=== PATIENT | female | born 1945 | race African-American/Black ===

== ENCOUNTER 2016-12-26 21:31 | Inpatient (IN) | payer OTHER ==
--- NOTE | 2016-12-26 21:53 | PDOC ---
History of Present Illness - General History Source: Patient, Family Exam Limitations: No Limitations - History of Present Illness Initial Comments: 12/26/16 22:00 The patient is a 71 year old female with a significant past medical history of hypertension, and diabetes, presenting to the Emergency Department with left sided facial droop. The patient was seen on arrival. The patient reports that she was speaking at a meeting when some of the guests noticed that her face and speech were not normal, and somewhat slurred. The patients family reports that the left sided facial droop started about one hour ago. The patients family denies loss of consciousness or change in mental status, though they admit that her speech is still somewhat irregular. The patient reports that she has not been feeling well for a few days and saw her PCP on Friday. The patient denies headache, or dizziness. Patient denies numbness or tingling. Patient denies nausea, vomiting, and diarrhea. Patient denies fever, cough, and chills. PCP: Dr. Golden <Patricia Britt - Last Filed: 12/26/16 22:00> <Veena Rondon - Last Filed: 12/26/16 22:51> <Sasha Olguin - Last Filed: 12/26/16 22:54> - General Chief Complaint: Blood Pressure Problem Stated Complaint: BLOOD PRESSURE PROBLEM Time Seen by Provider: 12/26/16 21:53 NIH Stroke Scale - Last Known Well Date/Time & Onset Date Last Known Well: 12/26/16 Time Last Known Well: 20:45 - Initial Evaluation Level of consciousness: Alert Ask patient the month and their age: Answers both correctly Ask patient to open & close eyes; make fist and let go: Obeys both correctly Best gaze (horizontal eye movement): Normal Visual field testing: No visual field loss Facial paresis (Show teeth/raise eyebrows/close eyes tight): Minor paralysis ( flattened nasolabial fold, asymmetry on smiling) Motor Function: Left Arm: Drift Motor Function: Right Arm: Normal (extends arm 90 (or 45) degrees for 10 seconds without drift Motor Function: Left Leg: Normal (extends leg 30 degrees for 5 seconds without drift) Motor Function: Right Leg: Normal (extends leg 30 degrees for 5 seconds without drift) Limb Ataxia: No ataxia Sensory(Use pinprick test arms,legs,trunk,face/side to side): Normal Best language (Describe picture, name items, read sentences): No Aphasia Dysarthria (read several words): Mild to moderate slurring of words Extinction and Inattention: No abnormality - Total Score NIH Stroke Scale Score: 3 <Sasha Olguin - Last Filed: 12/26/16 22:54> tPA Exclusion Checklist 0-3hr - Time Elapsed Date last known well: 12/26/16 Time last known well: 20:45 Elaspsed time: Day(s) and 2 Hour(s) and 9 Minutes - Relative Exclusion Criteria 0-3h Stroke severity too mild: Yes - Ineligibility reason(s) Reasons No tPA given: See reason(s) noted above <Sasha Olguin - Last Filed: 12/26/16 22:54> Past History <Patricia Britt - Last Filed: 12/26/16 22:00> <Veena Rondon - Last Filed: 12/26/16 22:51> - Past Medical History Cardiac Disorders: Yes Diabetes: Yes HTN: Yes Hypercholesterolemia: Yes - Psycho/Social/Smoking Cessation Hx Anxiety: No Suicidal Ideation: No Smoking Status: Yes Smoking History: Never smoked Years of Tobacco Use: 25 Have you smoked in the past 12 months: No Number of Cigarettes Smoked Daily: 0 Information on smoking cessation initiated: No Hx Alcohol Use: No Drug/Substance Use Hx: No Substance Use Type: None <Sasha Olguin - Last Filed: 12/26/16 22:54> - Past Medical History Allergies/Adverse Reactions: Allergies Allergy/AdvReac Type Severity Reaction Status Date / Time No Known Allergies Allergy Verified 12/26/16 21:50 Home Medications: Ambulatory Orders Amlodipine Besylate [Norvasc] 10 mg PO DAILY 04/12/12 Aspirin [ASA] 81 mg PO DAILY 04/12/12 Clonidine HCl 0.1 mg PO BID 04/12/12 Valsartan/Hydrochlorothiazide [Diovan Hct 80-12.5 mg Tablet] 1 combo PO DAILY Glimepiride [Amaryl] 2 mg PO DAILY 07/08/15 Review of Systems - Review of Systems Able to Perform ROS?: Yes Comments:: 12/26/16 22:00 GENERAL/CONSTITUTIONAL: + irregular speech. No fever or chills. HEAD, EYES, EARS, NOSE AND THROAT: + left sided facial droop. No change in vision. No ear GASTROINTESTINAL: No nausea, vomiting, diarrhea or constipation. GENITOURINARY: No dysuria, frequency, or change in urination.pain or discharge. No sore throat. CARDIOVASCULAR: No chest pain or shortness of breath. RESPIRATORY: No cough, wheezing, or hemoptysis. MUSCULOSKELETAL: No joint or muscle swelling or pain. No neck or back pain. SKIN: No rash NEUROLOGIC: No headache, vertigo, loss of consciousness, or change in sensation. ENDOCRINE: No increased thirst. No abnormal weight change. HEMATOLOGIC/LYMPHATIC: No anemia, easy bleeding, or history of blood clots. ALLERGIC/IMMUNOLOGIC: No hives or skin allergy. <Patricia Britt - Last Filed: 12/26/16 22:00> *Physical Exam - Vital Signs Last Vital Signs Temp Pulse Resp BP Pulse Ox 98.3 F 88 20 153/86 97 12/26/16 21:45 12/26/16 21:45 12/26/16 21:45 12/26/16 21:45 12/26/16 21:45 <Patricia Britt - Last Filed: 12/26/16 22:00> - Vital Signs Last Vital Signs Temp Pulse Resp BP Pulse Ox 98.3 F 88 20 153/86 97 12/26/16 21:45 12/26/16 21:45 12/26/16 21:45 12/26/16 21:45 12/26/16 21:45 <Veena Rondon - Last Filed: 12/26/16 22:51> - Vital Signs Last Vital Signs Temp Pulse Resp BP Pulse Ox 98.3 F 88 20 153/86 97 12/26/16 21:45 12/26/16 21:45 12/26/16 21:45 12/26/16 21:45 12/26/16 21:45 - Physical Exam Comments: GENERAL: Awake, alert, and fully oriented, in no acute distress HEAD: No signs of trauma. L sided facial droop to lower face. EYES: PERRLA, EOMI, sclera anicteric, conjunctiva clear ENT: Auricles normal inspection, hearing grossly normal, nares patent, oropharynx clear without exudates. Moist mucosa NECK: Normal ROM, supple, no lymphadenopathy, JVD, or masses LUNGS: Breath sounds equal, clear to auscultation bilaterally. No wheezes, and no crackles HEART: Regular rate and rhythm, normal S1 and S2, no murmurs, rubs or gallops ABDOMEN: Soft, nontender, normoactive bowel sounds. No guarding, no rebound. No masses EXTREMITIES: Normal range of motion, no edema. No clubbing or cyanosis. No cords, erythema, or tenderness NEUROLOGICAL: Normal gait. See NIHSS for details. SKIN: Warm, Dry, normal turgor, no rashes or lesions noted. <Sasha Olguin - Last Filed: 12/26/16 22:54> ED Treatment Course - LABORATORY CBC & Chemistry Diagram: 12/26/16 22:00 12/26/16 22:00 - ADDITIONAL ORDERS Additional order review: Laboratory Results 12/26/16 12/26/16 22:00 22:00 INR Cancelled Anti-A Titer Cancelled Blood Type Cancelled Antibody Screen Cancelled Spec Expiration Date Cancelled 12/26/16 22:00 RBC 4.57 MCV 90.4 MCHC 32.1 RDW 17.1 H MPV 8.8 Neutrophils % 66.2 Lymphocytes % 23.0 Monocytes % 8.3 Eosinophils % 1.7 Basophils % 0.8 D <Veena Rondon - Last Filed: 12/26/16 22:51> - LABORATORY CBC & Chemistry Diagram: 12/26/16 22:00 12/26/16 22:00 <Sasha Olguin - Last Filed: 12/26/16 22:54> Medical Decision Making - Medical Decision Making 12/26/16 22:[address] Roderick Chicas (via ) at 22:24 and patient's case was discussed. 12/26/16 22:[address] Jeremy Hadley who is covering for Dr. Ravi Valentine who is covering for Dr. Tony Golden (via answering service) at 22:47. Awaiting call back 12/26/16 22:51 Patient's case discussed with Dr. Hadley at 22:51 <Veena Rondon - Last Filed: 12/26/16 22:51> - Medical Decision Making 12/26/16 22:31 Case d/w Dr. Chicas, astronomy instructor for neuro. NIHSS is 3. Will not give tPA as stroke scale is mild, risk outweighs benefit. Recommended a full dose of aspirin. Discussed with patient and family at bedside. Patient already took 81mg this morning, I will give the remaining 243 mg in the ED. <Sasha Olguin - Last Filed: 12/26/16 22:54> *DC/Admit/Observation/Transfer - Attestations Scribe Attestion: 12/26/16 22:01 Documentation prepared by Patricia Britt, acting as senior medical director for Sasha Olguin MD. <Patricia Britt - Last Filed: 12/26/16 22:00> <Veena Rondon - Last Filed: 12/26/16 22:51> - Discharge Dispostion Admit: Yes <Sasha Olguin - Last Filed: 12/26/16 22:54> Diagnosis at time of Disposition: CVA (cerebral vascular accident) Qualifiers: CVA mechanism: unspecified Qualified Code(s): I63.9 - Cerebral infarction, unspecified - Discharge Dispostion Condition at time of disposition: Stable - Referrals Referrals: Tony Golden MD [Primary Care Provider] -
[2016-12-26] MEDS ORDERED: SODIUM CHLORIDE 1,000 ML IV SCH (22:00)
[2016-12-26 22:04] LABS: BASOPHIL 0.8 % (0-2.0); EOSINOPHIL 1.7 % (0-4.5); MCHC 32.1 g/dl (32.0-36.0); MEAN CELL VOLUME 90.4 fl (80-96); MEAN PLT VOLUME 8.8 fl (7.5-11.1); NEUTROPHILS 66.2 % (42.8-82.8); PLATELET COUNT 210 K/MM3 (134-434); RDW 17.1 % (11.6-15.6); WHITE BLOOD COUNT 9.3 K/mm3 (4.0-10.0)
[2016-12-26 22:27] LABS: ALBUMIN 3.5 g/dl (3.4-5.0); BILIRUBIN,TOTAL 0.5 mg/dL (0.2-1.0); CALCIUM 8.8 mg/dL (8.5-10.1); COCKROFT - GAULT 68.9945; CREATININE 1.3 mg/dL (0.55-1.02); TOT PROT 7.1 g/dl (6.4-8.2)
[2016-12-26 22:28] LABS: TROPONIN I 0.03 ng/ml (0.00-0.05)
[2016-12-26 22:43] LABS: INR 0.98 (0.82-1.09); PROTHROMBIN TIME (PATIENT) 10.8 SEC (9.98-11.88)
[2016-12-26 22:46] LABS: ACTIVATED PTT 22.6 SECONDS (26.9-34.4)
[2016-12-26] MEDS ORDERED: ASPIRIN 81 MG CHEWABLE TABLETS PO ONE (22:48)
[2016-12-26] MEDS ORDERED: ASPIRIN 81 MG CHEWABLE TABLETS ONE (23:16)
[2016-12-26] MEDS ORDERED: ACETAMINOPHEN 325 MG TABLET (FP) PO PRN (23:33)
[2016-12-27 04:07] LABS: URINE APPEARANCE CLEAR; URINE BILIRUBIN NEGATIVE (NEGATIVE); URINE BLOOD NEGATIVE (NEGATIVE); URINE COLOR STRAW; URINE GLUCOSE (UA) NEGATIVE (NEGATIVE); URINE KETONE NEGATIVE (NEGATIVE); URINE LEUK ESTERASE NEGATIVE (NEGATIVE); URINE NITRITE NEGATIVE (NEGATIVE); URINE PROTEIN NEGATIVE (NEGATIVE); URINE UROBILINOGEN NEGATIVE E.U./dl (0.2-1.0)
[2016-12-27 05:17] VITALS: BMI 41.5
[2016-12-27] MEDS: INSULIN SLIDING SCALE (NOVOLOG) 1 VIAL SQ SCH ×4 (06:21→21:12)
[2016-12-27 07:07] LABS: BASOPHIL 0.5 % (0-2.0); EOSINOPHIL 1.8 % (0-4.5); MCH 29.9 pg (25.7-33.7); MCHC 33.2 g/dl (32.0-36.0); MEAN CELL VOLUME 89.9 fl (80-96); MEAN PLT VOLUME 9.1 fl (7.5-11.1); NEUTROPHILS 67.5 % (42.8-82.8); PLATELET COUNT 190 K/MM3 (134-434); RDW 16.9 % (11.6-15.6); WHITE BLOOD COUNT 8.2 K/mm3 (4.0-10.0)
[2016-12-27 07:33] LABS: ALBUMIN 3.3 g/dl (3.4-5.0); CALCIUM 8.4 mg/dL (8.5-10.1); MAGNESIUM 2.4 mg/dL (1.8-2.4)
[2016-12-27 07:36] LABS: BILIRUBIN,TOTAL 0.6 mg/dL (0.2-1.0); COCKROFT - GAULT 86.513; CREATININE 1.1 mg/dL (0.55-1.02); TOT PROT 6.9 g/dl (6.4-8.2); TROPONIN I 0.03 ng/ml (0.00-0.05)
[2016-12-27] MEDS: GLIMEPIRIDE 2 MG TABLET (FP) PO SCH (08:51)
--- NOTE | 2016-12-27 09:17 | EKG ---
Test Reason : Blood Pressure : / mmHG Vent. Rate : 080 BPM Atrial Rate : 080 BPM P-R Int : 156 ms QRS Dur : 094 ms QT Int : 438 ms P-R-T Axes : 052 039 086 degrees QTc Int : 505 ms NORMAL SINUS RHYTHM PROLONGED QT ABNORMAL ECG WHEN COMPARED WITH ECG OF 12-APR-2012 15:39, NO SIGNIFICANT CHANGE WAS FOUND Confirmed by MIRTA MILLS MD ([id number]) on 12/27/2016 9:17:02 AM Referred By: Confirmed By:MIRTA MILLS MD
[2016-12-27] MEDS: METOPROLOL TARTRATE 25 MG TABLET (FP) PO SCH (11:22)
[2016-12-27] MEDS: HEPARIN NA (PORCINE) 5,000 UNITS/ML 1ML VIAL SQ SCH ×2 (11:22→21:15)
[2016-12-27] MEDS: CLOPIDOGREL BISULFATE 75 MG TABLET (FP) PO SCH (11:22)
[2016-12-27] MEDS: amLODIPine BESYLATE 10 MG TABLET (FP) PO SCH (11:22)
[2016-12-27] MEDS: cloNIDine HCL 0.1 MG TABLET PO SCH ×3 (11:22→21:48)
[2016-12-27] MEDS: ASPIRIN 81 MG CHEWABLE TABLETS PO SCH (11:22)
--- NOTE | 2016-12-27 11:30 | HP ---
Admitting History and Physical - Primary Care Physician PCP: Jeremy Hadley - Admission Chief Complaint: Slurred speech, facial droop History of Present Illness: The patient is a 71 year old female with PMH of htn, Hyperlipidemia? and diabetes, presented to the ER with left sided facial droop. The patient reports that she was speaking at a meeting when some of the guests noticed that her face and speech were not normal, and somewhat slurred. The patient denies any loss of consciousness or change in mental status, though they admit that her speech is still somewhat irregular. The patient reports that she had been feeling fatigued for past few days. She saw Dr. Golden her PCP on Friday for a regular visit. PCP: Dr. Golden History Source: Patient Limitations to Obtaining History: No Limitations - Past Medical History Cardiovascular: Yes: HTN ...: No Endocrine: Yes: Diabetes Mellitus - Past Surgical History Past Surgical History: Yes: Tubal Ligation - Smoking History Smoking history: Former smoker Have you smoked in the past 12 months: No Aproximately how many cigarettes per day: 6 If you are a former smoker, when did you quit?: 1967 - Alcohol/Substance Use Hx Alcohol Use: No - Social History Usual Living Arrangement: Yes: Alone ADL: Independent History of Recent Travel: No Home Medications - Allergies Allergies/Adverse Reactions: Allergies Allergy/AdvReac Type Severity Reaction Status Date / Time No Known Allergies Allergy Verified 12/26/16 21:50 - Home Medications Home Medications: Ambulatory Orders Amlodipine Besylate [Norvasc -] 10 mg PO DAILY 12/27/16 Aspirin [ASA -] 81 mg PO DAILY 12/27/16 Clonidine HCl 0.2 mg PO 12/27/16 Glimepiride [Amaryl] 4 mg PO 12/27/16 Simvastatin [Zocor] 10 mg PO HS 12/27/16 Valsartan [Diovan] 160 mg PO DAILY 12/27/16 Family Disease History - Family Disease History Family Disease History: Diabetes: Mother (HTN), Sister (2 sisters), Heart Disease: Grandparent (MGM-HTN), Mother, Brother (2 BROTHERS-HTN) Review of Systems - Review of Systems Constitutional: reports: No Symptoms, Malaise HENT: reports: No Symptoms Neck: reports: No Symptoms Cardiovascular: reports: Shortness of Breath Respiratory: reports: SOB on Exertion Gastrointestinal: reports: No Symptoms Genitourinary: reports: No Symptoms Breasts: reports: No Symptoms Reported Musculoskeletal: reports: No Symptoms Neurological: reports: No Symptoms Endocrine: reports: No Symptoms Hematology/Lymphatic: reports: No Symptoms Psychiatric: reports: No Symptoms Physical Examination Vital Signs: Vital Signs Temperature 98.1 F 12/27/16 06:00 Pulse Rate 81 12/27/16 06:00 Respiratory Rate 20 12/27/16 06:00 Blood Pressure 137/89 12/27/16 06:00 O2 Sat by Pulse Oximetry (%) 95 12/27/16 03:33 Constitutional: Yes: Well Nourished Cardiovascular: Yes: Regular Rate and Rhythm, Murmur (Grade I LSB), S1, S2 Respiratory: Yes: WNL, Regular Gastrointestinal: Yes: WNL, Normal Bowel Sounds Extremities: Yes: WNL Edema: No Peripheral Pulses WNL: No Peripheral Pulses: Left Doralis Pedis: 1+, Right Dorsalis Pedis: 1+ Integumentary: Yes: WNL Psychiatric: Yes: Alert, Oriented Labs: CBC, BMP 12/27/16 06:00 12/27/16 06:00 Imaging - Results Cat Scan: Report Reviewed MRI: Pending Problem List - Problems (1) CVA (cerebral vascular accident) Assessment/Plan: CT head negative, Neuro consult, ordered MRI Code(s): I63.9 - CEREBRAL INFARCTION, UNSPECIFIED Qualifiers: CVA mechanism: unspecified Qualified Code(s): I63.9 - Cerebral infarction, unspecified (2) Diabetes 1.5, managed as type 2 Assessment/Plan: At goal with HgA1C of 6.2% Code(s): E10.9 - TYPE 1 DIABETES MELLITUS WITHOUT COMPLICATIONS (3) HTN (hypertension) Assessment/Plan: Borderline Code(s): I10 - ESSENTIAL (PRIMARY) HYPERTENSION Assessment/Plan IV hydration Neuro Consult Cardiology consult Carotid U/S negative Echo pending MRI
--- NOTE | 2016-12-27 12:32 | CONSULT ---
Consult - text type - Consultation Consultation Note: Neurology History of Present Illness The patient is a 71 year old female with a significant past medical history of hypertension, and diabetes, presented to the Emergency Department with left sided facial droop. The patient was seen on arrival. The patient reports that she was speaking at a meeting when some of the guests noticed that her face and speech were not normal, and somewhat slurred. Her difficulties improved in the ER and NIHSS was 3 and therefore TPA not pursued. Patient to be admitted for CVA workup. She takes daily ASA 81 and was given 242 mg more. PCP started patient on plavix as well, will continue for now. Ordered MRI brain. Spoke to [employer] for PCP and discussed case. Past History Cardiac Disorders: Yes Diabetes: Yes HTN: Yes Hypercholesterolemia: Yes - Psycho/Social/Smoking Cessation Hx Anxiety: No Suicidal Ideation: No Smoking Status: Yes Smoking History: Never smoked Years of Tobacco Use: 25 Have you smoked in the past 12 months: No Number of Cigarettes Smoked Daily: 0 Information on smoking cessation initiated: No Hx Alcohol Use: No Drug/Substance Use Hx: No Substance Use Type: None - Past Medical History Allergies/Adverse Reactions: Allergies Allergy/AdvReac Type Severity Reaction Status Date / Time No Known Allergies Allergy Verified 12/26/16 21:50 Home Medications: Ambulatory Orders Amlodipine Besylate [Norvasc] 10 mg PO DAILY 04/12/12 Aspirin [ASA] 81 mg PO DAILY 04/12/12 Clonidine HCl 0.1 mg PO BID 04/12/12 Valsartan/Hydrochlorothiazide [Diovan Hct 80-12.5 mg Tablet] 1 combo PO DAILY Glimepiride [Amaryl] 2 mg PO DAILY 07/08/15 Review of Systems GENERAL/CONSTITUTIONAL: + irregular speech. No fever or chills. HEAD, EYES, EARS, NOSE AND THROAT: + left sided facial droop. No change in vision. No ear GASTROINTESTINAL: No nausea, vomiting, diarrhea or constipation. GENITOURINARY: No dysuria, frequency, or change in urination.pain or discharge. No sore throat. CARDIOVASCULAR: No chest pain or shortness of breath. RESPIRATORY: No cough, wheezing, or hemoptysis. MUSCULOSKELETAL: No joint or muscle swelling or pain. No neck or back pain. SKIN: No rash NEUROLOGIC: No headache, vertigo, loss of consciousness, or change in sensation. ENDOCRINE: No increased thirst. No abnormal weight change. HEMATOLOGIC/LYMPHATIC: No anemia, easy bleeding, or history of blood clots. ALLERGIC/IMMUNOLOGIC: No hives or skin allergy. *Physical Exam Last Vital Signs Temp Pulse Resp BP Pulse Ox 98.3 F 88 20 153/86 97 12/26/16 21:45 12/26/16 21:45 12/26/16 21:45 12/26/16 21:45 12/26/16 21:45 GENERAL: Awake, alert, and fully oriented, in no acute distress HEAD: No signs of trauma. L sided facial droop to lower face. EYES: PERRLA, EOMI, sclera anicteric, conjunctiva clear ENT: Auricles normal inspection, hearing grossly normal, nares patent, oropharynx clear without exudates. Moist mucosa NECK: Normal ROM, supple, no lymphadenopathy, JVD, or masses LUNGS: Breath sounds equal, clear to auscultation bilaterally. No wheezes, and no crackles HEART: Regular rate and rhythm, normal S1 and S2, no murmurs, rubs or gallops ABDOMEN: Soft, nontender, normoactive bowel sounds. No guarding, no rebound. No masses EXTREMITIES: Normal range of motion, no edema. No clubbing or cyanosis. No cords, erythema, or tenderness NEUROLOGICAL: Level of consciousness: Alert Ask patient the month and their age: Answers both correctly Ask patient to open & close eyes; make fist and let go: Obeys both correctly Best gaze (horizontal eye movement): Normal Visual field testing: No visual field loss Facial paresis (Show teeth/raise eyebrows/close eyes tight): Minor paralysis ( flattened nasolabial fold, asymmetry on smiling) Motor Function: Left Arm: Drift Motor Function: Right Arm: Normal (extends arm 90 (or 45) degrees for 10 seconds without drift Motor Function: Left Leg: Normal (extends leg 30 degrees for 5 seconds without drift) Motor Function: Right Leg: Normal (extends leg 30 degrees for 5 seconds without drift) Limb Ataxia: No ataxia Sensory(Use pinprick test arms,legs,trunk,face/side to side): Normal Best language (Describe picture, name items, read sentences): No Aphasia Dysarthria (read several words): Mild to moderate slurring of words Extinction and Inattention: No abnormality CBCD WBC 8.2 K/mm3 (4.0-10.0) 12/27/16 06:00 RBC 4.55 M/mm3 (3.60-5.2) 12/27/16 06:00 Hgb 13.6 GM/dL (10.7-15.3) 12/27/16 06:00 Hct 40.9 % (32.4-45.2) 12/27/16 06:00 MCV 89.9 fl (80-96) 12/27/16 06:00 MCHC 33.2 g/dl (32.0-36.0) 12/27/16 06:00 RDW 16.9 % (11.6-15.6) H 12/27/16 06:00 Plt Count 190 K/MM3 (134-434) 12/27/16 06:00 MPV 9.1 fl (7.5-11.1) 12/27/16 06:00 CMP Sodium 141 mmol/L (136-145) 12/27/16 06:00 Potassium 4.3 mmol/L (3.5-5.1) 12/27/16 06:00 Chloride 108 mmol/L (98-107) H 12/27/16 06:00 Carbon Dioxide 26 mmol/L (21-32) 12/27/16 06:00 Anion Gap 7 (8-16) L 12/27/16 06:00 BUN 21 mg/dL (7-18) H 12/27/16 06:00 Creatinine 1.1 mg/dL (0.55-1.02) H 12/27/16 06:00 Creat Clearance w eGFR 48.69 (>60) 12/27/16 06:00 Calcium 8.4 mg/dL (8.5-10.1) L 12/27/16 06:00 Total Bilirubin 0.6 mg/dL (0.2-1.0) 12/27/16 06:00 AST 36 U/L (15-37) 12/27/16 06:00 ALT 30 U/L (12-78) 12/27/16 06:00 Alkaline Phosphatase 62 U/L (45-117) 12/27/16 06:00 Total Protein 6.9 g/dl (6.4-8.2) 12/27/16 06:00 Albumin 3.3 g/dl (3.4-5.0) L 12/27/16 06:00 CT head: No acute changes Medical Decision Making 71 year old female with a significant past medical history of hypertension, and diabetes, presented to the Emergency Department with left sided facial droop. The patient was seen on arrival. The patient reports that she was speaking at a meeting when some of the guests noticed that her face and speech were not normal , and somewhat slurred. Her difficulties improved in the ER and NIHSS was 3 and therefore TPA not pursued. Patient to be admitted for CVA workup. She takes daily ASA 81 and was given 242 mg more. PCP started patient on plavix as well, will continue for now. Ordered MRI brain. Check CD, Echo Lipid profile, Statin PCP started plavix, if no CVA then would not continue but if CVA found on MRI then agree with adding second antiplatelet BP can remain increased up to 180/100 for now, ok for up 160/90 tomorrow and up to 140/90 thereafter Speech/swallow eval
--- NOTE | 2016-12-27 14:01 | CON.CARD ---
Consult Consult Specialty:: Cardiology Referred by:: Dr Hadley Reason for Consultation:: cva - History of Present Illness Chief Complaint: slurred speech, left facial droop History of Present Illness: 71F obesity, HTN, NIDDM, chol, admitted with new onset left facial droop and slurred speech. No other symptoms. Denies palpitations, chest pain, sob, orthopnea, pnd or edema. Baseline exercise tolerance is good. CT scan negative Carotid duplex negative Echo pending - History Source History Provided By: Patient, Medical Record Limitations to Obtaining History: No Limitations - Past Medical History Cardio/Vascular: Yes: HTN ...: No Endocrine: Yes: Diabetes Mellitus - Past Surgical History Past Surgical History: Yes: Tubal Ligation - Alcohol/Substance Use Hx Alcohol Use: No - Smoking History Smoking history: Former smoker Have you smoked in the past 12 months: No Aproximately how many cigarettes per day: 6 If you are a former smoker, when did you quit?: 1966 - Social History ADL: Independent History of Recent Travel: No Home Medications - Allergies Allergies/Adverse Reactions: Allergies Allergy/AdvReac Type Severity Reaction Status Date / Time No Known Allergies Allergy Verified 12/26/16 21:50 - Home Medications Home Medications: Ambulatory Orders Amlodipine Besylate [Norvasc -] 10 mg PO DAILY 12/27/16 Aspirin [ASA -] 81 mg PO DAILY 12/27/16 Clonidine HCl 0.2 mg PO DAILY 12/27/16 Glimepiride [Amaryl] 4 mg PO DAILY 12/27/16 Simvastatin [Zocor] 10 mg PO HS 12/27/16 Valsartan [Diovan] 160 mg PO DAILY 12/27/16 Family Disease History - Family Disease History Family Disease History: Diabetes: Mother (HTN), Sister (2 sisters), Heart Disease: Grandparent (MGM-HTN), Mother, Brother (2 BROTHERS-HTN) - Risk Factors Known Risk Factors: Yes: Diabetes Mellitus, Hypercholesterolemia, Hypertension Vital Signs: Vital Signs Temperature 98.2 F 12/27/16 13:55 Pulse Rate 76 12/27/16 13:55 Respiratory Rate 20 12/27/16 13:55 Blood Pressure 142/85 12/27/16 13:55 O2 Sat by Pulse Oximetry (%) 94 L 12/27/16 09:00 Constitutional: Yes: No Distress, Calm, Obese Eyes: Yes: WNL HENT: Yes: WNL, Atraumatic, Normocephalic Neck: Yes: Supple, Trachea Midline Respiratory: Yes: CTA Bilaterally Gastrointestinal: Yes: Normal Bowel Sounds, Soft, Abdomen, Obese Cardiovascular: Yes: Regular Rate and Rhythm JVD: No Carotid Bruit: No Heart Sounds: Yes: S1, S2 Extremities: Yes: WNL Edema: No Peripheral Pulses WNL: Yes - Other Data Labs, Other Data: CBC, BMP 12/27/16 06:00 12/27/16 06:00 INR, PTT INR 0.98 (0.82-1.09) 12/26/16 22:25 Troponin, BNP 12/27/16 06:00 Troponin I 0.03 B-Natriuretic Peptide 690.08 H Troponin, BNP 12/27/16 06:00 Troponin I 0.03 B-Natriuretic Peptide 690.08 H NSR LVH nssttw changes. Prolonged qt. no change. Echo: Pending Imaging - Results Chest X-ray: Report Reviewed Cat Scan: Report Reviewed (negative) EKG: Report Reviewed Other: Report Reviewed (duplex carotids negative) Problem List - Problems (1) CVA (cerebral vascular accident) Assessment/Plan: continue asa, plavix and statin. MRI is pending. Echo pending. would get holter monitor as well or outpatient event monitor for 30 days when dcd to rule out atrial fibrillation if MRI shows acute CVA. If no CVA can dc plavix. Continue dual antiplatelet therapy for now. Code(s): I63.9 - CEREBRAL INFARCTION, UNSPECIFIED Qualifiers: CVA mechanism: unspecified Qualified Code(s): I63.9 - Cerebral infarction, unspecified (2) HTN (hypertension) Assessment/Plan: continue current regimen for now. Code(s): I10 - ESSENTIAL (PRIMARY) HYPERTENSION
[2016-12-27] MEDS: ATORVASTATIN CA 40 MG TABLET (FP) PO SCH (21:15)
[2016-12-28] MEDS: INSULIN SLIDING SCALE (NOVOLOG) 1 VIAL SQ SCH ×4 (06:59→23:01)
[2016-12-28 07:16] LABS: BASOPHIL 0.4 % (0-2.0); EOSINOPHIL 1.9 % (0-4.5); MCH 29.6 pg (25.7-33.7); MEAN CELL VOLUME 89.7 fl (80-96); NEUTROPHILS 62.7 % (42.8-82.8); PLATELET COUNT 198 K/MM3 (134-434); RDW 16.6 % (11.6-15.6); WHITE BLOOD COUNT 7.6 K/mm3 (4.0-10.0)
[2016-12-28 07:42] LABS: ALBUMIN 3.4 g/dl (3.4-5.0); CALCIUM 8.6 mg/dL (8.5-10.1); COCKROFT - GAULT 95.1575
[2016-12-28 07:51] LABS: BILIRUBIN,TOTAL 0.7 mg/dL (0.2-1.0); THYROID STIMULATING HORMONE 2.59 uIU/ml (0.358-3.74); TOT PROT 7.2 g/dl (6.4-8.2); TROPONIN I 0.02 ng/ml (0.00-0.05)
--- NOTE | 2016-12-28 08:43 | PN ---
Progress Note, Physician History of Present Illness: FEELS BETTER FACIAL DROOP - Current Medication List Current Medications: Active Medications Acetaminophen (Tylenol -) 650 mg PO Q4H PRN PRN Reason: FEVER OR PAIN Amlodipine Besylate (Norvasc -) 10 mg PO DAILY [facility] Last Admin: 12/27/16 11:22 Dose: 10 mg Aspirin (Asa -) 81 mg PO DAILY [facility] Last Admin: 12/27/16 11:22 Dose: 81 mg Atorvastatin Calcium (Lipitor -) 40 mg PO HS [facility] Last Admin: 12/27/16 21:15 Dose: 40 mg Clonidine (Catapres -) 0.1 mg PO BID [facility] Last Admin: 12/27/16 21:48 Dose: 0.1 mg Clopidogrel Bisulfate (Plavix -) 75 mg PO DAILY [facility] Last Admin: 12/27/16 11:22 Dose: 75 mg Glimepiride (Amaryl -) 2 mg PO DAILY@0700 [facility] Last Admin: 12/27/16 08:51 Dose: Not Given Heparin Sodium (Porcine) (Heparin -) 5,000 unit SQ BID [facility] Last Admin: 12/27/16 21:15 Dose: 5,000 unit Insulin Aspart (Novolog Vial Sliding Scale -) 1 vial SQ ACHS [facility] PRN Reason: Protocol Last Admin: 12/28/16 06:59 Dose: Not Given Metoprolol Tartrate (Lopressor -) 25 mg PO DAILY [facility] Last Admin: 12/27/16 11:22 Dose: 25 mg Valsartan (Diovan -) 160 mg PO DAILY [facility] - Objective Vital Signs: Vital Signs Temperature 98.1 F 12/28/16 06:00 Pulse Rate 88 12/28/16 06:00 Respiratory Rate 22 12/28/16 06:00 Blood Pressure 157/97 12/28/16 06:00 O2 Sat by Pulse Oximetry (%) 94 L 12/27/16 20:26 Cardiovascular: Yes: S1, S2 Respiratory: Yes: Regular, CTA Bilaterally Gastrointestinal: Yes: Normal Bowel Sounds, Soft Neurological: Yes: Alert, Oriented, Facial Droop. No: Lethargy Labs: CBC, BMP 12/28/16 06:00 12/28/16 06:00 INR, PTT INR 0.98 (0.82-1.09) 12/26/16 22:25 Problem List - Problems (1) CVA (cerebral vascular accident) Assessment/Plan: MRI ACUTE FRONTAL CVA ON ASA/PLAVIX ON STATIN Laboratory Tests 12/27/16 06:00 Triglycerides 95 D Cholesterol 147 Total LDL Cholesterol 69 PT Code(s): I63.9 - CEREBRAL INFARCTION, UNSPECIFIED Qualifiers: CVA mechanism: unspecified Qualified Code(s): I63.9 - Cerebral infarction, unspecified (2) Diabetes 1.5, managed as type 2 Assessment/Plan: BGM MONITOR Laboratory Tests 12/27/16 06:00 Hemoglobin A1c % 6.2 H Code(s): E10.9 - TYPE 1 DIABETES MELLITUS WITHOUT COMPLICATIONS (3) HTN (hypertension) Assessment/Plan: ELEVATED Selected Entries 12/28/16 12/28/16 12/28/16 02:00 06:00 09:27 Blood Pressure 139/94 157/97 142/100 WILL RESUME DIOVAN AND MONITOR Code(s): I10 - ESSENTIAL (PRIMARY) HYPERTENSION
[2016-12-28] MEDS ORDERED: PT OWN MED DRAWER 7, Y5N ONE (09:14)
[2016-12-28] MEDS: METOPROLOL TARTRATE 25 MG TABLET (FP) PO SCH (09:23)
[2016-12-28] MEDS: CLOPIDOGREL BISULFATE 75 MG TABLET (FP) PO SCH (09:23)
[2016-12-28] MEDS: VALSARTAN 160 MG TABLET (UD) PO SCH (09:23)
[2016-12-28] MEDS: GLIMEPIRIDE 2 MG TABLET (FP) PO SCH (09:23)
[2016-12-28] MEDS: amLODIPine BESYLATE 10 MG TABLET (FP) PO SCH (09:23)
[2016-12-28] MEDS: cloNIDine HCL 0.1 MG TABLET PO SCH ×2 (09:23→23:01)
[2016-12-28] MEDS: ASPIRIN 81 MG CHEWABLE TABLETS PO SCH (09:23)
[2016-12-28] MEDS: HEPARIN NA (PORCINE) 5,000 UNITS/ML 1ML VIAL SQ SCH ×2 (09:26→23:01)
--- NOTE | 2016-12-28 13:07 | PN ---
Progress Note, Physician Chief Complaint: no new complaints tele negative History of Present Illness: 71F obesity, HTN, NIDDM, chol, admitted with new onset left facial droop and slurred speech. No other symptoms. Denies palpitations, chest pain, sob, orthopnea, pnd or edema. Baseline exercise tolerance is good. CT scan negative Carotid duplex negative Echo 12/27/16 mild dec EF, 48%, mild MR, severe TR severe pulm htn MRI acute rt frontal CVA Duplex legs negative for DVT 12/27/16 CTA 12/27/16 no pe, ground glass. - Current Medication List Current Medications: Active Medications Acetaminophen (Tylenol -) 650 mg PO Q4H PRN PRN Reason: FEVER OR PAIN Amlodipine Besylate (Norvasc -) 10 mg PO DAILY [facility] Last Admin: 12/28/16 09:23 Dose: 10 mg Aspirin (Asa -) 81 mg PO DAILY [facility] Last Admin: 12/28/16 09:23 Dose: 81 mg Atorvastatin Calcium (Lipitor -) 40 mg PO HS [facility] Last Admin: 12/27/16 21:15 Dose: 40 mg Clonidine (Catapres -) 0.1 mg PO BID [facility] Last Admin: 12/28/16 09:23 Dose: 0.1 mg Clopidogrel Bisulfate (Plavix -) 75 mg PO DAILY [facility] Last Admin: 12/28/16 09:23 Dose: 75 mg Glimepiride (Amaryl -) 2 mg PO DAILY@0700 [facility] Last Admin: 12/28/16 09:23 Dose: 2 mg Heparin Sodium (Porcine) (Heparin -) 5,000 unit SQ BID [facility] Last Admin: 12/28/16 09:26 Dose: 5,000 unit Insulin Aspart (Novolog Vial Sliding Scale -) 1 vial SQ ACHS [facility] PRN Reason: Protocol Last Admin: 12/28/16 12:30 Dose: Not Given Metoprolol Tartrate (Lopressor -) 25 mg PO DAILY [facility] Last Admin: 12/28/16 09:23 Dose: 25 mg Valsartan (Diovan -) 160 mg PO DAILY [facility] Last Admin: 12/28/16 09:23 Dose: 160 mg - Objective Vital Signs: Vital Signs Temperature 98.1 F 12/28/16 06:00 Pulse Rate 85 12/28/16 09:27 Respiratory Rate 20 12/28/16 09:27 Blood Pressure 142/100 12/28/16 09:27 O2 Sat by Pulse Oximetry (%) 94 L 12/27/16 20:26 Constitutional: Yes: No Distress, Calm Eyes: Yes: Conjunctiva Clear HENT: Yes: Atraumatic, Normocephalic, Other (lt facial droop) Neck: Yes: Supple, Trachea Midline Cardiovascular: Yes: Regular Rate and Rhythm Respiratory: Yes: CTA Bilaterally Gastrointestinal: Yes: Normal Bowel Sounds, Soft Extremities: Yes: WNL Edema: No Peripheral Pulses WNL: Yes Labs: CBC, BMP 12/28/16 06:00 12/28/16 06:00 INR, PTT INR 0.98 (0.82-1.09) 12/26/16 22:25 Problem List - Problems (1) CVA (cerebral vascular accident) Assessment/Plan: continue asa, plavix and statin. MRI acute CVA, continue ASA and Plavix. Echo with pulm htn severe will need further workup as stable outpatient when recovered from her stroke. would get outpatient event monitor for 30 days when dcd to rule out atrial fibrillation. No further cardiac workup needed at present. Will follow as outpatient. Code(s): I63.9 - CEREBRAL INFARCTION, UNSPECIFIED Qualifiers: Qualified Code(s): I63.9 - Cerebral infarction, unspecified (2) HTN (hypertension) Assessment/Plan: continue current regimen for now. Code(s): I10 - ESSENTIAL (PRIMARY) HYPERTENSION
--- NOTE | 2016-12-28 15:00 | PN ---
Progress Note, Physician Chief Complaint: Neurology F/U for Dr. Chicas 71 year old woman with acute dysarthria and facial droop, with rapid improvement. She still has deficit, however. Dr. Kenny's note appreciated. He intends to pursue supervisor intermediates monitoring as outpatient which I think is important. - Current Medication List Current Medications: Active Medications Acetaminophen (Tylenol -) 650 mg PO Q4H PRN PRN Reason: FEVER OR PAIN Amlodipine Besylate (Norvasc -) 10 mg PO DAILY [facility] Last Admin: 12/28/16 09:23 Dose: 10 mg Aspirin (Asa -) 81 mg PO DAILY [facility] Last Admin: 12/28/16 09:23 Dose: 81 mg Atorvastatin Calcium (Lipitor -) 40 mg PO HS [facility] Last Admin: 12/27/16 21:15 Dose: 40 mg Clonidine (Catapres -) 0.1 mg PO BID [facility] Last Admin: 12/28/16 09:23 Dose: 0.1 mg Clopidogrel Bisulfate (Plavix -) 75 mg PO DAILY [facility] Last Admin: 12/28/16 09:23 Dose: 75 mg Glimepiride (Amaryl -) 2 mg PO DAILY@0700 [facility] Last Admin: 12/28/16 09:23 Dose: 2 mg Heparin Sodium (Porcine) (Heparin -) 5,000 unit SQ BID [facility] Last Admin: 12/28/16 09:26 Dose: 5,000 unit Insulin Aspart (Novolog Vial Sliding Scale -) 1 vial SQ ACHS [facility] PRN Reason: Protocol Last Admin: 12/28/16 12:30 Dose: Not Given Metoprolol Tartrate (Lopressor -) 25 mg PO DAILY [facility] Last Admin: 12/28/16 09:23 Dose: 25 mg Valsartan (Diovan -) 160 mg PO DAILY [facility] Last Admin: 12/28/16 09:23 Dose: 160 mg - Objective Vital Signs: Vital Signs Temperature 98.1 F 12/28/16 06:00 Pulse Rate 85 12/28/16 09:27 Respiratory Rate 20 12/28/16 09:27 Blood Pressure 142/100 12/28/16 09:27 O2 Sat by Pulse Oximetry (%) 94 L 12/27/16 20:26 Neurological: Yes: Alert, Oriented (Dysarthria), Other (CN OK except for Left central pattern facial weakness.) ...Motor Strength: WNL Labs: CBC, BMP 12/28/16 06:00 12/28/16 06:00 INR, PTT INR 0.98 (0.82-1.09) 12/26/16 22:25 - ....Imaging MRI: Report Reviewed, Image Reviewed (Three acute infarcts, two right basal ganglia, and one right frontal centrum semi-ovale.) Assessment/Plan Cerebral Embolism with Infarction: Given three acute infarcts, this is almost certainly an embolic event. The infarcts appear to be within a single vascular territory, so I cannot tell whether this is an artery to artery event, or cardioembolic. Her carotid arteries look clean, so I don't think that they are a likely source. I'll order MR Angiography to evaluate the possibility of intracerebral artery to artery emboli. I discussed utility of bubble study with Dr. Kenny, who agreed that we wouldn't change from dual antiplatelet therapy to coumaden based on the results, so we can pursue it as an outpatient as necessary. The MR Angiography likewise, will also not identity management developer, but simply help provide an answer, so I wouldn't let it lengthen her stay, and if she is otherwise ready for discharge, she can obtain this as an outpatient and follow up with Dr. Chicas. Thanks. Benjamin Alfaro MD
[2016-12-28] MEDS: ATORVASTATIN CA 40 MG TABLET (FP) PO SCH (23:01)
[2016-12-29] MEDS: INSULIN SLIDING SCALE (NOVOLOG) 1 VIAL SQ SCH ×4 (06:00→21:10)
[2016-12-29] MEDS ORDERED: PT OWN MED DRAWER 7, Y5N ONE ×2 (06:40→07:05)
[2016-12-29] MEDS: GLIMEPIRIDE 2 MG TABLET (FP) PO SCH (07:02)
[2016-12-29] MEDS: METOPROLOL TARTRATE 25 MG TABLET (FP) PO SCH (10:11)
[2016-12-29] MEDS: cloNIDine HCL 0.1 MG TABLET PO SCH ×2 (10:11→21:10)
[2016-12-29] MEDS: ASPIRIN 81 MG CHEWABLE TABLETS PO SCH (10:12)
[2016-12-29] MEDS: VALSARTAN 160 MG TABLET (UD) PO SCH (10:12)
[2016-12-29] MEDS: HEPARIN NA (PORCINE) 5,000 UNITS/ML 1ML VIAL SQ SCH ×2 (10:12→21:10)
[2016-12-29] MEDS: CLOPIDOGREL BISULFATE 75 MG TABLET (FP) PO SCH (10:12)
[2016-12-29] MEDS: amLODIPine BESYLATE 10 MG TABLET (FP) PO SCH (10:15)
--- NOTE | 2016-12-29 12:18 | PN ---
Progress Note, Physician History of Present Illness: FEELS BETTER FACIAL DROOP - Current Medication List Current Medications: Active Medications Acetaminophen (Tylenol -) 650 mg PO Q4H PRN PRN Reason: FEVER OR PAIN Amlodipine Besylate (Norvasc -) 10 mg PO DAILY [facility] Last Admin: 12/29/16 10:15 Dose: 10 mg Aspirin (Asa -) 81 mg PO DAILY [facility] Last Admin: 12/29/16 10:12 Dose: 81 mg Atorvastatin Calcium (Lipitor -) 40 mg PO HS [facility] Last Admin: 12/28/16 23:01 Dose: 40 mg Clonidine (Catapres -) 0.1 mg PO BID [facility] Last Admin: 12/29/16 10:11 Dose: 0.1 mg Clopidogrel Bisulfate (Plavix -) 75 mg PO DAILY [facility] Last Admin: 12/29/16 10:12 Dose: 75 mg Glimepiride (Amaryl -) 2 mg PO DAILY@0700 [facility] Last Admin: 12/29/16 07:02 Dose: 2 mg Heparin Sodium (Porcine) (Heparin -) 5,000 unit SQ BID [facility] Last Admin: 12/29/16 10:12 Dose: 5,000 unit Insulin Aspart (Novolog Vial Sliding Scale -) 1 vial SQ ACHS [facility] PRN Reason: Protocol Last Admin: 12/29/16 06:00 Dose: Not Given Metoprolol Tartrate (Lopressor -) 25 mg PO DAILY [facility] Last Admin: 12/29/16 10:11 Dose: 25 mg Valsartan (Diovan -) 160 mg PO DAILY [facility] Last Admin: 12/29/16 10:12 Dose: 160 mg - Objective Vital Signs: Vital Signs Temperature 99.3 F 12/29/16 10:10 Pulse Rate 82 12/29/16 10:10 Respiratory Rate 18 12/29/16 10:10 Blood Pressure 142/84 12/29/16 10:10 O2 Sat by Pulse Oximetry (%) 97 12/28/16 21:00 Cardiovascular: Yes: S1, S2 Respiratory: Yes: Regular, CTA Bilaterally Gastrointestinal: Yes: Normal Bowel Sounds, Soft Neurological: Yes: Alert, Oriented, Facial Droop Labs: CBC, BMP 12/28/16 06:00 12/28/16 06:00 INR, PTT INR 0.98 (0.82-1.09) 12/26/16 22:25 Problem List - Problems (1) CVA (cerebral vascular accident) Assessment/Plan: MRI ACUTE FRONTAL CVA 12/27/16 10:00 Aspirin [ASA -] 81 mg PO DAILY Clopidogrel Bisulfate [Plavix -] 75 mg PO DAILY 12/27/16 22:00 Atorvastatin Ca [Lipitor -] 40 mg PO HS 12/28/16 10:00 Valsartan [Diovan -] 160 mg PO DAILY Laboratory Tests 12/27/16 06:00 Triglycerides 95 D Cholesterol 147 Total LDL Cholesterol 69 PT RESULTS D/W PT Code(s): I63.9 - CEREBRAL INFARCTION, UNSPECIFIED Qualifiers: Qualified Code(s): I63.9 - Cerebral infarction, unspecified (2) Diabetes 1.5, managed as type 2 Assessment/Plan: BGM MONITOR Laboratory Tests 12/27/16 06:00 Hemoglobin A1c % 6.2 H Code(s): E10.9 - TYPE 1 DIABETES MELLITUS WITHOUT COMPLICATIONS (3) HTN (hypertension) Assessment/Plan: ELEVATED Selected Entries 12/28/16 12/28/16 12/28/16 02:00 06:00 09:27 Blood Pressure 139/94 157/97 142/100 WILL RESUME DIOVAN AND MONITOR Code(s): I10 - ESSENTIAL (PRIMARY) HYPERTENSION
--- NOTE | 2016-12-29 18:18 | PN ---
Progress Note, Physician Chief Complaint: Neurology F/U for Dr. Chicas 71 year old woman with acute dysarthria and facial droop, with rapid improvement. She still has deficit, however. Dr. Kenny's note appreciated. He intends to pursue detention monitoring as outpatient which I think is important. - Current Medication List Current Medications: Active Medications Acetaminophen (Tylenol -) 650 mg PO Q4H PRN PRN Reason: FEVER OR PAIN Amlodipine Besylate (Norvasc -) 10 mg PO DAILY [facility] Last Admin: 12/29/16 10:15 Dose: 10 mg Aspirin (Asa -) 81 mg PO DAILY [facility] Last Admin: 12/29/16 10:12 Dose: 81 mg Atorvastatin Calcium (Lipitor -) 40 mg PO HS [facility] Last Admin: 12/28/16 23:01 Dose: 40 mg Clonidine (Catapres -) 0.1 mg PO BID [facility] Last Admin: 12/29/16 10:11 Dose: 0.1 mg Clopidogrel Bisulfate (Plavix -) 75 mg PO DAILY [facility] Last Admin: 12/29/16 10:12 Dose: 75 mg Glimepiride (Amaryl -) 2 mg PO DAILY@0700 [facility] Last Admin: 12/29/16 07:02 Dose: 2 mg Heparin Sodium (Porcine) (Heparin -) 5,000 unit SQ BID [facility] Last Admin: 12/29/16 10:12 Dose: 5,000 unit Insulin Aspart (Novolog Vial Sliding Scale -) 1 vial SQ ACHS [facility] PRN Reason: Protocol Last Admin: 12/29/16 17:57 Dose: Not Given Metoprolol Tartrate (Lopressor -) 25 mg PO DAILY [facility] Last Admin: 12/29/16 10:11 Dose: 25 mg Valsartan (Diovan -) 160 mg PO DAILY [facility] Last Admin: 12/29/16 10:12 Dose: 160 mg - Objective Vital Signs: Vital Signs Temperature 98.0 F 12/29/16 14:00 Pulse Rate 68 12/29/16 14:00 Respiratory Rate 18 12/29/16 14:00 Blood Pressure 116/78 12/29/16 14:00 O2 Sat by Pulse Oximetry (%) 97 12/28/16 21:00 Labs: CBC, BMP 12/28/16 06:00 12/28/16 06:00 INR, PTT INR 0.98 (0.82-1.09) 12/26/16 22:25 - ....Imaging MRI: Report Reviewed, Image Reviewed (MRA reveals no signifcant stenosis but 3 mm aneurysm supraclinoid left ICA.) Assessment/Plan Cerebral Embolism with Infarction: Given three acute infarcts, this is almost certainly an embolic event. The infarcts appear to be within a single vascular territory, so I cannot tell whether this is an artery to artery event, or cardioembolic. Her carotid arteries look clean, so I don't think that they are a likely source. MRA unremarkable except for supraclinoid 3 mm ICA aneurysm, which should be followed up as an outpatient. She can be discharged with outpatient followup with Dr. Chicas from a neurologic standpoint. Thanks. Benjamin Alfaro MD
--- NOTE | 2016-12-29 21:05 | EKG ---
Test Reason : Blood Pressure : / mmHG Vent. Rate : 081 BPM Atrial Rate : 081 BPM P-R Int : 158 ms QRS Dur : 090 ms QT Int : 424 ms P-R-T Axes : 046 018 087 degrees QTc Int : 492 ms SINUS RHYTHM WITH PREMATURE ATRIAL COMPLEXES NONSPECIFIC T WAVE ABNORMALITY PROLONGED QT ABNORMAL ECG WHEN COMPARED WITH ECG OF 27-DEC-2016 02:56, PREMATURE ATRIAL COMPLEXES ARE NOW PRESENT Confirmed by ALEJANDRO YOUNG, KASSANDRA ([id number]) on 12/29/2016 9:05:01 PM Referred By: MIRZA VALERA Confirmed By:KASSANDRA ALLEN MD
[2016-12-29] MEDS: ATORVASTATIN CA 40 MG TABLET (FP) PO SCH (21:10)
[2016-12-30] MEDS: INSULIN SLIDING SCALE (NOVOLOG) 1 VIAL SQ SCH (06:05)
[2016-12-30] MEDS: GLIMEPIRIDE 2 MG TABLET (FP) PO SCH (06:05)
--- NOTE | 2016-12-30 09:51 | DS ---
Physical Examination Vital Signs: Vital Signs Temperature 98.1 F 12/30/16 06:00 Pulse Rate 83 12/30/16 06:00 Respiratory Rate 20 12/30/16 06:00 Blood Pressure 121/85 12/30/16 06:00 O2 Sat by Pulse Oximetry (%) 96 12/29/16 21:00 Labs: CBC, BMP 12/28/16 06:00 12/28/16 06:00 Discharge Summary Reason For Visit: CVA (STROKE UNIT)CEREBROVASCULAR Current Active Problems CVA (cerebral vascular accident) (Acute) Diabetes 1.5, managed as type 2 (Acute) HTN (hypertension) (Acute) Hospital Course: The patient is a 71 year old female with PMH of htn, Hyperlipidemia? and diabetes, presented to the ER with left sided facial droop. The patient reports that she was speaking at a meeting when some of the guests noticed that her face and speech were not normal, and somewhat slurred. The patient denies any loss of consciousness or change in mental status, though they admit that her speech is still somewhat irregular. The patient reports that she had been feeling fatigued for past few days. She saw Dr. Golden her PCP on Friday for a regular visit. PCP: Dr. Golden History Source: Patient Limitations to Obtaining History: No Limitations - Past Medical History Cardiovascular: Yes: HTN ...: No Endocrine: Yes: Diabetes Mellitus - Past Surgical History Past Surgical History: Yes: Tubal Ligation - Problems (1) CVA (cerebral vascular accident) Assessment/Plan: MRI ACUTE FRONTAL CVA 12/27/16 10:00 Aspirin [ASA -] 81 mg PO DAILY Clopidogrel Bisulfate [Plavix -] 75 mg PO DAILY 12/27/16 22:00 Atorvastatin Ca [Lipitor -] 40 mg PO HS 12/28/16 10:00 Valsartan [Diovan -] 160 mg PO DAILY Laboratory Tests 12/27/16 06:00 Triglycerides 95 D Cholesterol 147 Total LDL Cholesterol 69 PT RESULTS D/W PT OUTPATIENT WORK UP Code(s): I63.9 - CEREBRAL INFARCTION, UNSPECIFIED Qualifiers: Qualified Code(s): I63.9 - Cerebral infarction, unspecified (2) Diabetes 1.5, managed as type 2 Assessment/Plan: BGM MONITOR Laboratory Tests 12/27/16 06:00 Hemoglobin A1c % 6.2 H Code(s): E10.9 - TYPE 1 DIABETES MELLITUS WITHOUT COMPLICATIONS (3) HTN (hypertension) Assessment/Plan: ELEVATED Selected Entries 12/28/16 12/28/16 12/28/16 02:00 06:00 09:27 Blood Pressure 139/94 157/97 142/100 WILL RESUME DIOVAN AND MONITOR Code(s): I10 - ESSENTIAL (PRIMARY) HYPERTENSION Condition: Stable - Instructions Diet, Activity, Other Instructions: FOLLOW UP WITH CARDIOLOGY FOR EVENT RECORDER Referrals: Johan Kenny MD [Staff Physician] - Tony Golden MD [Primary Care Provider] - 1 Week Disposition: VNS/HOME HEALTH CARE - Home Medications Comprehensive Discharge Medication List: Ambulatory Orders Amlodipine Besylate [Norvasc -] 10 mg PO DAILY 12/27/16 Valsartan [Diovan] 160 mg PO DAILY 12/27/16 Atorvastatin Ca [Lipitor] 40 mg PO HS #30 tablet 12/30/16 Clopidogrel Bisulfate [Plavix -] 75 mg PO DAILY #30 tablet 12/30/16 Metoprolol Tartrate [Lopressor -] 25 mg PO DAILY #30 tablet 12/30/16
[2016-12-30] MEDS: VALSARTAN 160 MG TABLET (UD) PO SCH (10:04)
[2016-12-30] MEDS: HEPARIN NA (PORCINE) 5,000 UNITS/ML 1ML VIAL SQ SCH (10:04)
[2016-12-30] MEDS: METOPROLOL TARTRATE 25 MG TABLET (FP) PO SCH (10:04)
[2016-12-30] MEDS: CLOPIDOGREL BISULFATE 75 MG TABLET (FP) PO SCH (10:04)
[2016-12-30] MEDS: ASPIRIN 81 MG CHEWABLE TABLETS PO SCH (10:04)
[2016-12-30] MEDS: amLODIPine BESYLATE 10 MG TABLET (FP) PO SCH (10:07)
[2016-12-30] MEDS: cloNIDine HCL 0.1 MG TABLET PO SCH (10:07)
[2016-12-30 13:44] VITALS: BP 120/82; PULSE 77; TEMP 97.4
== END 2016-12-30 13:58 | disposition home health service (06) | DRG 65 ==
LOC: JER 21:31 → JERBED 12-27 00:57 → J4S 12-27 03:16
PROVIDERS: ADMIT Family Medicine; ATTEND Family Medicine
DX: I63.40 Cerebral infarction due to embolism of unspecified cerebral artery (principal); Z68.41 Body mass index [BMI] 40.0-44.9, adult; I10 Essential (primary) hypertension; E11.9 Type 2 diabetes mellitus without complications; Z87.891 Personal history of nicotine dependence; I27.2 Other secondary pulmonary hypertension; I07.1 Rheumatic tricuspid insufficiency; I34.0 Nonrheumatic mitral (valve) insufficiency; E66.9 Obesity, unspecified; R47.1 Dysarthria and anarthria; R29.703 NIHSS score 3
CPT/HCPCS: 36415; 70450-TC; 70544-TC; 70551-TC; 71010-TC; 71275-TC; 80053; 80061; 81003; 82465; 82550; 82553; 83036; 83718; 83721; 83735; 83880; 84443; 84478; 84484; 85025; 85610; 85730; 86850; 86900; 86901; 93005; 93010; 93306-TC; 93880-TC; 93970-TC; 97116-GP; 97161-GP; 99284-25; J1644

== ENCOUNTER 2018-07-28 09:13 | Inpatient (IN) | payer OTHER ==
[2018-07-28 11:21] LABS: BASO % 0.3 % (0-2.0); EOS % 0.4 % (0-4.5); HEMATOCRIT 41.4 % (32.4-45.2); HEMOGLOBIN 14.1 GM/dL (10.7-15.3); LYMPH % 13.9 % (8-40); MCH 31.6 pg (25.7-33.7); MEAN CELL VOLUME 93.1 fl (80-96); MEAN PLT VOLUME 9.9 fl (7.5-11.1); MONO % 6.6 % (3.8-10.2); NEUT % 78.8 % (42.8-82.8); PLATELET COUNT 194 K/MM3 (134-434); RBC 4.45 M/mm3 (3.60-5.2); RDW 16.8 % (11.6-15.6); WHITE BLOOD COUNT 9.2 K/mm3 (4.0-10.0)
--- NOTE | 2018-07-28 11:24 | PDOC ---
History of Present Illness - General Chief Complaint: Cold Symptoms Stated Complaint: COUGH Time Seen by Provider: 07/28/18 10:41 History Source: Patient Exam Limitations: No Limitations - History of Present Illness Initial Comments: 07/28/18 11:06 73 year old woman with a history of HTN, HLD and DM who presents with 1 month of cough productive of white occasionally yellow phlegm that worsened this morning after she was eating a tangerine and felt that the "juice went down the wrong pipe." She started coughing for approx 2-3min. Now with resolution of the cough. Patient denies chest pain, abdominal pain, pedal edema, recent cough, congestion, rhinorrhea, fever. Denies recent travel, history of COPD. She has no other complaints at bedside. Patient previously prescribed entresto Past History - Past Medical History Allergies/Adverse Reactions: Allergies Allergy/AdvReac Type Severity Reaction Status Date / Time No Known Allergies Allergy Verified 07/28/18 09:44 Home Medications: Ambulatory Orders Valsartan [Diovan] 160 mg PO DAILY 12/27/16 Atorvastatin Ca [Lipitor] 40 mg PO HS #30 tablet 12/30/16 Clopidogrel Bisulfate [Plavix -] 75 mg PO DAILY #30 tablet 12/30/16 Cardiac Disorders: Yes (heart murmur) COPD: No CHF: No Diabetes: Yes Disorders: Yes (incontinence) HTN: Yes Hypercholesterolemia: Yes - Suicide/Smoking/Psychosocial Hx Smoking Status: Yes Smoking History: Never smoked Years of Tobacco Use: 25 Have you smoked in the past 12 months: No Number of Cigarettes Smoked Daily: 6 If you are a former smoker, when did you quit?: 1966 Information on smoking cessation initiated: No Hx Alcohol Use: No Drug/Substance Use Hx: No Substance Use Type: None Hx Substance Use Treatment: No Review of Systems - Review of Systems Able to Perform ROS?: Yes Is the patient limited Telugu proficient: No Constitutional: No: Chills, Diaphoresis, Fever HEENTM: No: Blurred Vision, Tinnitus Respiratory: Yes: Cough. No: Orthopnea, Shortness of Breath Cardiac (ROS): No: Chest Pain, Lightheadedness, Palpitations ABD/GI: No: Constipated, Diarrhea, Nausea, Vomiting : No: Burning, Dysuria, Flank Pain, Hematuria Musculoskeletal: No: Back Pain Neurological: No: Headache, Numbness, Tingling *Physical Exam - Vital Signs Last Vital Signs Temp Pulse Resp BP Pulse Ox 97.5 F L 117 H 28 H 163/112 H 100 07/28/18 09:20 07/28/18 09:20 07/28/18 09:20 07/28/18 09:20 07/28/18 09:20 - Physical Exam Comments: 07/28/18 11:24 GENERAL: Awake, alert, and fully oriented, in no acute distress HEAD: No signs of trauma, normocephalic, atraumatic EYES: PERRLA, EOMI, sclera anicteric, conjunctiva clear ENT: Auricles normal inspection, hearing grossly normal, nares patent, oropharynx clear without exudates. Moist mucosa NECK: Normal ROM, supple LUNGS: No distress, speaks full sentences, + decreased breath sounds on the L lung base, no dullness to percussion HEART: Regular rate and rhythm, normal S1 and S2, no murmurs, rubs or gallops, peripheral pulses normal and equal bilaterally. ABDOMEN: Soft, nontender, normoactive bowel sounds. No guarding, no rebound. No masses. Abdominal breathing EXTREMITIES : Normal inspection, Normal range of motion, no edema. No clubbing or cyanosis. NEUROLOGICAL: Cranial nerves II through XII grossly intact. Normal speech, no focal sensorimotor deficits SKIN: Warm, Dry, normal turgor, no rashes or lesions noted Moderate Sedation - Procedure Monitoring Vital Signs: Procedure Monitoring Vital Signs Temperature 97.5 F L 07/28/18 09:20 Pulse Rate 117 H 07/28/18 09:20 Respiratory Rate 28 H 07/28/18 09:20 Blood Pressure 163/112 H 07/28/18 09:20 O2 Sat by Pulse Oximetry (%) 100 07/28/18 09:20 ED Treatment Course - LABORATORY CBC & Chemistry Diagram: 07/30/18 05:30 07/30/18 05:30 Medical Decision Making - Medical Decision Making 07/28/18 11:25 73 year old woman with a history of HTN, HLD and DM who presents with 1 month of cough productive of white occasionally yellow phlegm that worsened this morning after she was eating a tangerine and felt that the "juice went down the wrong pipe." She started coughing for approx 2-3min. Now with resolution of the cough. Patient denies chest pain, abdominal pain, pedal edema, recent cough, congestion, rhinorrhea, fever. Denies recent travel, history of COPD. She has no other complaints at bedside. Patient previously prescribed entresto ED Course: consider bronchitis for history of cough Patient recently started on Entresto a medication commonly given for HTN and heart failure, although patient does not carry the diagnosis of CHF, likely may have a component of this. Patient with paroxysmal SVT with HR jumping from 148 to 99. possibly 2/2 CHF Patient with diminished L breath sounds at the bases concerning for PNA vs pleural effusion cbc, cmp, bnp, tsh, cxr, ua, ucx 07/28/18 12:29 BNP: 9439, elevated. CXR: cardiomegaly, underpenetrated XR, midline airway, no signifcant blunting of the costophrenic angle as read by this database report writer. Pending final report lasix 40 given. BUN, Cr slight elevation from baseline but not grossly skewed. WIll diurese for symptoms of cough and hsortness of breath Heart Score 4 07/28/18 13:07 Plan to admit to medicine for further workup and evaluation. *DC/Admit/Observation/Transfer Diagnosis at time of Disposition: Acute on chronic diastolic CHF (congestive heart failure) - Discharge Dispostion Condition at time of disposition: Stable Decision to Admit order: Yes - Referrals - Patient Instructions - Post Discharge Activity
--- NOTE | 2018-07-28 11:53 | PDOC ---
Attending Attestation - Resident Resident Name: Roxann Malin - ED Attending Attestation I have performed the following: I have examined & evaluated the patient, The case was reviewed & discussed with the resident, I agree w/resident's findings & plan, Exceptions are as noted - HPI HPI: 07/28/18 11:46 The patient is a 73-year-old female with a past medical history significant for HTN, HLD, DM, baseline lower extremity edema presents to the emergency department with one month of productive cough. The patient reports shes been having one month of a productive cough with white sputum production. The patient reports earlier today she was eating a tangerine and choked on it, following by a 2-3 minute episode of coughing and subsequent SOB. Denies worsened edema to the legs, nausea, vomiting, diaphoresis, numbness, worsening weakness. Allergies: NKDA Social history: Former smoker. Surgical history: Tubal Ligation PCP: Jeremy Hadley - Physicial Exam PE: 07/28/18 12:06 "GENERAL: Awake, alert, and fully oriented, in no acute distress. HEAD: No signs of trauma EYES: PERRLA, EOMI, sclera anicteric, conjunctiva clear ENT: Auricles normal inspection, hearing grossly normal, nares patent, oropharynx clear without exudates. Moist mucosa NECK: Nontender, no stepoffs, Normal ROM, supple, no lymphadenopathy, JVD, or masses LUNGS: + diminished breath sounds L base, otherwise clear HEART: Regular rate and rhythm, normal S1 and S2, no murmurs, rubs or gallops ABDOMEN: Soft, nontender, normoactive bowel sounds. No guarding, no rebound. No masses EXTREMITIES: Normal range of motion, no edema. No clubbing or cyanosis. No cords, erythema, or tenderness NEUROLOGICAL: Cranial nerves II through XII intact. 5/5 strength and sensation in all extremities, Normal speech, normal gait, normal cerebellar function SKIN: Warm, Dry, normal turgor, no rashes or lesions noted. - Critical Care Time Total Critical Care Time: 60 Critical Care Statement: The care of this patient involved high complexity decision making to prevent further life threatening deterioration of the patient 's condition and/or to evaluate & treat vital organ system(s) failure or risk of failure. - Medical Decision Making 07/28/18 12:07 73 F with cough and SOB x 1 month. Will r/o PNA. Also consider CHF. Pt with no clinical signs of DVT but is tachycardic in ED. Will consider PE if work up otherwise negative. - Labs, trop, BNP - CXR 07/28/18 16:[address] Valentine for SOB While in ED, pt had several episodes of tachycardia with rate 140. EKG obtained shows SVT Adenosine pulled and pt placed on personnel monitor, but pt spontaneously converted back to NSR prior to administration of adenosine Repeat EKG shows NSR rate 100.
[2018-07-28 12:04] LABS: INR 1.05 (0.83-1.09); PROTHROMBIN TIME (PATIENT) 12.4 SEC (9.7-13.0)
[2018-07-28 12:06] LABS: ACTIVATED PTT 27.8 SECONDS (25.2-36.5)
[2018-07-28 12:09] LABS: ALBUMIN 3.6 g/dl (3.4-5.0); ALK PHOS 72 U/L (45-117); ANION GAP 8 MMOL/L (8-16); BILIRUBIN,TOTAL 1.4 mg/dL (0.2-1); BLOOD UREA NITROGEN 30 mg/dL (7-18); CALCIUM 8.6 mg/dL (8.5-10.1); CHLORIDE 111 mmol/L (98-107); CO2 23 mmol/L (21-32); CREATININE 1.5 mg/dL (0.55-1.3); GLUCOSE,RANDOM 146 mg/dL (74-106); N-TERMINAL BNP 9439.6 pg/ml (5-450); POTASSIUM 5.1 mmol/L (3.5-5.1); SGOT/AST 44 U/L (15-37); SGPT/ALT 36 U/L (13-61); SODIUM 143 mmol/L (136-145); TOT PROT 7.5 g/dl (6.4-8.2)
[2018-07-28] MEDS ORDERED: FUROSEMIDE 40 MG/4 ML INJECTABLE VIAL IVPUSH ONE (12:42)
[2018-07-28] MEDS ORDERED: FUROSEMIDE 40 MG/4 ML INJECTABLE VIAL ONE (14:22)
--- NOTE | 2018-07-28 15:04 | HP ---
Admitting History and Physical - Primary Care Physician PCP: Ravi Valentine - Admission Chief Complaint: SOB/RAPID AFIB History of Present Illness: 73 Y/O FEMALE HERE IN ED FOR DYSPNEA WITH RAPID AFIB. PATIENT HAS AN ELEVATED BNP AND IS IN ACUTE ON CHRONIC CHF. GIVEN ADENOSINE IN ED FOR RAPID TACHYCARDIA AND ON TELEMETRY. History Source: Medical Record Limitations to Obtaining History: Uncooperative - Past Medical History Cardiovascular: Yes: HTN Endocrine: Yes: Diabetes Mellitus - Past Surgical History Past Surgical History: Yes: Tubal Ligation - Smoking History Smoking history: Never smoked Have you smoked in the past 12 months: No Aproximately how many cigarettes per day: 6 If you are a former smoker, when did you quit?: 1967 - Alcohol/Substance Use Hx Alcohol Use: No - Social History ADL: Independent History of Recent Travel: No Home Medications - Allergies Allergies/Adverse Reactions: Allergies Allergy/AdvReac Type Severity Reaction Status Date / Time No Known Allergies Allergy Verified 07/28/18 09:44 - Home Medications Home Medications: Ambulatory Orders Amlodipine Besylate [Norvasc -] 10 mg PO DAILY 12/27/16 Valsartan [Diovan] 160 mg PO DAILY 12/27/16 Atorvastatin Ca [Lipitor] 40 mg PO HS #30 tablet 12/30/16 Clopidogrel Bisulfate [Plavix -] 75 mg PO DAILY #30 tablet 12/30/16 Metoprolol Tartrate [Lopressor -] 25 mg PO DAILY #30 tablet 12/30/16 Family Disease History - Family Disease History Family Disease History: Diabetes: Mother (HTN), Sister (2 sisters), Heart Disease: Grandparent (MGM-HTN), Mother, Brother (2 BROTHERS-HTN) Review of Systems - Review of Systems Constitutional: reports: Weakness Eyes: reports: No Symptoms HENT: reports: No Symptoms, Ringing in Ears Cardiovascular: reports: Palpitations, Shortness of Breath Respiratory: reports: Cough, SOB Gastrointestinal: reports: No Symptoms Genitourinary: reports: No Symptoms Musculoskeletal: reports: No Symptoms Integumentary: reports: No Symptoms Neurological: reports: No Symptoms Endocrine: reports: No Symptoms Hematology/Lymphatic: reports: No Symptoms Psychiatric: reports: No Symptoms Physical Examination Vital Signs: Vital Signs Temperature 97.5 F L 07/28/18 09:20 Pulse Rate 125 H 07/28/18 11:02 Respiratory Rate 16 07/28/18 11:02 Blood Pressure 140/112 H 07/28/18 11:02 O2 Sat by Pulse Oximetry (%) 98 07/28/18 11:02 Constitutional: Yes: Mild Distress Eyes: Yes: WNL HENT: Yes: WNL Neck: Yes: WNL Cardiovascular: Yes: Tachycardia Respiratory: Yes: On Nasal O2, Rales Gastrointestinal: Yes: Soft Renal/: Yes: WNL Musculoskeletal: Yes: WNL Extremities: Yes: WNL Edema: Yes Edema: LLE: Trace, RLE: Trace Peripheral Pulses WNL: Yes Integumentary: Yes: WNL Wound/Incision: Yes: Clean/Dry Neurological: Yes: WNL ...Motor Strength: WNL Psychiatric: Yes: Other Labs: CBC, BMP 07/28/18 11:09 07/28/18 11:09 Imaging - Results Chest X-ray: Pending Problem List - Problems (1) Dyspnea Code(s): R06.00 - DYSPNEA, UNSPECIFIED (2) Acute on chronic diastolic CHF (congestive heart failure) Code(s): I50.33 - ACUTE ON CHRONIC DIASTOLIC (CONGESTIVE) HEART FAILURE (3) Diabetes 1.5, managed as type 2 Code(s): E10.9 - TYPE 1 DIABETES MELLITUS WITHOUT COMPLICATIONS (4) HTN (hypertension) Code(s): I10 - ESSENTIAL (PRIMARY) HYPERTENSION Assessment/Plan IV LASIX CARDIO EVAL RENAL F/U FOR CRI ORDERING ECHO FOR CARDIAC FUNCTION DAILY WEIGHTS [address] SCAN TO R/U CHF VERSIUS EFFUSION VERSUS PNEUMONIA DVT PROPHYLAXIS
[2018-07-28] MEDS ORDERED: ACETAMINOPHEN 325 MG TABLET (FP) PO PRN (15:06)
[2018-07-28] MEDS ORDERED: VALSARTAN 80 MG TABLET (UD) ONE (15:52)
[2018-07-28] MEDS: VALSARTAN 160 MG TABLET (UD) PO SCH (15:53)
[2018-07-28] MEDS ORDERED: ADENOSINE 6 MG/2 ML VIAL IVPUSH ONE (16:29)
[2018-07-28] MEDS ORDERED: METOPROLOL TARTRATE 25 MG TABLET (FP) PO ONE (16:30)
[2018-07-28] MEDS: ATORVASTATIN CA 20 MG TABLET (FP) PO SCH (22:10)
[2018-07-29 06:39] VITALS: BMI 39.0
[2018-07-29 08:40] LABS: ALBUMIN 3.5 g/dl (3.4-5.0); ALK PHOS 74 U/L (45-117); ANION GAP 7 MMOL/L (8-16); BILIRUBIN,TOTAL 1.5 mg/dL (0.2-1); BLOOD UREA NITROGEN 36 mg/dL (7-18); CALCIUM 8.9 mg/dL (8.5-10.1); CHLORIDE 110 mmol/L (98-107); CO2 25 mmol/L (21-32); GLUCOSE,RANDOM 120 mg/dL (74-106); POTASSIUM 4.4 mmol/L (3.5-5.1); SGOT/AST 30 U/L (15-37); SGPT/ALT 36 U/L (13-61); SODIUM 143 mmol/L (136-145); TOT PROT 6.9 g/dl (6.4-8.2)
[2018-07-29 08:57] LABS: HEMATOCRIT 43.3 % (32.4-45.2); HEMOGLOBIN 13.6 GM/dL (10.7-15.3); MCH 29.4 pg (25.7-33.7); MCHC 31.3 g/dl (32.0-36.0); MEAN PLT VOLUME 9.3 fl (7.5-11.1); PLATELET COUNT 174 K/MM3 (134-434); RDW 16.6 % (11.6-15.6); WHITE BLOOD COUNT 8.7 K/mm3 (4.0-10.0)
[2018-07-29] MEDS: VALSARTAN 160 MG TABLET (UD) PO SCH (09:25)
[2018-07-29] MEDS: amLODIPine BESYLATE 5 MG TABLET (FP) PO SCH (09:25)
[2018-07-29] MEDS: CLOPIDOGREL BISULFATE 75 MG TABLET (FP) PO SCH (09:25)
[2018-07-29] MEDS: METOPROLOL TARTRATE 25 MG TABLET (FP) PO SCH (09:26)
[2018-07-29] MEDS ORDERED: FUROSEMIDE 40 MG/4 ML INJECTABLE VIAL IVPUSH SCH (10:00)
--- NOTE | 2018-07-29 11:13 | PN ---
Progress Note (short form) - Note Progress Note: PULMONARY CONSULTATION DICTATED 07/29/18 IMP DYSPNEA ? CHF,SEVERE PULMONARY HTN ACUTE ON CHRONIC CHF COUGH ?SECONDARY TO CHF,? REACTVE AIRWAY DISEASE,? SILENT ASPIRATION SEVERE PULMONARY HTN ? ETIOLOGY ? CARDIAC,? EMBOLI SVT/V-TACH KULDIP HTN DM H/O CVA PLAN LASIX NEEDED O2 RATE CONTROL CHEST CT W/O CONTRAST MONITOR LYTES,RENAL FUNCTION V/Q SCAN TO R/O CHRONIC EMBOLI SLEEP SCREEN FORMAL SLEEP STUDIES OUTPATIENT CARDIOLOGY EVALUATION,RENAL EVALUATION SWALLOWING EVALUATION R/O SILENT ASPIRATION PFTS OUTPATIENT DR HENDERSON Problem List - Problems (1) Pulmonary HTN Code(s): I27.20 - PULMONARY HYPERTENSION, UNSPECIFIED (2) Dyspnea Code(s): R06.00 - DYSPNEA, UNSPECIFIED (3) CVA (cerebral vascular accident) Code(s): I63.9 - CEREBRAL INFARCTION, UNSPECIFIED Qualifiers: CVA mechanism: unspecified Qualified Code(s): I63.9 - Cerebral infarction, unspecified (4) Diabetes 1.5, managed as type 2 Code(s): E10.9 - TYPE 1 DIABETES MELLITUS WITHOUT COMPLICATIONS (5) HTN (hypertension) Code(s): I10 - ESSENTIAL (PRIMARY) HYPERTENSION (6) Acute on chronic diastolic CHF (congestive heart failure) Code(s): I50.33 - ACUTE ON CHRONIC DIASTOLIC (CONGESTIVE) HEART FAILURE (7) SVT (supraventricular tachycardia) Code(s): I47.1 - SUPRAVENTRICULAR TACHYCARDIA (8) Cough Code(s): R05 - COUGH (9) Acute kidney injury Code(s): N17.9 - ACUTE KIDNEY FAILURE, UNSPECIFIED
--- NOTE | 2018-07-29 13:37 | CONS ---
PULMONARY CONSULTATION DATE OF CONSULTATION: 07/29/2018 REFERRING PHYSICIAN: Ravi Valentine MD HISTORY OF PRESENT ILLNESS: The patient is a 73-year-old black female, past medical history of hypertension and hyperlipidemia, severe pulmonary hypertension, diabetes, remote history of smoking, admitted to [facility], with complaint of 1-month history of increasing shortness of breath and cough. Patient states over the past month or so started noticing cough. The cough is productive of some clear sputum. Denied any fevers or chills. Denied any chest pain. Cough has been persistent throughout the past month, increasing at night, lying down, as well as occasionally with eating, and with cold air exposure. She also noted increasing shortness of breath and only able to ambulate short distances without getting severely dyspneic. Of note, she has a history of a CVA 1 year ago and she underwent an echo which revealed severe pulmonary hypertension with a right ventricular systolic pressure of 50-60 mm. Patient denies any history of COPD or asthma in the past. There is no history of occupational exposure to chemicals or fumes. She presented to the emergency room with the above symptoms. In the ER, she was noted to have an episode of SVT which responded well to adenosine. She was transferred to medical telemetry unit for further monitoring. On admission, she was felt to have congestive heart failure. BNP was elevated, so she was started on Lasix IV. Patient denies any fevers, chills. Denies weight loss. Denied sweats. Denies any recent travel. She has no pets in the home. PAST MEDICAL HISTORY: Again, includes CVA, severe pulmonary hypertension, hypertension, hyperlipidemia, and diabetes. REVIEW OF SYSTEMS: Positive shortness of breath. Positive orthopnea. Positive dyspnea. Positive cough. No fever. No chills. No chest pain. No palpitations. No abdominal pain. No lower extremity edema. CURRENT MEDICATIONS: Include Tylenol, Diovan, Lopressor, Norvasc, Lipitor, Lasix, and Plavix. PHYSICAL EXAMINATION: General: The patient is a well-developed, well-nourished female, awake, alert, in no acute respiratory distress. Vital signs: She is afebrile, heart rate is 135, blood pressure is 135/100, respiratory rate is 20, O2 saturation is 95% on 2 L nasal cannula. HEENT: Exam is normocephalic, atraumatic. Neck: Supple. Heart: Tachycardiac S1 and S2. Chest: A few bibasilar crackles. Abdomen: Soft. Bowel sounds are positive. Extremities: No cyanosis, edema. LABORATORIES: WBC is 8.7, hemoglobin 13.6, hematocrit 43.3, with a platelet count of 174,000. INR is 1.05. BUN 7, creatinine 2.0. CK is 212, troponin is elevated at 0.06. IMAGING: Chest x-ray reveals cardiomegaly, a prominent hilum, there is mild atelectasis in the base, no acute infiltrates and/or effusions. IMPRESSION: 1. Cough. Etiology to be determined. Possibly secondary to reactive airway disease, possibly secondary to aspiration. 2. Dyspnea. Probably multiple factors: 1. Severe pulmonary hypertension. 2. Rule out congestive heart failure. 3. Supraventricular tachycardia. 4. Severe pulmonary hypertension. Rule out possible cardiac. Rule out possible idiopathic. Rule out possible chronic emboli. 5. Hypertension. 6. Diabetes. 7. Acute kidney injury. 8. History of cerebrovascular accident. PLAN: Lasix, as per Cardiology. Rate control. Supplemental O2. Obtain echocardiogram. Monitor electrolytes and urine output. Monitor BUN and creatinine. renal function. Consider VQ scan could be performed as an outpatient. Also, consider a swallowing evaluation. The patient gives a history of coughing and choking since her CVA 1 year ago. Also, would get a sleep screen as well as consider a formal sleep study as an outpatient to rule out obstructive sleep apnea. Daily weights and also CT scan of the chest. HARRY HENDERSON M.D. [id number]
--- NOTE | 2018-07-29 14:28 | CONSULT ---
Consult Consult Specialty:: Nephrology Reason for Consultation:: CKD - History of Present Illness Chief Complaint: cough History of Present Illness: Pt is a 73 year old female with pmhx of HTN, HLD, DM, and CHF who presents to the ER with a progressive cough. She says it is productive of white phlegm. She denies chest pain pr palpitations. She does have history of CKD and follows with me as outpt. She denies lower ext edema at the moment. I was called to evaluate her for elevated creatinine. She denies fevers or chills. She denies hematuria or dysuria. - History Source History Provided By: Patient, Medical Record - Past Medical History Cardio/Vascular: Yes: CHF, HTN Renal/: Yes: Renal Inusuff Endocrine: Yes: Diabetes Mellitus - Past Surgical History Past Surgical History: Yes: Tubal Ligation - Alcohol/Substance Use Hx Alcohol Use: No - Smoking History Smoking history: Never smoked Have you smoked in the past 12 months: No Aproximately how many cigarettes per day: 6 If you are a former smoker, when did you quit?: 1966 - Social History ADL: Independent History of Recent Travel: No Home Medications - Allergies Allergies/Adverse Reactions: Allergies Allergy/AdvReac Type Severity Reaction Status Date / Time No Known Allergies Allergy Verified 07/28/18 09:44 - Home Medications Home Medications: Ambulatory Orders Amlodipine Besylate [Norvasc -] 10 mg PO DAILY 12/27/16 Valsartan [Diovan] 160 mg PO DAILY 12/27/16 Atorvastatin Ca [Lipitor] 40 mg PO HS #30 tablet 12/30/16 Clopidogrel Bisulfate [Plavix -] 75 mg PO DAILY #30 tablet 12/30/16 Metoprolol Tartrate [Lopressor -] 25 mg PO DAILY #30 tablet 12/30/16 Family Disease History - Family Disease History Family Disease History: Diabetes: Mother (HTN), Sister (2 sisters), Heart Disease: Grandparent (MGM-HTN), Mother, Brother (2 BROTHERS-HTN) Review of Systems - Review of Systems Constitutional: denies: Chills, Fever Eyes: reports: No Symptoms HENT: reports: No Symptoms Neck: reports: No Symptoms Cardiovascular: reports: Edema. denies: Chest Pain Respiratory: reports: Cough, SOB on Exertion Gastrointestinal: reports: No Symptoms Genitourinary: reports: No Symptoms Musculoskeletal: reports: No Symptoms Integumentary: reports: No Symptoms Neurological: reports: No Symptoms Endocrine: reports: No Symptoms Hematology/Lymphatic: reports: No Symptoms Psychiatric: reports: No Symptoms Physical Exam Vital Signs: Vital Signs Temperature 98.1 F 07/29/18 10:00 Pulse Rate 116 H 07/29/18 10:00 Respiratory Rate 20 07/29/18 10:00 Blood Pressure 123/77 07/29/18 10:00 O2 Sat by Pulse Oximetry (%) 97 07/29/18 09:00 Constitutional: Yes: Calm Eyes: Yes: Conjunctiva Clear HENT: Yes: Atraumatic Neck: Yes: Supple Cardiovascular: Yes: S1, S2 Respiratory: Yes: CTA Bilaterally Gastrointestinal: Yes: Normal Bowel Sounds, Soft Renal/: Yes: WNL Musculoskeletal: Yes: WNL Extremities: Yes: WNL Edema: No Neurological: Yes: Oriented Psychiatric: Yes: Oriented Labs: CBC, BMP 07/29/18 07:40 07/29/18 07:40 Laboratory Tests 12/28/16 07/28/18 07/29/18 06:00 11:09 07:40 Creatinine 1.0 1.5 H 2.0 H Urine Color Urine Protein Urine Blood 07/29/18 13:00 Creatinine Urine Color Pending Urine Protein Pending Urine Blood Pending Imaging - Results Chest X-ray: Report Reviewed Problem List - Problems (1) CKD (chronic kidney disease) Code(s): N18.9 - CHRONIC KIDNEY DISEASE, UNSPECIFIED (2) Cough Code(s): R05 - COUGH (3) Dyspnea Code(s): R06.00 - DYSPNEA, UNSPECIFIED (4) Diabetes 1.5, managed as type 2 Code(s): E10.9 - TYPE 1 DIABETES MELLITUS WITHOUT COMPLICATIONS (5) HTN (hypertension) Code(s): I10 - ESSENTIAL (PRIMARY) HYPERTENSION Assessment/Plan Current Medications Generic Name Dose Route Start Last Admin Trade Name Freq PRN Reason Stop Dose Admin Acetaminophen 650 mg 07/28/18 15:06 Tylenol - PO Q6H PRN FEVER Amlodipine Besylate 5 mg 07/29/18 10:00 07/29/18 09:25 Norvasc - PO 5 mg DAILY ABIMBOLA Administration Atorvastatin Calcium 20 mg 07/28/18 22:00 07/28/18 22:10 Lipitor - PO 20 mg HS ABIMBOLA Administration Clopidogrel Bisulfate 75 mg 07/29/18 10:00 07/29/18 09:25 Plavix - PO 75 mg DAILY ABIMBOLA Administration Furosemide 40 mg 07/29/18 10:00 07/29/18 09:26 Lasix Injection - IVPUSH 40 mg DAILY ABIMBOLA Administration Metoprolol Tartrate 25 mg 07/29/18 10:00 07/29/18 09:26 Lopressor - PO 25 mg DAILY ABIMBOLA Administration Valsartan 160 mg 07/28/18 15:15 07/29/18 09:25 Diovan - PO 160 mg DAILY ABIMBOLA Administration Impression 1. CKD 2. CHF 3. DM 4. HTN 5. hx CVA 6. a-fib 7. elevated kappa chains Plan - pt is a poor historian as far as meds, last office notes shows she was on entresto, lasix 20 norvasc 10 and clonidine 0.1 - I increased her lasix to 40 mg at last visit - recommend changing lasix to PO as she does not appears volume overloaded - cardiology follow up for medications - pt now on diovan 160 mg - repeat labs in am - monitor bp - will follow Dr Cleveland
--- NOTE | 2018-07-29 14:43 | CON.CARD ---
Consult Consult Specialty:: Cardiology Referred by:: Dr. Valentine Reason for Consultation:: sob, arrhythmia - History of Present Illness Chief Complaint: sob History of Present Illness: 73 year old woman with pmh HTN, NIDDM, chol, CVA, chronic systolic chf with mild LV systolic dysfunction on echo 12/2016 admitted with cough, arrhythmia. Pt seen and examined today in nad. states she has a cough productive of whitish phlegm. denies chest pain, sob, palpitations. no pnd, orthopnea or LE edema. Echo 12/27/16 mild dec EF, 48%, mild MR, severe TR severe pulm htn - History Source History Provided By: Patient, Medical Record Limitations to Obtaining History: No Limitations - Past Medical History Cardio/Vascular: Yes: CHF, HTN, Pulmonary Hypertension Endocrine: Yes: Diabetes Mellitus - Past Surgical History Past Surgical History: Yes: Tubal Ligation - Alcohol/Substance Use Hx Alcohol Use: No - Smoking History Smoking history: Never smoked Have you smoked in the past 12 months: No Aproximately how many cigarettes per day: 6 If you are a former smoker, when did you quit?: 1967 - Social History ADL: Independent History of Recent Travel: No Home Medications - Allergies Allergies/Adverse Reactions: Allergies Allergy/AdvReac Type Severity Reaction Status Date / Time No Known Allergies Allergy Verified 07/28/18 09:44 - Home Medications Home Medications: Ambulatory Orders Amlodipine Besylate [Norvasc -] 10 mg PO DAILY 12/27/16 Valsartan [Diovan] 160 mg PO DAILY 12/27/16 Atorvastatin Ca [Lipitor] 40 mg PO HS #30 tablet 12/30/16 Clopidogrel Bisulfate [Plavix -] 75 mg PO DAILY #30 tablet 12/30/16 Metoprolol Tartrate [Lopressor -] 25 mg PO DAILY #30 tablet 12/30/16 Family Disease History - Family Disease History Family Disease History: Diabetes: Mother (HTN), Sister (2 sisters), Heart Disease: Grandparent (MGM-HTN), Mother, Brother (2 BROTHERS-HTN) Review of Systems - Review of Systems Constitutional: denies: No Symptoms, Chills, Diaphoresis, Fever, Lethargy, Loss of Appetite, Malaise, Night Sweats, Unintentional Wgt. Loss, Weakness, Other Eyes: denies: No Symptoms, Blind Spots, Blurred Vision, Double Vision, Eye Pain , Floaters, Photophobia, Recent Change in Vision, Other HENT: denies: No Symptoms, Difficult Swallowing, Ear Discharge, Ear Pain, Epistaxis, Gingival Bleeding, Hearing Loss, Mouth Swelling, Nasal Congestion, Ocular Prosthesis, Throat Pain, Toothache, Ringing in Ears, Other Neck: denies: No Symptoms, Decreased ROM, Lumps, Pain on Movement, Stiffness, Swollen Glands, Tenderness, Other Cardiovascular: denies: No Symptoms, Chest Pain, Edema, Palpitations, Shortness of Breath, Other Respiratory: reports: Cough. denies: No Symptoms, Exercise Intolerance, Hemoptysis, Orthopnea, PND, Snoring, SOB, SOB on Exertion, Wheezing, Other Gastrointestinal: denies: No Symptoms, Abdominal Pain, Bloating, Constipation, Diarrhea, Dysphagia, Indigestion, Melena, Nausea, Rectal Bleeding, Vomiting, Vomiting Blood, Other Genitourinary: denies: No Symptoms, Burning, Discharge, Dysuria, Flank Pain, Frequency, Hematuria, Incontinence, Lesions, Menses, Pain, Testicular Mass, Testicular Pain, Testicular Swelling, Urgency, Vaginal Bleeding, Other Breasts: denies: No Symptoms Reported, See HPI, Breast Implants, Discharge from Nipple, Lumps, Pain, Skin Changes, Other Musculoskeletal: denies: No Symptoms, Back Pain, Crepitus, Decreased ROM, Extremity Pain, Joint Pain, Joint Swelling, Muscle Pain, Muscle Cramps, Muscle Weakness, Other Integumentary: denies: No Symptoms, Blister, Bruising, Change in Color, Eczema, Erythema, Incision, Lesions, Lump, Pallor, Pruritis, Rash, Wound, Other Neurological: denies: No Symptoms, Change in LOC, Change in Speech, Confusion, Dizziness, Headache, Incoordination, Numbness, Parasthesia, Pre-Existing Deficit , Seizure, Syncope, Tremors, Unsteady Gait, Weakness, Other Endocrine: denies: No Symptoms, Excessive Sweating, Flushing, Increased Hunger, Increased Thirst, Intolerance to Cold, Intolerance to Heat, Unexplained Weight Gain, Unexplained Weight Loss, Other Hematology/Lymphatic: denies: No Symptoms, Easily Bruised, Excessive Bleeding, Swollen Glands, Other Psychiatric: denies: No Symptoms, Altered Sleep Pattern, Anxiety, Depression, Hallucinations, Panic, Paranoia, Suicidal, Other - Risk Factors Known Risk Factors: Yes: Diabetes Mellitus, Hypercholesterolemia, Hypertension Vital Signs: Vital Signs Temperature 98.1 F 07/29/18 10:00 Pulse Rate 116 H 07/29/18 10:00 Respiratory Rate 20 07/29/18 10:00 Blood Pressure 123/77 07/29/18 10:00 O2 Sat by Pulse Oximetry (%) 97 07/29/18 09:00 Constitutional: Yes: No Distress, Calm Eyes: Yes: Conjunctiva Clear, EOM Intact, PERRL HENT: Yes: Atraumatic, Normocephalic Neck: Yes: Supple, Trachea Midline Respiratory: Yes: Regular, Cough, Diminished, Wheezes. No: Rales, Rhonchi, SOB Gastrointestinal: Yes: Normal Bowel Sounds, Soft. No: Distention, Tenderness Cardiovascular: Yes: Regular Rate and Rhythm. No: Bradycardia, Tachycardia, Pulse Irregular, Gallop, Rub, Varicosities JVD: No Carotid Bruit: No PMI: Non-Displaced Heart Sounds: Yes: S1, S2. No: Split S2, S3, S4, Clicks, Gallop, Rub, Bruit Murmur: No: Systolic Murmur, Diastolic Murmur Extremities: Yes: WNL Edema: No Peripheral Pulses WNL: Yes Peripheral Pulses: 2+ Left Doralis Pedis, 2+ Right Dorsalis Pedis Neurological: Yes: Alert, Oriented Psychiatric: Yes: Alert, Oriented - Other Data Labs, Other Data: CBC, BMP 07/29/18 07:40 07/29/18 07:40 INR, PTT INR 1.05 (0.83-1.09) 07/28/18 11:09 Troponin, BNP 07/28/18 17:56 Troponin I 0.06 H Troponin, BNP 07/28/18 17:56 Troponin I 0.06 H not in emr Imaging - Results Chest X-ray: Report Reviewed, Image Reviewed EKG: Report Reviewed, Image Reviewed Other: Report Reviewed, Image Reviewed (tele-nsr, sinus tach, brief episodes of likely PSVT) Assessment/Plan 73 year old woman with pmh HTN, NIDDM, chol, CVA, chronic systolic chf with mild LV systolic dysfunction on echo 12/2016 admitted with cough, arrhythmia. Pt seen and examined today in nad. states she has a cough productive of whitish phlegm. denies chest pain, sob, palpitations. no pnd, orthopnea or LE edema. Echo 12/27/16 mild dec EF, 48%, mild MR, severe TR severe pulm htn Arrhythmia -tele appears c/w brief episodes of PSVT -cont tele to evaluate further and confirm no afib -currently on Lopressor 25mg po once a day Cough/SOB-possible URI -does not appear significantly volume overloaded -currently on IV Lasix -can be transitioned to po Lasix Pulmonary HTN-severe -outpatient evaluation on discharge for further work up as needed
[2018-07-29 16:35] LABS: URINE APPEARANCE CLEAR; URINE BILIRUBIN NEGATIVE (<2.0 mg/dL); URINE COLOR LTYELLOW; URINE GLUCOSE (UA) NEGATIVE (NEGATIVE); URINE KETONE NEGATIVE (NEGATIVE); URINE LEUK ESTERASE NEGATIVE (NEGATIVE); URINE NITRITE NEGATIVE (NEGATIVE); URINE PROTEIN 1+ (NEGATIVE); URINE UROBILINOGEN NEGATIVE mg/dL (0.2-1.0)
[2018-07-29 16:38] LABS: EPI CELLS RARE /HPF (FEW); URINE MUCUS RARE
[2018-07-29 17:00] LABS: COCAINE, UR NEGATIVE ng/ml (CUTOFF=300); METHADONE, UR NEGATIVE ng/ml (CUTOFF=300); OPIATES, URI NEGATIVE ng/ml (CUTOFF=300); PHENCYCLIDINE,URINE NEGATIVE ng/ml (CUTOFF=25); URINE AMPHETAMINES NEGATIVE ng/ml (CUTOFF=500); URINE BENZODIAZEPINES NEGATIVE ng/ml (CUTOFF=200)
[2018-07-29 17:01] LABS: URINE BARBITURATES NEGATIVE ng/ml (CUTOFF=200)
--- NOTE | 2018-07-29 17:29 | PN ---
Progress Note, Physician Chief Complaint: SOB, arrhythmia History of Present Illness: Previous notes and events reviewed awake and alert, ambulating NAD denies chest pain, SOB - Current Medication List Current Medications: Active Medications Acetaminophen (Tylenol -) 650 mg PO Q6H PRN PRN Reason: FEVER Amlodipine Besylate (Norvasc -) 5 mg PO DAILY [facility] Last Admin: 07/29/18 09:25 Dose: 5 mg Atorvastatin Calcium (Lipitor -) 20 mg PO HS [facility] Last Admin: 07/28/18 22:10 Dose: 20 mg Clopidogrel Bisulfate (Plavix -) 75 mg PO DAILY [facility] Last Admin: 07/29/18 09:25 Dose: 75 mg Furosemide (Lasix -) 40 mg PO DAILY [facility] Metoprolol Tartrate (Lopressor -) 25 mg PO DAILY [facility] Last Admin: 07/29/18 09:26 Dose: 25 mg Valsartan (Diovan -) 160 mg PO DAILY [facility] Last Admin: 07/29/18 09:25 Dose: 160 mg - Objective Vital Signs: Vital Signs Temperature 98.1 F 07/29/18 10:00 Pulse Rate 116 H 07/29/18 10:00 Respiratory Rate 20 07/29/18 10:00 Blood Pressure 123/77 07/29/18 10:00 O2 Sat by Pulse Oximetry (%) 97 07/29/18 09:00 Constitutional: Yes: Well Nourished, No Distress, Calm Cardiovascular: Yes: Tachycardia Respiratory: Yes: Rales Gastrointestinal: Yes: WNL, Soft Musculoskeletal: Yes: WNL Extremities: Yes: WNL Edema: No Neurological: Yes: Alert, Oriented Psychiatric: Yes: Alert, Oriented Labs: CBC, BMP 07/29/18 07:40 07/29/18 07:40 INR, PTT INR 1.05 (0.83-1.09) 07/28/18 11:09 Problem List - Problems (1) SVT (supraventricular tachycardia) Code(s): I47.1 - SUPRAVENTRICULAR TACHYCARDIA (2) Diabetes 1.5, managed as type 2 Code(s): E10.9 - TYPE 1 DIABETES MELLITUS WITHOUT COMPLICATIONS (3) HTN (hypertension) Code(s): I10 - ESSENTIAL (PRIMARY) HYPERTENSION (4) Acute on chronic diastolic CHF (congestive heart failure) Code(s): I50.33 - ACUTE ON CHRONIC DIASTOLIC (CONGESTIVE) HEART FAILURE (5) Dyspnea Code(s): R06.00 - DYSPNEA, UNSPECIFIED Assessment/Plan -cardiology on board -cont tele monitoring -cont lopressor 25mg QD for rate control -pulm on board -C- Chest CT Scan and V/Q scan ordered -O2 NC PRN -keep SpO2 >90%
--- NOTE | 2018-07-29 19:26 | ECHO ---
Version: 1 Name: TOMMIE QUAN Exam: Adult Echocardiogram Study Date: 07/29/2018, 1:59 PM Age: 73 Years MMode/2D Measurements & Calculations IVSd: 1.22 cm LVIDs: 4.8 cm LVIDd: 5.4 cm LVPWd: 1.24 cm LVOT diam: 2.06 cm Ao root diam: 2.7 cm LA dimension: 4.1 cm Doppler Measurements & Calculations Lat Peak E' Meir: 10.9 cm/sec MR max P.1 mmHg TR max meir: 234.8 cm/sec TR max P.1 mmHg Procedure A two-dimensional transthoracic echocardiogram with color flow and Doppler was performed. Left Ventricle The left ventricle is grossly normal size. Left ventricular systolic function is severely reduced. T here is severe global hypokinesis of the left ventricle. Regional wall motion abnormalities cannot be exclud ed due to limited visualization. Right Ventricle Borderline right ventricular enlargement. The right ventricular systolic function is moderately redu neyda. Atria The left atrium is mildly dilated. The right atrium is mildly dilated. 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 Mitral Valve There is mild mitral valve thickening. There is no mitral valve stenosis. There is severe mitral regurgitation. Tricuspid Valve There is mild tricuspid valve thickening. There is no tricuspid stenosis. There is severe tricuspid regurgitation. Right ventricular systolic pressure is normal. Aortic Valve There is moderate aortic valve thickening. The aortic valve is trileaflet. No hemodynamically signif icant valvular aortic stenosis. No aortic regurgitation is present. Pulmonic Valve The pulmonic valve is not well visualized. Great Vessels The aortic root is normal size. Pericardium/Pleura There is no pericardial effusion. Summary Statements The left atrium is mildly dilated. The right atrium is mildly dilated. There is moderate aortic valve thickening. There is severe mitral regurgitation. There is mild mitral valve thickening. The left ventricle is grossly normal size. Left ventricular systolic function is severely reduced. There is severe global hypokinesis of the left ventricle. There is severe tricuspid regurgitation. The aortic valve is trileaflet. Borderline right ventricular enlargement. The right ventricular systolic function is moderately reduced. Regional wall motion abnormalities cannot be excluded due to limited visualization. Right ventricular systolic pressure is normal. MD Davis Gonzalez 07/29/2018, 7:26 PM Ordering Physician: Ravi Valentine Performed By: Sheree Holbrook
[2018-07-29] MEDS: ATORVASTATIN CA 20 MG TABLET (FP) PO SCH (21:26)
[2018-07-30 06:31] LABS: HEMOGLOBIN 13.1 GM/dL (10.7-15.3); MCH 29.8 pg (25.7-33.7); MCHC 31.9 g/dl (32.0-36.0); MEAN CELL VOLUME 93.4 fl (80-96); PLATELET COUNT 159 K/MM3 (134-434); RBC 4.39 M/mm3 (3.60-5.2); RDW 16.8 % (11.6-15.6); WHITE BLOOD COUNT 7.4 K/mm3 (4.0-10.0)
[2018-07-30 07:16] LABS: ALBUMIN 3.3 g/dl (3.4-5.0); ALK PHOS 70 U/L (45-117); ANION GAP 9 MMOL/L (8-16); BILIRUBIN,TOTAL 1.2 mg/dL (0.2-1); BLOOD UREA NITROGEN 36 mg/dL (7-18); CALCIUM 8.3 mg/dL (8.5-10.1); CHLORIDE 107 mmol/L (98-107); CO2 24 mmol/L (21-32); CREATININE 1.9 mg/dL (0.55-1.3); GLUCOSE,RANDOM 152 mg/dL (74-106); POTASSIUM 3.9 mmol/L (3.5-5.1); SGOT/AST 29 U/L (15-37); SGPT/ALT 35 U/L (13-61); SODIUM 140 mmol/L (136-145); TOT PROT 6.8 g/dl (6.4-8.2)
[2018-07-30] MEDS ORDERED: FUROSEMIDE 40 MG TABLET (FP) PO SCH (10:00)
[2018-07-30] MEDS: VALSARTAN 160 MG TABLET (UD) PO SCH (10:14)
[2018-07-30] MEDS: amLODIPine BESYLATE 5 MG TABLET (FP) PO SCH (10:14)
[2018-07-30] MEDS: METOPROLOL TARTRATE 25 MG TABLET (FP) PO SCH (10:14)
[2018-07-30] MEDS: CLOPIDOGREL BISULFATE 75 MG TABLET (FP) PO SCH (10:14)
--- NOTE | 2018-07-30 11:39 | PN ---
Progress Note, Physician Chief Complaint: patient sitting up in bed wants to go home today awake alert just got chest ct done - Current Medication List Current Medications: Active Medications Acetaminophen (Tylenol -) 650 mg PO Q6H PRN PRN Reason: FEVER Amlodipine Besylate (Norvasc -) 5 mg PO DAILY [facility] Last Admin: 07/30/18 10:14 Dose: 5 mg Atorvastatin Calcium (Lipitor -) 20 mg PO HS [facility] Last Admin: 07/29/18 21:26 Dose: 20 mg Clopidogrel Bisulfate (Plavix -) 75 mg PO DAILY [facility] Last Admin: 07/30/18 10:14 Dose: 75 mg Furosemide (Lasix -) 40 mg PO DAILY [facility] Last Admin: 07/30/18 10:14 Dose: 40 mg Metoprolol Tartrate (Lopressor -) 25 mg PO DAILY [facility] Last Admin: 07/30/18 10:14 Dose: 25 mg Valsartan (Diovan -) 160 mg PO DAILY [facility] Last Admin: 07/30/18 10:14 Dose: 160 mg - Objective Vital Signs: Vital Signs Temperature 98.3 F 07/30/18 10:00 Pulse Rate 100 H 07/30/18 10:00 Respiratory Rate 20 07/30/18 10:00 Blood Pressure 133/98 07/30/18 10:00 O2 Sat by Pulse Oximetry (%) 96 07/30/18 09:00 Constitutional: Yes: Calm Cardiovascular: Yes: Regular Rate and Rhythm, Tachycardia, S1, S2 Respiratory: Yes: CTA Bilaterally, Diminished (at bases) Gastrointestinal: Yes: Normal Bowel Sounds, Soft Neurological: Yes: Alert, Oriented Labs: CBC, BMP 07/30/18 05:30 07/30/18 05:30 INR, PTT INR 1.05 (0.83-1.09) 07/28/18 11:09 Problem List - Problems (1) CKD (chronic kidney disease) Assessment/Plan: on po lasix and diovan monitor lytes Code(s): N18.9 - CHRONIC KIDNEY DISEASE, UNSPECIFIED (2) Pulmonary HTN Assessment/Plan: sleep apnea screen ordered echo done show severe Mitral regurgitation, severe global hypokinesis of the left ventricle,left ventricle systolic function is reduced chest ct done awaiting report to look for lung disease vq scan orderd r/o chronic emboli Code(s): I27.20 - PULMONARY HYPERTENSION, UNSPECIFIED (3) Arrhythmia Assessment/Plan: tele shows sinus tachy on lopressor Code(s): I49.9 - CARDIAC ARRHYTHMIA, UNSPECIFIED (4) CVA (cerebral vascular accident) Assessment/Plan: on plavix and statin swallow evaluation Code(s): I63.9 - CEREBRAL INFARCTION, UNSPECIFIED Qualifiers: CVA mechanism: unspecified Qualified Code(s): I63.9 - Cerebral infarction, unspecified
--- NOTE | 2018-07-30 11:57 | CONSULT ---
Admitting History and Physical - Primary Care Physician PCP: Fabiola Walters - Admission History of Present Illness: 73 year old woman with a history of HTN, HLD and DM who presents with 1 month of cough productive of white occasionally yellow phlegm that worsened this morning after she was eating a tangerine and felt that the "juice went down the wrong pipe." She started coughing for approx 2-3min. Now with resolution of the cough. Pulmonary IMP DYSPNEA ? CHF,SEVERE PULMONARY HTN ACUTE ON CHRONIC CHF COUGH ?SECONDARY TO CHF,? REACTVE AIRWAY DISEASE,? SILENT ASPIRATION SEVERE PULMONARY HTN ? ETIOLOGY ? CARDIAC,? EMBOLI SVT/V-TACH UKLDIP HTN DM H/O CVA Selected Entries 07/29/18 07/29/18 07/30/18 12:26 19:15 02:00 Breakfast 100% Lunch 100% Supper 50% Temperature 98.1 F 07/30/18 07/30/18 05:51 10:00 Breakfast Lunch Supper Temperature 98.3 F 98.3 F Laboratory Tests 07/30/18 05:30 WBC 7.4 Pt reports that since her stroke, she needs to eat carefully or she will choke. She says hger friends report that her speech is better and that she now is speaking more clearly. This is my first consult with this pt. History Source: Patient, Medical Record - Past Medical History Cardiovascular: Yes: CHF, HTN Renal/: Yes: Renal Inusuff Endocrine: Yes: Diabetes Mellitus - Past Surgical History Past Surgical History: Yes: Tubal Ligation - Smoking History Smoking history: Never smoked Have you smoked in the past 12 months: No Aproximately how many cigarettes per day: 6 If you are a former smoker, when did you quit?: 1966 - Alcohol/Substance Use Hx Alcohol Use: No - Social History ADL: Independent History of Recent Travel: No History - Admission Reason For Visit: ACUTE ON CHRONIC DIASTOLIC CHF - Diagnostics X-ray: Report Reviewed CT Scan: Report Reviewed (2017-CVA's) - General Mental Status: Alert and Oriented, Awake and Alert, Able to Follow Commands Attention: Intact Ability to Follow Directions: Excellent Head/Neck Control: WFL - Hearing Hearing: Functional Hearing: Normal Hearing Aide: No With Patient: No Speech Evaluation - Communication Primary Language: YAKUT Communication: Yes: Dysarthria (slight) - Speech Production Able to Make Needs Known: Yes: WNL Intelligibility: Yes: Mildly Impaired - Speech Characteristics Voice Loudness: Normal Voice Pitch: Yes: Normal Voice Phonatory-based Quality: Yes: Hoarse, Dysphonia (intermittent) Speech Clarity: < 100% Nasal Resonance: Normal Articulation: Yes: Imprecise (slight) - Language/Auditory Comprehension Follows: Yes: 2 Stage Simple Commands Observation: Able to respond to yes/no queries: Yes, Yes/No Confusion: No, Comprehends Conversational Speech: Yes, Benefits from Slow Speech: Yes, Benefits from Repetiton: Yes - Language/Verbal Expression Able to Respond to Simple Queries: Yes: WNL Able to Communicate Wants and Needs: Yes: WNL Functional Communication Status: Yes: WNL - Memory/Perception [facility] Memory: Yes: WNL Short Term Memory: Yes: WNL - Swallow Evaluation/Bedside Assessment Current Nutritional Intake: Regular, Thin Liquids Oral Secretions: Yes: WFL Dentition: Yes: Adequate, Missing Teeth Facial Symmetry at Rest: Facial Droop Left (mild) Facial Symmetry on Retraction: Facial Droop Left Against Resistance Opening: Normal Against Resistance Closing: Normal Smile: Droops Left Lingual Movement: Symmetric Lingual Speed of Movement: Normal Lingual Movement Strgth Against Opposition: Normal Lingual Movement Characteristics: Normal Velopharyngeal Movement: Normal Laryngeal Movement: Labored,delay initiation Rate of Intake: WFL (eats carefully) Bolus Size: Small Labial Seal: WFL Chewing: WFL Oral Prep Time: WFL A-P Transit: WFL Timing of Swallow: Delayed Coughing/Throat Clear: Yes (intermittent) Recommendations - Speech Evaluation, Impression/Plan Impression: Pt with remote CVA, with h/o dysphagia, "needingf tro eat carefully or she chokes." Admitted after choking on juice from tangerine. Reports cough x 1 month, not improving. Cognitively intact. Left facial, Slight dysarthria, reportedly improved from onset. This is my first consult with this pt. - Dysphagia Impressions/Plan Swallowing Skills: Impaired Dysphagia Impressions: Mild Impairment, Suspect Aspiration *Silent aspiration: cannot be R/O at bedside Recommendations: JESUS Ayala
--- NOTE | 2018-07-30 13:24 | PN ---
Progress Note, Physician History of Present Illness: Pt seen and examined at bedside. She feels that her cough is improving. - Current Medication List Current Medications: Active Medications Acetaminophen (Tylenol -) 650 mg PO Q6H PRN PRN Reason: FEVER Amlodipine Besylate (Norvasc -) 5 mg PO DAILY [facility] Last Admin: 07/30/18 10:14 Dose: 5 mg Atorvastatin Calcium (Lipitor -) 20 mg PO HS [facility] Last Admin: 07/29/18 21:26 Dose: 20 mg Clopidogrel Bisulfate (Plavix -) 75 mg PO DAILY [facility] Last Admin: 07/30/18 10:14 Dose: 75 mg Furosemide (Lasix -) 40 mg PO DAILY [facility] Last Admin: 07/30/18 10:14 Dose: 40 mg Metoprolol Tartrate (Lopressor -) 25 mg PO DAILY [facility] Last Admin: 07/30/18 10:14 Dose: 25 mg Valsartan (Diovan -) 160 mg PO DAILY [facility] Last Admin: 07/30/18 10:14 Dose: 160 mg - Objective Vital Signs: Vital Signs Temperature 98.3 F 07/30/18 10:00 Pulse Rate 100 H 07/30/18 10:00 Respiratory Rate 20 07/30/18 10:00 Blood Pressure 133/98 07/30/18 10:00 O2 Sat by Pulse Oximetry (%) 96 07/30/18 09:00 Constitutional: Yes: Calm Eyes: Yes: Conjunctiva Clear HENT: Yes: Atraumatic Cardiovascular: Yes: S1, S2 Respiratory: Yes: CTA Bilaterally Gastrointestinal: Yes: Soft Genitourinary: Yes: WNL Musculoskeletal: Yes: WNL Edema: No Neurological: Yes: Oriented Psychiatric: Yes: Oriented Labs: CBC, BMP 07/30/18 05:30 07/30/18 05:30 INR, PTT INR 1.05 (0.83-1.09) 07/28/18 11:09 Problem List - Problems (1) CKD (chronic kidney disease) Code(s): N18.9 - CHRONIC KIDNEY DISEASE, UNSPECIFIED (2) Cough Code(s): R05 - COUGH (3) Dyspnea Code(s): R06.00 - DYSPNEA, UNSPECIFIED (4) Diabetes 1.5, managed as type 2 Code(s): E10.9 - TYPE 1 DIABETES MELLITUS WITHOUT COMPLICATIONS (5) HTN (hypertension) Code(s): I10 - ESSENTIAL (PRIMARY) HYPERTENSION Assessment/Plan Current Medications Generic Name Dose Route Start Last Admin Trade Name Freq PRN Reason Stop Dose Admin Acetaminophen 650 mg 07/28/18 15:06 Tylenol - PO Q6H PRN FEVER Amlodipine Besylate 5 mg 07/29/18 10:00 07/30/18 10:14 Norvasc - PO 5 mg DAILY [facility] Administration Atorvastatin Calcium 20 mg 07/28/18 22:00 07/29/18 21:26 Lipitor - PO 20 mg HS [facility] Administration Clopidogrel Bisulfate 75 mg 07/29/18 10:00 07/30/18 10:14 Plavix - PO 75 mg DAILY [facility] Administration Furosemide 40 mg 07/30/18 10:00 07/30/18 10:14 Lasix - PO 40 mg DAILY [facility] Administration Metoprolol Tartrate 25 mg 07/29/18 10:00 07/30/18 10:14 Lopressor - PO 25 mg DAILY [facility] Administration Valsartan 160 mg 07/28/18 15:15 07/30/18 10:14 Diovan - PO 160 mg DAILY [facility] Administration Impression 1. CKD 2. CHF 3. DM 4. HTN 5. hx CVA 6. a-fib 7. elevated kappa chains Plan - bp stabilizing - pt was on entresto as outpt, recommend stopping valsartan if entresto is restarted - cont amlodipine, can increase to 10 mg if needed - pt now off of clonidine and stabe, will no restart - unclear why not on beta terry - cont lasix at 40 - repeat labs in am - monitor bp - will follow Dr Cleveland
--- NOTE | 2018-07-30 16:22 | PN ---
Progress Note, Physician Chief Complaint: Cardiology FU Less SOB Telem recurrent SVT-likely Aflutter. Wide complex likely to be aberrancy. HR 140s. Echocardiogram reviewed: Severe LV dysfunction with EF likely in the 15-20% range. Severe TR. Mod MR. - Current Medication List Current Medications: Active Medications Acetaminophen (Tylenol -) 650 mg PO Q6H PRN PRN Reason: FEVER Amlodipine Besylate (Norvasc -) 5 mg PO DAILY [facility] Last Admin: 07/30/18 10:14 Dose: 5 mg Atorvastatin Calcium (Lipitor -) 20 mg PO HS [facility] Last Admin: 07/29/18 21:26 Dose: 20 mg Clopidogrel Bisulfate (Plavix -) 75 mg PO DAILY [facility] Last Admin: 07/30/18 10:14 Dose: 75 mg Furosemide (Lasix -) 40 mg PO DAILY [facility] Last Admin: 07/30/18 10:14 Dose: 40 mg Metoprolol Tartrate (Lopressor -) 25 mg PO DAILY [facility] Last Admin: 07/30/18 10:14 Dose: 25 mg Valsartan (Diovan -) 160 mg PO DAILY [facility] Last Admin: 07/30/18 10:14 Dose: 160 mg - Objective Vital Signs: Vital Signs Temperature 98.3 F 07/30/18 10:00 Pulse Rate 100 H 07/30/18 10:00 Respiratory Rate 20 07/30/18 10:00 Blood Pressure 133/98 07/30/18 10:00 O2 Sat by Pulse Oximetry (%) 96 07/30/18 09:00 Constitutional: Yes: Well Nourished, No Distress Eyes: Yes: Conjunctiva Clear HENT: Yes: Atraumatic, Normocephalic Neck: Yes: Trachea Midline Cardiovascular: Yes: Tachycardia, JVD, S1, S2 Respiratory: Yes: Regular, CTA Bilaterally Gastrointestinal: Yes: Soft Edema: Yes Edema: LLE: Trace, RLE: Trace Labs: CBC, BMP 07/30/18 05:30 07/30/18 05:30 INR, PTT INR 1.05 (0.83-1.09) 07/28/18 11:09 Problem List - Problems (1) Acute kidney injury Code(s): N17.9 - ACUTE KIDNEY FAILURE, UNSPECIFIED (2) Acute on chronic diastolic CHF (congestive heart failure) Code(s): I50.33 - ACUTE ON CHRONIC DIASTOLIC (CONGESTIVE) HEART FAILURE (3) Arrhythmia Code(s): I49.9 - CARDIAC ARRHYTHMIA, UNSPECIFIED Assessment/Plan 73 F DM, HTN with new SVT likely Aflutter with WCT likely to be aberrancy. Echocardiogram with severe LV systolic dysfunction. She has KULDIP possibly cardiorenal. Rec: Anticoagulate with IV heaprin. DC Amlodipine Increase metoprolol 25mg BID May require GOMEZ DCCV, Antiarrhytmhic therapy and possibly cardiac cath. Will transfer to [facility] for further management.
--- NOTE | 2018-07-30 16:44 | PN ---
Progress Note (short form) - Note Progress Note: Breathing feels a little better. No CP. Some congested cough but better. Intake & Output 07/27/18 07/28/18 07/29/18 07/30/18 23:59 23:59 23:59 23:59 Intake Total 190 1000 10 Balance 190 1000 10 Weight 242 lb 243 lb 9.6 oz 246 lb Last Vital Signs Temp Pulse Resp BP Pulse Ox 98.3 F 100 H 20 133/98 96 07/30/18 10:00 07/30/18 10:00 07/30/18 10:00 07/30/18 10:00 07/30/18 09:00 Active Medications Acetaminophen (Tylenol -) 650 mg PO Q6H PRN PRN Reason: FEVER Atorvastatin Calcium (Lipitor -) 20 mg PO HS [facility] Last Admin: 07/29/18 21:26 Dose: 20 mg Clopidogrel Bisulfate (Plavix -) 75 mg PO DAILY [facility] Last Admin: 07/30/18 10:14 Dose: 75 mg Furosemide (Lasix -) 40 mg PO DAILY [facility] Last Admin: 07/30/18 10:14 Dose: 40 mg Metoprolol Tartrate (Lopressor -) 25 mg PO BID [facility] Valsartan (Diovan -) 160 mg PO DAILY [facility] Last Admin: 07/30/18 10:14 Dose: 160 mg Constitutional: Yes: Obese, NAD Eyes: Yes: Conjunctiva Clear HENT: Yes: Atraumatic, Normocephalic Neck: Yes: Trachea Midline Cardiovascular: Yes: Tachycardia, JVD, S1, S2 Respiratory: Yes: Clear, diminished throughout Gastrointestinal: Yes: Soft Edema: Yes Edema: LLE: Trace, RLE: Trace Labs: Laboratory Results - last 24 hr 07/29/18 07/30/18 07/30/18 13:00 05:30 05:30 WBC 7.4 RBC 4.39 Hgb 13.1 Hct 41.0 MCV 93.4 MCH 29.8 MCHC 31.9 L RDW 16.8 H Plt Count 159 MPV 9.0 Sodium 140 Potassium 3.9 Chloride 107 Carbon Dioxide 24 Anion Gap 9 BUN 36 H Creatinine 1.9 H Creat Clearance w eGFR 25.77 Random Glucose 152 H Calcium 8.3 L Total Bilirubin 1.2 H AST 29 ALT 35 Alkaline Phosphatase 70 Total Protein 6.8 Albumin 3.3 L Opiates Screen Negative Methadone Screen Negative Barbiturate Screen Negative Phencyclidine Screen Negative Ur Amphetamines Screen Negative MDMA (Ecstasy) Screen Negative Benzodiazepines Screen Negative Cocaine Screen Negative U Marijuana (THC) Screen Negative Problem List - Problems (1) Pulmonary HTN Code(s): I27.20 - PULMONARY HYPERTENSION, UNSPECIFIED (2) Dyspnea Code(s): R06.00 - DYSPNEA, UNSPECIFIED (3) CVA (cerebral vascular accident) Code(s): I63.9 - CEREBRAL INFARCTION, UNSPECIFIED Qualifiers: CVA mechanism: unspecified Qualified Code(s): I63.9 - Cerebral infarction, unspecified (4) Diabetes 1.5, managed as type 2 Code(s): E10.9 - TYPE 1 DIABETES MELLITUS WITHOUT COMPLICATIONS (5) HTN (hypertension) Code(s): I10 - ESSENTIAL (PRIMARY) HYPERTENSION (6) Acute on chronic diastolic CHF (congestive heart failure) Code(s): I50.33 - ACUTE ON CHRONIC DIASTOLIC (CONGESTIVE) HEART FAILURE (7) SVT (supraventricular tachycardia) Code(s): I47.1 - SUPRAVENTRICULAR TACHYCARDIA (8) Cough Code(s): R05 - COUGH (9) Acute kidney injury Code(s): N17.9 - ACUTE KIDNEY FAILURE, UNSPECIFIED IMP DYSPNEA ? CHF,SEVERE PULMONARY HTN ACUTE ON CHRONIC CHF COUGH ?SECONDARY TO CHF,? REACTVE AIRWAY DISEASE,? SILENT ASPIRATION RVSP IS REPORTED NORMAL SVT/V-TACH KULDIP HTN DM H/O CVA PLAN LASIX NEEDED O2 RATE CONTROL MONITOR LYTES,RENAL FUNCTION FOLLOW V/Q SCAN TO R/O CHRONIC EMBOLI SLEEP SCREEN FORMAL SLEEP STUDIES OUTPATIENT PFTS OUTPATIENT DR PATEL
[2018-07-30] MEDS ORDERED: HEPARIN NA (PORCINE) 5,000 UNITS/ML 1ML VIAL IVPUSH PRN ×2 (17:17)
--- NOTE | 2018-07-30 17:21 | DS ---
Physical Examination Vital Signs: Vital Signs Temperature 98.3 F 07/30/18 10:00 Pulse Rate 100 H 07/30/18 10:00 Respiratory Rate 20 07/30/18 10:00 Blood Pressure 133/98 07/30/18 10:00 O2 Sat by Pulse Oximetry (%) 96 07/30/18 09:00 Constitutional: Yes: Calm Cardiovascular: Yes: Regular Rate and Rhythm, Tachycardia, S1, S2 Respiratory: Yes: CTA Bilaterally Gastrointestinal: Yes: Normal Bowel Sounds, Soft Labs: CBC, BMP 07/30/18 05:30 07/30/18 05:30 Discharge Summary Reason For Visit: ACUTE ON CHRONIC DIASTOLIC CHF Current Active Problems Acute kidney injury (Acute) Acute on chronic diastolic CHF (congestive heart failure) (Acute) Arrhythmia (Acute) CKD (chronic kidney disease) (Acute) Cough (Acute) Dyspnea (Acute) Pulmonary HTN (Acute) SVT (supraventricular tachycardia) (Acute) Hospital Course: PCP: Ravi Valentine - Admission Chief Complaint: SOB/RAPID AFIB History of Present Illness: 73 Y/O FEMALE HERE IN ED FOR DYSPNEA WITH RAPID AFIB. PATIENT HAS AN ELEVATED BNP AND IS IN ACUTE ON CHRONIC CHF. GIVEN ADENOSINE IN ED FOR RAPID TACHYCARDIA AND ON TELEMETRY. History Source: Medical Record Limitations to Obtaining History: Uncooperative - Past Medical History Cardiovascular: Yes: HTN Endocrine: Yes: Diabetes Mellitus - Past Surgical History Past Surgical History: Yes: Tubal Ligation in hospital ECHO done show severe LV dysfcuntion, and severe MR chest ct done vq scan pending seen by cardio and pulm plan to transfer to [facility] for cardiac cath anticoagulate with iv heparin dc norvasc inc metoprolol to bid Condition: Stable - Instructions Referrals: Tony Golden MD [Primary Care Provider] - Disposition: TRANSFER ACUTE CARE/OTHER HOSP - Home Medications Comprehensive Discharge Medication List: Ambulatory Orders Amlodipine Besylate [Norvasc -] 10 mg PO DAILY 12/27/16 Valsartan [Diovan] 160 mg PO DAILY 12/27/16 Atorvastatin Ca [Lipitor] 40 mg PO HS #30 tablet 12/30/16 Clopidogrel Bisulfate [Plavix -] 75 mg PO DAILY #30 tablet 12/30/16 Metoprolol Tartrate [Lopressor -] 25 mg PO DAILY #30 tablet 12/30/16
--- NOTE | 2018-07-30 17:24 | PN ---
Progress Note (short form) - Note Progress Note: cardiolgy consult noted start iv heparin stop norvasc inc metoprolol to bid transfer for cardiac cath Problem List - Problems (1) CKD (chronic kidney disease) Code(s): N18.9 - CHRONIC KIDNEY DISEASE, UNSPECIFIED (2) Pulmonary HTN Code(s): I27.20 - PULMONARY HYPERTENSION, UNSPECIFIED (3) Arrhythmia Code(s): I49.9 - CARDIAC ARRHYTHMIA, UNSPECIFIED (4) CVA (cerebral vascular accident) Code(s): I63.9 - CEREBRAL INFARCTION, UNSPECIFIED Qualifiers: CVA mechanism: unspecified Qualified Code(s): I63.9 - Cerebral infarction, unspecified
[2018-07-30] MEDS ORDERED: HEPARIN - 25,000 UNIT in SODIUM CHLORIDE 495 ML IV SCH (17:30)
[2018-07-30 20:33] VITALS: BP 148/91; PULSE 125; TEMP 98.5
[2018-07-30] MEDS: ATORVASTATIN CA 20 MG TABLET (FP) PO SCH (21:07)
[2018-07-30] MEDS ORDERED: METOPROLOL TARTRATE 25 MG TABLET (FP) PO SCH (22:00)
--- NOTE | 2018-07-31 09:43 | EKG ---
Test Reason : Blood Pressure : / mmHG Vent. Rate : 106 BPM Atrial Rate : 106 BPM P-R Int : 156 ms QRS Dur : 090 ms QT Int : 364 ms P-R-T Axes : 039 001 086 degrees QTc Int : 483 ms SINUS TACHYCARDIA WITH PREMATURE ATRIAL COMPLEXES NONSPECIFIC ST AND T WAVE ABNORMALITY ABNORMAL ECG WHEN COMPARED WITH ECG OF 27-DEC-2016 08:49, NO SIGNIFICANT CHANGE WAS FOUND Confirmed by JATIN YOUNG, ARIEL ([id number]) on 07/31/2018 9:43:33 AM Referred By: Confirmed By:ARIEL STEINER MD
--- NOTE | 2018-07-31 09:50 | EKG ---
Test Reason : Blood Pressure : / mmHG Vent. Rate : 102 BPM Atrial Rate : 102 BPM P-R Int : 158 ms QRS Dur : 090 ms QT Int : 372 ms P-R-T Axes : 040 002 084 degrees QTc Int : 484 ms POOR DATA QUALITY, INTERPRETATION MAY BE ADVERSELY AFFECTED SINUS TACHYCARDIA WITH PREMATURE ATRIAL COMPLEXES POSSIBLE LEFT ATRIAL ENLARGEMENT BORDERLINE ECG WHEN COMPARED WITH ECG OF 28-JUL-2018 09:57, T WAVE INVERSION LESS EVIDENT IN LATERAL LEADS Confirmed by JATIN YOUNG, AIREL ([id number]) on 07/31/2018 9:50:22 AM Referred By: Confirmed By:ARIEL STEINER MD
--- NOTE | 2018-07-31 09:50 | EKG ---
Test Reason : Blood Pressure : / mmHG Vent. Rate : 142 BPM Atrial Rate : 142 BPM P-R Int : 000 ms QRS Dur : 122 ms QT Int : 382 ms P-R-T Axes : 000 041 093 degrees QTc Int : 587 ms narrow complex tachycardia SUPRAVENTRICULAR TACHYCARDIA SEPTAL INFARCT , AGE UNDETERMINED INFERIOR INJURY PATTERN ACUTE NH / STEMI Consider right ventricular involvement in acute inferior infarct ABNORMAL ECG Confirmed by JATIN YOUNG, ARIEL ([id number]) on 07/31/2018 9:50:09 AM Referred By: Confirmed By:ARIEL STEINER MD
--- NOTE | 2018-08-03 16:34 | EKG ---
Test Reason : Blood Pressure : / mmHG Vent. Rate : 103 BPM Atrial Rate : 103 BPM P-R Int : 154 ms QRS Dur : 090 ms QT Int : 356 ms P-R-T Axes : 054 -06 088 degrees QTc Int : 466 ms SINUS TACHYCARDIA POSSIBLE LEFT ATRIAL ENLARGEMENT NONSPECIFIC T WAVE ABNORMALITY ABNORMAL ECG WHEN COMPARED WITH ECG OF 28-JUL-2018 15:54, NOTE ALEVISM OF SINUS RHYTHM VENT. RATE HAS DECREASED Confirmed by AARON YOUNG, ALE ([id number]) on 08/03/2018 4:33:31 PM Referred By: Confirmed By:ALE WALKER MD
== END 2018-07-30 21:29 | disposition short-term general hospital (02) | DRG 291 ==
LOC: JER 09:13 → JERFT 09:13 → JERBED 15:05 → J4W 21:54
PROVIDERS: ADMIT Family Medicine; ATTEND Family Medicine
DX: I13.0 Hypertensive heart and chronic kidney disease with heart failure and stage 1 through stage 4 chronic kidney disease, or unspecified chronic kidney disease (principal); I50.33 Acute on chronic diastolic (congestive) heart failure; N17.9 Acute kidney failure, unspecified; I47.1 Supraventricular tachycardia; I48.92 Unspecified atrial flutter; I48.91 Unspecified atrial fibrillation; E11.22 Type 2 diabetes mellitus with diabetic chronic kidney disease; N18.9 Chronic kidney disease, unspecified; I27.20 Pulmonary hypertension, unspecified; E78.5 Hyperlipidemia, unspecified; R06.00 Dyspnea, unspecified; I49.9 Cardiac arrhythmia, unspecified; R05 Cough; I34.0 Nonrheumatic mitral (valve) insufficiency; Z86.73 Personal history of transient ischemic attack (TIA), and cerebral infarction without residual deficits
CPT/HCPCS: 36415; 71045-TC-FY; 71250-TC; 74230-TC-FY; 78582-TC; 80053; 80061; 80307; 81003; 81015; 82550; 82553; 83721; 83880; 84443; 84484; 85025; 85027; 85610; 85730; 87086; 92611-GN; 93005; 93010; 93306-TC; 99285-25; A9539; A9540; J1644

== ENCOUNTER 2018-11-08 08:38 | Emergency (ER) | payer OTHER ==
[2018-11-08 08:57] VITALS: PULSE 91; TEMP 98; BMI 36.3
--- NOTE | 2018-11-08 09:21 | PDOC ---
History of Present Illness - General Chief Complaint: Injury Stated Complaint: RT STUBBED TOE Time Seen by Provider: 11/08/18 09:01 History Source: Patient Exam Limitations: No Limitations - History of Present Illness Initial Comments: 11/08/18 09:15 73 yo F w/ a h/o CHF, cardiac disease, HTN, DM, HLD comes in c/o R sided toe/ foot pain s/p stubbing it against a piece of furniture in her bedroom 2 days ago. NO other complaints today. NO other injury, no numbness/tingling, no ankle/ knee pain, no CP, no SOB, no fever/chills. Pt says that she did not take her BP medication today yet, hence the high BP, but her low is usually 140/90. She is asymptomatic, no CP/SOB, no dizziness, no vision changes, no headache, no neck pain. 11/08/18 09:16 Past History - Past Medical History Allergies/Adverse Reactions: Allergies Allergy/AdvReac Type Severity Reaction Status Date / Time No Known Allergies Allergy Verified 11/08/18 08:56 Home Medications: Ambulatory Orders Valsartan [Diovan] 160 mg PO DAILY 12/27/16 Atorvastatin Ca [Lipitor] 40 mg PO HS #30 tablet 12/30/16 Clopidogrel Bisulfate [Plavix -] 75 mg PO DAILY #30 tablet 12/30/16 Cardiac Disorders: Yes (heart murmur) COPD: No CHF: Yes Diabetes: Yes Disorders: Yes (incontinence) HTN: Yes Hypercholesterolemia: Yes - Suicide/Smoking/Psychosocial Hx Smoking Status: Yes Smoking History: Never smoked Years of Tobacco Use: 25 Have you smoked in the past 12 months: No Number of Cigarettes Smoked Daily: 6 If you are a former smoker, when did you quit?: 1967 Hx Alcohol Use: No Drug/Substance Use Hx: No Substance Use Type: None Hx Substance Use Treatment: No Review of Systems - Review of Systems Able to Perform ROS?: Yes Constitutional: No: Chills, Fever, Malaise, Night Sweats HEENTM: No: Eye Pain, Recent change in vision, Throat Pain Respiratory: No: Cough, Shortness of Breath Cardiac (ROS): No: Chest Pain, Palpitations, Chest Tightness ABD/GI: No: Diarrhea, Nausea, Vomiting, Abdominal cramping : No: Dysuria, Hematuria Musculoskeletal: No: Back Pain Integumentary: No: Rash Neurological: No: Headache, Numbness, Dizziness Psychiatric: No: Change in Appetite Endocrine: No: Unexplained Weight Loss *Physical Exam - Vital Signs Last Vital Signs Temp Pulse Resp BP Pulse Ox 98 F 91 H 18 178/100 H 96 11/08/18 08:48 11/08/18 08:48 11/08/18 08:48 11/08/18 08:48 11/08/18 08:48 - Physical Exam General Appearance: Yes: Nourished. No: Apparent Distress HEENT: positive: CLEMENTE, Normal ENT Inspection, Normal Voice. negative: Pale Conjunctivae, Scleral Icterus (R), Scleral Icterus (L) Neck: positive: Supple. negative: Decreased range of motion Respiratory/Chest: negative: Respiratory Distress, Accessory Muscle Use Cardiovascular: positive: Regular Rate Extremity: positive: Normal Capillary Refill, Normal Inspection, Normal Range of Motion, Pedal Edema (bilateral +1 subtle pitting edema, R foot with mild tenderness to 1st MTPJ and to foot diffusely, Equally faint bilateral DP pulses. FROM bilateral feet and toes with 5/5 strength, full sensory function, good cap refill. R ankle with FROM, non tender). negative: Tender Integumentary: positive: Normal Color, Dry. negative: Jaundice, Rash Neurologic: positive: Fully Oriented, Alert, Normal Mood/Affect ED Treatment Course - RADIOLOGY Radiology Studies Ordered: Category Date Time Status FOOT-RIGHT [RAD] Stat Radiology 11/08/18 09:12 Ordered Medical Decision Making - Medical Decision Making 11/08/18 09:21 73 yo w/ foot injury. WIll do xrays and reassess 11/08/18 09:41 BP repeated, came down Pt placed in a post op shoe, she has a cane. Ortho follow up this week given with Dr. Alvaro Nicholson for worsening/concerning symptoms Pt verbalizes understanding and agrees with plan 11/08/18 09:46 *DC/Admit/Observation/Transfer Diagnosis at time of Disposition: Injury of foot including toes Qualifiers: Encounter type: initial encounter Laterality: right Qualified Code(s): S99.921A - Unspecified injury of right foot, initial encounter - Discharge Dispostion Disposition: HOME Condition at time of disposition: Stable - Referrals Referrals: Tony Golden MD [Primary Care Provider] - Paul John DO [Staff Physician] - - Patient Instructions Additional Instructions: Please follow up with orthopedics. Call to schedule an appointment with Dr. John for this week. Weight bearing as tolerated. Return to the ER for worsening /concerning symptoms. Please also follow up with your regular doctor this week. Thank you - Post Discharge Activity
[2018-11-08 09:40] VITALS: BP 154/97
== END 2018-11-08 09:48 | disposition home or self-care (01) ==
LOC: JERFT 08:38 → JER 08:38 → JERFT 09:48
DX: S99.921A Unspecified injury of right foot, initial encounter (principal); W22.03XA Walked into furniture, initial encounter; Y93.01 Activity, walking, marching and hiking; Y92.032 Bedroom in apartment as the place of occurrence of the external cause; Y99.8 Other external cause status; I25.10 Atherosclerotic heart disease of native coronary artery without angina pectoris; I11.0 Hypertensive heart disease with heart failure; E11.9 Type 2 diabetes mellitus without complications; E78.5 Hyperlipidemia, unspecified; I50.9 Heart failure, unspecified
CPT/HCPCS: 73630-TC-RT-FY; 99281-25

== ENCOUNTER 2019-01-06 13:02 | Inpatient (IN) | payer OTHER ==
--- NOTE | 2019-01-06 13:11 | PDOC ---
Rapid Medical Evaluation Chief Complaint: Shortness of Breath Medical Evaluation: Allergies Allergy/AdvReac Type Severity Reaction Status Date / Time No Known Allergies Allergy Verified 11/08/18 08:56 I have performed a brief in-person evaluation of this patient. The patient presents with a chief complaint of: Hx of CHF, presenting with worsening SOB for months, worse the past few days; denies CP Pertinent physical exam findings: In NAD, lungs clear, pitting edema of BLE I have ordered the following: Labs, EKG, CXR The patient will proceed to the ED for further evaluation. 01/06/19 13:07 Discharge Disposition - Discharge Dispostion Condition at time of disposition: Stable - Referrals - Patient Instructions - Post Discharge Activity
--- NOTE | 2019-01-06 13:48 | PDOC ---
History of Present Illness - General Chief Complaint: Shortness of Breath Stated Complaint: DIFFICULTY BREATHING Time Seen by Provider: 01/06/19 13:06 History Source: Patient Exam Limitations: No Limitations - History of Present Illness Initial Comments: 01/06/19 13:47 73 y/o F with PMHx of HTN, DM, CVA (1 year ago), CHF presents with worsening SOB and B/L LE Edema. Patient was last hospitalized at [facility] 3 months ago at which time she had similar sx's; she was medically managed at this time. She has not had cardio (Dr. Kenny) follow up since discharge. Since previous discharge, patient says she has continued to have these sx's however today the SOB has increased. Additionally she has had 2+ b/l pitting edema, orthopnea, decreased exercise tolerance. Patient mentions she is medication compliant and was previously on a diuretic which was stopped (unclear why). Denies any associated Fevers, chills, chest pain, Palpitations, nausea, vomiting , diarrhea, constipation, dyysuria, hematuria. Her last echo in 07/21 reveals sever AR, LV Systolic function is severely reduced, Severe global hypokinesis of the LV, Severe TR, RV systolic function is moderately reduced. PMHx: As above PSHx: Denies Allergies: Denies FHx: Mother with DM and HTN, Father with CHF Social: Denies tobacco or drug use, occasional EtOH use, PCP is Dr. Golden Timing/Duration: unsure Severity: moderate Past History - Travel Traveled outside of the country in the last 30 days: No Close contact w/someone who was outside of country & ill: No - Past Medical History Allergies/Adverse Reactions: Allergies Allergy/AdvReac Type Severity Reaction Status Date / Time No Known Allergies Allergy Verified 11/08/18 08:56 Home Medications: Ambulatory Orders Atorvastatin Ca [Lipitor] 40 mg PO HS #30 tablet 12/30/16 Clopidogrel Bisulfate [Plavix -] 75 mg PO DAILY #30 tablet 12/30/16 Amiodarone HCl 200 mg PO DAILY 01/06/19 Aspirin [ASA -] 81 mg PO DAILY 01/06/19 Calcium Acetate 667 mg PO DAILY 01/06/19 Anemia: No Asthma: No Cardiac Disorders: Yes (heart murmur, CHF) Hx Myocardial Infarction: No CVA: Yes COPD: No CHF: Yes DVT: No Dementia: No Diabetes: Yes (Managed with Diet) Hx Glaucoma: No Dialysis: No GI Disorders: No Disorders: No (incontinence) HTN: Yes Hypercholesterolemia: Yes Kidney Stones: No Liver Disease: No Thyroid Disease: No - Surgical History Abdominal Surgery: No Appendectomy: No Cardiac Surgery: No Cholecystectomy: No Gastric Stapling: No GI Surgery: No Lung Surgery: No Neurologic Surgery: No Orthopedic Surgery: No - Family Disease History Family Disease History: Diabetes: Mother, Heart Disease: Father - Immunization History Immunization Up to Date: No - Suicide/Smoking/Psychosocial Hx Smoking Status: Yes Smoking History: Never smoked Have you smoked in the past 12 months: No If you are a former smoker, when did you quit?: 1966 Information on smoking cessation initiated: No Hx Alcohol Use: Yes (occasional) Drug/Substance Use Hx: No Substance Use Type: None Hx Substance Use Treatment: No Review of Systems - Review of Systems Constitutional: No: Chills, Fever Respiratory: Yes: Orthopnea, Shortness of Breath. No: Cough, Wheezing Cardiac (ROS): Yes: Edema. No: Chest Pain, Palpitations ABD/GI: No: Constipated, Diarrhea, Nausea, Vomiting : No: Dysuria, Hematuria Neurological: Yes: Unsteady Gait. No: Numbness, Tingling, Weakness *Physical Exam - Vital Signs Last Vital Signs Temp Pulse Resp BP Pulse Ox 97.8 F 85 16 171/103 H 95 01/06/19 13:05 01/06/19 13:05 01/06/19 13:05 01/06/19 13:05 01/06/19 13:05 - Physical Exam General Appearance: Yes: Appropriately Dressed HEENT: positive: EOMI, CLEMENTE Neck: positive: Supple Respiratory/Chest: positive: Normal Breath Sounds. negative: Crackles, Rhonchi , Wheezing Cardiovascular: positive: Regular Rhythm, Regular Rate, S1, S2, Edema, Murmur ( MR). negative: JVD Gastrointestinal/Abdominal: positive: Normal Bowel Sounds, Soft. 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 Concern for Acute CHF Exacerbation given lack of diuresis. Less likely to be Venous insufficency, b/l DVT, ACS, Arrhythmia, infection. EKG reveals Sinus rhythm with PAC's, VR 85m Qtc 490. Check CBC, CMP, BNP, CXR, Trop. Give IV Lasix 40mg, Nitropaste. Elevated HTN likely due to not taking medication today. 01/06/19 15:28 Laboratory Last Values WBC 6.8 K/mm3 (4.0-10.0) 01/06/19 13:36 RBC 3.78 M/mm3 (3.60-5.2) 01/06/19 13:36 Hgb 11.3 GM/dL (10.7-15.3) 01/06/19 13:36 Hct 34.7 % (32.4-45.2) D 01/06/19 13:36 MCV 91.8 fl (80-96) 01/06/19 13:36 MCH 29.9 pg (25.7-33.7) 01/06/19 13:36 MCHC 32.5 g/dl (32.0-36.0) 01/06/19 13:36 RDW 17.3 % (11.6-15.6) H 01/06/19 13:36 Plt Count 162 K/MM3 (134-434) 01/06/19 13:36 MPV 8.6 fl (7.5-11.1) 01/06/19 13:36 Absolute Neuts (auto) 5.4 K/mm3 (1.5-8.0) 01/06/19 13:36 Neutrophils % 78.9 % (42.8-82.8) 01/06/19 13:36 Lymphocytes % 11.1 % (8-40) D 01/06/19 13:36 Monocytes % 8.1 % (3.8-10.2) 01/06/19 13:36 Eosinophils % 1.2 % (0-4.5) D 01/06/19 13:36 Basophils % 0.7 % (0-2.0) 01/06/19 13:36 Nucleated RBC % 0 % (0-0) 01/06/19 13:36 VBG pH 7.38 (7.31-7.41) 01/06/19 13:41 POC VBG pCO2 40.4 mmHg (41-51) L 01/06/19 13:41 POC VBG pO2 65.8 mmHg (30-40) H 01/06/19 13:41 VBG HCO3 23.2 mmol/L (23-29) 01/06/19 13:41 VBG O2 Sat (Boubacar) 91.9 % (70-80) H 01/06/19 13:41 VBG Base Excess -1.3 meq/l (-2-2) 01/06/19 13:41 Sodium 141 mmol/L (136-145) 01/06/19 13:36 Potassium 4.3 mmol/L (3.5-5.1) 01/06/19 13:36 Chloride 112 mmol/L (98-107) H 01/06/19 13:36 Carbon Dioxide 26 mmol/L (21-32) 01/06/19 13:36 Anion Gap 3 MMOL/L (8-16) L 01/06/19 13:36 BUN 28 mg/dL (7-18) H 01/06/19 13:36 Creatinine 1.5 mg/dL (0.55-1.3) H 01/06/19 13:36 Est GFR (CKD-EPI)AfAm 39.09 01/06/19 13:36 Est GFR (CKD-EPI)NonAf 33.73 01/06/19 13:36 Random Glucose 91 mg/dL (74-106) 01/06/19 13:36 Calcium 8.5 mg/dL (8.5-10.1) 01/06/19 13:36 Magnesium 2.7 mg/dL (1.8-2.4) H 01/06/19 13:36 Total Bilirubin 0.8 mg/dL (0.2-1) 01/06/19 13:36 AST 26 U/L (15-37) 01/06/19 13:36 ALT 27 U/L (13-61) 01/06/19 13:36 Alkaline Phosphatase 67 U/L (45-117) 01/06/19 13:36 Troponin I 0.03 ng/ml (0.00-0.05) 01/06/19 13:36 B-Natriuretic Peptide 4088.9 pg/ml (5-450) H 01/06/19 13:41 Total Protein 7.2 g/dl (6.4-8.2) 01/06/19 13:36 Albumin 3.5 g/dl (3.4-5.0) 01/06/19 13:36 Lab work noted above. CXR reveals cephalization with cardiomegaly and prominent right hilum, no pleural effusion. Admission diagnosis: Acute on chronic CHF exacerbation Call placed to Dr. Valentine's office for admission for further diuresis. 01/06/19 16:[address] Valentine who accepts the patient for admission and requests Cardiology (Dr. Kenny) consult. *DC/Admit/Observation/Transfer Diagnosis at time of Disposition: Acute exacerbation of CHF (congestive heart failure) Qualifiers: Heart failure type: unspecified Qualified Code(s): I50.9 - Heart failure, unspecified - Discharge Dispostion Condition at time of disposition: Stable Decision to Admit order: Yes - Referrals Referrals: Tony Golden MD [Staff Physician] - - Patient Instructions - Post Discharge Activity
[2019-01-06 14:00] LABS: BASO % 0.7 % (0-2.0); EOS % 1.2 % (0-4.5); HEMATOCRIT 34.7 % (32.4-45.2); HEMOGLOBIN 11.3 GM/dL (10.7-15.3); LYMPH % 11.1 % (8-40); MCH 29.9 pg (25.7-33.7); MCHC 32.5 g/dl (32.0-36.0); MEAN CELL VOLUME 91.8 fl (80-96); MEAN PLT VOLUME 8.6 fl (7.5-11.1); MONO % 8.1 % (3.8-10.2); NEUT % 78.9 % (42.8-82.8); PLATELET COUNT 162 K/MM3 (134-434); RBC 3.78 M/mm3 (3.60-5.2); RDW 17.3 % (11.6-15.6); WHITE BLOOD COUNT 6.8 K/mm3 (4.0-10.0)
[2019-01-06 14:01] LABS: VENOUS PC02 40.4 mmHg (41-51); VENOUS PH 7.38 (7.31-7.41); VENOUS PO2 65.8 mmHg (30-40)
[2019-01-06] MEDS ORDERED: NITROGLYCERIN 2% OINTMENT - 1GM PACKET TD ONE ×2 (14:22→14:46)
[2019-01-06] MEDS ORDERED: FUROSEMIDE 40 MG/4 ML INJECTABLE VIAL IVPUSH ONE (14:22)
[2019-01-06 14:33] LABS: ALBUMIN 3.5 g/dl (3.4-5.0); BILIRUBIN,TOTAL 0.8 mg/dL (0.2-1); CALCIUM 8.5 mg/dL (8.5-10.1); CREATININE 1.5 mg/dL (0.55-1.3); POTASSIUM 4.3 mmol/L (3.5-5.1); TOT PROT 7.2 g/dl (6.4-8.2)
[2019-01-06 14:41] LABS: MAGNESIUM 2.7 mg/dL (1.8-2.4)
[2019-01-06] MEDS ORDERED: FUROSEMIDE 40 MG/4 ML INJECTABLE VIAL ONE (14:46)
--- NOTE | 2019-01-06 15:20 | PDOC ---
Documentation entered by Darlin Manzano SCRIBE, acting as scribe for Demetrius Cam MD. Demetrius Cam MD: This documentation has been prepared by the scribe, Darlin Manzano SCRIBE, under my direction and personally reviewed by me in its entirety. I confirm that the documentation accurately reflects all work, treatment, procedures, and medical decision making performed by me. Attending Attestation - Resident Resident Name: Raquel Valenzuela - ED Attending Attestation I have performed the following: I have examined & evaluated the patient, The case was reviewed & discussed with the resident, I agree w/resident's findings & plan, Exceptions are as noted - HPI HPI: 01/06/19 14:49 The patient is a 73-year-old female, with a past medical history of HTN, DM, CHF , CVA (1 year ago), who presents to the ED with progressively worsening shortness of breath and bilateral lower extremity swelling. The patient was hospitalized [address] [facility] for similar symptoms. - Physicial Exam PE: 01/06/19 15:17 Patient is awake and alert, well-nourished, in no significant respiratory distress Normocephalic and atraumatic Conjunctiva are pink + Left-sided facial asymmetry with flattening of the nasolabial fold No JVD CTA RRR, 2/6 systolic murmur best heard in the right second intercostal space +3 pitting edema of the lower extremities (right greater than left) - Medical Decision Making 01/06/19 15:18 Patient is a 73-year-old female with history of CHF, hypercholesterolemia, CVA who presents with signs and symptoms of acute CHF exacerbation. We'll obtain CBC /CMP/cardiac profile/BNP. EKG reveals no evidence of acute ischemia, prolonged QTC is noted. Chest x-ray reveals cardiomegaly with cephalization. We'll administer IV Lasix. We'll administer transdermal nitroglycerin for preload and afterload reduction. Will consider MIRIAN inhibitor for elevated blood pressure. Will admit.
--- NOTE | 2019-01-06 15:43 | EKG ---
Test Reason : Blood Pressure : / mmHG Vent. Rate : 080 BPM Atrial Rate : 080 BPM P-R Int : 172 ms QRS Dur : 096 ms QT Int : 428 ms P-R-T Axes : 052 -07 089 degrees QTc Int : 493 ms POOR DATA QUALITY, INTERPRETATION MAY BE ADVERSELY AFFECTED NORMAL SINUS RHYTHM NONSPECIFIC T WAVE ABNORMALITY ABNORMAL ECG WHEN COMPARED WITH ECG OF 28-JUL-2018 16:33, NO SIGNIFICANT CHANGE WAS FOUND Confirmed by JATIN YOUNG, ARIEL ([id number]) on 01/06/2019 3:42:47 PM Referred By: Confirmed By:ARIEL STEINER MD
[2019-01-06 18:24] VITALS: BMI 38.5
[2019-01-06] MEDS: ATORVASTATIN CA 40 MG TABLET (FP) PO SCH (22:00)
[2019-01-07 08:08] LABS: BASO % 0.4 % (0-2.0); EOS % 1.7 % (0-4.5); HEMATOCRIT 33.8 % (32.4-45.2); HEMOGLOBIN 10.9 GM/dL (10.7-15.3); LYMPH % 12.9 % (8-40); MCH 29.5 pg (25.7-33.7); MCHC 32.4 g/dl (32.0-36.0); MEAN CELL VOLUME 91.3 fl (80-96); MEAN PLT VOLUME 8.7 fl (7.5-11.1); MONO % 9.3 % (3.8-10.2); NEUT % 75.7 % (42.8-82.8); PLATELET COUNT 165 K/MM3 (134-434); RBC 3.71 M/mm3 (3.60-5.2); RDW 17.2 % (11.6-15.6); WHITE BLOOD COUNT 6.2 K/mm3 (4.0-10.0)
[2019-01-07 08:46] LABS: ALBUMIN 3.4 g/dl (3.4-5.0); BILIRUBIN,TOTAL 0.9 mg/dL (0.2-1); CALCIUM 8.7 mg/dL (8.5-10.1); CREATININE 1.3 mg/dL (0.55-1.3); MAGNESIUM 2.5 mg/dL (1.8-2.4); N-TERMINAL BNP 3917.4 pg/ml (5-450); PHOSPHOROUS 3.9 mg/dL (2.5-4.9); POTASSIUM 4.1 mmol/L (3.5-5.1); TOT PROT 7.2 g/dl (6.4-8.2)
[2019-01-07] MEDS ORDERED: FUROSEMIDE 40 MG/4 ML INJECTABLE VIAL IVPUSH SCH (10:00)
--- NOTE | 2019-01-07 10:01 | CON.PULM ---
Consult Consult Specialty:: PULMONARY Referred by:: Dr Valentine Reason for Consultation:: shortness of breath - History of Present Illness Chief Complaint: shortness of breath History of Present Illness: 73yo female with h/o HTN, DM, LV systolic dysfunction, mitral regurgitation, h/ o CVA who was admitted with worsening shortness of breath over the past 3 months. Was hospitalized at [facility] at that time, considering cardiac catheterization but medically treated. No chest pain or palpitations. No fevers , chills or sweats. Occasional nonproductive cough without wheezing. Reports increase in her leg swelling, orthopnea and paroxysmal nocturnal dyspnea. She is a remote smoker but denies history of asthma or COPD. - History Source History Provided By: Patient, Medical Record Limitations to Obtaining History: No Limitations - Past Medical History Cardio/Vascular: Yes: CHF, HTN Renal/: Yes: Renal Inusuff Endocrine: Yes: Diabetes Mellitus - Past Surgical History Past Surgical History: Yes: Tubal Ligation - Alcohol/Substance Use Hx Alcohol Use: Yes (occasional) - Smoking History Smoking history: Never smoked Have you smoked in the past 12 months: No Aproximately how many cigarettes per day: 6 If you are a former smoker, when did you quit?: 1966 - Social History ADL: Independent History of Recent Travel: No Home Medications - Allergies Allergies/Adverse Reactions: Allergies Allergy/AdvReac Type Severity Reaction Status Date / Time No Known Allergies Allergy Verified 11/08/18 08:56 - Home Medications Home Medications: Ambulatory Orders Atorvastatin Ca [Lipitor] 40 mg PO HS #30 tablet 12/30/16 Clopidogrel Bisulfate [Plavix -] 75 mg PO DAILY #30 tablet 12/30/16 Amiodarone HCl 200 mg PO DAILY 01/06/19 Aspirin [ASA -] 81 mg PO DAILY 01/06/19 Calcium Acetate 667 mg PO DAILY 01/06/19 Family Disease History - Family Disease History Family Disease History: Diabetes: Mother (HTN), Sister (2 sisters), Heart Disease: Grandparent (MGM-HTN), Mother, Brother (2 BROTHERS-HTN) Review of Systems - Review of Systems Constitutional: reports: Weakness. denies: Chills, Fever Eyes: denies: Recent Change in Vision HENT: denies: Nasal Congestion, Throat Pain Neck: denies: Stiffness, Tenderness Cardiovascular: reports: Edema, Shortness of Breath. denies: Chest Pain, Palpitations Respiratory: reports: Cough, Exercise Intolerance, Orthopnea, PND, SOB on Exertion. denies: Hemoptysis, Wheezing Gastrointestinal: denies: Abdominal Pain, Nausea, Vomiting Genitourinary: denies: Dysuria, Hematuria Neurological: denies: Dizziness, Headache Endocrine: denies: Unexplained Weight Loss Physical Exam Vital Sings: Vital Signs Temperature 98.5 F 01/07/19 06:00 Pulse Rate 82 01/07/19 06:00 Respiratory Rate 20 01/07/19 06:00 Blood Pressure 161/104 H 01/07/19 06:00 O2 Sat by Pulse Oximetry (%) 97 01/06/19 21:00 Constitutional: Yes: Calm Eyes: Yes: Conjunctiva Clear, EOM Intact HENT: Yes: Atraumatic, Normocephalic Neck: Yes: Supple, Trachea Midline Cardiovascular: Yes: Regular Rate and Rhythm Respiratory: Yes: Diminished (decreased breath sounds at the bases) ...Clubbing: No Gastrointestinal: Yes: Normal Bowel Sounds, Soft. No: Tenderness Edema: Yes Neurological: Yes: Alert, Oriented Labs: CBC, BMP 01/07/19 06:40 01/07/19 06:40 Imaging - Results Chest X-ray: Report Reviewed, Image Reviewed (cardiomegaly, mild central pulmonary vascular congestion) Problem List - Problems (1) Acute on chronic systolic heart failure Code(s): I50.23 - ACUTE ON CHRONIC SYSTOLIC (CONGESTIVE) HEART FAILURE (2) Mitral regurgitation Code(s): I34.0 - NONRHEUMATIC MITRAL (VALVE) INSUFFICIENCY Assessment/Plan Acute on Chronic Systolic Heart Failure Mitral/Tricuspid Regurgitation HTN DM h/o CVA - IV lasix - monitor urine output, creatinine - daily weights - O2 as needed to keep Spo2 >90% - beta terry, MIRIAN/ARB - cardiology eval - DVT prophylaxis Thank you for this consult Magno Escobedo MD
[2019-01-07] MEDS: CLOPIDOGREL BISULFATE 75 MG TABLET (FP) PO SCH (10:23)
[2019-01-07] MEDS: AMIODARONE HCL 200 MG TABLET (FP) PO SCH (10:23)
[2019-01-07] MEDS: ASPIRIN 81 MG CHEWABLE TABLETS PO SCH (10:23)
--- NOTE | 2019-01-07 11:37 | PN ---
Progress Note, Physician Chief Complaint: IN BED DYSPNEA EVENTS AND NOTES REVIEWED NO ACUTE EVENTS TODAY - Current Medication List Current Medications: Active Medications Amiodarone HCl (Cordarone -) 200 mg PO DAILY [facility] Last Admin: 01/07/19 10:23 Dose: 200 mg Aspirin (Asa -) 81 mg PO DAILY [facility] Last Admin: 01/07/19 10:23 Dose: 81 mg Atorvastatin Calcium (Lipitor -) 40 mg PO HS [facility] Last Admin: 01/06/19 22:00 Dose: 40 mg Clopidogrel Bisulfate (Plavix -) 75 mg PO DAILY [facility] Last Admin: 01/07/19 10:23 Dose: 75 mg Furosemide (Lasix Injection -) 40 mg IVPUSH DAILY [facility] Last Admin: 01/07/19 10:23 Dose: 40 mg Non-Formulary Medication (Calcium Acetate [Calcium Acetate]) 667 mg PO DAILY [facility] - Objective Vital Signs: Vital Signs Temperature 98.5 F 01/07/19 06:00 Pulse Rate 82 01/07/19 06:00 Respiratory Rate 20 01/07/19 06:00 Blood Pressure 161/104 H 01/07/19 06:00 O2 Sat by Pulse Oximetry (%) 97 01/06/19 21:00 Constitutional: Yes: Mild Distress Eyes: Yes: WNL HENT: Yes: WNL Neck: Yes: WNL Cardiovascular: Yes: Pulse Irregular Respiratory: Yes: Diminished, On Nasal O2 Gastrointestinal: Yes: WNL Genitourinary: Yes: WNL Musculoskeletal: Yes: Muscle Weakness Extremities: Yes: WNL Edema: Yes Edema: LLE: Trace, RLE: Trace Peripheral Pulses WNL: Yes Integumentary: Yes: WNL Wound/Incision: Yes: Clean/Dry Neurological: Yes: Pre-Existing Deficit ...Motor Strength: LLE, RLE Psychiatric: Yes: Other Labs: CBC, BMP 01/07/19 06:40 01/07/19 06:40 Problem List - Problems (1) Acute exacerbation of CHF (congestive heart failure) Code(s): I50.9 - HEART FAILURE, UNSPECIFIED Qualifiers: Heart failure type: unspecified Qualified Code(s): I50.9 - Heart failure, unspecified (2) Acute on chronic systolic heart failure Code(s): I50.23 - ACUTE ON CHRONIC SYSTOLIC (CONGESTIVE) HEART FAILURE (3) Mitral regurgitation Code(s): I34.0 - NONRHEUMATIC MITRAL (VALVE) INSUFFICIENCY (4) CKD (chronic kidney disease) Code(s): N18.9 - CHRONIC KIDNEY DISEASE, UNSPECIFIED (5) Diabetes 1.5, managed as type 2 Code(s): E10.9 - TYPE 1 DIABETES MELLITUS WITHOUT COMPLICATIONS Assessment/Plan CHF PROTOCOL DAILY WEIGHTS IV LASIX BID RENAL/CARDIO FOLLOW UP ECHO PENDING PT EVAL NUTRITION CONSULT ON COMPLIANCE WITH LOW SALT/ADA/LOW FAT DIET
--- NOTE | 2019-01-07 13:19 | ECHO ---
Name: CREHALINA, TOMMIE Exam:Adult Echocardiogram Study Date: 01/07/2019 08:29 AM Age: 73 yrs Reason For Study: CHF Height: 66 in Weight: 243 lb BSA: 2.2 m2 MMode/2D Measurements & Calculations IVSd: 1.5 cm Ao root diam: 2.9 cm LVIDd: 4.5 cm LA dimension: 4.1 cm LVIDs: 3.4 cm LVPWd: 2.1 cm EDV(Teich): 91.7 ml LVOT diam: 2.0 cm ESV(Teich): 48.6 ml LAV (MOD-bp): 68.9 ml Doppler Measurements & Calculations MV E max meir: 107.0 cm/sec Ao V2 max: 176.5 cm/sec MV A max meir: 60.1 cm/sec Ao max P.5 mmHg MV E/A: 1.8 MV dec time: 0.08 sec KARSTEN(V,D): 1.7 cm2 LV V1 max P.4 mmHg MR max meir: 573.5 cm/sec LV V1 max: 92.2 cm/sec MR max P.7 mmHg TR max meir: 357.0 cm/sec PA V2 max: 116.7 cm/sec TR max P.2 mmHg PA max P.5 mmHg Med Peak E' Meir: 7.6 cm/sec PI Vmax: 142.5 cm/sec Med E/e': 14.1 Lat Peak E' Meir: 9.1 cm/sec Lat E/e': 11.7 Procedure A complete two-dimensional transthoracic echocardiogram was performed (2D, M-mode, Doppler and color flow Doppler). Left Ventricle There is moderate concentric left ventricular hypertrophy. Left ventricular systolic function is romel rely reduced. Ejection Fraction = 20-25%. There is severe global hypokinesis of the left ventricle. Right Ventricle The right ventricle is normal in size and function. Atria The left atrium is mildly dilated. The right atrium is severely dilated. Mitral Valve There is mild mitral regurgitation. Tricuspid Valve There is moderate to severe tricuspid regurgitation. There is moderate pulmonary hypertension. Aortic Valve The aortic valve is trileaflet. No hemodynamically significant valvular aortic stenosis. No aortic regurgitation is present. Pulmonic Valve There is no pulmonic valvular regurgitation. Great Vessels The aortic root is normal size. Pericardium/Pleura There is no pericardial effusion. Interpretation Summary There is moderate concentric left ventricular hypertrophy. Left ventricular systolic function is severely reduced. There is severe global hypokinesis of the left ventricle. The right ventricle is normal in size and function. The left atrium is mildly dilated. The right atrium is severely dilated. There is mild mitral regurgitation. There is moderate pulmonary hypertension. There is moderate to severe tricuspid regurgitation. MD Kee Santa 01/07/2019 01:18 PM
--- NOTE | 2019-01-07 14:36 | CON.CARD ---
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 No chest pain. No palpitations. She is in NSR today. Echo 01/07/19 : severely reduced LV function, mild mr mod to severe TR mod phtn - History Source History Provided By: Patient, Medical Record - Past Medical History Cardio/Vascular: Yes: CHF, HTN Renal/: Yes: Renal Inusuff Endocrine: Yes: Diabetes Mellitus - Past Surgical History Past Surgical History: Yes: Tubal Ligation - Alcohol/Substance Use Hx Alcohol Use: Yes (occasional) - Smoking History Smoking history: Never smoked Have you smoked in the past 12 months: No Aproximately how many cigarettes per day: 6 If you are a former smoker, when did you quit?: 1967 - Social History ADL: Independent History of Recent Travel: No Home Medications - Allergies Allergies/Adverse Reactions: Allergies Allergy/AdvReac Type Severity Reaction Status Date / Time No Known Allergies Allergy Verified 11/08/18 08:56 - Home Medications Home Medications: Ambulatory Orders Atorvastatin Ca [Lipitor] 40 mg PO HS #30 tablet 12/30/16 Clopidogrel Bisulfate [Plavix -] 75 mg PO DAILY #30 tablet 12/30/16 Amiodarone HCl 200 mg PO DAILY 01/06/19 Aspirin [ASA -] 81 mg PO DAILY 01/06/19 Calcium Acetate 667 mg PO DAILY 01/06/19 Family Disease History - Family Disease History Family Disease History: Diabetes: Mother (HTN), Sister (2 sisters), Heart Disease: Grandparent (MGM-HTN), Mother, Brother (2 BROTHERS-HTN) Vital Signs: Vital Signs Temperature 98.5 F 01/07/19 06:00 Pulse Rate 82 01/07/19 06:00 Respiratory Rate 20 01/07/19 06:00 Blood Pressure 161/104 H 01/07/19 06:00 O2 Sat by Pulse Oximetry (%) 97 01/06/19 21:00 Constitutional: Yes: No Distress Eyes: Yes: Conjunctiva Clear, EOM Intact HENT: Yes: Atraumatic, Normocephalic Neck: Yes: Trachea Midline Respiratory: Yes: CTA Bilaterally Gastrointestinal: Yes: Normal Bowel Sounds, Soft Extremities: Yes: WNL Edema: Yes Edema: LLE: 1+, RLE: 1+ Peripheral Pulses WNL: Yes - Other Data Labs, Other Data: CBC, BMP 01/07/19 06:40 01/07/19 06:40 Troponin, BNP 01/06/19 01/06/19 01/07/19 13:36 13:41 06:40 Troponin I 0.03 0.03 B-Natriuretic Peptide 4088.9 H 3917.4 H Troponin, BNP 01/06/19 01/06/19 01/07/19 13:36 13:41 06:40 Troponin I 0.03 0.03 B-Natriuretic Peptide 4088.9 H 3917.4 H Assessment/Plan 73 year old woman with pmh HTN, NIDDM, chol, CVA, chronic systolic chf EF 15%, PSVT treated with amiodarone recently seen and sent to [facility] for eval due to RVR and 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 No chest pain. No palpitations. She is in NSR today. Echo 01/07/19 : severely reduced LV function, mild mr mod to severe TR mod phtn SVT--stable CHF--Acute on chronic systolic chf --continue lasix, follow daily wts --fluid restriction --added entresto low dose --follow K, creat. --no cath done prior due to KULDIP, now improved. will follow with you.
--- NOTE | 2019-01-07 15:34 | CONSULT ---
Consult Consult Specialty:: Nephrology Reason for Consultation:: fluid overload and KULDIP - History of Present Illness Chief Complaint: edema and shortness of breath History of Present Illness: Pt is a 73 year old female with pmhx of HTN, DM, CKD, CVA, and CHF who presents to the ER with worsening shortness of breath and worsening lower ext edema. She was hospitalized in [facility] a few months ago and when she was discharged she was not sent out on diuretics. Pt has missed her last few appointments with me. She feels that the lasix helped. She denies dysuria or hematuria. She denies chest pain. It is not clear why she was not on diuretics. - History Source History Provided By: Patient, Medical Record - Past Medical History Cardio/Vascular: Yes: CHF, HTN Renal/: Yes: Renal Inusuff Endocrine: Yes: Diabetes Mellitus - Past Surgical History Past Surgical History: Yes: Tubal Ligation - Alcohol/Substance Use Hx Alcohol Use: Yes (occasional) - Smoking History Smoking history: Never smoked Have you smoked in the past 12 months: No Aproximately how many cigarettes per day: 6 If you are a former smoker, when did you quit?: 1967 - Social History ADL: Independent History of Recent Travel: No Home Medications - Allergies Allergies/Adverse Reactions: Allergies Allergy/AdvReac Type Severity Reaction Status Date / Time No Known Allergies Allergy Verified 11/08/18 08:56 - Home Medications Home Medications: Ambulatory Orders Atorvastatin Ca [Lipitor] 40 mg PO HS #30 tablet 12/30/16 Clopidogrel Bisulfate [Plavix -] 75 mg PO DAILY #30 tablet 12/30/16 Amiodarone HCl 200 mg PO DAILY 01/06/19 Aspirin [ASA -] 81 mg PO DAILY 01/06/19 Calcium Acetate 667 mg PO DAILY 01/06/19 Family Disease History - Family Disease History Family Disease History: Diabetes: Mother (HTN), Sister (2 sisters), Heart Disease: Grandparent (MGM-HTN), Mother, Brother (2 BROTHERS-HTN) Review of Systems - Review of Systems Constitutional: reports: Malaise Eyes: reports: No Symptoms HENT: reports: No Symptoms, Ocular Prosthesis Cardiovascular: reports: Edema Genitourinary: reports: No Symptoms Musculoskeletal: reports: No Symptoms Neurological: reports: No Symptoms Endocrine: reports: No Symptoms Hematology/Lymphatic: reports: No Symptoms Psychiatric: reports: No Symptoms Physical Exam Vital Signs: Vital Signs Temperature 98.5 F 01/07/19 06:00 Pulse Rate 82 01/07/19 06:00 Respiratory Rate 20 01/07/19 06:00 Blood Pressure 161/104 H 01/07/19 06:00 O2 Sat by Pulse Oximetry (%) 97 01/06/19 21:00 Constitutional: Yes: Calm Eyes: Yes: Conjunctiva Clear HENT: Yes: Atraumatic Neck: Yes: Supple Cardiovascular: Yes: S1, S2 Respiratory: Yes: On Nasal O2, Rhonchi Gastrointestinal: Yes: Soft, Abdomen, Obese Renal/: Yes: WNL Musculoskeletal: Yes: WNL Edema: Yes Edema: LLE: 3+, RLE: 3+ Neurological: Yes: Oriented Psychiatric: Yes: Oriented Labs: CBC, BMP 01/07/19 06:40 01/07/19 06:40 Laboratory Tests 07/28/18 07/29/18 07/30/18 11:09 07:40 05:30 WBC Hgb Plt Count VBG pH POC VBG pO2 VBG HCO3 Creatinine 1.5 H 2.0 H 1.9 H 01/06/19 01/06/19 01/06/19 13:36 13:36 13:41 WBC Hgb 11.3 Plt Count 162 VBG pH 7.38 POC VBG pO2 65.8 H VBG HCO3 23.2 Creatinine 1.5 H 01/07/19 01/07/19 06:40 06:40 WBC 6.2 Hgb 10.9 Plt Count 165 VBG pH POC VBG pO2 VBG HCO3 Creatinine 1.3 Imaging - Results Chest X-ray: Report Reviewed Problem List - Problems (1) Acute exacerbation of CHF (congestive heart failure) Code(s): I50.9 - HEART FAILURE, UNSPECIFIED Qualifiers: Heart failure type: unspecified Qualified Code(s): I50.9 - Heart failure, unspecified (2) CKD (chronic kidney disease) Code(s): N18.9 - CHRONIC KIDNEY DISEASE, UNSPECIFIED Assessment/Plan Current Medications Generic Name Dose Route Start Last Admin Trade Name Freq PRN Reason Stop Dose Admin Amiodarone HCl 200 mg 01/07/19 10:00 01/07/19 10:23 Cordarone - PO 200 mg DAILY ABIMBOLA Administration Aspirin 81 mg 01/07/19 10:00 01/07/19 10:23 Asa - PO 81 mg DAILY ABIMBOLA Administration Atorvastatin Calcium 40 mg 01/06/19 22:00 01/06/19 22:00 Lipitor - PO 40 mg HS ABIMBOLA Administration Clopidogrel Bisulfate 75 mg 01/07/19 10:00 01/07/19 10:23 Plavix - PO 75 mg DAILY ABIMBOLA Administration Furosemide 40 mg 01/07/19 10:00 01/07/19 10:23 Lasix Injection - IVPUSH 40 mg DAILY ABIMBOLA Administration Metoprolol Tartrate 25 mg 01/07/19 22:00 Lopressor - PO BID ABIMBOLA Non-Formulary Medication 667 mg 01/07/19 10:00 Calcium Acetate [Calcium Acetate] PO DAILY [facility] Sacubitril/Valsartan 1 tab 01/07/19 22:00 Entresto 24 Mg-26 Mg Tablet PO BID ABIMBOLA Impression 1. CKD 2. CHF 3. DM 4. HTN 5. hx CVA 6. a-fib 7. elevated kappa chains 8. fluid overload Plan - will give another dose of lasix - repeat labs in am - bid lasix - monitor volume status - renal function stable - will follow Dr Cleveland
[2019-01-07] MEDS ORDERED: FUROSEMIDE 40 MG/4 ML INJECTABLE VIAL IVPUSH ONE (15:37)
[2019-01-07] MEDS: ATORVASTATIN CA 40 MG TABLET (FP) PO SCH (22:28)
[2019-01-07] MEDS: METOPROLOL TARTRATE 25 MG TABLET (FP) PO SCH (22:28)
[2019-01-07] MEDS: SACUBITRIL/VALSARTAN 24 MG-26 MG TABLET PO SCH (22:28)
[2019-01-08] MEDS: FUROSEMIDE 40 MG/4 ML INJECTABLE VIAL IVPUSH SCH ×2 (06:34→13:58)
[2019-01-08] MEDS ORDERED: PT OWN MED DRAWER 7, Y5N ONE ×2 (09:05→20:45)
[2019-01-08] MEDS: ASPIRIN 81 MG CHEWABLE TABLETS PO SCH (09:38)
[2019-01-08] MEDS: METOPROLOL TARTRATE 25 MG TABLET (FP) PO SCH ×2 (09:38→21:52)
[2019-01-08] MEDS: CLOPIDOGREL BISULFATE 75 MG TABLET (FP) PO SCH (09:38)
[2019-01-08] MEDS: AMIODARONE HCL 200 MG TABLET (FP) PO SCH (09:38)
[2019-01-08] MEDS: SACUBITRIL/VALSARTAN 24 MG-26 MG TABLET PO SCH ×2 (09:39→22:34)
[2019-01-08 11:11] LABS: CALCIUM 8.4 mg/dL (8.5-10.1); CREATININE 1.5 mg/dL (0.55-1.3)
[2019-01-08] MEDS: PATIENT'S OWN MEDICATION (NON-FORMULARY) (Calcium Acetate [Calcium Acetate] 667 MG) PO SCH (11:39)
--- NOTE | 2019-01-08 12:30 | PN ---
Progress Note (short form) - Note Progress Note: PULMONARY VSS/AFEBRILE BREATHING IS IMPROVED STILL HAS RODNEY NO O2 AT HOME Constitutional: Yes: Calm Eyes: Yes: Conjunctiva Clear, EOM Intact HENT: Yes: Atraumatic, Normocephalic Neck: Yes: Supple, Trachea Midline Cardiovascular: Yes: Regular Rate and Rhythm Respiratory: Yes: Diminished (decreased breath sounds at the bases) ...Clubbing: No Gastrointestinal: Yes: Normal Bowel Sounds, Soft. No: Tenderness Edema: Yes Neurological: Yes: Alert, Oriented Labs: REVIEWED Imaging NOTED - Results Chest X-ray: Report Reviewed, Image Reviewed (cardiomegaly, mild central pulmonary vascular congestion) Problem List - Problems (1) Acute on chronic systolic heart failure Code(s): I50.23 - ACUTE ON CHRONIC SYSTOLIC (CONGESTIVE) HEART FAILURE (2) Mitral regurgitation Code(s): I34.0 - NONRHEUMATIC MITRAL (VALVE) INSUFFICIENCY Assessment/Plan Acute on Chronic Systolic Heart Failure Mitral/Tricuspid Regurgitation HTN DM h/o CVA - IV lasix to continue - monitor urine output, creatinine - daily weights - O2 as needed to keep Spo2 >90% - beta terry, MIRIAN/ARB - cardiology eval - DVT prophylaxis - needs pre/post spo2 prior to discharge Pradip SETH MD
--- NOTE | 2019-01-08 12:47 | PN ---
Progress Note, Physician History of Present Illness: Pt seen and examined at bedside. She is awake and alert. She is ambulating without difficulty. She is not using the oxygen. - Current Medication List Current Medications: Active Medications Amiodarone HCl (Cordarone -) 200 mg PO DAILY [facility] Last Admin: 01/08/19 09:38 Dose: 200 mg Aspirin (Asa -) 81 mg PO DAILY [facility] Last Admin: 01/08/19 09:38 Dose: 81 mg Atorvastatin Calcium (Lipitor -) 40 mg PO HS [facility] Last Admin: 01/07/19 22:28 Dose: 40 mg Clopidogrel Bisulfate (Plavix -) 75 mg PO DAILY [facility] Last Admin: 01/08/19 09:38 Dose: 75 mg Furosemide (Lasix Injection -) 40 mg IVPUSH BID@0600,1400 [facility] Last Admin: 01/08/19 06:34 Dose: 40 mg Metoprolol Tartrate (Lopressor -) 25 mg PO BID [facility] Last Admin: 01/08/19 09:38 Dose: 25 mg Sacubitril/Valsartan (Entresto 24 Mg-26 Mg Tablet) 1 tab PO BID [facility] Last Admin: 01/08/19 09:39 Dose: 1 tab - Objective Vital Signs: Vital Signs Temperature 98.8 F 01/08/19 10:00 Pulse Rate 69 01/08/19 10:00 Respiratory Rate 18 01/08/19 10:00 Blood Pressure 152/95 01/08/19 10:00 O2 Sat by Pulse Oximetry (%) 96 01/07/19 21:00 Constitutional: Yes: Calm Eyes: Yes: Conjunctiva Clear HENT: Yes: Atraumatic Neck: Yes: Supple Cardiovascular: Yes: S1, S2 Respiratory: Yes: CTA Bilaterally Gastrointestinal: Yes: Soft, Abdomen, Obese Genitourinary: Yes: WNL Musculoskeletal: Yes: WNL Edema: Yes Edema: LLE: 2+, RLE: 2+ Neurological: Yes: Oriented Psychiatric: Yes: Oriented Labs: CBC, BMP 01/07/19 06:40 01/08/19 09:30 Problem List - Problems (1) Acute exacerbation of CHF (congestive heart failure) Code(s): I50.9 - HEART FAILURE, UNSPECIFIED Qualifiers: Heart failure type: unspecified Qualified Code(s): I50.9 - Heart failure, unspecified (2) CKD (chronic kidney disease) Code(s): N18.9 - CHRONIC KIDNEY DISEASE, UNSPECIFIED Assessment/Plan Current Medications Generic Name Dose Route Start Last Admin Trade Name Sandoval PRN Reason Stop Dose Admin Amiodarone HCl 200 mg 01/07/19 10:00 01/08/19 09:38 Cordarone - PO 200 mg DAILY ABIMBOLA Administration Aspirin 81 mg 01/07/19 10:00 01/08/19 09:38 Asa - PO 81 mg DAILY ABIMBOLA Administration Atorvastatin Calcium 40 mg 01/06/19 22:00 01/07/19 22:28 Lipitor - PO 40 mg HS ABIMBOLA Administration Clopidogrel Bisulfate 75 mg 01/07/19 10:00 01/08/19 09:38 Plavix - PO 75 mg DAILY ABIMBOLA Administration Furosemide 40 mg 01/08/19 06:00 01/08/19 06:34 Lasix Injection - IVPUSH 40 mg BID@0600,1400 ABIMBOLA Administration Metoprolol Tartrate 25 mg 01/07/19 22:00 01/08/19 09:38 Lopressor - PO 25 mg BID ABIMBOLA Administration Sacubitril/Valsartan 1 tab 01/07/19 22:00 01/08/19 09:39 Entresto 24 Mg-26 Mg Tablet PO 1 tab BID ABIMBOLA Administration Impression 1. CKD 2. CHF 3. DM 4. HTN 5. hx CVA 6. a-fib 7. elevated kappa chains 8. fluid overload Plan - cont lasix - volume status improving - can likely start PO lasix tomorrow - monitor renal function - will see in office Dr Cleveland
--- NOTE | 2019-01-08 12:55 | PN ---
Progress Note, Physician Chief Complaint: Acute on Chronic CHF Exacerbation KULDIP History of Present Illness: Previous notes and events reviewed awake and alert NAD sts breathing is better but still having some SOB with exertion - Current Medication List Current Medications: Active Medications Amiodarone HCl (Cordarone -) 200 mg PO DAILY [facility] Last Admin: 01/08/19 09:38 Dose: 200 mg Aspirin (Asa -) 81 mg PO DAILY [facility] Last Admin: 01/08/19 09:38 Dose: 81 mg Atorvastatin Calcium (Lipitor -) 40 mg PO HS [facility] Last Admin: 01/07/19 22:28 Dose: 40 mg Clopidogrel Bisulfate (Plavix -) 75 mg PO DAILY [facility] Last Admin: 01/08/19 09:38 Dose: 75 mg Furosemide (Lasix Injection -) 40 mg IVPUSH BID@0600,1400 [facility] Last Admin: 01/08/19 06:34 Dose: 40 mg Metoprolol Tartrate (Lopressor -) 25 mg PO BID [facility] Last Admin: 01/08/19 09:38 Dose: 25 mg Sacubitril/Valsartan (Entresto 24 Mg-26 Mg Tablet) 1 tab PO BID [facility] Last Admin: 01/08/19 09:39 Dose: 1 tab - Objective Vital Signs: Vital Signs Temperature 98.8 F 01/08/19 10:00 Pulse Rate 69 01/08/19 10:00 Respiratory Rate 18 01/08/19 10:00 Blood Pressure 152/95 01/08/19 10:00 O2 Sat by Pulse Oximetry (%) 96 01/07/19 21:00 Constitutional: Yes: No Distress, Calm Eyes: Yes: Conjunctiva Clear HENT: Yes: Atraumatic Cardiovascular: Yes: Regular Rate and Rhythm Respiratory: Yes: Regular, Diminished Gastrointestinal: Yes: Normal Bowel Sounds, Soft Musculoskeletal: Yes: WNL Extremities: Yes: WNL Edema: Yes Edema: LLE: 1+, RLE: 2+ Neurological: Yes: Alert, Oriented Psychiatric: Yes: Alert, Oriented Labs: CBC, BMP 01/07/19 06:40 01/08/19 09:30 - ....Imaging Chest X-ray: Report Reviewed Problem List - Problems (1) Acute exacerbation of CHF (congestive heart failure) Assessment/Plan: -Cardiology and Pulm on board -Furosemide IVP BID--change to PO tomorrow -BNP 3917 -daily weights -1L fluid restriction -strict I&Os -keep SpO2 >90% -O2 via NC -Entresto Code(s): I50.9 - HEART FAILURE, UNSPECIFIED Qualifiers: Heart failure type: unspecified Qualified Code(s): I50.9 - Heart failure, unspecified (2) CKD (chronic kidney disease) Assessment/Plan: -Renal on board -BUN/Cr 25/1.5 -monitor renal function Code(s): N18.9 - CHRONIC KIDNEY DISEASE, UNSPECIFIED (3) HTN (hypertension) Assessment/Plan: -low Na diet Code(s): I10 - ESSENTIAL (PRIMARY) HYPERTENSION (4) SVT (supraventricular tachycardia) Assessment/Plan: -Amiodarone -cardiology on board Code(s): I47.1 - SUPRAVENTRICULAR TACHYCARDIA (5) Mitral regurgitation Assessment/Plan: -cardiology on board Code(s): I34.0 - NONRHEUMATIC MITRAL (VALVE) INSUFFICIENCY (6) Diabetes 1.5, managed as type 2 Assessment/Plan: -BGM ACHS Code(s): E10.9 - TYPE 1 DIABETES MELLITUS WITHOUT COMPLICATIONS (7) CVA (cerebral vascular accident) Assessment/Plan: -Aspirin, Plavix, Atorvastatin -cardiology on board Code(s): I63.9 - CEREBRAL INFARCTION, UNSPECIFIED Qualifiers: CVA mechanism: unspecified Qualified Code(s): I63.9 - Cerebral infarction, unspecified (8) Hypothyroid Assessment/Plan: -TSH 20.00 -Endocrinology consult -repeat TSH, T3, T4 Code(s): E03.9 - HYPOTHYROIDISM, UNSPECIFIED Assessment/Plan see problem list dvt ppx
--- NOTE | 2019-01-08 13:13 | CONSULT ---
Consult Consult Specialty:: endocrine Referred by:: tai isaac np Reason for Consultation:: hypothyroidism - History of Present Illness Chief Complaint: weakness tired History of Present Illness: 73-year-old female with history of arrythmia ,CHF, hypercholesterolemia, CVA who presents with signs and symptoms of acute CHF exacerbation. We'll obtain CBC /CMP/cardiac profile/BNP. EKG reveals no evidence of acute ischemia, prolonged QTC is noted. Chest x-ray reveals cardiomegaly and chf,has had tiredness,cold intolerant,muscle pain and fatigue,hair thinning found to have hypothyroidism, has been on amiodarone,denies cp,cough fever or chills. - History Source History Provided By: Patient - Past Medical History Cardio/Vascular: Yes: CHF, HTN Renal/: Yes: Renal Inusuff Endocrine: Yes: Diabetes Mellitus - Past Surgical History Past Surgical History: Yes: Tubal Ligation - Alcohol/Substance Use Hx Alcohol Use: Yes (occasional) - Smoking History Smoking history: Never smoked Have you smoked in the past 12 months: No Aproximately how many cigarettes per day: 6 If you are a former smoker, when did you quit?: 1966 - Social History ADL: Independent History of Recent Travel: No Home Medications - Allergies Allergies/Adverse Reactions: Allergies Allergy/AdvReac Type Severity Reaction Status Date / Time No Known Allergies Allergy Verified 11/08/18 08:56 - Home Medications Home Medications: Ambulatory Orders Atorvastatin Ca [Lipitor] 40 mg PO HS #30 tablet 12/30/16 Clopidogrel Bisulfate [Plavix -] 75 mg PO DAILY #30 tablet 12/30/16 Amiodarone HCl 200 mg PO DAILY 01/06/19 Aspirin [ASA -] 81 mg PO DAILY 01/06/19 Calcium Acetate 667 mg PO DAILY 01/06/19 Family Disease History - Family Disease History Family Disease History: Diabetes: Mother (HTN), Sister (2 sisters), Heart Disease: Grandparent (MGM-HTN), Mother, Brother (2 BROTHERS-HTN) Review of Systems - Review of Systems Constitutional: reports: Weakness Eyes: reports: Photophobia HENT: reports: No Symptoms Neck: reports: No Symptoms Cardiovascular: reports: Palpitations, Shortness of Breath Respiratory: reports: Exercise Intolerance, Orthopnea, SOB on Exertion Gastrointestinal: reports: Bloating, Constipation Genitourinary: reports: No Symptoms Breasts: reports: No Symptoms Reported Musculoskeletal: reports: Joint Pain, Joint Swelling, Muscle Pain, Muscle Cramps Integumentary: reports: No Symptoms Neurological: reports: Weakness Endocrine: reports: Unexplained Weight Gain Physical Exam Vital Signs: Vital Signs Temperature 98.8 F 01/08/19 10:00 Pulse Rate 69 01/08/19 10:00 Respiratory Rate 18 01/08/19 10:00 Blood Pressure 152/95 01/08/19 10:00 O2 Sat by Pulse Oximetry (%) 96 01/07/19 21:00 Constitutional: Yes: Calm Eyes: Yes: EOM Intact HENT: Yes: Normocephalic Neck: Yes: Trachea Midline Cardiovascular: Yes: Bradycardia, Murmur Respiratory: Yes: Rales, SOB, SOB on Exertion Gastrointestinal: Yes: Normal Bowel Sounds ...Rectal Exam: Yes: Deferred Renal/: Yes: WNL Musculoskeletal: Yes: WNL Extremities: Yes: WNL Edema: No Neurological: Yes: Alert, Oriented, Weakness Labs: CBC, BMP 01/07/19 06:40 01/08/19 09:30 Problem List - Problems (1) Acute exacerbation of CHF (congestive heart failure) Code(s): I50.9 - HEART FAILURE, UNSPECIFIED Qualifiers: Heart failure type: unspecified Qualified Code(s): I50.9 - Heart failure, unspecified (2) Acute on chronic systolic heart failure Code(s): I50.23 - ACUTE ON CHRONIC SYSTOLIC (CONGESTIVE) HEART FAILURE (3) Hypothyroid Code(s): E03.9 - HYPOTHYROIDISM, UNSPECIFIED (4) Mitral regurgitation Code(s): I34.0 - NONRHEUMATIC MITRAL (VALVE) INSUFFICIENCY (5) Acute on chronic diastolic CHF (congestive heart failure) Code(s): I50.33 - ACUTE ON CHRONIC DIASTOLIC (CONGESTIVE) HEART FAILURE (6) Arrhythmia Code(s): I49.9 - CARDIAC ARRHYTHMIA, UNSPECIFIED (7) CKD (chronic kidney disease) Code(s): N18.9 - CHRONIC KIDNEY DISEASE, UNSPECIFIED Assessment/Plan Current Active Problems Acute exacerbation of CHF (congestive heart failure) (Acute) Acute on chronic systolic heart failure (Acute) Hypothyroid (Acute) likely amiodarone effect Mitral regurgitation (Acute) Abnormal Lab Results 01/08/19 09:30 Anion Gap 5 L BUN 25 H Creatinine 1.5 H Random Glucose 133 H Calcium 8.4 L Laboratory Results - last 24 hr 01/07/19 01/08/19 01/08/19 17:49 09:30 12:24 Sodium 139 Potassium 4.0 Chloride 104 Carbon Dioxide 29 Anion Gap 5 L BUN 25 H Creatinine 1.5 H Est GFR (CKD-EPI)AfAm 39.09 Est GFR (CKD-EPI)NonAf 33.73 POC Glucometer 142 89 Random Glucose 133 H Calcium 8.4 L Laboratory Tests 01/07/19 06:40 TSH 20.00 H plan; ck free t4 q9iphpl synthroid 25mcg daily
--- NOTE | 2019-01-08 13:38 | PN ---
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 No chest pain. No palpitations. She is in NSR today. Echo 01/07/19 : severely reduced LV function, mild mr mod to severe TR mod phtn - Current Medication List Current Medications: Active Medications Amiodarone HCl (Cordarone -) 200 mg PO DAILY [facility] Last Admin: 01/08/19 09:38 Dose: 200 mg Aspirin (Asa -) 81 mg PO DAILY [facility] Last Admin: 01/08/19 09:38 Dose: 81 mg Atorvastatin Calcium (Lipitor -) 40 mg PO HS [facility] Last Admin: 01/07/19 22:28 Dose: 40 mg Clopidogrel Bisulfate (Plavix -) 75 mg PO DAILY [facility] Last Admin: 01/08/19 09:38 Dose: 75 mg Furosemide (Lasix Injection -) 40 mg IVPUSH BID@0600,1400 [facility] Last Admin: 01/08/19 06:34 Dose: 40 mg Levothyroxine Sodium (Synthroid -) 25 mcg PO DAILY@0700 [facility] Metoprolol Tartrate (Lopressor -) 25 mg PO BID [facility] Last Admin: 01/08/19 09:38 Dose: 25 mg Sacubitril/Valsartan (Entresto 24 Mg-26 Mg Tablet) 1 tab PO BID [facility] Last Admin: 01/08/19 09:39 Dose: 1 tab - Objective Vital Signs: Vital Signs Temperature 98.8 F 01/08/19 10:00 Pulse Rate 88 01/08/19 13:24 Respiratory Rate 18 01/08/19 10:00 Blood Pressure 152/95 01/08/19 10:00 O2 Sat by Pulse Oximetry (%) 95 01/08/19 13:24 Constitutional: Yes: No Distress, Calm Eyes: Yes: Conjunctiva Clear, EOM Intact HENT: Yes: Normocephalic Neck: Yes: Trachea Midline Cardiovascular: Yes: Regular Rate and Rhythm Respiratory: Yes: Rales (bilat bases) Gastrointestinal: Yes: Soft, Abdomen, Obese Extremities: Yes: WNL Edema: Yes Edema: LLE: 1+, RLE: 1+ Labs: CBC, BMP 01/07/19 06:40 01/08/19 09:30 Assessment/Plan 73 year old woman with pmh HTN, NIDDM, chol, CVA, chronic systolic chf EF 15%, PSVT treated with amiodarone recently seen and sent to [facility] for eval due to RVR and 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 No chest pain. No palpitations. She is in NSR today. Echo 01/07/19 : severely reduced LV function, mild mr mod to severe TR mod phtn SVT--stable CHF--Acute on chronic systolic chf --continue lasix, follow daily wts --fluid restriction --added entresto low dose --follow K, creat. --no cath done prior due to KULDIP, now improved. will follow with you.
[2019-01-08] MEDS: ATORVASTATIN CA 40 MG TABLET (FP) PO SCH (21:52)
[2019-01-09] MEDS: FUROSEMIDE 40 MG TABLET (FP) PO SCH ×2 (06:50→15:57)
[2019-01-09] MEDS ORDERED: LEVOTHYROXINE NA 25 MCG TABLET (FP) PO SCH (07:00)
[2019-01-09 07:52] LABS: HEMOGLOBIN 12.6 GM/dL (10.7-15.3); MCH 30.3 pg (25.7-33.7); MCHC 33.1 g/dl (32.0-36.0); MEAN CELL VOLUME 91.4 fl (80-96); MEAN PLT VOLUME 8.8 fl (7.5-11.1); RBC 4.15 M/mm3 (3.60-5.2)
[2019-01-09 08:23] LABS: ALBUMIN 3.3 g/dl (3.4-5.0); BILIRUBIN,TOTAL 0.9 mg/dL (0.2-1); BLOOD UREA NITROGEN 24.4 mg/dL (7-18); CALCIUM 8.1 mg/dL (8.5-10.1); CREATININE 1.4 mg/dL (0.55-1.3); POTASSIUM 3.9 mmol/L (3.5-5.1)
--- NOTE | 2019-01-09 09:38 | PN ---
Progress Note, Physician Chief Complaint: Acute on Chronic CHF Exacerbation KULDIP History of Present Illness: NAD Breathing better Awaiting home O2 setup to be discharged - Current Medication List Current Medications: Active Medications Amiodarone HCl (Cordarone -) 200 mg PO DAILY [facility] Last Admin: 01/08/19 09:38 Dose: 200 mg Aspirin (Asa -) 81 mg PO DAILY [facility] Last Admin: 01/08/19 09:38 Dose: 81 mg Atorvastatin Calcium (Lipitor -) 40 mg PO HS [facility] Last Admin: 01/08/19 21:52 Dose: 40 mg Clopidogrel Bisulfate (Plavix -) 75 mg PO DAILY [facility] Last Admin: 01/08/19 09:38 Dose: 75 mg Furosemide (Lasix -) 40 mg PO BID@0600,1400 [facility] Last Admin: 01/09/19 06:50 Dose: 40 mg Levothyroxine Sodium (Synthroid -) 25 mcg PO DAILY@0700 [facility] Last Admin: 01/09/19 06:50 Dose: 25 mcg Metoprolol Tartrate (Lopressor -) 25 mg PO BID [facility] Last Admin: 01/08/19 21:52 Dose: 25 mg Sacubitril/Valsartan (Entresto 24 Mg-26 Mg Tablet) 1 tab PO BID [facility] Last Admin: 01/08/19 22:34 Dose: 1 tab - Objective Vital Signs: Vital Signs Temperature 97.7 F 01/09/19 06:00 Pulse Rate 76 01/09/19 06:00 Respiratory Rate 18 01/09/19 06:00 Blood Pressure 129/68 01/09/19 06:00 O2 Sat by Pulse Oximetry (%) 95 01/08/19 21:00 Constitutional: Yes: Well Nourished, No Distress, Calm Cardiovascular: Yes: Regular Rate and Rhythm Respiratory: Yes: Regular, On Nasal O2 Gastrointestinal: Yes: Normal Bowel Sounds, Soft Musculoskeletal: Yes: WNL Extremities: Yes: WNL Edema: No Peripheral Pulses WNL: Yes Neurological: Yes: Alert, Oriented Psychiatric: Yes: Alert, Oriented Labs: CBC, BMP 01/09/19 07:00 01/09/19 07:00 Assessment/Plan (1) Acute exacerbation of CHF (congestive heart failure) Assessment/Plan: -Cardiology and Pulm on board -Furosemide 40 mg po BID -daily weights -1L fluid restriction -strict I&Os -keep SpO2 >90% -O2 via NC -Entresto Code(s): I50.9 - HEART FAILURE, UNSPECIFIED Qualifiers: Heart failure type: unspecified Qualified Code(s): I50.9 - Heart failure, unspecified (2) CKD (chronic kidney disease) Assessment/Plan: -Renal on board -monitor renal function Code(s): N18.9 - CHRONIC KIDNEY DISEASE, UNSPECIFIED (3) HTN (hypertension) Assessment/Plan: -low Na diet Code(s): I10 - ESSENTIAL (PRIMARY) HYPERTENSION (4) SVT (supraventricular tachycardia) Assessment/Plan: -Amiodarone -cardiology on board Code(s): I47.1 - SUPRAVENTRICULAR TACHYCARDIA (5) Mitral regurgitation Assessment/Plan: -cardiology on board Code(s): I34.0 - NONRHEUMATIC MITRAL (VALVE) INSUFFICIENCY (6) Diabetes 1.5, managed as type 2 Assessment/Plan: -BGM ACHS Code(s): E10.9 - TYPE 1 DIABETES MELLITUS WITHOUT COMPLICATIONS (7) CVA (cerebral vascular accident) Assessment/Plan: -Aspirin, Plavix, Atorvastatin -cardiology on board Code(s): I63.9 - CEREBRAL INFARCTION, UNSPECIFIED Qualifiers: CVA mechanism: unspecified Qualified Code(s): I63.9 - Cerebral infarction, unspecified (8) Hypothyroid Assessment/Plan: -Endocrinology consult -repeat TSH, T3, T4 Code(s): E03.9 - HYPOTHYROIDISM, UNSPECIFIED
[2019-01-09] MEDS: AMIODARONE HCL 200 MG TABLET (FP) PO SCH (09:49)
[2019-01-09] MEDS: CLOPIDOGREL BISULFATE 75 MG TABLET (FP) PO SCH (09:49)
[2019-01-09] MEDS: ASPIRIN 81 MG CHEWABLE TABLETS PO SCH (09:49)
[2019-01-09] MEDS: METOPROLOL TARTRATE 25 MG TABLET (FP) PO SCH (09:49)
[2019-01-09] MEDS: SACUBITRIL/VALSARTAN 24 MG-26 MG TABLET PO SCH (09:49)
--- NOTE | 2019-01-09 11:42 | PN ---
Progress Note, Physician History of Present Illness: Pt seen and examined at bedside. She is awake and alert. She feels that edema is improving. - Current Medication List Current Medications: Active Medications Amiodarone HCl (Cordarone -) 200 mg PO DAILY [facility] Last Admin: 01/09/19 09:49 Dose: 200 mg Aspirin (Asa -) 81 mg PO DAILY [facility] Last Admin: 01/09/19 09:49 Dose: 81 mg Atorvastatin Calcium (Lipitor -) 40 mg PO HS [facility] Last Admin: 01/08/19 21:52 Dose: 40 mg Clopidogrel Bisulfate (Plavix -) 75 mg PO DAILY [facility] Last Admin: 01/09/19 09:49 Dose: 75 mg Furosemide (Lasix -) 40 mg PO BID@0600,1400 [facility] Last Admin: 01/09/19 06:50 Dose: 40 mg Levothyroxine Sodium (Synthroid -) 25 mcg PO DAILY@0700 [facility] Last Admin: 01/09/19 06:50 Dose: 25 mcg Metoprolol Tartrate (Lopressor -) 25 mg PO BID [facility] Last Admin: 01/09/19 09:49 Dose: 25 mg Sacubitril/Valsartan (Entresto 24 Mg-26 Mg Tablet) 1 tab PO BID [facility] Last Admin: 01/09/19 09:49 Dose: 1 tab - Objective Vital Signs: Vital Signs Temperature 97.7 F 01/09/19 06:00 Pulse Rate 76 01/09/19 06:00 Respiratory Rate 18 01/09/19 06:00 Blood Pressure 129/68 01/09/19 06:00 O2 Sat by Pulse Oximetry (%) 95 01/08/19 21:00 Constitutional: Yes: Calm Eyes: Yes: Conjunctiva Clear HENT: Yes: Atraumatic Neck: Yes: Supple Cardiovascular: Yes: S1, S2 Respiratory: Yes: CTA Bilaterally Gastrointestinal: Yes: Soft Genitourinary: Yes: WNL Edema: Yes Edema: LLE: 2+, RLE: 2+ Neurological: Yes: Oriented Psychiatric: Yes: Oriented Labs: CBC, BMP 01/09/19 07:00 01/09/19 07:00 Problem List - Problems (1) Acute exacerbation of CHF (congestive heart failure) Code(s): I50.9 - HEART FAILURE, UNSPECIFIED Qualifiers: Qualified Code(s): I50.9 - Heart failure, unspecified (2) CKD (chronic kidney disease) Code(s): N18.9 - CHRONIC KIDNEY DISEASE, UNSPECIFIED Assessment/Plan Current Medications Generic Name Dose Route Start Last Admin Trade Name Sandoval PRN Reason Stop Dose Admin Amiodarone HCl 200 mg 01/07/19 10:00 01/09/19 09:49 Cordarone - PO 200 mg DAILY [facility] Administration Aspirin 81 mg 01/07/19 10:00 01/09/19 09:49 Asa - PO 81 mg DAILY [facility] Administration Atorvastatin Calcium 40 mg 01/06/19 22:00 01/08/19 21:52 Lipitor - PO 40 mg HS [facility] Administration Clopidogrel Bisulfate 75 mg 01/07/19 10:00 01/09/19 09:49 Plavix - PO 75 mg DAILY [facility] Administration Furosemide 40 mg 01/09/19 06:00 01/09/19 06:50 Lasix - PO 40 mg BID@0600,1400 [facility] Administration Levothyroxine Sodium 25 mcg 01/09/19 07:00 01/09/19 06:50 Synthroid - PO 25 mcg DAILY@0700 [facility] Administration Metoprolol Tartrate 25 mg 01/07/19 22:00 01/09/19 09:49 Lopressor - PO 25 mg BID [facility] Administration Sacubitril/Valsartan 1 tab 01/07/19 22:00 01/09/19 09:49 Entresto 24 Mg-26 Mg Tablet PO 1 tab BID [facility] Administration Impression 1. CKD 2. CHF 3. DM 4. HTN 5. hx CVA 6. a-fib 7. elevated kappa chains 8. fluid overload Plan - cont po lasix - volume status is improving - can see in office - discussed low salt diet with pt Dr Cleveland
--- NOTE | 2019-01-09 11:43 | PN ---
Progress Note (short form) - Note Progress Note: PULMONARY States breathing better. Less leg swelling. No chest pain or cough. Vital Signs Period Temp Pulse Resp BP Sys/Sommer Pulse Ox Last 24 Hr 97.4 F-98.4 F 65-88 18-20 129-153/68-111 95-95 Intake & Output 01/06/19 01/07/19 01/08/19 01/09/19 23:59 23:59 23:59 23:59 Intake Total 500 800 0 Output Total 200 200 Balance 300 600 0 Weight 110.24 kg 110.178 kg 109.497 kg 106.169 kg Gen: NAD at rest Heart: RRR Lung: decreased breath sounds at the bases Abd: soft, nontender Ext: + edema CBC, BMP 01/09/19 07:00 01/09/19 07:00 Active Medications Amiodarone HCl (Cordarone -) 200 mg PO DAILY [facility] Last Admin: 01/09/19 09:49 Dose: 200 mg Aspirin (Asa -) 81 mg PO DAILY [facility] Last Admin: 01/09/19 09:49 Dose: 81 mg Atorvastatin Calcium (Lipitor -) 40 mg PO HS [facility] Last Admin: 01/08/19 21:52 Dose: 40 mg Clopidogrel Bisulfate (Plavix -) 75 mg PO DAILY [facility] Last Admin: 01/09/19 09:49 Dose: 75 mg Furosemide (Lasix -) 40 mg PO BID@0600,1400 [facility] Last Admin: 01/09/19 06:50 Dose: 40 mg Levothyroxine Sodium (Synthroid -) 25 mcg PO DAILY@0700 [facility] Last Admin: 01/09/19 06:50 Dose: 25 mcg Metoprolol Tartrate (Lopressor -) 25 mg PO BID [facility] Last Admin: 01/09/19 09:49 Dose: 25 mg Sacubitril/Valsartan (Entresto 24 Mg-26 Mg Tablet) 1 tab PO BID [facility] Last Admin: 01/09/19 09:49 Dose: 1 tab A/P Acute on Chronic Systolic Heart Failure Mitral/Tricuspid Regurgitation HTN DM h/o CVA - continue lasix - monitor urine output, creatinine - daily weights - O2 as needed to keep Spo2 >90% - beta terry, entresto - DVT prophylaxis Problem List - Problems (1) Acute on chronic systolic heart failure Code(s): I50.23 - ACUTE ON CHRONIC SYSTOLIC (CONGESTIVE) HEART FAILURE (2) Mitral regurgitation Code(s): I34.0 - NONRHEUMATIC MITRAL (VALVE) INSUFFICIENCY
[2019-01-09 12:28] LABS: PLATELET COUNT 161 K/MM3 (134-434)
[2019-01-09 13:11] VITALS: BP 154/73; PULSE 71; TEMP 98
--- NOTE | 2019-01-09 13:41 | PN ---
Progress Note, Physician History of Present Illness: seen and examined today in [facility]. states she is feeling much better and feels ready to go home. LE edema significantly improved. No sob or chest pain. - Current Medication List Current Medications: Active Medications Amiodarone HCl (Cordarone -) 200 mg PO DAILY [facility] Last Admin: 01/09/19 09:49 Dose: 200 mg Aspirin (Asa -) 81 mg PO DAILY [facility] Last Admin: 01/09/19 09:49 Dose: 81 mg Atorvastatin Calcium (Lipitor -) 40 mg PO HS [facility] Last Admin: 01/08/19 21:52 Dose: 40 mg Clopidogrel Bisulfate (Plavix -) 75 mg PO DAILY [facility] Last Admin: 01/09/19 09:49 Dose: 75 mg Furosemide (Lasix -) 40 mg PO BID@0600,1400 [facility] Last Admin: 01/09/19 06:50 Dose: 40 mg Levothyroxine Sodium (Synthroid -) 25 mcg PO DAILY@0700 [facility] Last Admin: 01/09/19 06:50 Dose: 25 mcg Metoprolol Tartrate (Lopressor -) 25 mg PO BID [facility] Last Admin: 01/09/19 09:49 Dose: 25 mg Sacubitril/Valsartan (Entresto 24 Mg-26 Mg Tablet) 1 tab PO BID [facility] Last Admin: 01/09/19 09:49 Dose: 1 tab - Objective Vital Signs: Vital Signs Temperature 98.0 F 01/09/19 10:00 Pulse Rate 71 01/09/19 10:00 Respiratory Rate 18 01/09/19 10:00 Blood Pressure 154/73 01/09/19 10:00 O2 Sat by Pulse Oximetry (%) 95 01/08/19 21:00 Constitutional: Yes: No Distress, Calm Eyes: Yes: Conjunctiva Clear, EOM Intact, PERRL HENT: Yes: Atraumatic, Normocephalic Neck: Yes: Supple, Trachea Midline Cardiovascular: Yes: Regular Rate and Rhythm, S1, S2. No: Bradycardia, Tachycardia, Pulse Irregular, Bruit, JVD, Gallop, Murmur, Rub, S3, S4, Varicosities Respiratory: Yes: Regular. No: Diminished, Rales, Rhonchi, SOB, Wheezes Gastrointestinal: Yes: Normal Bowel Sounds, Soft. 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 No chest pain. No palpitations. She is in NSR today. Echo 01/07/19 : severely reduced LV function, mild mr mod to severe TR mod phtn SVT--stable -cont amiodarone for now -outpatient fup CHF--Acute on chronic systolic chf -near euvolemic -now on po Lasix and entresto - follow daily wts at home -fluid restriction -follow K, creat. -no cath done prior due to KULDIP, now improved, can be reconsidered as outpatient -No additional inpatient cardiac work up is needed at this time. -Recc close outpatient fup with cardiology Please call with any additional questions.
--- NOTE | 2019-01-12 12:49 | EKG ---
Test Reason : Blood Pressure : / mmHG Vent. Rate : 085 BPM Atrial Rate : 085 BPM P-R Int : 174 ms QRS Dur : 094 ms QT Int : 412 ms P-R-T Axes : 050 -01 087 degrees QTc Int : 490 ms SINUS RHYTHM WITH PREMATURE ATRIAL COMPLEXES PROLONGED QT ABNORMAL ECG WHEN COMPARED WITH ECG OF 28-JUL-2018 16:33, PREMATURE ATRIAL COMPLEXES ARE NOW PRESENT Confirmed by Johan Kenny MD ([id number]) on 01/12/2019 12:49:36 PM Referred By: Confirmed By:Johan Kenny MD
== END 2019-01-09 18:46 | disposition home or self-care (01) | DRG 291 ==
LOC: JER 13:02 → JERBED 16:35 → J8W 17:48
PROVIDERS: ADMIT Family Medicine; ATTEND Family Medicine
DX: I13.0 Hypertensive heart and chronic kidney disease with heart failure and stage 1 through stage 4 chronic kidney disease, or unspecified chronic kidney disease (principal); I50.23 Acute on chronic systolic (congestive) heart failure; I47.1 Supraventricular tachycardia; N17.9 Acute kidney failure, unspecified; E11.22 Type 2 diabetes mellitus with diabetic chronic kidney disease; N18.9 Chronic kidney disease, unspecified; E87.70 Fluid overload, unspecified; I34.0 Nonrheumatic mitral (valve) insufficiency; I36.1 Nonrheumatic tricuspid (valve) insufficiency; E03.9 Hypothyroidism, unspecified; E66.9 Obesity, unspecified; Z68.37 Body mass index [BMI] 37.0-37.9, adult
CPT/HCPCS: 36415; 71046-TC-FY; 80048; 80053; 82803; 82962; 83036; 83735; 83880; 84100; 84436; 84439; 84443; 84480; 84484; 85025; 85027; 93005; 93010; 93306-TC; 94761; 97116-GP; 97161-GP; 99284-25

== ENCOUNTER 2019-03-20 13:24 | Inpatient (IN) | payer OTHER ==
--- NOTE | 2019-03-20 14:59 | PDOC ---
History of Present Illness - General Chief Complaint: Wound Stated Complaint: EDEMA Time Seen by Provider: 03/20/19 14:56 History Source: Patient Exam Limitations: No Limitations - History of Present Illness Initial Comments: 03/20/19 16:59 73F w/ pmh of DM, COPD(3-4L home O2), HFrEF(20-25%, January 2019), DM, MR TR presents with complaint of weeping serous BLE wounds x1. Today, the patient felt lightheaded, weak and crumpled over on her Left side. (-)LOC, did not hit her head. Witnessed by daughter, at bedside. Has fallen x3 in the last 3mo. Daughter was concerned today due to thin serous drainage from anterior and posterior wounds to BLE. Has had chronic intermittent BLE edema. Endorses being compliant with medications. <30d prior, had lasix 80mg QD decr to 40mg QD. Has been noncompliant with low-sodium diet. Two days prior, ate pork and chitlins. Has had a nonproductive cough for several months with orthopnea. Sleeps upright in armchair. Patient endorses ability to ambulate w/o assistive device, lives independently, no [employer] ASSIST[employer], daughter lives across street, grandson lives above her. Timing/Duration: 24 hours Associated Symptoms: reports: cough, shortness of breath, weakness. denies: chest pain, diaphoresis, fever/chills, loss of appetite, nausea/vomiting, seizure Asa Contraindications(Core Measure): No: Allergy Past History - Travel Traveled outside of the country in the last 30 days: No Close contact w/someone who was outside of country & ill: No - Past Medical History Allergies/Adverse Reactions: Allergies Allergy/AdvReac Type Severity Reaction Status Date / Time No Known Allergies Allergy Verified 03/20/19 13:31 Home Medications: Ambulatory Orders Atorvastatin Ca [Lipitor] 40 mg PO HS #30 tablet 12/30/16 Clopidogrel Bisulfate [Plavix -] 75 mg PO DAILY #30 tablet 12/30/16 Amiodarone HCl 200 mg PO DAILY 01/06/19 Aspirin [ASA -] 81 mg PO DAILY 01/06/19 Calcium Acetate 667 mg PO DAILY 01/06/19 Furosemide [Lasix -] 40 mg PO BID #60 tablet 01/08/19 Levothyroxine [Synthroid -] 25 mcg PO DAILY@0700 #30 tablet 01/08/19 Metoprolol Tartrate [Lopressor -] 25 mg PO BID #60 tablet 01/08/19 Sacubitril/Valsartan [Entresto 24 mg-26 mg Tablet] 1 tab PO BID #60 tablet 01/08 Anemia: No Asthma: No Cardiac Disorders: Yes (heart murmur, CHF) CVA: Yes COPD: No CHF: Yes DVT: No Dementia: No Diabetes: Yes (Managed with Diet) Dialysis: No GI Disorders: No Disorders: No (incontinence) HTN: Yes Hypercholesterolemia: Yes Kidney Stones: No Liver Disease: No Thyroid Disease: No - Surgical History Abdominal Surgery: No Appendectomy: No Cardiac Surgery: No Cholecystectomy: No Gastric Stapling: No GI Surgery: No Lung Surgery: No Neurologic Surgery: No Orthopedic Surgery: No - Family Disease History Family Disease History: Diabetes: Father (HTN, DM), Mother (HTN, DM), Heart Disease: Father, Mother - Immunization History Immunization Up to Date: No - Suicide/Smoking/Psychosocial Hx Smoking Status: Yes Smoking History: Former smoker Years of Tobacco Use: 25 Have you smoked in the past 12 months: No Number of Cigarettes Smoked Daily: 6 If you are a former smoker, when did you quit?: 1967 Information on smoking cessation initiated: No Hx Alcohol Use: No Drug/Substance Use Hx: No Substance Use Type: None Hx Substance Use Treatment: No Review of Systems - Review of Systems Able to Perform ROS?: Yes Is the patient limited Ivorian proficient: No Constitutional: No: Chills, Diaphoresis, Fever, Night Sweats HEENTM: No: Eye Pain, Blurred Vision, Double Vision Respiratory: Yes: Cough, Orthopnea, Shortness of Breath, SOB at Rest. No: Stridor, Wheezing, Productive cough Cardiac (ROS): Yes: Edema. No: Chest Pain, Irregular Heart Rate, Chest Tightness ABD/GI: No: Constipated, Diarrhea, Nausea, Vomiting : No: Burning, Dysuria Integumentary: Yes: Other (Lower leg swelling w/o erythema, no active drainage) Neurological: No: Headache, Numbness, Dizziness *Physical Exam - Vital Signs Last Vital Signs Temp Pulse Resp BP Pulse Ox 97.5 F L 60 18 141/90 96 03/20/19 13:33 03/20/19 13:33 03/20/19 13:33 03/20/19 13:33 03/20/19 13:33 - Physical Exam General Appearance: Yes: Obese. No: Apparent Distress HEENT: positive: Normal Voice, Symmetrical. negative: Pale Conjunctivae, Scleral Icterus (R), Scleral Icterus (L) Neck: positive: Trachea midline. negative: Lymphadenopathy (R), Lymphadenopathy (L) Respiratory/Chest: positive: Lungs Clear, Other (low respiratory effort). negative: Chest Tender, Respiratory Distress, Labored Respiration Cardiovascular: positive: Regular Rhythm, Regular Rate, S1, S2, Edema (BLE edema 1+) Gastrointestinal/Abdominal: positive: Soft. negative: Distended, Guarding, Rebound Extremity: positive: Calf Tenderness (tenderness to b/l ), Other (Right lower extremity with superficial ulcer(subcentimeter) w/o active drainage, no surrounding erythema, mild TPP). negative: Coldness, Erythema Integumentary: positive: Dry, Warm. negative: Cold, Clammy, Moist Neurologic: positive: Alert (A&Ox2(did not know date)) ED Treatment Course - LABORATORY CBC & Chemistry Diagram: 03/20/19 16:15 03/20/19 17:30 Medical Decision Making - Medical Decision Making 03/20/19 17:33 - fu CBC, CMP, BNP, cardiac enzymes - fu EKG, CXR - fu RLE U/S to r/o DVT 03/20/19 18:36 - Lasix 40mg IV *DC/Admit/Observation/Transfer Diagnosis at time of Disposition: Acute exacerbation of CHF (congestive heart failure) Qualifiers: Heart failure type: systolic Qualified Code(s): I50.23 - Acute on chronic systolic (congestive) heart failure - Referrals Referrals: Tony Golden MD [Primary Care Provider] - - Patient Instructions - Post Discharge Activity
[2019-03-20 18:07] LABS: BASO % 0.3 % (0-2.0); EOS % 2.1 % (0-4.5); HEMATOCRIT 36.2 % (32.4-45.2); HEMOGLOBIN 11.7 GM/dL (10.7-15.3); LYMPH % 11.1 % (8-40); MCH 28.7 pg (25.7-33.7); MCHC 32.2 g/dl (32.0-36.0); MEAN CELL VOLUME 89.2 fl (80-96); MEAN PLT VOLUME 9.6 fl (7.5-11.1); MONO % 8.6 % (3.8-10.2); NEUT % 77.9 % (42.8-82.8); PLATELET COUNT 122 K/MM3 (134-434); RBC 4.06 M/mm3 (3.60-5.2); RDW 17.6 % (11.6-15.6); WHITE BLOOD COUNT 6.9 K/mm3 (4.0-10.0)
[2019-03-20 18:18] LABS: ALBUMIN 3.6 g/dl (3.4-5.0); BILIRUBIN,TOTAL 1.4 mg/dL (0.2-1); BLOOD UREA NITROGEN 28.7 mg/dL (7-18); CREATININE 1.8 mg/dL (0.55-1.3); POTASSIUM 4.8 mmol/L (3.5-5.1); TOT PROT 7.7 g/dl (6.4-8.2)
[2019-03-20] MEDS ORDERED: FUROSEMIDE 40 MG/4 ML INJECTABLE VIAL IVPUSH ONE (18:34)
[2019-03-20 19:28] LABS: N-TERMINAL BNP 8650.4 pg/ml (5-450)
[2019-03-20] MEDS ORDERED: FUROSEMIDE 40 MG/4 ML INJECTABLE VIAL ONE (19:34)
--- NOTE | 2019-03-20 20:54 | HP ---
Admitting History and Physical - Primary Care Physician PCP: Jeremy Hadley - Admission Chief Complaint: SOB, Leg Edema with Weeping History of Present Illness: This is a 73 y/o woman with a past medical history of DM, COPD(3-4L home O2), HFrEF(20-25%, January 2019), DM, MR, TR. Who presents to the ED with complaint of weeping serous BLE wounds x1 week. Patient reports lightheadedness, weakness. slumping to her L- side. Witnessed by daughter, at bedside. Has fallen x3 in the last 3mo. Daughter was concerned today due to thin serous drainage from anterior and posterior wounds to BLE. Has had chronic intermittent BLE edema. Endorses being compliant with medications. <30d prior, had lasix 80mg QD decr to 40mg QD. Has been noncompliant with low-sodium diet. Two days prior, ate pork and chitlins. Has had a nonproductive cough for several months with orthopnea. Sleeps upright in armchair. Patient endorses ability to ambulate w/o assistive device, lives independently, no CELL PLASTERER, daughter lives across street, grandson lives above her. History Source: Patient Limitations to Obtaining History: No Limitations 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 History of Recent Travel: No Home Medications - Allergies Allergies/Adverse Reactions: Allergies Allergy/AdvReac Type Severity Reaction Status Date / Time No Known Allergies Allergy Verified 03/20/19 13:31 - Home Medications Home Medications: Ambulatory Orders Atorvastatin Ca [Lipitor] 40 mg PO HS #30 tablet 12/30/16 Clopidogrel Bisulfate [Plavix -] 75 mg PO DAILY #30 tablet 12/30/16 Amiodarone HCl 200 mg PO DAILY 01/06/19 Aspirin [ASA -] 81 mg PO DAILY 01/06/19 Calcium Acetate 667 mg PO DAILY 01/06/19 Furosemide [Lasix -] 40 mg PO BID #60 tablet 01/08/19 Levothyroxine [Synthroid -] 25 mcg PO DAILY@0700 #30 tablet 01/08/19 Metoprolol Tartrate [Lopressor -] 25 mg PO BID #60 tablet 01/08/19 Sacubitril/Valsartan [Entresto 24 mg-26 mg Tablet] 1 tab PO BID #60 tablet 01/08 Family Disease History - Family Disease History Family Disease History: Diabetes: Mother (HTN), Sister (2 sisters), Heart Disease: Grandparent (MGM-HTN), Mother, Brother (2 BROTHERS-HTN) Review of Systems - Review of Systems Constitutional: reports: Malaise, Weakness Eyes: reports: No Symptoms HENT: reports: No Symptoms Neck: reports: No Symptoms Cardiovascular: reports: Edema, Shortness of Breath Respiratory: reports: Orthopnea, SOB, SOB on Exertion Gastrointestinal: reports: No Symptoms Genitourinary: reports: No Symptoms Breasts: reports: No Symptoms Reported Musculoskeletal: reports: No Symptoms Integumentary: reports: Wound Neurological: reports: No Symptoms Endocrine: reports: No Symptoms Hematology/Lymphatic: reports: No Symptoms Psychiatric: reports: No Symptoms Physical Examination Vital Signs: Vital Signs Temperature 97.5 F L 03/20/19 13:33 Pulse Rate 60 03/20/19 13:33 Respiratory Rate 18 03/20/19 13:33 Blood Pressure 141/90 03/20/19 13:33 O2 Sat by Pulse Oximetry (%) 99 03/20/19 16:49 Constitutional: Yes: No Distress, Calm, Obese Eyes: Yes: WNL, Conjunctiva Clear, EOM Intact, PERRL HENT: Yes: WNL, Atraumatic, Normocephalic Neck: Yes: WNL, Supple, Trachea Midline Cardiovascular: Yes: Regular Rate and Rhythm, S1, S2 Respiratory: Yes: Diminished, SOB on Exertion (bases) Gastrointestinal: Yes: Normal Bowel Sounds, Soft, Abdomen, Obese Renal/: Yes: WNL Breast(s): Yes: WNL Musculoskeletal: Yes: WNL Extremities: Yes: WNL Edema: Yes Edema: LLE: 2+, RLE: 2+ Peripheral Pulses WNL: Yes Integumentary: Yes: Erythema Neurological: Yes: WNL, Alert, Oriented, Cran Nerves II-XII Intact ...Motor Strength: WNL Psychiatric: Yes: WNL, Alert, Oriented Labs: CBC, BMP 03/20/19 16:15 03/20/19 17:30 Laboratory Results - last 24 hr 03/20/19 03/20/19 03/20/19 16:15 16:15 17:30 WBC 6.9 RBC 4.06 Hgb 11.7 Hct 36.2 MCV 89.2 MCH 28.7 MCHC 32.2 RDW 17.6 H Plt Count 122 L D MPV 9.6 Absolute Neuts (auto) 5.3 Neutrophils % 77.9 Lymphocytes % 11.1 Monocytes % 8.6 Eosinophils % 2.1 Basophils % 0.3 Nucleated RBC % 0 Sodium Cancelled 144 Potassium Cancelled 4.8 Chloride Cancelled 113 H Carbon Dioxide Cancelled 26 Anion Gap Cancelled 6 L BUN Cancelled 28.7 H Creatinine Cancelled 1.8 H Est GFR (CKD-EPI)AfAm Cancelled 31.36 Est GFR (CKD-EPI)NonAf Cancelled 27.06 Random Glucose Cancelled 104 Calcium Cancelled 9.0 Total Bilirubin Cancelled 1.4 H AST Cancelled 28 ALT Cancelled 18 Alkaline Phosphatase Cancelled 92 Creatine Kinase Cancelled 145 Troponin I Cancelled 0.03 B-Natriuretic Peptide Cancelled 8650.4 H Total Protein Cancelled 7.7 Albumin Cancelled 3.6 Urine Color Urine Appearance Urine pH Urine pH (Auto) Ur Specific [place] Specific [place] (Auto) Urine Protein Urine Protein (Auto) Urine Glucose (UA) Glucose (UA)(Auto) Urine Ketones Urine Ketones (Auto) Urine Blood Urine Blood (Auto) Urine Nitrite Urine Nitrite (Auto) Urine Bilirubin Urine Urobilinogen Urine Urobilinogen (Auto) Ur Leukocyte Esterase Leukocyte Esterase (Auto) Urine WBC (Auto) Urine RBC (Auto) Urine Casts (Auto) U Pathogenic Cast Auto U Epithel Cells (Auto) U Sm Round Cell (Auto) Urine Crystals (Auto) Urine Bacteria (Auto) Urine RBC Urine WBC Urine Yeast (Auto) 03/20/19 03/20/19 18:15 18:15 WBC RBC Hgb Hct MCV MCH MCHC RDW Plt Count MPV Absolute Neuts (auto) Neutrophils % Lymphocytes % Monocytes % Eosinophils % Basophils % Nucleated RBC % Sodium Potassium Chloride Carbon Dioxide Anion Gap BUN Creatinine Est GFR (CKD-EPI)AfAm Est GFR (CKD-EPI)NonAf Random Glucose Calcium Total Bilirubin AST ALT Alkaline Phosphatase Creatine Kinase Troponin I B-Natriuretic Peptide Total Protein Albumin Urine Color Cancelled Yellow Urine Appearance Cancelled Clear Urine pH Cancelled Urine pH (Auto) 5.5 Ur Specific [place] Cancelled Specific [place] (Auto) >= 1.030 Urine Protein Cancelled Urine Protein (Auto) 3+ Urine Glucose (UA) Cancelled Glucose (UA)(Auto) Negative Urine Ketones Cancelled Urine Ketones (Auto) Trace Urine Blood Cancelled Urine Blood (Auto) Negative Urine Nitrite Cancelled Urine Nitrite (Auto) Negative Urine Bilirubin Cancelled 1+ H Urine Urobilinogen Cancelled Urine Urobilinogen (Auto) 1.0 Ur Leukocyte Esterase Cancelled Leukocyte Esterase (Auto) Negative Urine WBC (Auto) Cancelled Urine RBC (Auto) Cancelled Urine Casts (Auto) Cancelled U Pathogenic Cast Auto Cancelled U Epithel Cells (Auto) Cancelled U Sm Round Cell (Auto) Cancelled Urine Crystals (Auto) Cancelled Urine Bacteria (Auto) Cancelled Urine RBC No Result Required. Urine WBC No Result Required. Urine Yeast (Auto) Cancelled Imaging - Results Chest X-ray: Report Reviewed, Image Reviewed EKG: Pending Problem List - Problems (1) Acute on chronic diastolic CHF (congestive heart failure) Code(s): I50.33 - ACUTE ON CHRONIC DIASTOLIC (CONGESTIVE) HEART FAILURE (2) CKD (chronic kidney disease) Code(s): N18.9 - CHRONIC KIDNEY DISEASE, UNSPECIFIED (3) HTN (hypertension) Code(s): I10 - ESSENTIAL (PRIMARY) HYPERTENSION (4) Hypothyroid Code(s): E03.9 - HYPOTHYROIDISM, UNSPECIFIED (5) Mitral regurgitation Code(s): I34.0 - NONRHEUMATIC MITRAL (VALVE) INSUFFICIENCY (6) Pulmonary HTN Code(s): I27.20 - PULMONARY HYPERTENSION, UNSPECIFIED Assessment/Plan This is a 73 y/o woman admitted to Telemetry for Acute on Chronic CHF Exacerbation for further evaluation of their emergent condition. Plan: Admit to Telemetry Cardiac monitoring Serial Enzymes Appreciate Cardiac consult Chest Xray- reviewed EKG-pending Lasix given in ED, will continue Continue home meds with parameters Monitor CBC, BMP Strict INOs Daily Weight Elevate extremity FEN- Fluid Restriction 1L, replete lytes, Low Na Diet DVT ppx- OOB, SCDs, Plavix Dispo: Requires Inpatient Care Visit type - Emergency Visit Emergency Visit: Yes ED Registration Date: 03/20/19 Care time: The patient presented to the Emergency Department on the above date and was hospitalized for further evaluation of their emergent condition. - New Patient This patient is new to me today: Yes Date on this admission: 03/20/19 - Critical Care Critical Care patient: No
[2019-03-21 08:49] LABS: BASO % 0.3 % (0-2.0); EOS % 2.4 % (0-4.5); HEMATOCRIT 37.2 % (32.4-45.2); LYMPH % 14.4 % (8-40); MCH 28.3 pg (25.7-33.7); MCHC 32.4 g/dl (32.0-36.0); MEAN CELL VOLUME 87.5 fl (80-96); MEAN PLT VOLUME 9.1 fl (7.5-11.1); MONO % 8.5 % (3.8-10.2); NEUT % 74.4 % (42.8-82.8); PLATELET COUNT 130 K/MM3 (134-434); RBC 4.25 M/mm3 (3.60-5.2); RDW 17.6 % (11.6-15.6); WHITE BLOOD COUNT 6.4 K/mm3 (4.0-10.0)
[2019-03-21 09:07] LABS: INR 1.13 (0.83-1.09); PROTHROMBIN TIME (PATIENT) 13.4 SEC (9.7-13.0)
[2019-03-21] MEDS ORDERED: CLOPIDOGREL BISULFATE 75 MG TABLET (FP) ONE (09:14)
[2019-03-21] MEDS ORDERED: METOPROLOL TARTRATE 25 MG TABLET (FP) ONE (09:14)
[2019-03-21] MEDS ORDERED: ASPIRIN 81 MG CHEWABLE TABLETS ONE (09:14)
[2019-03-21] MEDS ORDERED: AMIODARONE HCL 200 MG TABLET (FP) ONE (09:15)
[2019-03-21 09:17] LABS: ANION GAP 7 MMOL/L (8-16); BLOOD UREA NITROGEN 28.1 mg/dL (7-18); CHLORIDE 111 mmol/L (98-107); CO2 28 mmol/L (21-32); CREATININE 1.9 mg/dL (0.55-1.3); GLUCOSE,RANDOM 100 mg/dL (74-106); POTASSIUM 4.2 mmol/L (3.5-5.1); SODIUM 146 mmol/L (136-145)
[2019-03-21] MEDS: ASPIRIN 81 MG CHEWABLE TABLETS PO SCH (09:22)
[2019-03-21] MEDS: LEVOTHYROXINE NA 25 MCG TABLET (FP) PO SCH (09:22)
[2019-03-21] MEDS: AMIODARONE HCL 200 MG TABLET (FP) PO SCH (09:22)
[2019-03-21] MEDS: CLOPIDOGREL BISULFATE 75 MG TABLET (FP) PO SCH (09:23)
[2019-03-21] MEDS: METOPROLOL TARTRATE 25 MG TABLET (FP) PO SCH ×2 (09:23→21:52)
[2019-03-21] MEDS ORDERED: FUROSEMIDE 40 MG/4 ML INJECTABLE VIAL IVPUSH SCH (10:00)
--- NOTE | 2019-03-21 11:02 | CON.CARD ---
Consult Consult Specialty:: Cardiology Referred by:: Jomar Reason for Consultation:: chf - History of Present Illness Chief Complaint: sob History of Present Illness: She is a 73 y.o.woman with a history of morbid obesity, HTN, Rt frontal CVA in 2017, who was previously admitted to [facility] 07/28/18 with several weeks of cough, dyspnea, and new orthopnea with KULDIP and an initial ECG showing SVT @ 140 BPM. Over 24 hours had recurrent rapid SVT and run of wide complex tachycardia thought to be SVT with aberrancy. An echocardiogram showed severe LV systolic dysfunction (new). There was severe TR. Normal RV function. She was diuresed and transferred to [facility] for further care. She was started on amiodarone. Patient improved and ablation was deferred. Also started on IV lasix switched to oral lasix, had worsening renal function. Diovan held. Seen by architectural modeler likely ATN +/- from diovan. Inpatient cardiac cath deferred. EP recommended lifevest for 3 months then TTE re evaluation of EF. Patient was placed on lifevest. She has made and cancelled multiple follow up appointments. She presents today after dietary nonadherance with salt restriction with worsening leg pain and edema. No chest pain, orthopnea. Echo 01/07/19 : severely reduced LV function, mild mr mod to severe TR mod phtn - History Source History Provided By: Patient, Medical Record - Past Medical History Cardio/Vascular: Yes: CHF (EF 20-25%), HTN Pulmonary: Yes: COPD, O2 Dependent Renal/: Yes: Renal Inusuff Endocrine: Yes: Diabetes Mellitus - Past Surgical History Past Surgical History: Yes: Tubal Ligation - Alcohol/Substance Use Hx Alcohol Use: No History of Substance Use: reports: None - Smoking History Smoking history: Former smoker Have you smoked in the past 12 months: No Aproximately how many cigarettes per day: 6 If you are a former smoker, when did you quit?: 1967 - Social History ADL: Independent 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 History of Recent Travel: No Home Medications - Allergies Allergies/Adverse Reactions: Allergies Allergy/AdvReac Type Severity Reaction Status Date / Time No Known Allergies Allergy Verified 03/20/19 13:31 - Home Medications Home Medications: Ambulatory Orders Atorvastatin Ca [Lipitor] 40 mg PO HS #30 tablet 12/30/16 Clopidogrel Bisulfate [Plavix -] 75 mg PO DAILY #30 tablet 12/30/16 Amiodarone HCl 200 mg PO DAILY 01/06/19 Aspirin [ASA -] 81 mg PO DAILY 01/06/19 Calcium Acetate 667 mg PO DAILY 01/06/19 Furosemide [Lasix -] 40 mg PO BID #60 tablet 01/08/19 Levothyroxine [Synthroid -] 25 mcg PO DAILY@0700 #30 tablet 01/08/19 Metoprolol Tartrate [Lopressor -] 25 mg PO BID #60 tablet 01/08/19 Sacubitril/Valsartan [Entresto 24 mg-26 mg Tablet] 1 tab PO BID #60 tablet 01/08 Family Disease History - Family Disease History Family Disease History: Diabetes: Mother (HTN), Sister (2 sisters), Heart Disease: Grandparent (MGM-HTN), Mother, Brother (2 BROTHERS-HTN) Vital Signs: Vital Signs Temperature 97.3 F L 03/21/19 07:07 Pulse Rate 73 03/21/19 07:07 Respiratory Rate 18 03/21/19 07:07 Blood Pressure 158/91 03/21/19 07:07 O2 Sat by Pulse Oximetry (%) 98 03/21/19 07:07 Constitutional: Yes: No Distress, Calm Eyes: Yes: EOM Intact HENT: Yes: Atraumatic, Normocephalic Neck: Yes: Trachea Midline Respiratory: Yes: CTA Bilaterally Gastrointestinal: Yes: Normal Bowel Sounds, Soft Cardiovascular: Yes: Regular Rate and Rhythm JVD: Yes Carotid Bruit: No PMI: Non-Displaced Heart Sounds: Yes: S1, S2 Extremities: Yes: WNL Edema: Yes Edema: LLE: 3+, RLE: 3+ Peripheral Pulses WNL: Yes - Other Data Labs, Other Data: CBC, BMP 03/21/19 07:55 03/21/19 07:55 INR, PTT INR 1.13 (0.83-1.09) H 03/21/19 07:55 Troponin, BNP 03/20/19 03/20/19 03/21/19 16:15 17:30 07:55 Troponin I Cancelled 0.03 < 0.02 B-Natriuretic Peptide Cancelled 8650.4 H Troponin, BNP 03/20/19 03/20/19 03/21/19 16:15 17:30 07:55 Troponin I Cancelled 0.03 < 0.02 B-Natriuretic Peptide Cancelled 8650.4 H Imaging - Results Chest X-ray: Report Reviewed (atalectasis vs infiltrate) EKG: Report Reviewed (nsr nssttw changes.) Assessment/Plan She is a 73 y.o.woman with a history of morbid obesity, HTN, Rt frontal CVA in 2017, who was previously admitted to [facility] 07/28/18 with several weeks of cough, dyspnea, and new orthopnea with KULDIP (Cr 1 year ago was about 1) and an initial ECG showing SVT HR 140. Over 24 hours had recurrent rapid SVT and run of wide complex tachycardia thought to be SVT with aberrancy. An echocardiogram showed severe LV systolic dysfunction (new). There was severe TR. Normal RV function. She was diuresed and transferred to [facility] for further care. She was started on amiodarone. Patient improved and ablation was deferred. Also started on IV lasix switched to oral lasix, had worsening renal function. Elvie held. Seen by architectural modeler likely ATN +/- from elvie. Inpatient cardiac cath deferred. EP recommended lifevest for 3 months then TTE re evaluation of EF. Patient was placed on lifevest. She has made and cancelled multiple follow up appointments. She presents today after dietary nonadherance with salt restriction with worsening leg pain and edema. No chest pain, orthopnea. Echo 01/07/19 : severely reduced LV function, mild mr mod to severe TR mod phtn. CHF -acute on chronic systolic CHF due to dietary noncompliance. -fluid and salt restrict -Lasix IV 80 bid -no need for repeat echo -continue metoprolol and entresto -daily wts
--- NOTE | 2019-03-21 11:33 | EKG ---
Test Reason : Blood Pressure : / mmHG Vent. Rate : 060 BPM Atrial Rate : 060 BPM P-R Int : 194 ms QRS Dur : 094 ms QT Int : 470 ms P-R-T Axes : 065 -20 117 degrees QTc Int : 470 ms SINUS RHYTHM WITH PREMATURE ATRIAL COMPLEXES T WAVE ABNORMALITY, CONSIDER LATERAL ISCHEMIA PROLONGED QT ABNORMAL ECG WHEN COMPARED WITH ECG OF 06-JAN-2019 13:49, PREMATURE ATRIAL COMPLEXES ARE NOW PRESENT Confirmed by STEPHEN YOUNG, CORINE ([id number]) on 03/21/2019 11:32:48 AM Referred By: Confirmed By:CORINE MITCHELL MD
--- NOTE | 2019-03-21 12:43 | PN ---
Progress Note, Physician Chief Complaint: AWAKE ALERT EVENTS REVIEWED DENIES CP OR SOB - Current Medication List Current Medications: Active Medications Amiodarone HCl (Cordarone -) 200 mg PO DAILY [facility] Last Admin: 03/21/19 09:22 Dose: 200 mg Aspirin (Asa -) 81 mg PO DAILY [facility] Last Admin: 03/21/19 09:22 Dose: 81 mg Atorvastatin Calcium (Lipitor -) 40 mg PO [facility] Clopidogrel Bisulfate (Plavix -) 75 mg PO DAILY [facility] Last Admin: 03/21/19 09:23 Dose: 75 mg Furosemide (Lasix Injection -) 40 mg IVPUSH DAILY [facility] Last Admin: 03/21/19 09:23 Dose: 40 mg Levothyroxine Sodium (Synthroid -) 25 mcg PO DAILY@0700 [facility] Last Admin: 03/21/19 09:22 Dose: Not Given Metoprolol Tartrate (Lopressor -) 25 mg PO BID [facility] Last Admin: 03/21/19 09:23 Dose: 25 mg - Objective Vital Signs: Vital Signs Temperature 97.4 F L 03/21/19 12:04 Pulse Rate 73 03/21/19 12:04 Respiratory Rate 20 03/21/19 12:04 Blood Pressure 161/115 H 03/21/19 12:04 O2 Sat by Pulse Oximetry (%) 97 03/21/19 12:04 Constitutional: Yes: No Distress Cardiovascular: Yes: Regular Rate and Rhythm Respiratory: Yes: Diminished, On Nasal O2 Gastrointestinal: Yes: WNL Genitourinary: Yes: WNL Musculoskeletal: Yes: Muscle Weakness Extremities: Yes: Erythema Edema: LLE: 2+, RLE: 2+ Integumentary: Yes: Erythema Wound/Incision: Yes: Open to air Neurological: Yes: Other ...Motor Strength: LLE, RLE Psychiatric: Yes: WNL Labs: CBC, BMP 03/21/19 07:55 03/21/19 07:55 INR, PTT INR 1.13 (0.83-1.09) H 03/21/19 07:55 Problem List - Problems (1) Acute exacerbation of CHF (congestive heart failure) Code(s): I50.9 - HEART FAILURE, UNSPECIFIED Qualifiers: Heart failure type: systolic Qualified Code(s): I50.23 - Acute on chronic systolic (congestive) heart failure (2) Acute kidney injury Code(s): N17.9 - ACUTE KIDNEY FAILURE, UNSPECIFIED (3) Acute on chronic systolic heart failure Code(s): I50.23 - ACUTE ON CHRONIC SYSTOLIC (CONGESTIVE) HEART FAILURE (4) Arrhythmia Code(s): I49.9 - CARDIAC ARRHYTHMIA, UNSPECIFIED (5) Diabetes 1.5, managed as type 2 Code(s): E10.9 - TYPE 1 DIABETES MELLITUS WITHOUT COMPLICATIONS (6) HTN (hypertension) Code(s): I10 - ESSENTIAL (PRIMARY) HYPERTENSION (7) Pulmonary HTN Code(s): I27.20 - PULMONARY HYPERTENSION, UNSPECIFIED (8) Edema Code(s): R60.9 - EDEMA, UNSPECIFIED Assessment/Plan IV LASIX CARDIO F/U DM MANAGMENT ON SSI/BGM CHECKS PT EVAL SNF PLACEMENT DIETARY CONSULT FOR EDUCATION PAIN CONTROL 02 SUPPORT
[2019-03-21] MEDS: ATORVASTATIN CA 40 MG TABLET (FP) PO SCH (21:52)
[2019-03-21] MEDS: INSULIN SLIDING SCALE (NOVOLOG) 1 VIAL SQ SCH (22:36)
[2019-03-22] MEDS: INSULIN SLIDING SCALE (NOVOLOG) 1 VIAL SQ SCH ×4 (06:02→22:04)
[2019-03-22] MEDS: LEVOTHYROXINE NA 25 MCG TABLET (FP) PO SCH (06:37)
[2019-03-22] MEDS: FUROSEMIDE 40 MG/4 ML INJECTABLE VIAL IVPUSH SCH ×2 (06:45→13:47)
[2019-03-22 08:13] LABS: HEMATOCRIT 38.3 % (32.4-45.2); HEMOGLOBIN 12.3 GM/dL (10.7-15.3); MCH 28.3 pg (25.7-33.7); MEAN CELL VOLUME 88.5 fl (80-96); MEAN PLT VOLUME 9.3 fl (7.5-11.1); PLATELET COUNT 122 K/MM3 (134-434); RBC 4.33 M/mm3 (3.60-5.2); RDW 17.7 % (11.6-15.6); WHITE BLOOD COUNT 7.8 K/mm3 (4.0-10.0)
--- NOTE | 2019-03-22 08:38 | PN ---
Progress Note (short form) - Note Progress Note: Patient seen at bedside . She is feeling a little better.+edema b/l Thick painful mycotic toenaills in shoes and ambulatin with subunqual bedrie present patient is a diabetic and advised to go to a foot Dr nahun 2 months. She is aware of dibetic risks. Wbc 6.4 No drainage seen on her feet. Patient is suffering from congetive heart failure . Patient will call office when discharged
[2019-03-22 09:01] LABS: BLOOD UREA NITROGEN 33.5 mg/dL (7-18); CALCIUM 8.9 mg/dL (8.5-10.1); CREATININE 2.1 mg/dL (0.55-1.3); POTASSIUM 4.6 mmol/L (3.5-5.1)
[2019-03-22] MEDS ORDERED: PT OWN MED DRAWER 7, Y5N ONE ×3 (10:08→21:56)
[2019-03-22] MEDS: ASPIRIN 81 MG CHEWABLE TABLETS PO SCH (10:59)
[2019-03-22] MEDS: AMIODARONE HCL 200 MG TABLET (FP) PO SCH (10:59)
[2019-03-22] MEDS: METOPROLOL TARTRATE 25 MG TABLET (FP) PO SCH ×2 (10:59→22:04)
[2019-03-22] MEDS: CLOPIDOGREL BISULFATE 75 MG TABLET (FP) PO SCH (10:59)
--- NOTE | 2019-03-22 13:17 | CONSULT ---
Consult Consult Specialty:: Nephrology Reason for Consultation:: KULDIP - History of Present Illness Chief Complaint: lower ext edema History of Present Illness: Pt is a 73 year old female with pmhx of DM, COPD, CHF, MR and TR who presents to the ER with lower ext edema. She was found to have elevated creatinine and I was called to evaluate her. She has CKD and follows with me in the office. She denies shortness of breath. She denies dysuria or hematuria. She is more confused. She complains of increased lower ext edema. She says that she has been taking 80 mg of lasix but it was decreased to 40 mg. She is unable to lay flat at night. She missed her last office appointment. 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 History of 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 Travel: No Home Medications - Allergies Allergies/Adverse Reactions: Allergies Allergy/AdvReac Type Severity Reaction Status Date / Time No Known Allergies Allergy Verified 03/20/19 13:31 - Home Medications Home Medications: Ambulatory Orders Atorvastatin Ca [Lipitor] 40 mg PO HS #30 tablet 12/30/16 Clopidogrel Bisulfate [Plavix -] 75 mg PO DAILY #30 tablet 12/30/16 Amiodarone HCl 200 mg PO DAILY 01/06/19 Aspirin [ASA -] 81 mg PO DAILY 01/06/19 Calcium Acetate 667 mg PO DAILY 01/06/19 Furosemide [Lasix -] 40 mg PO BID #60 tablet 01/08/19 Levothyroxine [Synthroid -] 25 mcg PO DAILY@0700 #30 tablet 01/08/19 Metoprolol Tartrate [Lopressor -] 25 mg PO BID #60 tablet 01/08/19 Sacubitril/Valsartan [Entresto 24 mg-26 mg Tablet] 1 tab PO BID #60 tablet 01/08 Family Disease History - Family Disease History Family Disease History: Diabetes: Mother (HTN), Sister (2 sisters), Heart Disease: Grandparent (MGM-HTN), Mother, Brother (2 BROTHERS-HTN) Review of Systems - Review of Systems Constitutional: reports: Malaise Eyes: reports: Photophobia HENT: reports: No Symptoms Neck: reports: No Symptoms Cardiovascular: reports: Edema, Shortness of Breath Respiratory: reports: Cough, SOB on Exertion Gastrointestinal: reports: No Symptoms Genitourinary: reports: No Symptoms Musculoskeletal: reports: No Symptoms Integumentary: reports: No Symptoms Neurological: reports: Confusion Endocrine: reports: No Symptoms Hematology/Lymphatic: reports: No Symptoms Psychiatric: reports: No Symptoms Physical Exam Vital Signs: Vital Signs Temperature 97.9 F 03/22/19 05:22 Pulse Rate 71 03/22/19 05:22 Respiratory Rate 20 03/22/19 05:22 Blood Pressure 163/105 H 03/22/19 05:22 O2 Sat by Pulse Oximetry (%) 97 03/22/19 04:00 Constitutional: Yes: Calm Eyes: Yes: Conjunctiva Clear HENT: Yes: Atraumatic Cardiovascular: Yes: S1, S2 Respiratory: Yes: Rhonchi Gastrointestinal: Yes: Soft, Abdomen, Obese Renal/: Yes: WNL Musculoskeletal: Yes: WNL Extremities: Yes: WNL Edema: Yes Edema: LLE: 3+, RLE: 3+ Neurological: Yes: Confusion Labs: CBC, BMP 03/22/19 05:45 03/22/19 05:45 Laboratory Tests 01/06/19 01/08/19 01/09/19 13:36 09:30 07:00 WBC Hgb Plt Count Sodium Potassium BUN Creatinine 1.5 H 1.5 H 1.4 H 03/20/19 03/21/19 03/21/19 17:30 07:55 07:55 WBC Hgb 12.0 Plt Count Sodium Potassium BUN Creatinine 1.8 H 1.9 H 03/22/19 03/22/19 05:45 05:45 WBC 7.8 Hgb 12.3 Plt Count 122 L Sodium 142 Potassium 4.6 BUN 33.5 H Creatinine 2.1 H Imaging - Results Chest X-ray: Report Reviewed Problem List - Problems (1) Acute exacerbation of CHF (congestive heart failure) Code(s): I50.9 - HEART FAILURE, UNSPECIFIED Qualifiers: Heart failure type: systolic Qualified Code(s): I50.23 - Acute on chronic systolic (congestive) heart failure (2) Edema Code(s): R60.9 - EDEMA, UNSPECIFIED (3) Acute kidney injury Code(s): N17.9 - ACUTE KIDNEY FAILURE, UNSPECIFIED (4) CKD (chronic kidney disease) Code(s): N18.9 - CHRONIC KIDNEY DISEASE, UNSPECIFIED Assessment/Plan Current Medications Generic Name Dose Route Start Last Admin Trade Name Freq PRN Reason Stop Dose Admin Amiodarone HCl 200 mg 03/21/19 10:00 03/22/19 10:59 Cordarone - PO 200 mg DAILY ABIMBOLA Administration Aspirin 81 mg 03/21/19 10:00 03/22/19 10:59 Asa - PO 81 mg DAILY ABIMBOLA Administration Atorvastatin Calcium 40 mg 03/21/19 22:00 03/21/19 21:52 Lipitor - PO 40 mg HS ABIMBOLA Administration Clopidogrel Bisulfate 75 mg 03/21/19 10:00 03/22/19 10:59 Plavix - PO 75 mg DAILY ABIM[facility]OLA Administration Furosemide 80 mg 03/22/19 06:00 03/22/19 06:45 Lasix Injection - IVPUSH 80 mg BID@0600,1400 [facility] Administration Insulin Aspart 1 vial 03/21/19 22:00 03/22/19 11:56 Novolog Vial Sliding Scale - SQ Not Given ACHS [facility] Protocol Levothyroxine Sodium 25 mcg 03/21/19 07:00 03/22/19 06:37 Synthroid - PO 25 mcg DAILY@0700 ABIM[facility] Administration Metoprolol Tartrate 25 mg 03/21/19 10:00 03/22/19 10:59 Lopressor - PO 25 mg BID ABIM[facility]OL[facility] Administration Sacubitril/Valsartan 1 tab 03/22/19 10:00 Entresto 24 Mg-26 Mg Tablet PO BID [facility] Impression 1. CKD 2. CHF 3. DM 4. HTN 5. hx CVA 6. a-fib 7. elevated kappa chains 8. fluid overload 9. KULDIP Plan - cont with lasix - monitor lytes - check renal ultrasound - check ua - sodium is improved
[2019-03-22] MEDS: SACUBITRIL/VALSARTAN 24 MG-26 MG TABLET PO SCH ×2 (13:32→22:03)
--- NOTE | 2019-03-22 15:05 | CONSULT ---
- Consultation REQUESTING PROVIDER: CONSULT REQUEST: We have been asked to surgically evaluate this patient for lower extremity ulcers. PCP:Jeremy Hadley HISTORY OF PRESENT ILLNESS: The patient is a 73 y/o woman with a past medical history of DM, COPD(3-4L home O2), HFrEF(20-25%, January 2019), DM, MR, TR. She presented to the Er for b/l LE weeping and swelling. The patients daughter also noted her to have left sided weakness and has had several falls in the past few months. She states that she chronically has had progressive swelling over the past several months. When she was admitted to [facility] the physicians had wanted to complete what she is describing as a cardiac cath. She didn't have it completed. The patients has been on oral diuretics for her leg swelling. She denies any chronic non-healing ulcers in the past. She ambulates with a cane and has some right upper extremity weakness from a previous stroke. PMHx: DM, HTN, heart failure, kidney disfunction(sees a renal doctor) PSHx: denies Home Medications Medication Instructions Recorded Atorvastatin Ca [Lipitor] 40 mg PO HS #30 tablet 12/30/16 Clopidogrel Bisulfate [Plavix -] 75 mg PO DAILY #30 tablet 12/30/16 Amiodarone HCl 200 mg PO DAILY 01/06/19 Aspirin [ASA -] 81 mg PO DAILY 01/06/19 Calcium Acetate 667 mg PO DAILY 01/06/19 Furosemide [Lasix -] 40 mg PO BID #60 tablet 01/08/19 Levothyroxine [Synthroid -] 25 mcg PO DAILY@0700 #30 tablet 01/08/19 Metoprolol Tartrate [Lopressor -] 25 mg PO BID #60 tablet 01/08/19 Sacubitril/Valsartan [Entresto 24 1 tab PO BID #60 tablet 01/08/19 mg-26 mg Tablet] Allergies Allergy/AdvReac Type Severity Reaction Status Date / Time No Known Allergies Allergy Verified 03/20/19 13:31 REVIEW OF SYSTEMS: CONSTITUTIONAL: Absent: fever, chills CARDIOVASCULAR: Absent: chest pain, syncope, palpitations, irregular heart rate, lightheadedness , peripheral edema RESPIRATORY: Present: cough, shortness of breath with exertion. GASTROINTESTINAL: Absent: abdominal pain, abdominal distension, nausea, vomiting GENITOURINARY: Absent: dysuria, hematuria HEMATOLOGIC/IMMUNOLOGIC: Absent: easy bleeding, easy bruising, lymphadenopathy NEUROLOGIC: present: unsteady gait-ambulates with cane, Right upper ext weakness PHYSICAL EXAM: GENERAL: Awake, alert, and fully oriented, in no acute distress. LUNGS: Clear to auscultation bilat anteriorly. No wheezes b/l. HEART: Regular rate and rhythm. ABDOMEN: Soft, nontender, not distended, obese. mild edema to lower abd LOWER EXTREMITIES: 2+ pulses DP with doppler, warm, well-perfused. b/l edema to above the knee. Right ankle with small ulcer, smaller than dime size, no fluid noted to be draining. NEUROLOGICAL: Normal speech, gait not observed. PSYCH: Cooperative. Good eye contact. Appropriate mood and affect. Vital Signs Temperature 97.9 F 03/22/19 05:22 Pulse Rate 71 03/22/19 05:22 Respiratory Rate 20 03/22/19 05:22 Blood Pressure 163/105 H 03/22/19 05:22 O2 Sat by Pulse Oximetry (%) 97 03/22/19 04:00 Lab Results WBC 7.8 K/mm3 (4.0-10.0) 03/22/19 05:45 RBC 4.33 M/mm3 (3.60-5.2) 03/22/19 05:45 Hgb 12.3 GM/dL (10.7-15.3) 03/22/19 05:45 Hct 38.3 % (32.4-45.2) 03/22/19 05:45 MCV 88.5 fl (80-96) 03/22/19 05:45 MCHC 32.0 g/dl (32.0-36.0) 03/22/19 05:45 RDW 17.7 % (11.6-15.6) H 03/22/19 05:45 Plt Count 122 K/MM3 (134-434) L 03/22/19 05:45 Sodium 142 mmol/L (136-145) 03/22/19 05:45 Potassium 4.6 mmol/L (3.5-5.1) 03/22/19 05:45 Chloride 107 mmol/L (98-107) 03/22/19 05:45 Carbon Dioxide 26 mmol/L (21-32) 03/22/19 05:45 Anion Gap 9 MMOL/L (8-16) 03/22/19 05:45 BUN 33.5 mg/dL (7-18) H 03/22/19 05:45 Creatinine 2.1 mg/dL (0.55-1.3) H 03/22/19 05:45 Random Glucose 101 mg/dL (74-106) 03/22/19 05:45 Calcium 8.9 mg/dL (8.5-10.1) 03/22/19 05:45 INR 1.13 (0.83-1.09) H 03/21/19 07:55 Vascular study: 03/22 No evidence of DVT b/l A/P: 73 yo female with CHF, b/l lower extremity edema Patient with very small right posterior ankle ulcer(smaller than dime size) Diffuse edema to b/l lower ext noted. Wrapped feet and lower ext with b/l Arnold wraps and elevated her legs while in the wheelchair today. Pt sitting at nurses station. Recommend to elevated b/l lower ext on pillows and with the foot of the bed elevated. Medical managment of CHF D/w Dr. Andino, follow up with Dr. Andino as needed in the wound clinic
[2019-03-22] MEDS ORDERED: LEVOTHYROXINE NA 25 MCG TABLET (FP) PO SCH (15:34)
--- NOTE | 2019-03-22 15:34 | PN ---
Progress Note, Physician Chief Complaint: patient seen and examined - Current Medication List Current Medications: Active Medications Amiodarone HCl (Cordarone -) 200 mg PO DAILY [facility] Last Admin: 03/22/19 10:59 Dose: 200 mg Aspirin (Asa -) 81 mg PO DAILY [facility] Last Admin: 03/22/19 10:59 Dose: 81 mg Atorvastatin Calcium (Lipitor -) 40 mg PO HS [facility] Last Admin: 03/21/19 21:52 Dose: 40 mg Clopidogrel Bisulfate (Plavix -) 75 mg PO DAILY [facility] Last Admin: 03/22/19 10:59 Dose: 75 mg Furosemide (Lasix Injection -) 80 mg IVPUSH BID@0600,1400 [facility] Last Admin: 03/22/19 13:47 Dose: 80 mg Insulin Aspart (Novolog Vial Sliding Scale -) 1 vial SQ [facility]; Protocol Last Admin: 03/22/19 11:56 Dose: Not Given Levothyroxine Sodium (Synthroid -) 25 mcg PO DAILY@0700 [facility] Last Admin: 03/22/19 06:37 Dose: 25 mcg Metoprolol Tartrate (Lopressor -) 25 mg PO BID [facility] Last Admin: 03/22/19 10:59 Dose: 25 mg Sacubitril/Valsartan (Entresto 24 Mg-26 Mg Tablet) 1 tab PO BID [facility] Last Admin: 03/22/19 13:32 Dose: 1 tab - Objective Vital Signs: Vital Signs Temperature 97.9 F 03/22/19 05:22 Pulse Rate 71 03/22/19 05:22 Respiratory Rate 20 03/22/19 05:22 Blood Pressure 163/105 H 03/22/19 05:22 O2 Sat by Pulse Oximetry (%) 97 03/22/19 04:00 Constitutional: Yes: Calm Cardiovascular: Yes: Regular Rate and Rhythm, S1, S2 Respiratory: Yes: CTA Bilaterally Gastrointestinal: Yes: Normal Bowel Sounds, Soft Edema: Yes Neurological: Yes: Alert, Oriented Labs: CBC, BMP 03/22/19 05:45 03/22/19 05:45 INR, PTT INR 1.13 (0.83-1.09) H 03/21/19 07:55 Problem List - Problems (1) Acute exacerbation of CHF (congestive heart failure) Assessment/Plan: iv lasix bid monitor lytes and renal function daily weights Code(s): I50.9 - HEART FAILURE, UNSPECIFIED Qualifiers: Heart failure type: systolic Qualified Code(s): I50.23 - Acute on chronic systolic (congestive) heart failure (2) Edema Assessment/Plan: iv lasix no dvt legs warpped with alexa warps, elevate Code(s): R60.9 - EDEMA, UNSPECIFIED (3) Diabetes 1.5, managed as type 2 Assessment/Plan: hba1c 6.8 sliding scale Code(s): E10.9 - TYPE 1 DIABETES MELLITUS WITHOUT COMPLICATIONS (4) Hypothyroid Assessment/Plan: tsh noted inc synthroid to 50mcg Code(s): E03.9 - HYPOTHYROIDISM, UNSPECIFIED (5) Acute kidney injury Assessment/Plan: renal sono renal consult noted Code(s): N17.9 - ACUTE KIDNEY FAILURE, UNSPECIFIED
--- NOTE | 2019-03-22 16:12 | PN ---
Progress Note, Physician Chief Complaint: SOB History of Present Illness: This is a 73 year old female with a PMH of HTN, Rt frontal and a CVA in 2017. She was admitted to [facility] 07/28/18 with several weeks of cough, dyspnea, and new orthopnea with KULDIP and an initial ECG showing SVT @ 140 BPM. Over 24 hours had recurrent rapid SVT and run of wide complex tachycardia thought to be SVT with aberrancy. An echocardiogram showed severe LV systolic dysfunction (new ). There was severe TR. Normal RV function. She was diuresed and transferred to [facility] for further care. She was started on amiodarone. Patient improved and ablation was deferred. Also started on IV lasix switched to oral lasix, had worsening renal function. Suzievan held. Seen by skip miner blasting likely ATN +/- from suzievan. Inpatient cardiac cath deferred. EP recommended lifevest for 3 months then TTE re evaluation of EF. Patient was placed on lifevest. She has made and cancelled multiple follow up appointments. She presented on 03/21/19 with worsening leg edema, likley secondary to dietary sodium intake. Echo 01/07/19 : severely reduced LV function, mild mr mod to severe TR mod phtn - Current Medication List Current Medications: Active Medications Amiodarone HCl (Cordarone -) 200 mg PO DAILY [facility] Last Admin: 03/22/19 10:59 Dose: 200 mg Aspirin (Asa -) 81 mg PO DAILY [facility] Last Admin: 03/22/19 10:59 Dose: 81 mg Atorvastatin Calcium (Lipitor -) 40 mg PO HS [facility] Last Admin: 03/21/19 21:52 Dose: 40 mg Clopidogrel Bisulfate (Plavix -) 75 mg PO DAILY [facility] Last Admin: 03/22/19 10:59 Dose: 75 mg Furosemide (Lasix Injection -) 80 mg IVPUSH BID@0600,1400 [facility] Last Admin: 03/22/19 13:47 Dose: 80 mg Insulin Aspart (Novolog Vial Sliding Scale -) 1 vial SQ [facility]; Protocol Last Admin: 03/22/19 11:56 Dose: Not Given Levothyroxine Sodium (Synthroid -) 50 mcg PO DAILY@0700 [facility] Metoprolol Tartrate (Lopressor -) 25 mg PO BID [facility] Last Admin: 03/22/19 10:59 Dose: 25 mg Sacubitril/Valsartan (Entresto 24 Mg-26 Mg Tablet) 1 tab PO BID [facility] Last Admin: 03/22/19 13:32 Dose: 1 tab - Objective Vital Signs: Vital Signs Temperature 97.9 F 03/22/19 05:22 Pulse Rate 71 03/22/19 05:22 Respiratory Rate 20 03/22/19 05:22 Blood Pressure 163/105 H 03/22/19 05:22 O2 Sat by Pulse Oximetry (%) 97 03/22/19 04:00 Constitutional: Yes: No Distress Eyes: Yes: WNL HENT: Yes: WNL Neck: Yes: WNL Cardiovascular: Yes: Regular Rate and Rhythm, S1, S2 Respiratory: Yes: Regular, CTA Bilaterally Extremities: Yes: WNL Edema: LLE: 1+, RLE: 1+ Neurological: Yes: Alert, Oriented Labs: CBC, BMP 03/22/19 05:45 03/22/19 05:45 INR, PTT INR 1.13 (0.83-1.09) H 03/21/19 07:55 Assessment/Plan 73 year old female with a PMH of HTN, Rt frontal and a CVA in 2017. She was admitted to [facility] 07/28/18 with several weeks of cough, dyspnea, and new orthopnea with KULDIP and an initial ECG showing SVT @ 140 BPM. Over 24 hours had recurrent rapid SVT and run of wide complex tachycardia thought to be SVT with aberrancy. An echocardiogram showed severe LV systolic dysfunction (new). There was severe TR. Normal RV function. She was diuresed and transferred to [facility] for further care. She was started on amiodarone. Patient improved and ablation was deferred. Also started on IV lasix switched to oral lasix, had worsening renal function. Diovan held. Seen by skip miner blasting likely ATN +/- from diovan. Inpatient cardiac cath deferred. EP recommended lifevest for 3 months then TTE re evaluation of EF. Patient was placed on lifevest. She has made and cancelled multiple follow up appointments. She presented on 03/21/19 with worsening leg edema, likley secondary to dietary sodium intake. Echo 01/07/19 : severely reduced LV function, mild mr mod to severe TR mod phtn CHF Systolic acute on chronic Continue Lasix 80 mg IVSS BID Daily I's/O's/Wt's/Lytes Continue Lopressor 25 mg PO BID Continue Sacubitril/Valsartan Arhythmias Continue Amiodarone 200 mg PO) BID Past CVA Continue ASA/Plavix/Statin
--- NOTE | 2019-03-22 17:50 | ECHO ---
Name: TOMMIE QUAN Exam:Adult Echocardiogram Study Date: 03/22/2019 10:56 AM Age: 73 yrs Reason For Study: chf check ef Height: 67 in Weight: 247 lb BSA: 2.2 m2 MMode/2D Measurements & Calculations IVSd: 1.2 cm Ao root diam: 3.0 cm LVIDd: 5.8 cm LA dimension: 4.2 cm LVIDs: 4.5 cm ACS: 1.8 cm LVPWd: 0.92 cm IVSs: 1.5 cm LVPWs: 1.4 cm EDV(Teich): 166.2 ml ESV(Teich): 91.1 ml Doppler Measurements & Calculations MV E max meir: 75.8 cm/sec Ao V2 max: 156.9 cm/sec MV A max meir: 72.1 cm/sec Ao max P.8 mmHg MV E/A: 1.1 MR max meir: 594.5 cm/sec TR max meir: 241.7 cm/sec MR max P.6 mmHg TR max P.6 mmHg PI end-d meir: 163.6 cm/sec Med Peak E' Meir: 3.7 cm/sec Med E/e': 20.3 Lat Peak E' Meir: 8.3 cm/sec Lat E/e': 9.1 Procedure The study was technically good with many images being of high quality. Left Ventricle The left ventricle is mildly dilated. There is mild concentric left ventricular hypertrophy. Left theo tricular systolic function is severely reduced. Ejection Fraction = 20-25%. Right Ventricle The right ventricle is grossly normal size. The right ventricular systolic function is grossly normal . Atria The left atrium is mildly dilated. The right atrium is moderate to severely dilated. Mitral Valve The mitral valve is grossly normal. There is mild mitral regurgitation. Tricuspid Valve The tricuspid valve is not well visualized, but is grossly normal. There is moderate to severe tricus pid regurgitation. Right ventricular systolic pressure is elevated at 24 mmhg. Degree of pulm HTN may be underestimated. Aortic Valve The aortic valve opens well. There is mild aortic sclerosis.;. No aortic regurgitation is present. Pulmonic Valve The pulmonic valve is not well visualized. Great Vessels The aortic root is normal size. Pericardium/Pleura There is no pericardial effusion. Interpretation Summary Compared to the prior echo report on 01/07/2019, there is no significant change. The left ventricle i s mildly dilated. Left ventricular systolic function is severely reduced. There is mild mitral regurgitation. The left atrium is mildly dilated. The right ventricle is grossly normal size. The right atrium is moderate to severely dilated. The right ventricular systolic function is grossly normal. Degree of pulm HTN may be underestimated Compared to the prior echo report on 01/07/2019, there is no significant change. José Miguel Hurley MD 03/22/2019 05:50 PM
[2019-03-22] MEDS ORDERED: ALPRAZolam 0.25 MG TABLET PO ONE (19:12)
[2019-03-22] MEDS ORDERED: INSULIN (NOVOLOG) ASPART 100 UNITS/ML 10ML VIAL ONE (21:10)
[2019-03-22] MEDS: ATORVASTATIN CA 40 MG TABLET (FP) PO SCH (22:03)
[2019-03-23] MEDS ORDERED: LORazepam 0.5 MG TABLET PO ONE ×2 (03:48→06:30)
[2019-03-23] MEDS: FUROSEMIDE 40 MG/4 ML INJECTABLE VIAL IVPUSH SCH ×2 (06:32→16:36)
[2019-03-23] MEDS: INSULIN SLIDING SCALE (NOVOLOG) 1 VIAL SQ SCH ×4 (06:35→21:37)
--- NOTE | 2019-03-23 08:28 | PN ---
Progress Note, Physician - Current Medication List Current Medications: Active Medications Amiodarone HCl (Cordarone -) 200 mg PO DAILY [facility] Last Admin: 03/22/19 10:59 Dose: 200 mg Aspirin (Asa -) 81 mg PO DAILY [facility] Last Admin: 03/22/19 10:59 Dose: 81 mg Atorvastatin Calcium (Lipitor -) 40 mg PO HS [facility] Last Admin: 03/22/19 22:03 Dose: 40 mg Clopidogrel Bisulfate (Plavix -) 75 mg PO DAILY [facility] Last Admin: 03/22/19 10:59 Dose: 75 mg Furosemide (Lasix Injection -) 80 mg IVPUSH BID@0600,1400 [facility] Last Admin: 03/23/19 06:32 Dose: 80 mg Insulin Aspart (Novolog Vial Sliding Scale -) 1 vial SQ [facility]; Protocol Last Admin: 03/23/19 06:35 Dose: Not Given Levothyroxine Sodium (Synthroid -) 50 mcg PO DAILY@0700 [facility] Last Admin: 03/23/19 06:32 Dose: 50 mcg Metoprolol Tartrate (Lopressor -) 25 mg PO BID [facility] Last Admin: 03/22/19 22:04 Dose: 25 mg Sacubitril/Valsartan (Entresto 24 Mg-26 Mg Tablet) 1 tab PO BID [facility] Last Admin: 03/22/19 22:03 Dose: 1 tab - Objective Vital Signs: Vital Signs Temperature 97.7 F 03/23/19 05:00 Pulse Rate 89 03/23/19 05:00 Respiratory Rate 20 03/23/19 05:00 Blood Pressure 164/64 03/23/19 05:00 O2 Sat by Pulse Oximetry (%) 99 03/22/19 21:00 Cardiovascular: Yes: S1, S2 Respiratory: Yes: Rales Gastrointestinal: Yes: Normal Bowel Sounds, Soft Edema: Yes Labs: CBC, BMP 03/22/19 05:45 03/22/19 05:45 INR, PTT INR 1.13 (0.83-1.09) H 03/21/19 07:55 Assessment/Plan - Problems (1) Acute exacerbation of CHF (congestive heart failure) Assessment/Plan: iv lasix bid monitor lytes and renal function daily weights Code(s): I50.9 - HEART FAILURE, UNSPECIFIED Qualifiers: Heart failure type: systolic Qualified Code(s): I50.23 - Acute on chronic systolic (congestive) heart failure (2) Edema Assessment/Plan: iv lasix no dvt legs warpped with alexa warps, elevate Code(s): R60.9 - EDEMA, UNSPECIFIED (3) Diabetes 1.5, managed as type 2 Assessment/Plan: hba1c 6.8 sliding scale Code(s): E10.9 - TYPE 1 DIABETES MELLITUS WITHOUT COMPLICATIONS (4) Hypothyroid Assessment/Plan: tsh noted inc synthroid to 50mcg Code(s): E03.9 - HYPOTHYROIDISM, UNSPECIFIED (5) Acute kidney injury Assessment/Plan: renal sono renal consult noted Code(s): N17.9 - ACUTE KIDNEY FAILURE, UNSPECIFIED
[2019-03-23] MEDS ORDERED: PT OWN MED DRAWER 7, Y5N ONE (11:51)
[2019-03-23] MEDS: AMIODARONE HCL 200 MG TABLET (FP) PO SCH (11:57)
[2019-03-23] MEDS: METOPROLOL TARTRATE 25 MG TABLET (FP) PO SCH ×2 (11:58→21:37)
[2019-03-23] MEDS: ASPIRIN 81 MG CHEWABLE TABLETS PO SCH (11:58)
[2019-03-23] MEDS: SACUBITRIL/VALSARTAN 24 MG-26 MG TABLET PO SCH ×2 (11:58→21:37)
[2019-03-23] MEDS: CLOPIDOGREL BISULFATE 75 MG TABLET (FP) PO SCH (11:58)
--- NOTE | 2019-03-23 12:04 | PN ---
Progress Note, Physician History of Present Illness: seen and examined today in [facility]. - Current Medication List Current Medications: Active Medications Amiodarone HCl (Cordarone -) 200 mg PO DAILY [facility] Last Admin: 03/22/19 10:59 Dose: 200 mg Aspirin (Asa -) 81 mg PO DAILY [facility] Last Admin: 03/22/19 10:59 Dose: 81 mg Atorvastatin Calcium (Lipitor -) 40 mg PO HS [facility] Last Admin: 03/22/19 22:03 Dose: 40 mg Clopidogrel Bisulfate (Plavix -) 75 mg PO DAILY [facility] Last Admin: 03/22/19 10:59 Dose: 75 mg Furosemide (Lasix Injection -) 80 mg IVPUSH BID@0600,1400 [facility] Last Admin: 03/23/19 06:32 Dose: 80 mg Insulin Aspart (Novolog Vial Sliding Scale -) 1 vial SQ [facility]; Protocol Last Admin: 03/23/19 06:35 Dose: Not Given Levothyroxine Sodium (Synthroid -) 50 mcg PO DAILY@0700 [facility] Last Admin: 03/23/19 06:32 Dose: 50 mcg Metoprolol Tartrate (Lopressor -) 25 mg PO BID [facility] Last Admin: 03/22/19 22:04 Dose: 25 mg Sacubitril/Valsartan (Entresto 24 Mg-26 Mg Tablet) 1 tab PO BID [facility] Last Admin: 03/22/19 22:03 Dose: 1 tab - Objective Vital Signs: Vital Signs Temperature 97.7 F 03/23/19 05:00 Pulse Rate 89 03/23/19 05:00 Respiratory Rate 20 03/23/19 09:00 Blood Pressure 164/64 03/23/19 05:00 O2 Sat by Pulse Oximetry (%) 99 03/23/19 09:00 Constitutional: Yes: No Distress, Calm Eyes: Yes: Conjunctiva Clear, EOM Intact HENT: Yes: Atraumatic, Normocephalic Neck: Yes: Supple, Trachea Midline Cardiovascular: Yes: Regular Rate and Rhythm, S1, S2. No: Bradycardia, Tachycardia, Pulse Irregular, Bruit, JVD, Gallop, Murmur, Rub, S3, S4, Varicosities Respiratory: Yes: Regular, Diminished. No: Rales, Rhonchi, SOB, Wheezes Gastrointestinal: Yes: Normal Bowel Sounds, Soft Extremities: Yes: WNL Neurological: Yes: Alert Psychiatric: Yes: Alert Labs: CBC, BMP 03/22/19 05:45 03/22/19 05:45 INR, PTT INR 1.13 (0.83-1.09) H 03/21/19 07:55 - ....Imaging Chest X-ray: Report Reviewed, Image Reviewed EKG: Report Reviewed, Image Reviewed Other: Report Reviewed, Image Reviewed Assessment/Plan 73 year old female with a PMH of HTN, Rt frontal and a CVA in 2017. She was admitted to [facility] 07/28/18 with several weeks of cough, dyspnea, and new orthopnea with KULDIP and an initial ECG showing SVT @ 140 BPM. Over 24 hours had recurrent rapid SVT and run of wide complex tachycardia thought to be SVT with aberrancy. An echocardiogram showed severe LV systolic dysfunction (new). There was severe TR. Normal RV function. She was diuresed and transferred to [facility] for further care. She was started on amiodarone. Patient improved and ablation was deferred. Also started on IV lasix switched to oral lasix, had worsening renal function. Elvie held. Seen by manager social work likely ATN +/- from elvie. Inpatient cardiac cath deferred. EP recommended lifevest for 3 months then TTE re evaluation of EF. Patient was placed on lifevest. She has made and cancelled multiple follow up appointments. She presented on 03/21/19 with worsening leg edema, likley secondary to dietary sodium intake. Echo 01/07/19 : severely reduced LV function, mild mr mod to severe TR mod phtn CHF Systolic acute on chronic Continue Lasix 80 mg IVSS BID Daily I's/O's/Wt's/Lytes Continue Lopressor 25 mg PO BID Continue Sacubitril/Valsartan Needs blood work today for electrolytes, bun/creat while on IV Lasix Arhythmias Continue Amiodarone 200 mg PO daily -synthroid was increased for elevated TSH will need close monitoring of TFTs going forward ie as outpatient, may need to stop amiodarone Past CVA on ASA/Plavix/Statin
--- NOTE | 2019-03-23 13:21 | PN ---
Progress Note, Physician History of Present Illness: Pt seen and examined at bedside. She is awake and alert. She remains confused. She feels that the edema is improving. - Current Medication List Current Medications: Active Medications Amiodarone HCl (Cordarone -) 200 mg PO DAILY ON LICENSE OF [facility] Last Admin: 03/23/19 11:57 Dose: 200 mg Aspirin (Asa -) 81 mg PO DAILY ON LICENSE OF [facility] Last Admin: 03/23/19 11:58 Dose: 81 mg Atorvastatin Calcium (Lipitor -) 40 mg PO HS ON LICENSE OF [facility] Last Admin: 03/22/19 22:03 Dose: 40 mg Clopidogrel Bisulfate (Plavix -) 75 mg PO DAILY ON LICENSE OF [facility] Last Admin: 03/23/19 11:58 Dose: 75 mg Furosemide (Lasix Injection -) 80 mg IVPUSH BID@0600,1400 ON LICENSE OF [facility] Last Admin: 03/23/19 06:32 Dose: 80 mg Insulin Aspart (Novolog Vial Sliding Scale -) 1 vial SQ [facility] ON LICENSE OF [facility]; Protocol Last Admin: 03/23/19 06:35 Dose: Not Given Levothyroxine Sodium (Synthroid -) 50 mcg PO DAILY@0700 ON LICENSE OF [facility] Last Admin: 03/23/19 06:32 Dose: 50 mcg Metoprolol Tartrate (Lopressor -) 25 mg PO BID ON LICENSE OF [facility] Last Admin: 03/23/19 11:58 Dose: 25 mg Sacubitril/Valsartan (Entresto 24 Mg-26 Mg Tablet) 1 tab PO BID ON LICENSE OF [facility] Last Admin: 03/23/19 11:58 Dose: 1 tab - Objective Vital Signs: Vital Signs Temperature 97.7 F 03/23/19 05:00 Pulse Rate 89 03/23/19 05:00 Respiratory Rate 20 03/23/19 09:00 Blood Pressure 164/64 03/23/19 05:00 O2 Sat by Pulse Oximetry (%) 99 03/23/19 09:00 Constitutional: Yes: Calm Eyes: Yes: Conjunctiva Clear HENT: Yes: Atraumatic Neck: Yes: Supple Cardiovascular: Yes: S1, S2 Respiratory: Yes: CTA Bilaterally Gastrointestinal: Yes: WNL Genitourinary: Yes: WNL Musculoskeletal: Yes: WNL Edema: Yes Edema: LLE: 2+, RLE: 2+ Neurological: Yes: Confusion Labs: CBC, BMP 03/22/19 05:45 03/22/19 05:45 INR, PTT INR 1.13 (0.83-1.09) H 03/21/19 07:55 Problem List - Problems (1) Acute exacerbation of CHF (congestive heart failure) Code(s): I50.9 - HEART FAILURE, UNSPECIFIED Qualifiers: Heart failure type: systolic Qualified Code(s): I50.23 - Acute on chronic systolic (congestive) heart failure (2) Edema Code(s): R60.9 - EDEMA, UNSPECIFIED (3) Acute kidney injury Code(s): N17.9 - ACUTE KIDNEY FAILURE, UNSPECIFIED (4) CKD (chronic kidney disease) Code(s): N18.9 - CHRONIC KIDNEY DISEASE, UNSPECIFIED Assessment/Plan Current Medications Generic Name Dose Route Start Last Admin Trade Name Freq PRN Reason Stop Dose Admin Amiodarone HCl 200 mg 03/21/19 10:00 03/23/19 11:57 Cordarone - PO 200 mg DAILY ABIMBOLA Administration Aspirin 81 mg 03/21/19 10:00 03/23/19 11:58 Asa - PO 81 mg DAILY ABIMBOLA Administration Atorvastatin Calcium 40 mg 03/21/19 22:00 03/22/19 22:03 Lipitor - PO 40 mg HS ABIMBOLA Administration Clopidogrel Bisulfate 75 mg 03/21/19 10:00 03/23/19 11:58 Plavix - PO 75 mg DAILY ABIMBOLA Administration Furosemide 80 mg 03/22/19 06:00 03/23/19 06:32 Lasix Injection - IVPUSH 80 mg BID@0600,1400 ABIMBOLA Administration Insulin Aspart 1 vial 03/21/19 22:00 03/23/19 06:35 Novolog Vial Sliding Scale - SQ Not Given ACHS ON LICENSE OF [facility] Protocol Levothyroxine Sodium 50 mcg 03/22/19 15:34 03/23/19 06:32 Synthroid - PO 50 mcg DAILY@0700 ABIMBOLA Administration Metoprolol Tartrate 25 mg 03/21/19 10:00 03/23/19 11:58 Lopressor - PO 25 mg BID ABIMBOLA Administration Sacubitril/Valsartan 1 tab 03/22/19 10:00 03/23/19 11:58 Entresto 24 Mg-26 Mg Tablet PO 1 tab BID ABIMBOLA Administration Impression 1. CKD 2. CHF 3. DM 4. HTN 5. hx CVA 6. a-fib 7. elevated kappa chains 8. fluid overload 9. KULDIP Plan - check bmp if she agrees - she is refusing ultrasound - cont lasix - volume status is improving - pt not compliant with diet
[2019-03-23 14:35] LABS: BLOOD UREA NITROGEN 27.5 mg/dL (7-18); CREATININE 1.8 mg/dL (0.55-1.3); POTASSIUM 3.6 mmol/L (3.5-5.1)
[2019-03-23] MEDS ORDERED: INSULIN (LEVEMIR) 100 UNITS/ML UNITS SQ ONE (21:36)
[2019-03-23] MEDS: ATORVASTATIN CA 40 MG TABLET (FP) PO SCH (21:37)
--- NOTE | 2019-03-23 23:54 | CONSULT ---
Consult Consult Specialty:: endocrine Referred by:: dr.annabi galan Reason for Consultation:: diabetes mellitus hyperglycemia - History of Present Illness Chief Complaint: high sugar History of Present Illness: 73 y/o woman with a past medical history of DMT2,hypothyroidism, COPD(3-4L home O2), HFrEF(20-25%, January 2019), MRTR. Who presented with complaint of weeping serous BLE wounds x1 week. Patient reports lightheadedness, weakness. slumping to her L- side. Witnessed by daughter, at bedside. Has fallen x3 in the last 3mo. Daughter was concerned today due to thin serous drainage from anterior and posterior wounds to BLE. Has had elevated blood sugars,despite poor apppetite,has felt cold and forgetful - Past Medical History Cardio/Vascular: Yes: CHF (EF 20-25%), HTN Pulmonary: Yes: COPD, O2 Dependent Renal/: Yes: Renal Inusuff Endocrine: Yes: Diabetes Mellitus - Past Surgical History Past Surgical History: Yes: Tubal Ligation - Alcohol/Substance Use Hx Alcohol Use: No History of Substance Use: reports: None - Smoking History Smoking history: Former smoker Have you smoked in the past 12 months: No Aproximately how many cigarettes per day: 6 If you are a former smoker, when did you quit?: 1966 - Social History ADL: Independent 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 History of Recent Travel: No Home Medications - Allergies Allergies/Adverse Reactions: Allergies Allergy/AdvReac Type Severity Reaction Status Date / Time No Known Allergies Allergy Verified 03/20/19 13:31 - Home Medications Home Medications: Ambulatory Orders Atorvastatin Ca [Lipitor] 40 mg PO HS #30 tablet 12/30/16 Clopidogrel Bisulfate [Plavix -] 75 mg PO DAILY #30 tablet 12/30/16 Amiodarone HCl 200 mg PO DAILY 01/06/19 Aspirin [ASA -] 81 mg PO DAILY 01/06/19 Calcium Acetate 667 mg PO DAILY 01/06/19 Furosemide [Lasix -] 40 mg PO BID #60 tablet 01/08/19 Levothyroxine [Synthroid -] 25 mcg PO DAILY@0700 #30 tablet 01/08/19 Metoprolol Tartrate [Lopressor -] 25 mg PO BID #60 tablet 01/08/19 Sacubitril/Valsartan [Entresto 24 mg-26 mg Tablet] 1 tab PO BID #60 tablet 01/08 Family Disease History - Family Disease History Family Disease History: Diabetes: Mother (HTN), Sister (2 sisters), Heart Disease: Grandparent (MGM-HTN), Mother, Brother (2 BROTHERS-HTN) Review of Systems - Review of Systems Constitutional: reports: Lethargy, Weakness Eyes: reports: No Symptoms HENT: reports: No Symptoms Neck: reports: No Symptoms Cardiovascular: reports: Shortness of Breath Respiratory: reports: Exercise Intolerance, SOB on Exertion Gastrointestinal: reports: Bloating Genitourinary: reports: No Symptoms Musculoskeletal: reports: Extremity Pain, Muscle Pain, Muscle Cramps Integumentary: reports: Erythema, Wound Neurological: reports: Numbness, Weakness Endocrine: reports: Unexplained Weight Gain Physical Exam Vital Signs: Vital Signs Temperature 97.9 F 03/23/19 18:10 Pulse Rate 84 03/23/19 18:10 Respiratory Rate 20 03/23/19 18:10 Blood Pressure 193/104 H 03/23/19 18:10 O2 Sat by Pulse Oximetry (%) 99 03/23/19 09:00 Constitutional: Yes: Anxious Eyes: Yes: EOM Intact HENT: Yes: Normocephalic Neck: Yes: Trachea Midline Cardiovascular: Yes: Tachycardia Respiratory: Yes: CTA Bilaterally Gastrointestinal: Yes: Normal Bowel Sounds ...Rectal Exam: Yes: Deferred Renal/: Yes: WNL Musculoskeletal: Yes: Joint Swelling, Muscle Pain, Muscle Weakness Edema: LLE: 2+, RLE: 2+ Integumentary: Yes: Skin Tear, Onychomycosis, Venous Stasis Changes Wound/Incision: Yes: Well Approximated, Draining Neurological: Yes: Alert, Oriented Labs: CBC, BMP 03/22/19 05:45 03/23/19 13:53 Problem List - Problems (1) 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 Code(s): E03.8 - OTHER SPECIFIED HYPOTHYROIDISM; E06.3 - AUTOIMMUNE THYROIDITIS (2) Acute exacerbation of CHF (congestive heart failure) Code(s): I50.9 - HEART FAILURE, UNSPECIFIED Qualifiers: Heart failure type: systolic Qualified Code(s): I50.23 - Acute on chronic systolic (congestive) heart failure (3) Edema Code(s): R60.9 - EDEMA, UNSPECIFIED Qualifiers: Edema type: due to malnutrition (4) Acute kidney injury Code(s): N17.9 - ACUTE KIDNEY FAILURE, UNSPECIFIED (5) Acute on chronic diastolic CHF (congestive heart failure) Code(s): I50.33 - ACUTE ON CHRONIC DIASTOLIC (CONGESTIVE) HEART FAILURE (6) Acute on chronic systolic heart failure Code(s): I50.23 - ACUTE ON CHRONIC SYSTOLIC (CONGESTIVE) HEART FAILURE (7) CKD (chronic kidney disease) Code(s): N18.9 - CHRONIC KIDNEY DISEASE, UNSPECIFIED Qualifiers: Chronic kidney disease stage: stage 2 (mild) Qualified Code(s): N18.2 - Chronic kidney disease, stage 2 (mild) (8) CVA (cerebral vascular accident) Code(s): I63.9 - CEREBRAL INFARCTION, UNSPECIFIED Qualifiers: CVA mechanism: unspecified Qualified Code(s): I63.9 - Cerebral infarction, unspecified Assessment/Plan Current Active Problems hypothryodism,amiodarone induced dm t2 diet controlled Acute exacerbation of CHF (congestive heart failure) (Acute) Edema (Acute) Abnormal Lab Results 03/23/19 03/23/19 13:53 13:53 BUN 27.5 H Creatinine 1.8 H Random Glucose 128 H Vitamin B12 1188 H Laboratory Results - last 24 hr 03/23/19 03/23/19 03/23/19 06:31 13:52 13:53 Sodium 141 Potassium 3.6 Chloride 104 Carbon Dioxide 29 Anion Gap 8 BUN 27.5 H Creatinine 1.8 H Est GFR (CKD-EPI)AfAm 31.36 Est GFR (CKD-EPI)NonAf 27.06 POC Glucometer 112 147 Random Glucose 128 H Calcium 9.0 Vitamin B12 03/23/19 03/23/19 03/23/19 13:53 17:22 20:06 Sodium Potassium Chloride Carbon Dioxide Anion Gap BUN Creatinine Est GFR (CKD-EPI)AfAm Est GFR (CKD-EPI)NonAf POC Glucometer 102 107 Random Glucose Calcium Vitamin B12 1188 H plan: tsh and frt4,t3t continue synthroid 100mcg /day bgmtid ac januvia 25 mg/day
[2019-03-24] MEDS: FUROSEMIDE 40 MG/4 ML INJECTABLE VIAL IVPUSH SCH ×2 (06:38→15:01)
[2019-03-24] MEDS: INSULIN SLIDING SCALE (NOVOLOG) 1 VIAL SQ SCH ×4 (06:38→21:00)
[2019-03-24] MEDS: LEVOTHYROXINE NA 100 MCG TABLET (FP) PO SCH (06:39)
[2019-03-24 08:27] LABS: ALBUMIN 3.2 g/dl (3.4-5.0); BILIRUBIN,TOTAL 3.7 mg/dL (0.2-1); BLOOD UREA NITROGEN 22.5 mg/dL (7-18); CALCIUM 8.8 mg/dL (8.5-10.1); CREATININE 1.6 mg/dL (0.55-1.3); POTASSIUM 3.5 mmol/L (3.5-5.1); TOT PROT 7.2 g/dl (6.4-8.2)
--- NOTE | 2019-03-24 09:08 | PN ---
Progress Note, Physician - Current Medication List Current Medications: Active Medications Amiodarone HCl (Cordarone -) 200 mg PO DAILY [facility] Last Admin: 03/23/19 11:57 Dose: 200 mg Aspirin (Asa -) 81 mg PO DAILY [facility] Last Admin: 03/23/19 11:58 Dose: 81 mg Atorvastatin Calcium (Lipitor -) 40 mg PO HS [facility] Last Admin: 03/23/19 21:37 Dose: 40 mg Clopidogrel Bisulfate (Plavix -) 75 mg PO DAILY [facility] Last Admin: 03/23/19 11:58 Dose: 75 mg Furosemide (Lasix Injection -) 80 mg IVPUSH BID@0600,1400 [facility] Last Admin: 03/24/19 06:38 Dose: 80 mg Insulin Aspart (Novolog Vial Sliding Scale -) 1 vial SQ [facility]; Protocol Last Admin: 03/24/19 06:38 Dose: Not Given Levothyroxine Sodium (Synthroid -) 100 mcg PO DAILY@0700 [facility] Last Admin: 03/24/19 06:39 Dose: 100 mcg Metoprolol Tartrate (Lopressor -) 25 mg PO BID [facility] Last Admin: 03/23/19 21:37 Dose: 25 mg Sacubitril/Valsartan (Entresto 24 Mg-26 Mg Tablet) 1 tab PO BID [facility] Last Admin: 03/23/19 21:37 Dose: 1 tab Sitagliptin Phosphate (Januvia -) 25 mg PO DAILY@0700 [facility] Last Admin: 03/24/19 06:39 Dose: 25 mg - Objective Vital Signs: Vital Signs Temperature 98.1 F 03/24/19 06:00 Pulse Rate 91 H 03/24/19 06:00 Respiratory Rate 22 H 03/24/19 08:50 Blood Pressure 186/105 H 03/24/19 06:00 O2 Sat by Pulse Oximetry (%) 94 L 03/24/19 08:50 Cardiovascular: Yes: Regular Rate and Rhythm Respiratory: Yes: Regular, CTA Bilaterally Gastrointestinal: Yes: Normal Bowel Sounds, Soft Edema: Yes Labs: CBC, BMP 03/22/19 05:45 03/24/19 06:51 INR, PTT INR 1.13 (0.83-1.09) H 03/21/19 07:55 Assessment/Plan - Problems (1) Acute exacerbation of CHF (congestive heart failure) Assessment/Plan: iv lasix bid monitor lytes and renal function daily weights Code(s): I50.9 - HEART FAILURE, UNSPECIFIED Qualifiers: Heart failure type: systolic Qualified Code(s): I50.23 - Acute on chronic systolic (congestive) heart failure (2) Edema Assessment/Plan: iv lasix no dvt legs warpped with alexa warps, elevate Code(s): R60.9 - EDEMA, UNSPECIFIED (3) Diabetes 1.5, managed as type 2 Assessment/Plan: hba1c 6.8 sliding scale Code(s): E10.9 - TYPE 1 DIABETES MELLITUS WITHOUT COMPLICATIONS (4) Hypothyroid Assessment/Plan: tsh noted inc synthroid to 50mcg Code(s): E03.9 - HYPOTHYROIDISM, UNSPECIFIED (5) Acute kidney injury Assessment/Plan: renal sono renal consult noted Code(s): N17.9 - ACUTE KIDNEY FAILURE, UNSPECIFIED (6) Confusion Assessment/Plan: Neuro
[2019-03-24] MEDS ORDERED: PT OWN MED DRAWER 7, Y5N ONE (09:22)
--- NOTE | 2019-03-24 09:42 | CONSULT ---
Consult - text type - Consultation Consultation Note: Neurology History of Present Illness: 73 y/o woman with a past medical history of DM, COPD(3-4L home O2), HFrEF(20-25% , January 2019), DM, MR, TR. Who presents to the ED with complaint of weeping serous BLE wounds x1 week. Patient reports lightheadedness, weakness. slumping to her L- side. Witnessed by daughter, at bedside. Has fallen x3 in the last 3mo. Daughter was concerned today due to thin serous drainage from anterior and posterior wounds to BLE. Has had chronic intermittent BLE edema. Endorses being compliant with medications. <30d prior, had lasix 80mg QD decr to 40mg QD. Has been noncompliant with low-sodium diet. Two days prior, ate pork and chitlins. Has had a nonproductive cough for several months with orthopnea. Sleeps upright in armchair. 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 I was consulted for confusion. During my eval, she was awake, alert and knows name of [facility], knows its March, knows . She may have had confusion from CHF exacerbation but seems improved and possibly near baseline mental status. Will order CT head to confirm no acute changes. 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 History of Recent Travel: No Home Medications - Allergies Allergies/Adverse Reactions: Allergies Allergy/AdvReac Type Severity Reaction Status Date / Time No Known Allergies Allergy Verified 03/20/19 13:31 - Home Medications Home Medications: Ambulatory Orders Atorvastatin Ca [Lipitor] 40 mg PO HS #30 tablet 12/30/16 Clopidogrel Bisulfate [Plavix -] 75 mg PO DAILY #30 tablet 12/30/16 Amiodarone HCl 200 mg PO DAILY 01/06/19 Aspirin [ASA -] 81 mg PO DAILY 01/06/19 Calcium Acetate 667 mg PO DAILY 01/06/19 Furosemide [Lasix -] 40 mg PO BID #60 tablet 01/08/19 Levothyroxine [Synthroid -] 25 mcg PO DAILY@0700 #30 tablet 01/08/19 Metoprolol Tartrate [Lopressor -] 25 mg PO BID #60 tablet 01/08/19 Sacubitril/Valsartan [Entresto 24 mg-26 mg Tablet] 1 tab PO BID #60 tablet 01/08 Family Disease History - Family Disease History Family Disease History: Diabetes: Mother (HTN), Sister (2 sisters), Heart Disease: Grandparent (MGM-HTN), Mother, Brother (2 BROTHERS-HTN) Review of Systems - Review of Systems Constitutional: reports: Malaise, Weakness Eyes: reports: No Symptoms HENT: reports: No Symptoms Neck: reports: No Symptoms Cardiovascular: reports: Edema, Shortness of Breath Respiratory: reports: Orthopnea, SOB, SOB on Exertion Gastrointestinal: reports: No Symptoms Genitourinary: reports: No Symptoms Breasts: reports: No Symptoms Reported Musculoskeletal: reports: No Symptoms Integumentary: reports: Wound Neurological: reports: No Symptoms Endocrine: reports: No Symptoms Hematology/Lymphatic: reports: No Symptoms Psychiatric: reports: No Symptoms Physical Examination Vital Signs: Vital Signs Period Temp Pulse Resp BP Sys/Sommer Pulse Ox Last 24 Hr 97.9 F-98.7 F 78-99 20-22 167-193/104-108 94-94 Constitutional: Yes: No Distress, Calm, Obese Eyes: Yes: WNL, Conjunctiva Clear, EOM Intact, PERRL HENT: Yes: WNL, Atraumatic, Normocephalic Neck: Yes: WNL, Supple, Trachea Midline Cardiovascular: Yes: Regular Rate and Rhythm, S1, S2 Respiratory: Yes: Diminished, SOB on Exertion (bases) Gastrointestinal: Yes: Normal Bowel Sounds, Soft, Abdomen, Obese Renal/: Yes: WNL Breast(s): Yes: WNL Musculoskeletal: Yes: WNL Extremities: Yes: WNL Edema: Yes Edema: LLE: 2+, RLE: 2+ Peripheral Pulses WNL: Yes Integumentary: Yes: Erythema Neurological: Cn intact, no slurred speech, no facial droop, moves all extremities equally, sensory intact, gait deffered CBCD WBC 7.8 K/mm3 (4.0-10.0) 03/22/19 05:45 RBC 4.33 M/mm3 (3.60-5.2) 03/22/19 05:45 Hgb 12.3 GM/dL (10.7-15.3) 03/22/19 05:45 Hct 38.3 % (32.4-45.2) 03/22/19 05:45 MCV 88.5 fl (80-96) 03/22/19 05:45 MCHC 32.0 g/dl (32.0-36.0) 03/22/19 05:45 RDW 17.7 % (11.6-15.6) H 03/22/19 05:45 Plt Count 122 K/MM3 (134-434) L 03/22/19 05:45 MPV 9.3 fl (7.5-11.1) 03/22/19 05:45 CMP Sodium 141 mmol/L (136-145) 03/24/19 06:51 Potassium 3.5 mmol/L (3.5-5.1) 03/24/19 06:51 Chloride 100 mmol/L (98-107) 03/24/19 06:51 Carbon Dioxide 32 mmol/L (21-32) 03/24/19 06:51 Anion Gap 8 MMOL/L (8-16) 03/24/19 06:51 BUN 22.5 mg/dL (7-18) H 03/24/19 06:51 Creatinine 1.6 mg/dL (0.55-1.3) H 03/24/19 06:51 Calcium 8.8 mg/dL (8.5-10.1) 03/24/19 06:51 Total Bilirubin 3.7 mg/dL (0.2-1) H D 03/24/19 06:51 AST 22 U/L (15-37) 03/24/19 06:51 ALT 16 U/L (13-61) 03/24/19 06:51 Alkaline Phosphatase 86 U/L (45-117) 03/24/19 06:51 Total Protein 7.2 g/dl (6.4-8.2) 03/24/19 06:51 Albumin 3.2 g/dl (3.4-5.0) L 03/24/19 06:51 Plan: 73 y/o woman with a past medical history of DM, COPD(3-4L home O2), HFrEF(20-25% , January 2019), DM, MR, TR. Who presents to the ED with complaint of weeping serous BLE wounds x1 week. Patient reports lightheadedness, weakness. slumping to her L- side. Witnessed by daughter, at bedside. Has fallen x3 in the last 3mo. Daughter was concerned today due to thin serous drainage from anterior and posterior wounds to BLE. Has had chronic intermittent BLE edema. Endorses being compliant with medications. <30d prior, had lasix 80mg QD decr to 40mg QD. Has been noncompliant with low-sodium diet. Two days prior, ate pork and chitlins. Has had a nonproductive cough for several months with orthopnea. Sleeps upright in armchair. 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 I was consulted for confusion. During my eval, she was awake, alert and knows name of hospital, knows its [place], knows year. She may have had confusion from CHF exacerbation but seems improved and possibly near baseline mental status. Will order CT head to confirm no acute changes. Continue medical optimization and cardiology mgmt. Monitor bp, maintain normotensive range. Follow up CHF imaging. MOnitor thyroid level, continue optimization.
[2019-03-24] MEDS: SACUBITRIL/VALSARTAN 24 MG-26 MG TABLET PO SCH ×2 (10:20→23:32)
[2019-03-24] MEDS: CLOPIDOGREL BISULFATE 75 MG TABLET (FP) PO SCH (10:20)
[2019-03-24] MEDS: METOPROLOL TARTRATE 25 MG TABLET (FP) PO SCH ×2 (10:20→23:32)
[2019-03-24] MEDS: AMIODARONE HCL 200 MG TABLET (FP) PO SCH (10:20)
[2019-03-24] MEDS: ASPIRIN 81 MG CHEWABLE TABLETS PO SCH (10:21)
--- NOTE | 2019-03-24 13:23 | PN ---
Progress Note, Physician History of Present Illness: Pt seen and examined at bedside. She is awake and appears comfortable. She feels that the edema is improving. She denies shortness of breath. - Current Medication List Current Medications: Active Medications Amiodarone HCl (Cordarone -) 200 mg PO DAILY ON [facility] Last Admin: 03/24/19 10:20 Dose: 200 mg Aspirin (Asa -) 81 mg PO DAILY [facility] Last Admin: 03/24/19 10:21 Dose: 81 mg Atorvastatin Calcium (Lipitor -) 40 mg PO HS ON [facility] Last Admin: 03/23/19 21:37 Dose: 40 mg Clopidogrel Bisulfate (Plavix -) 75 mg PO DAILY [facility] Last Admin: 03/24/19 10:20 Dose: 75 mg Furosemide (Lasix Injection -) 80 mg IVPUSH BID@0600,1400 [facility] Last Admin: 03/24/19 06:38 Dose: 80 mg Insulin Aspart (Novolog Vial Sliding Scale -) 1 vial SQ [facility]; Protocol Last Admin: 03/24/19 12:40 Dose: Not Given Levothyroxine Sodium (Synthroid -) 100 mcg PO DAILY@0700 [facility] Last Admin: 03/24/19 06:39 Dose: 100 mcg Metoprolol Tartrate (Lopressor -) 25 mg PO BID [facility] Last Admin: 03/24/19 10:20 Dose: 25 mg Sacubitril/Valsartan (Entresto 24 Mg-26 Mg Tablet) 1 tab PO BID ON [facility] Last Admin: 03/24/19 10:20 Dose: 1 tab Sitagliptin Phosphate (Januvia -) 25 mg PO DAILY@0700 ON [facility] Last Admin: 03/24/19 06:39 Dose: 25 mg - Objective Vital Signs: Vital Signs Temperature 97.9 F 03/24/19 10:00 Pulse Rate 78 03/24/19 10:00 Respiratory Rate 20 03/24/19 10:00 Blood Pressure 169/78 03/24/19 10:00 O2 Sat by Pulse Oximetry (%) 94 L 03/24/19 08:50 Constitutional: Yes: Calm Eyes: Yes: Conjunctiva Clear HENT: Yes: Atraumatic Neck: Yes: Supple Cardiovascular: Yes: S1, S2 Respiratory: Yes: CTA Bilaterally Gastrointestinal: Yes: Soft Genitourinary: Yes: WNL Musculoskeletal: Yes: WNL Edema: Yes Edema: LLE: Trace, RLE: Trace Integumentary: Yes: Venous Stasis Changes Neurological: Yes: Oriented Labs: CBC, BMP 03/22/19 05:45 03/24/19 06:51 INR, PTT INR 1.13 (0.83-1.09) H 03/21/19 07:55 - ....Imaging Ultrasound: Report Reviewed Problem List - Problems (1) Acute exacerbation of CHF (congestive heart failure) Code(s): I50.9 - HEART FAILURE, UNSPECIFIED Qualifiers: Heart failure type: systolic Qualified Code(s): I50.23 - Acute on chronic systolic (congestive) heart failure (2) Edema Code(s): R60.9 - EDEMA, UNSPECIFIED Qualifiers: Edema type: due to malnutrition (3) Acute kidney injury Code(s): N17.9 - ACUTE KIDNEY FAILURE, UNSPECIFIED (4) CKD (chronic kidney disease) Code(s): N18.9 - CHRONIC KIDNEY DISEASE, UNSPECIFIED Qualifiers: Chronic kidney disease stage: stage 2 (mild) Qualified Code(s): N18.2 - Chronic kidney disease, stage 2 (mild) Assessment/Plan Current Medications Generic Name Dose Route Start Last Admin Trade Name Freq PRN Reason Stop Dose Admin Amiodarone HCl 200 mg 03/21/19 10:00 03/24/19 10:20 Cordarone - PO 200 mg DAILY ABIMBOLA Administration Aspirin 81 mg 03/21/19 10:00 03/24/19 10:21 Asa - PO 81 mg DAILY ABIMBOLA Administration Atorvastatin Calcium 40 mg 03/21/19 22:00 03/23/19 21:37 Lipitor - PO 40 mg HS ABIMBOLA Administration Clopidogrel Bisulfate 75 mg 03/21/19 10:00 03/24/19 10:20 Plavix - PO 75 mg DAILY ABIMBOLA Administration Furosemide 80 mg 03/22/19 06:00 03/24/19 06:38 Lasix Injection - IVPUSH 80 mg BID@0600,1400 ABIMBOLA Administration Insulin Aspart 1 vial 03/21/19 22:00 03/24/19 12:40 Novolog Vial Sliding Scale - SQ Not Given ACHS ON LICENSE OF [facility] Protocol Levothyroxine Sodium 100 mcg 03/24/19 07:00 03/24/19 06:39 Synthroid - PO 100 mcg DAILY@0700 ABIMBOLA Administration Metoprolol Tartrate 25 mg 03/21/19 10:00 03/24/19 10:20 Lopressor - PO 25 mg BID ABIMOBLA Administration Sacubitril/Valsartan 1 tab 03/22/19 10:00 03/24/19 10:20 Entresto 24 Mg-26 Mg Tablet PO 1 tab BID ABIMBOLA Administration Sitagliptin Phosphate 25 mg 03/24/19 07:00 03/24/19 06:39 Januvia - PO 25 mg DAILY@0700 ABIMBOLA Administration Impression 1. CKD 2. CHF 3. DM 4. HTN 5. hx CVA 6. a-fib 7. elevated kappa chains 8. fluid overload 9. KULDIP 10. ascites Plan - renal function is improving - cont lasix - renal ultrasound reviewed - pt had ascites on renal ultrasound, this is in the setting of fluid overload - discussed salt intake and diet - volume status is improving
--- NOTE | 2019-03-24 18:18 | PN ---
Progress Note, Physician Chief Complaint: The patient appears comfortable at the time of exam. he reports no chest pain, shortness of breath, palpitation or dizziness. Telemetry shows sinus tachycardia, up to 130s with very frequent APCs. No evidence of atrial fibrillation. History of Present Illness: 73 year old female with a PMHx of HTN, CVA in 2017, SVT, wide complex tachycardia thought to be SVT with aberrancy, systolic CHF, severe TR, KULDIP/ATN admitted on 03/21/19 with worsening leg edema, likley secondary to dietary sodium intake. Echo 01/07/19 and 03/22/19: Mild LV dilatation with severely reduced LV systolic function. Normal RV. Mild LA dilatation. Moderate to severe RA dilatation. Mild MR. Severe TR. ?pulmonary hypertension. - Current Medication List Current Medications: Active Medications Amiodarone HCl (Cordarone -) 200 mg PO DAILY [facility] Last Admin: 03/24/19 10:20 Dose: 200 mg Aspirin (Asa -) 81 mg PO DAILY [facility] Last Admin: 03/24/19 10:21 Dose: 81 mg Atorvastatin Calcium (Lipitor -) 40 mg PO HS [facility] Last Admin: 03/23/19 21:37 Dose: 40 mg Clopidogrel Bisulfate (Plavix -) 75 mg PO DAILY [facility] Last Admin: 03/24/19 10:20 Dose: 75 mg Furosemide (Lasix Injection -) 80 mg IVPUSH BID@0600,1400 [facility] Last Admin: 03/24/19 15:01 Dose: 80 mg Insulin Aspart (Novolog Vial Sliding Scale -) 1 vial SQ [facility]; Protocol Last Admin: 03/24/19 17:04 Dose: Not Given Levothyroxine Sodium (Synthroid -) 100 mcg PO DAILY@0700 [facility] Last Admin: 03/24/19 06:39 Dose: 100 mcg Metoprolol Tartrate (Lopressor -) 25 mg PO BID [facility] Last Admin: 03/24/19 10:20 Dose: 25 mg Sacubitril/Valsartan (Entresto 24 Mg-26 Mg Tablet) 1 tab PO BID [facility] Last Admin: 03/24/19 10:20 Dose: 1 tab Sitagliptin Phosphate (Januvia -) 25 mg PO DAILY@0700 [facility] Last Admin: 03/24/19 06:39 Dose: 25 mg - Objective Vital Signs: Vital Signs Temperature 98.1 F 03/24/19 14:00 Pulse Rate 107 H 03/24/19 14:00 Respiratory Rate 20 03/24/19 10:00 Blood Pressure 186/93 H 03/24/19 14:00 O2 Sat by Pulse Oximetry (%) 94 L 03/24/19 08:50 General: Well developed. Obese. No acute distress. Head: Normocephalic. Atraumatic, Eyes: PERRLA, EOMI. Sclerae anicteric. Conjunctivae clear. Neck: Supple. No JVD. No bruits. Heart: Normal S1, S2: Regularly irregular rhythm and rate. No murmur. No gallop or rub. Lungs: Symmetrical air entry. Clear to auscultation. No crackles. No wheezing or rhonchi. Abdomen: Soft. Bowel sound positive. Non tender. No masses. Extremities: Trace edema. No clubbing or cyanosis. PD 2+, equal bilaterally. Neuro: Intact, no focal findings. AAO X3. Labs: CBC, BMP 03/22/19 05:45 03/24/19 06:51 INR, PTT INR 1.13 (0.83-1.09) H 03/21/19 07:55 Assessment/Plan 73 year old female with a PMHx of HTN, CVA in 2017, SVT, wide complex tachycardia thought to be SVT with aberrancy, systolic CHF, severe TR, KULDIP/ATN admitted on 03/21/19 with worsening leg edema, likley secondary to dietary sodium intake. Echo 01/07/19 and 03/22/19: Mild LV dilatation with severely reduced LV systolic function. Normal RV. Mild LA dilatation. Moderate to severe RA dilatation. Mild MR. Severe TR. ?pulmonary hypertension. 1) Acute on chronic systolic CHF: Improved with IV Lasix. Change IV Lasix to PO 80 mg BID Daily I's/O's/Wt's/Lytes Increase metoprolol to 50 mg PO BID Increase Sacubitril/Valsartan to 49/51 mg BID 2) Arhythmias: History of PSVT, currently in sinus with tachycardia with very frequent APCs. Continue Amiodarone 200 mg PO daily. Increase metoprolol to 50 mg PO BID -synthroid was increased for elevated TSH will need close monitoring of TFTs going forward ie as outpatient, may need to stop amiodarone 3) HTN: BP is severely elevated. Increase metoprolol to 50 mg PO BID Increase Sacubitril/Valsartan to 49/51 mg BID 4) History of CVA on ASA/Plavix/Statin
[2019-03-24 22:01] VITALS: BMI 35.6
[2019-03-24] MEDS: ATORVASTATIN CA 40 MG TABLET (FP) PO SCH (23:32)
[2019-03-25] MEDS: INSULIN SLIDING SCALE (NOVOLOG) 1 VIAL SQ SCH ×4 (06:23→22:21)
[2019-03-25] MEDS: FUROSEMIDE 40 MG/4 ML INJECTABLE VIAL IVPUSH SCH (06:53)
[2019-03-25] MEDS: LEVOTHYROXINE NA 100 MCG TABLET (FP) PO SCH (06:54)
[2019-03-25 07:53] LABS: CALCIUM 8.4 mg/dL (8.5-10.1); CREATININE 1.8 mg/dL (0.55-1.3); POTASSIUM 3.5 mmol/L (3.5-5.1)
--- NOTE | 2019-03-25 08:06 | PN ---
Progress Note (short form) - Note Progress Note: Neurology History of Present Illness: 73 y/o woman with a past medical history of DM, COPD(3-4L home O2), HFrEF(20-25% , January 2019), DM, MR, TR. Who presents to the ED with complaint of weeping serous BLE wounds x1 week prior to admission. Patient reports lightheadedness, weakness. slumping to her L- side. Witnessed by daughter, at bedside. Has fallen x3 in the last 3mo. Daughter was concerned on day of admission due to thin serous drainage from anterior and posterior wounds to BLE. Has had chronic intermittent BLE edema. Endorses being compliant with medications. <30d prior, had lasix 80mg QD decr to 40mg QD. Has been noncompliant with low-sodium diet. Two days prior, ate pork and chitlins. Has had a nonproductive cough for several months with orthopnea. Sleeps upright in armchair. Patient endorses ability to ambulate w/o assistive device, lives independently, no [employer], daughter lives across street, grandson lives above her. I was consulted for confusion. During my eval, she was awake, alert and knows name of [facility], knows its March, knows . She may have had confusion from CHF exacerbation but seems improved and possibly near baseline mental status. Head CT completed, generalized volume loss with moderate ventricular dilation and moderate periventricular chronic microvascular ischemic disease changes. Left Mastoid effusion and trace right mastoid effusion. No new neurologic events overnight and patient reports being stable, mental status remains intact. Active Medications Amiodarone HCl (Cordarone -) 200 mg PO DAILY [facility] Last Admin: 03/24/19 10:20 Dose: 200 mg Aspirin (Asa -) 81 mg PO DAILY [facility] Last Admin: 03/24/19 10:21 Dose: 81 mg Atorvastatin Calcium (Lipitor -) 40 mg PO HS [facility] Last Admin: 03/24/19 23:32 Dose: 40 mg Clopidogrel Bisulfate (Plavix -) 75 mg PO DAILY [facility] Last Admin: 03/24/19 10:20 Dose: 75 mg Furosemide (Lasix Injection -) 80 mg IVPUSH BID@0600,1400 [facility] Last Admin: 03/25/19 06:53 Dose: 80 mg Insulin Aspart (Novolog Vial Sliding Scale -) [address] [facility]; Protocol Last Admin: 03/25/19 06:23 Dose: Not Given Levothyroxine Sodium (Synthroid -) 100 mcg PO DAILY@0700 [facility] Last Admin: 03/25/19 06:54 Dose: 100 mcg Metoprolol Tartrate (Lopressor -) 25 mg PO BID [facility] Last Admin: 03/24/19 23:32 Dose: 25 mg Sacubitril/Valsartan (Entresto 24 Mg-26 Mg Tablet) 1 tab PO BID [facility] Last Admin: 03/24/19 23:32 Dose: 1 tab Sitagliptin Phosphate (Januvia -) 25 mg PO DAILY@0700 [facility] Last Admin: 03/25/19 06:52 Dose: 25 mg Physical Examination Vital Signs: Vital Signs Period Temp Pulse Resp BP Sys/Sommer Pulse Ox Last 24 Hr 97.9 F-98.9 F 64-115 - 147-186/78-111 94-95 Constitutional: Yes: No Distress, Calm, Obese Eyes: Yes: WNL, Conjunctiva Clear, EOM Intact, PERRL HENT: Yes: WNL, Atraumatic, Normocephalic Neck: Yes: WNL, Supple, Trachea Midline Cardiovascular: Yes: Regular Rate and Rhythm, S1, S2 Respiratory: Yes: Diminished, SOB on Exertion (bases) Gastrointestinal: Yes: Normal Bowel Sounds, Soft, Abdomen, Obese Renal/: Yes: WNL Breast(s): Yes: WNL Musculoskeletal: Yes: WNL Extremities: Yes: WNL Edema: Yes Edema: LLE: 2+, RLE: 2+ Peripheral Pulses WNL: Yes Integumentary: Yes: Erythema Neurological: Cn intact, no slurred speech, no facial droop, moves all extremities equally, sensory intact, gait deffered CBCD WBC 7.8 K/mm3 (4.0-10.0) 03/22/19 05:45 RBC 4.33 M/mm3 (3.60-5.2) 03/22/19 05:45 Hgb 12.3 GM/dL (10.7-15.3) 03/22/19 05:45 Hct 38.3 % (32.4-45.2) 03/22/19 05:45 MCV 88.5 fl (80-96) 03/22/19 05:45 MCHC 32.0 g/dl (32.0-36.0) 03/22/19 05:45 RDW 17.7 % (11.6-15.6) H 03/22/19 05:45 Plt Count 122 K/MM3 (134-434) L 03/22/19 05:45 MPV 9.3 fl (7.5-11.1) 03/22/19 05:45 CMP Sodium 141 mmol/L (136-145) 03/25/19 06:15 Potassium 3.5 mmol/L (3.5-5.1) 03/25/19 06:15 Chloride 101 mmol/L (98-107) 03/25/19 06:15 Carbon Dioxide 33 mmol/L (21-32) H 03/25/19 06:15 Anion Gap 8 MMOL/L (8-16) 03/25/19 06:15 BUN 24.0 mg/dL (7-18) H 03/25/19 06:15 Creatinine 1.8 mg/dL (0.55-1.3) H 03/25/19 06:15 Random Glucose 95 mg/dL (74-106) 03/25/19 06:15 Calcium 8.4 mg/dL (8.5-10.1) L 03/25/19 06:15 Total Bilirubin 3.7 mg/dL (0.2-1) H D 03/24/19 06:51 AST 22 U/L (15-37) 03/24/19 06:51 ALT 16 U/L (13-61) 03/24/19 06:51 Alkaline Phosphatase 86 U/L (45-117) 03/24/19 06:51 Total Protein 7.2 g/dl (6.4-8.2) 03/24/19 06:51 Albumin 3.2 g/dl (3.4-5.0) L 03/24/19 06:51 CARDIAC ENZYMES Creatine Kinase 145 U/L (26-192) 03/20/19 17:30 Troponin I < 0.02 ng/ml (0.00-0.05) 03/21/19 07:55 Plan: 73 y/o woman with a past medical history of DM, COPD(3-4L home O2), HFrEF(20-25% , January 2019), DM, MR, TR. Who presents to the ED with complaint of weeping serous BLE wounds x1 week prior to admission. Patient reports lightheadedness , weakness. slumping to her L- side. Witnessed by daughter, at bedside. Has fallen x3 in the last 3mo. Daughter was concerned on day of admission, due to thin serous drainage from anterior and posterior wounds to BLE. Has had chronic intermittent BLE edema. Endorses being compliant with medications. <30d prior, had lasix 80mg QD decr to 40mg QD. Has been noncompliant with low-sodium diet. Two days prior, ate pork and chitlins. Has had a nonproductive cough for several months with orthopnea. Sleeps upright in armchair. Patient endorses ability to ambulate w/o assistive device, lives independently, no [employer], daughter lives across street, grandson lives above her. I was consulted for confusion. During my eval, she was awake, alert and knows name of [facility], knows its [place], knows year. She may have had confusion from CHF exacerbation but seems improved and possibly near baseline mental status. Head CT completed, generalized volume loss with moderate ventricular dilation and moderate periventricular chronic microvascular ischemic disease changes. Left Mastoid effusion and trace right mastoid effusion. Continue medical optimization and cardiology mgmt. Monitor bp, maintain normotensive range. Follow up CHF imaging. MOnitor thyroid level, continue optimization. Neurologically mental status remains at baseline
[2019-03-25] MEDS ORDERED: METOPROLOL TARTRATE 50 MG TABLET (FP) PO SCH (08:18)
--- NOTE | 2019-03-25 08:18 | PN ---
Progress Note, Physician - Current Medication List Current Medications: Active Medications Amiodarone HCl (Cordarone -) 200 mg PO DAILY [facility] Last Admin: 03/24/19 10:20 Dose: 200 mg Amlodipine Besylate (Norvasc -) 5 mg PO DAILY [facility] Aspirin (Asa -) 81 mg PO DAILY [facility] Last Admin: 03/24/19 10:21 Dose: 81 mg Atorvastatin Calcium (Lipitor -) 40 mg PO HS [facility] Last Admin: 03/24/19 23:32 Dose: 40 mg Clopidogrel Bisulfate (Plavix -) 75 mg PO DAILY [facility] Last Admin: 03/24/19 10:20 Dose: 75 mg Furosemide (Lasix -) 80 mg PO BID@0600,1400 [facility] Insulin Aspart (Novolog Vial Sliding Scale -) 1 vial SQ [facility]; Protocol Last Admin: 03/25/19 06:23 Dose: Not Given Levothyroxine Sodium (Synthroid -) 100 mcg PO DAILY@0700 [facility] Last Admin: 03/25/19 06:54 Dose: 100 mcg Metoprolol Tartrate (Lopressor -) 25 mg PO BID [facility] Last Admin: 03/24/19 23:32 Dose: 25 mg Sacubitril/Valsartan (Entresto 24 Mg-26 Mg Tablet) 1 tab PO BID [facility] Last Admin: 03/24/19 23:32 Dose: 1 tab Sitagliptin Phosphate (Januvia -) 25 mg PO DAILY@0700 [facility] Last Admin: 03/25/19 06:52 Dose: 25 mg - Objective Vital Signs: Vital Signs Temperature 98.6 F 03/25/19 06:00 Pulse Rate 103 H 03/25/19 06:00 Respiratory Rate 19 03/25/19 06:00 Blood Pressure 160/93 03/25/19 06:00 O2 Sat by Pulse Oximetry (%) 95 03/24/19 21:00 Cardiovascular: Yes: S1, S2 Respiratory: Yes: Regular, CTA Bilaterally Gastrointestinal: Yes: Normal Bowel Sounds, Soft Edema: LLE: Trace, RLE: Trace Labs: CBC, BMP 03/22/19 05:45 03/25/19 06:15 INR, PTT INR 1.13 (0.83-1.09) H 03/21/19 07:55 Assessment/Plan - Problems (1) Acute exacerbation of CHF (congestive heart failure) Assessment/Plan: iv lasix bid---po monitor lytes and renal function daily weights Code(s): I50.9 - HEART FAILURE, UNSPECIFIED Qualifiers: Heart failure type: systolic Qualified Code(s): I50.23 - Acute on chronic systolic (congestive) heart failure (2) Edema Assessment/Plan: iv lasix--po no dvt legs warpped with alexa warps, elevate Code(s): R60.9 - EDEMA, UNSPECIFIED (3) Diabetes 1.5, managed as type 2 Assessment/Plan: hba1c 6.8 sliding scale Code(s): E10.9 - TYPE 1 DIABETES MELLITUS WITHOUT COMPLICATIONS (4) Hypothyroid Assessment/Plan: tsh noted inc synthroid to 50mcg Code(s): E03.9 - HYPOTHYROIDISM, UNSPECIFIED (5) Acute kidney injury Assessment/Plan: renal sono renal consult noted Code(s): N17.9 - ACUTE KIDNEY FAILURE, UNSPECIFIED (6) Confusion Assessment/Plan: Neuro noted improved today (7) Htn Assessment/Plan: meds adjusted dc planning--pt
[2019-03-25] MEDS: AMIODARONE HCL 200 MG TABLET (FP) PO SCH (09:29)
[2019-03-25] MEDS ORDERED: METOPROLOL TARTRATE 5 MG/5 ML VIAL ONE (09:44)
[2019-03-25] MEDS ORDERED: METOPROLOL TARTRATE 5 MG/5 ML VIAL IVPUSH PRN ×2 (10:18→10:37)
[2019-03-25] MEDS: ASPIRIN 81 MG CHEWABLE TABLETS PO SCH (10:29)
[2019-03-25] MEDS ORDERED: DIGOXIN 0.25 MG TABLET (FP) PO ONE (10:30)
[2019-03-25] MEDS: CLOPIDOGREL BISULFATE 75 MG TABLET (FP) PO SCH (10:33)
[2019-03-25] MEDS: SACUBITRIL/VALSARTAN 49 MG-51 MG TABLET PO SCH ×2 (10:33→22:21)
[2019-03-25] MEDS: amLODIPine BESYLATE 5 MG TABLET (FP) PO SCH (10:33)
--- NOTE | 2019-03-25 11:36 | EKG ---
Test Reason : Blood Pressure : / mmHG Vent. Rate : 165 BPM Atrial Rate : 166 BPM P-R Int : 000 ms QRS Dur : 090 ms QT Int : 262 ms P-R-T Axes : 000 056 161 degrees QTc Int : 434 [address] depression, consider subendocardial injury NONSPECIFIC T WAVE ABNORMALITY ABNORMAL ECG WHEN COMPARED WITH ECG OF 20-MAR-2019 17:11, PREMATURE ATRIAL COMPLEXES ARE NO LONGER PRESENT VENT. RATE HAS INCREASED BY [address] NOW DEPRESSED IN LATERAL LEADS Confirmed by REGINO GLYNN MD ([id number]) on 03/25/2019 11:36:23 AM Referred By: MIRZA VALERA Confirmed By:REGINO GLYNN MD
[2019-03-25] MEDS: METOPROLOL TARTRATE 50 MG TABLET (FP) PO SCH ×2 (12:24→22:20)
--- NOTE | 2019-03-25 13:27 | PN ---
Progress Note, Physician History of Present Illness: Pt seen and examined at bedside. She is awake and alert. She feels that her edema is improving. She denies shortness of breath. - Current Medication List Current Medications: Active Medications Amiodarone HCl (Cordarone -) 200 mg PO DAILY [facility] Last Admin: 03/25/19 09:29 Dose: 200 mg Amlodipine Besylate (Norvasc -) 5 mg PO DAILY [facility] Last Admin: 03/25/19 10:33 Dose: 5 mg Aspirin (Asa -) 81 mg PO DAILY [facility] Last Admin: 03/25/19 10:29 Dose: 81 mg Atorvastatin Calcium (Lipitor -) 40 mg PO HS [facility] Last Admin: 03/24/19 23:32 Dose: 40 mg Clopidogrel Bisulfate (Plavix -) 75 mg PO DAILY [facility] Last Admin: 03/25/19 10:33 Dose: 75 mg Digoxin (Lanoxin -) 0.125 mg PO DAILY [facility] Furosemide (Lasix -) 80 mg PO BID@0600,1400 [facility] Insulin Aspart (Novolog Vial Sliding Scale -) 1 vial SQ [facility]; Protocol Last Admin: 03/25/19 12:18 Dose: Not Given Levothyroxine Sodium (Synthroid -) 100 mcg PO DAILY@0700 [facility] Last Admin: 03/25/19 06:54 Dose: 100 mcg Metoprolol Tartrate (Lopressor -) 100 mg PO BID [facility] Last Admin: 03/25/19 12:24 Dose: 100 mg Metoprolol Tartrate (Lopressor Injection -) 5 mg IVPUSH Q2H PRN PRN Reason: HR>160 Last Admin: 03/25/19 09:50 Dose: 5 mg Potassium Chloride (K-Dur -) 10 meq PO DAILY [facility] Sacubitril/Valsartan (Entresto 49 Mg-51 Mg Tablet) 1 tab PO BID [facility] Last Admin: 03/25/19 10:33 Dose: 1 tab Sitagliptin Phosphate (Januvia -) 25 mg PO DAILY@0700 [facility] Last Admin: 03/25/19 06:52 Dose: 25 mg - Objective Vital Signs: Vital Signs Temperature 98.4 F 03/25/19 10:00 Pulse Rate 118 H 03/25/19 10:34 Respiratory Rate 16 03/25/19 10:00 Blood Pressure 135/101 H 03/25/19 10:00 O2 Sat by Pulse Oximetry (%) 96 03/25/19 08:42 Constitutional: Yes: Calm Eyes: Yes: Conjunctiva Clear HENT: Yes: Atraumatic Neck: Yes: Supple Cardiovascular: Yes: S1, S2 Gastrointestinal: Yes: WNL Genitourinary: Yes: WNL Edema: Yes Edema: LLE: Trace, RLE: Trace Integumentary: Yes: Venous Stasis Changes Neurological: Yes: Oriented Psychiatric: Yes: Oriented Labs: CBC, BMP 03/22/19 05:45 03/25/19 06:15 INR, PTT INR 1.13 (0.83-1.09) H 03/21/19 07:55 Problem List - Problems (1) Acute exacerbation of CHF (congestive heart failure) Code(s): I50.9 - HEART FAILURE, UNSPECIFIED Qualifiers: Heart failure type: systolic Qualified Code(s): I50.23 - Acute on chronic systolic (congestive) heart failure (2) Edema Code(s): R60.9 - EDEMA, UNSPECIFIED Qualifiers: Edema type: due to malnutrition (3) Acute kidney injury Code(s): N17.9 - ACUTE KIDNEY FAILURE, UNSPECIFIED (4) CKD (chronic kidney disease) Code(s): N18.9 - CHRONIC KIDNEY DISEASE, UNSPECIFIED Qualifiers: Chronic kidney disease stage: stage 2 (mild) Qualified Code(s): N18.2 - Chronic kidney disease, stage 2 (mild) Assessment/Plan Current Medications Generic Name Dose Route Start Last Admin Trade Name Freq PRN Reason Stop Dose Admin Amiodarone HCl 200 mg 03/21/19 10:00 03/25/19 09:29 Cordarone - PO 200 mg DAILY [facility] Administration Amlodipine Besylate 5 mg 03/25/19 10:00 03/25/19 10:33 Norvasc - PO 5 mg DAILY [facility] Administration Aspirin 81 mg 03/21/19 10:00 03/25/19 10:29 Asa - PO 81 mg DAILY [facility] Administration Atorvastatin Calcium 40 mg 03/21/19 22:00 03/24/19 23:32 Lipitor - PO 40 mg HS [facility] Administration Clopidogrel Bisulfate 75 mg 03/21/19 10:00 03/25/19 10:33 Plavix - PO 75 mg DAILY [facility] Administration Digoxin 0.125 mg 03/26/19 10:00 Lanoxin - PO DAILY [facility] Furosemide 80 mg 03/25/19 14:00 Lasix - PO BID@0600,1400 [facility] Insulin Aspart 1 vial 03/21/19 22:00 03/25/19 12:18 Novolog Vial Sliding Scale - SQ Not Given ACHS [facility] Protocol Levothyroxine Sodium 100 mcg 03/24/19 07:00 03/25/19 06:54 Synthroid - PO 100 mcg DAILY@0700 [facility] Administration Metoprolol Tartrate 100 mg 03/25/19 10:30 03/25/19 12:24 Lopressor - PO 100 mg BID [facility] Administration Metoprolol Tartrate 5 mg 03/25/19 10:37 03/25/19 09:50 Lopressor Injection - IVPUSH 5 mg Q2H PRN Administration HR>160 Potassium Chloride 10 meq 03/25/19 12:45 K-Dur - PO DAILY [facility] Sacubitril/Valsartan 1 tab 03/25/19 10:00 03/25/19 10:33 Entresto 49 Mg-51 Mg Tablet PO 1 tab BID [facility] Administration Sitagliptin Phosphate 25 mg 03/24/19 07:00 03/25/19 06:52 Januvia - PO 25 mg DAILY@0700 [facility] Administration Impression 1. CKD 2. CHF 3. DM 4. HTN 5. hx CVA 6. a-fib 7. elevated kappa chains 8. fluid overload 9. KULDIP 10. ascites Plan - agree with PO lasix - replace potassium - monitor lytes - cardio input appreciated - discussed diet with pt - volume status is improving
[2019-03-25] MEDS: POTASSIUM CHLORIDE TABS 10 MEQ TABLET.ER (FP) PO SCH (14:54)
[2019-03-25] MEDS: FUROSEMIDE 40 MG TABLET (FP) PO SCH (14:54)
[2019-03-25] MEDS: ACETAMINOPHEN 325 MG TABLET (FP) PO PRN (17:24)
--- NOTE | 2019-03-25 20:35 | PN ---
Progress Note, Physician Chief Complaint: The patient appears comfortable at the time of exam. he reports no chest pain, shortness of breath, palpitation or dizziness. Telemetry shows sinus tachycardia with very frequent APCs. Recurrent SVT, up to 170 BPM noted. No evidence of atrial fibrillation. History of Present Illness: 73 year old female with a PMHx of HTN, CVA in 2017, SVT, wide complex tachycardia thought to be SVT with aberrancy, systolic CHF, severe TR, KULDIP/ATN admitted on 03/21/19 with worsening leg edema, likley secondary to dietary sodium intake. 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 Echo 01/07/19 and 03/22/19: Mild LV dilatation with severely reduced LV systolic function. Normal RV. Mild LA dilatation. Moderate to severe RA dilatation. Mild MR. Severe TR. ?pulmonary hypertension. - Current Medication List Current Medications: Active Medications Acetaminophen (Tylenol -) 650 mg PO Q4H PRN PRN Reason: PAIN OR FEVER Last Admin: 03/25/19 17:24 Dose: 650 mg Amiodarone HCl (Cordarone -) 200 mg PO DAILY [facility] Last Admin: 03/25/19 09:29 Dose: 200 mg Amlodipine Besylate (Norvasc -) 5 mg PO DAILY [facility] Last Admin: 03/25/19 10:33 Dose: 5 mg Aspirin (Asa -) 81 mg PO DAILY [facility] Last Admin: 03/25/19 10:29 Dose: 81 mg Atorvastatin Calcium (Lipitor -) 40 mg PO HS [facility] Last Admin: 03/24/19 23:32 Dose: 40 mg Clopidogrel Bisulfate (Plavix -) 75 mg PO DAILY [facility] Last Admin: 03/25/19 10:33 Dose: 75 mg Digoxin (Lanoxin -) 0.125 mg PO DAILY [facility] Furosemide (Lasix -) 80 mg PO BID@0600,1400 [facility] Last Admin: 03/25/19 14:54 Dose: 80 mg Insulin Aspart (Novolog Vial Sliding Scale -) 1 vial SQ [facility]; Protocol Last Admin: 03/25/19 16:32 Dose: Not Given Levothyroxine Sodium (Synthroid -) 100 mcg PO DAILY@0700 [facility] Last Admin: 03/25/19 06:54 Dose: 100 mcg Metoprolol Tartrate (Lopressor -) 100 mg PO BID [facility] Last Admin: 03/25/19 12:24 Dose: 100 mg Metoprolol Tartrate (Lopressor Injection -) 5 mg IVPUSH Q2H PRN PRN Reason: HR>160 Last Admin: 03/25/19 09:50 Dose: 5 mg Potassium Chloride (K-Dur -) 10 meq PO DAILY [facility] Last Admin: 03/25/19 14:54 Dose: 10 meq Sacubitril/Valsartan (Entresto 49 Mg-51 Mg Tablet) 1 tab PO BID [facility] Last Admin: 03/25/19 10:33 Dose: 1 tab Sitagliptin Phosphate (Januvia -) 25 mg PO DAILY@0700 [facility] Last Admin: 03/25/19 06:52 Dose: 25 mg - Objective Vital Signs: Vital Signs Temperature 98.6 F 03/25/19 18: Pulse Rate 80 03/25/19 18:19 Respiratory Rate 18 03/25/19 18:19 Blood Pressure 152/88 03/25/19 18:19 O2 Sat by Pulse Oximetry (%) 96 03/25/19 08:42 General: Well developed. Well nourished. No acute distress. Head: Normocephalic. Atraumatic, Eyes: PERRLA, EOMI. Sclerae anicteric. Conjunctivae clear. Neck: Supple. No JVD. No bruits. Heart: Normal S1, S2: Regularly irregular rhythm and rate. No murmur. No gallop or rub. Lungs: Symmetrical air entry. Clear to auscultation. No crackle. No wheezing or rhonchi. Abdomen: Soft. Bowel sound positive. Non tender. No masses. Extremities: No edema. No clubbing or cyanosis. PD 2+, equal bilaterally. Neuro: Intact, no focal findings. AAO X3. Labs: CBC, BMP 03/22/19 05:45 03/25/19 06:15 INR, PTT INR 1.13 (0.83-1.09) H 03/21/19 07:55 Assessment/Plan 73 year old female with a PMHx of HTN, CVA in 2017, SVT, wide complex tachycardia thought to be SVT with aberrancy, systolic CHF, severe TR, KULDIP/ATN admitted on 03/21/19 with worsening leg edema, likley secondary to dietary sodium intake. 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 Echo 01/07/19 and 03/22/19: Mild LV dilatation with severely reduced LV systolic function. Normal RV. Mild LA dilatation. Moderate to severe RA dilatation. Mild MR. Severe TR. ?pulmonary hypertension. 1) Acute on chronic systolic CHF: Improved with IV Lasix. Change IV Lasix to PO 80 mg BID Daily I's/O's/Wt's/Lytes Increase metoprolol to 150 mg PO BID Increase Sacubitril/Valsartan to 49/51 mg BID 2) Arhythmias: History of PSVT, currently in sinus with tachycardia with very frequent APCs. 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 Continue Amiodarone 200 mg PO daily. Increase metoprolol to 150 mg PO BID. Digoxin added. PSVT ablation is indicated. It can be done as out-patient. 3) HTN: BP control improved. Increase metoprolol to 150 mg PO BID Continue Sacubitril/Valsartan to 49/51 mg BID 4) History of CVA on ASA/Plavix/Statin
[2019-03-25] MEDS: ATORVASTATIN CA 40 MG TABLET (FP) PO SCH (22:21)
--- NOTE | 2019-03-25 23:32 | PN ---
Progress Note, Physician Chief Complaint: has improved appetite - Current Medication List Current Medications: Active Medications Acetaminophen (Tylenol -) 650 mg PO Q4H PRN PRN Reason: PAIN OR FEVER Last Admin: 03/25/19 17:24 Dose: 650 mg Amiodarone HCl (Cordarone -) 200 mg PO DAILY [facility] Last Admin: 03/25/19 09:29 Dose: 200 mg Amlodipine Besylate (Norvasc -) 5 mg PO DAILY [facility] Last Admin: 03/25/19 10:33 Dose: 5 mg Aspirin (Asa -) 81 mg PO DAILY [facility] Last Admin: 03/25/19 10:29 Dose: 81 mg Atorvastatin Calcium (Lipitor -) 40 mg PO HS [facility] Last Admin: 03/25/19 22:21 Dose: 40 mg Clopidogrel Bisulfate (Plavix -) 75 mg PO DAILY [facility] Last Admin: 03/25/19 10:33 Dose: 75 mg Digoxin (Lanoxin -) 0.125 mg PO DAILY [facility] Furosemide (Lasix -) 80 mg PO BID@0600,1400 [facility] Last Admin: 03/25/19 14:54 Dose: 80 mg Insulin Aspart (Novolog Vial Sliding Scale -) 1 vial SQ [facility]; Protocol Last Admin: 03/25/19 22:21 Dose: Not Given Levothyroxine Sodium (Synthroid -) 100 mcg PO DAILY@0700 [facility] Last Admin: 03/25/19 06:54 Dose: 100 mcg Metoprolol Tartrate (Lopressor -) 100 mg PO BID [facility] Last Admin: 03/25/19 22:20 Dose: 100 mg Metoprolol Tartrate (Lopressor Injection -) 5 mg IVPUSH Q2H PRN PRN Reason: HR>160 Last Admin: 03/25/19 09:50 Dose: 5 mg Potassium Chloride (K-Dur -) 10 meq PO DAILY [facility] Last Admin: 03/25/19 14:54 Dose: 10 meq Sacubitril/Valsartan (Entresto 49 Mg-51 Mg Tablet) 1 tab PO BID [facility] Last Admin: 03/25/19 22:21 Dose: 1 tab Sitagliptin Phosphate (Januvia -) 25 mg PO DAILY@0700 [facility] Last Admin: 03/25/19 06:52 Dose: 25 mg - Objective Vital Signs: Vital Signs Temperature 98.6 F 03/25/19 18:19 Pulse Rate 80 03/25/19 18:19 Respiratory Rate 18 03/25/19 18:19 Blood Pressure 152/88 03/25/19 18:19 O2 Sat by Pulse Oximetry (%) 96 03/25/19 08:42 Constitutional: Yes: Calm Eyes: Yes: EOM Intact HENT: Yes: Normocephalic Neck: Yes: Trachea Midline Cardiovascular: Yes: Bradycardia, Murmur Respiratory: Yes: CTA Bilaterally Gastrointestinal: Yes: Normal Bowel Sounds ...Rectal Exam: Yes: WNL Genitourinary: Yes: WNL Musculoskeletal: Yes: Joint Swelling, Muscle Pain, Muscle Weakness Edema: LLE: 1+, RLE: 1+ Neurological: Yes: Alert, Oriented Labs: CBC, BMP 03/22/19 05:45 03/25/19 06:15 INR, PTT INR 1.13 (0.83-1.09) H 03/21/19 07:55 Problem List - Problems (1) 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 Code(s): E03.8 - OTHER SPECIFIED HYPOTHYROIDISM; E06.3 - AUTOIMMUNE THYROIDITIS (2) Acute exacerbation of CHF (congestive heart failure) Code(s): I50.9 - HEART FAILURE, UNSPECIFIED Qualifiers: Heart failure type: systolic Qualified Code(s): I50.23 - Acute on chronic systolic (congestive) heart failure (3) Edema Code(s): R60.9 - EDEMA, UNSPECIFIED Qualifiers: Edema type: due to malnutrition (4) Acute kidney injury Code(s): N17.9 - ACUTE KIDNEY FAILURE, UNSPECIFIED (5) Acute on chronic diastolic CHF (congestive heart failure) Code(s): I50.33 - ACUTE ON CHRONIC DIASTOLIC (CONGESTIVE) HEART FAILURE (6) Acute on chronic systolic heart failure Code(s): I50.23 - ACUTE ON CHRONIC SYSTOLIC (CONGESTIVE) HEART FAILURE (7) CKD (chronic kidney disease) Code(s): N18.9 - CHRONIC KIDNEY DISEASE, UNSPECIFIED Qualifiers: Chronic kidney disease stage: stage 2 (mild) Qualified Code(s): N18.2 - Chronic kidney disease, stage 2 (mild) (8) CVA (cerebral vascular accident) Code(s): I63.9 - CEREBRAL INFARCTION, UNSPECIFIED Qualifiers: CVA mechanism: unspecified Qualified Code(s): I63.9 - Cerebral infarction, unspecified Assessment/Plan Current Active Problems dm t2,metabolic syndrome Acute exacerbation of CHF (congestive heart failure) (Acute) Edema (Acute) 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 (Acute) Abnormal Lab Results 03/24/19 03/25/19 06:51 06:15 Carbon Dioxide 33 H BUN 24.0 H Creatinine 1.8 H Calcium 8.4 L Total T3 57.00 L Laboratory Results - last 24 hr 03/24/19 03/25/19 03/25/19 06:51 06:15 06:19 Sodium 141 Potassium 3.5 Chloride 101 Carbon Dioxide 33 H Anion Gap 8 BUN 24.0 H Creatinine 1.8 H Est GFR (CKD-EPI)AfAm 31.36 Est GFR (CKD-EPI)NonAf 27.06 POC Glucometer 102 Random Glucose 95 Calcium 8.4 L Total T3 57.00 L 03/25/19 03/25/19 03/25/19 11:51 16:25 21:02 Sodium Potassium Chloride Carbon Dioxide Anion Gap BUN Creatinine Est GFR (CKD-EPI)AfAm Est GFR (CKD-EPI)NonAf POC Glucometer 133 120 121 Random Glucose Calcium Total T3 plan: januvia 25mg daily synthroid 100mcg day
[2019-03-26] MEDS: LEVOTHYROXINE NA 100 MCG TABLET (FP) PO SCH (06:23)
[2019-03-26] MEDS: FUROSEMIDE 40 MG TABLET (FP) PO SCH ×2 (06:23→16:09)
[2019-03-26] MEDS: INSULIN SLIDING SCALE (NOVOLOG) 1 VIAL SQ SCH ×4 (06:23→22:27)
[2019-03-26] MEDS: AMIODARONE HCL 200 MG TABLET (FP) PO SCH (09:29)
[2019-03-26] MEDS: DIGOXIN 0.125 MG TABLET (FP) PO SCH (09:29)
[2019-03-26] MEDS: amLODIPine BESYLATE 5 MG TABLET (FP) PO SCH (09:32)
[2019-03-26] MEDS: METOPROLOL TARTRATE 50 MG TABLET (FP) PO SCH ×2 (09:32→22:26)
[2019-03-26] MEDS: POTASSIUM CHLORIDE TABS 10 MEQ TABLET.ER (FP) PO SCH (09:33)
[2019-03-26] MEDS: ASPIRIN 81 MG CHEWABLE TABLETS PO SCH (09:33)
[2019-03-26] MEDS: CLOPIDOGREL BISULFATE 75 MG TABLET (FP) PO SCH (09:33)
[2019-03-26] MEDS ORDERED: PT OWN MED DRAWER 7, Y5N ONE ×2 (09:41→18:49)
[2019-03-26] MEDS: ACETAMINOPHEN 325 MG TABLET (FP) PO PRN (09:42)
[2019-03-26] MEDS: SACUBITRIL/VALSARTAN 49 MG-51 MG TABLET PO SCH ×2 (09:45→22:27)
--- NOTE | 2019-03-26 12:35 | DS ---
Physical Examination Vital Signs: Vital Signs Temperature 97.8 F 03/26/19 06:00 Pulse Rate 77 03/26/19 09:29 Respiratory Rate 18 03/26/19 06:00 Blood Pressure 133/86 03/26/19 06:00 O2 Sat by Pulse Oximetry (%) 92 L 03/25/19 21:00 Cardiovascular: Yes: S1, S2 Respiratory: Yes: Regular, CTA Bilaterally Gastrointestinal: Yes: Normal Bowel Sounds, Soft Edema: LLE: Trace, RLE: Trace Neurological: Yes: Alert, Oriented Labs: CBC, BMP 03/22/19 05:45 03/25/19 06:15 Discharge Summary Reason For Visit: DYSPNEA Current Active Problems Acute exacerbation of CHF (congestive heart failure) (Acute) Edema (Acute) 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 (Acute) Hospital Course: - Problems (1) Acute exacerbation of CHF (congestive heart failure) Assessment/Plan: iv lasix bid---po monitor lytes and renal function daily weights Code(s): I50.9 - HEART FAILURE, UNSPECIFIED Qualifiers: Heart failure type: systolic Qualified Code(s): I50.23 - Acute on chronic systolic (congestive) heart failure (2) Edema Assessment/Plan: iv lasix--po no dvt legs warpped with alexa warps, elevate Code(s): R60.9 - EDEMA, UNSPECIFIED (3) Diabetes 1.5, managed as type 2 Assessment/Plan: hba1c 6.8 sliding scale Code(s): E10.9 - TYPE 1 DIABETES MELLITUS WITHOUT COMPLICATIONS (4) Hypothyroid Assessment/Plan: tsh noted inc synthroid to 50mcg Code(s): E03.9 - HYPOTHYROIDISM, UNSPECIFIED (5) Acute kidney injury Assessment/Plan: renal sono renal consult noted Code(s): N17.9 - ACUTE KIDNEY FAILURE, UNSPECIFIED (6) Confusion Assessment/Plan: Neuro noted improved today (7) Htn Assessment/Plan: meds adjusted dc planning--pt Condition: Improved - Instructions Diet, Activity, Other Instructions: follow up labs on friday Referrals: Tony Golden MD [Primary Care Provider] - [facility] - Home Medications Comprehensive Discharge Medication List: Ambulatory Orders Atorvastatin Ca [Lipitor] 40 mg PO HS #30 tablet 12/30/16 Clopidogrel Bisulfate [Plavix -] 75 mg PO DAILY #30 tablet 12/30/16 Amiodarone HCl 200 mg PO DAILY 01/06/19 Aspirin [ASA -] 81 mg PO DAILY 01/06/19 Metoprolol Tartrate [Lopressor -] 25 mg PO BID #60 tablet 01/08/19 Amlodipine Besylate [Norvasc -] 5 mg PO DAILY tablet 03/26/19 Digoxin [Lanoxin -] 0.125 mg PO DAILY tablet 03/26/19 Furosemide [Lasix -] 80 mg PO BID@0600,1400 tablet 03/26/19 Insulin Sliding Scale [Novolog Vial Sliding Scale -] 1 vial SQ ACHS units 03/26 Levothyroxine [Synthroid -] 100 mcg PO DAILY@0700 tablet 03/26/19 Metoprolol Tartrate [Lopressor -] 100 mg PO BID tablet 03/26/19 Potassium Chloride [K-Dur -] 10 meq PO DAILY tablet.er 03/26/19 Sacubitril/Valsartan [Entresto 49 mg-51 mg Tablet] 1 tab PO BID tablet Sitagliptin Phosphate [Januvia -] 25 mg PO DAILY@0700 tab 03/26/19
--- NOTE | 2019-03-26 14:59 | PN ---
Progress Note, Physician History of Present Illness: Pt seen and examined at bedside. She is awake and alert. She denies shortness of breath. - Current Medication List Current Medications: Active Medications Acetaminophen (Tylenol -) 650 mg PO Q4H PRN PRN Reason: PAIN OR FEVER Last Admin: 03/26/19 09:42 Dose: 650 mg Amiodarone HCl (Cordarone -) 200 mg PO DAILY [facility] Last Admin: 03/26/19 09:29 Dose: 200 mg Amlodipine Besylate (Norvasc -) 5 mg PO DAILY [facility] Last Admin: 03/26/19 09:32 Dose: 5 mg Aspirin (Asa -) 81 mg PO DAILY [facility] Last Admin: 03/26/19 09:33 Dose: 81 mg Atorvastatin Calcium (Lipitor -) 40 mg PO HS [facility] Last Admin: 03/25/19 22:21 Dose: 40 mg Clopidogrel Bisulfate (Plavix -) 75 mg PO DAILY [facility] Last Admin: 03/26/19 09:33 Dose: 75 mg Digoxin (Lanoxin -) 0.125 mg PO DAILY [facility] Last Admin: 03/26/19 09:29 Dose: 0.125 mg Furosemide (Lasix -) 80 mg PO BID@0600,1400 [facility] Last Admin: 03/26/19 06:23 Dose: 80 mg Insulin Aspart (Novolog Vial Sliding Scale -) 1 vial SQ [facility]; Protocol Last Admin: 03/26/19 13:17 Dose: Not Given Levothyroxine Sodium (Synthroid -) 100 mcg PO DAILY@0700 [facility] Last Admin: 03/26/19 06:23 Dose: 100 mcg Metoprolol Tartrate (Lopressor -) 100 mg PO BID [facility] Last Admin: 03/26/19 09:32 Dose: 100 mg Metoprolol Tartrate (Lopressor Injection -) 5 mg IVPUSH Q2H PRN PRN Reason: HR>160 Last Admin: 03/25/19 09:50 Dose: 5 mg Potassium Chloride (K-Dur -) 10 meq PO DAILY [facility] Last Admin: 03/26/19 09:33 Dose: 10 meq Sacubitril/Valsartan (Entresto 49 Mg-51 Mg Tablet) 1 tab PO BID [facility] Last Admin: 03/26/19 09:45 Dose: 1 tab Sitagliptin Phosphate (Januvia -) 25 mg PO DAILY@0700 [facility] Last Admin: 03/26/19 06:23 Dose: 25 mg - Objective Vital Signs: Vital Signs Temperature 98.4 F 03/26/19 10:00 Pulse Rate 77 03/26/19 10:00 Respiratory Rate 18 03/26/19 10:00 Blood Pressure 150/107 H 03/26/19 10:00 O2 Sat by Pulse Oximetry (%) 98 03/26/19 09:00 Constitutional: Yes: Calm Eyes: Yes: Conjunctiva Clear HENT: Yes: Atraumatic Neck: Yes: Supple Cardiovascular: Yes: S1, S2 Respiratory: Yes: CTA Bilaterally Genitourinary: Yes: WNL Musculoskeletal: Yes: WNL Edema: Yes Edema: LLE: 1+, RLE: 1+ Neurological: Yes: Oriented Psychiatric: Yes: Oriented Labs: CBC, BMP 03/22/19 05:45 03/25/19 06:15 INR, PTT INR 1.13 (0.83-1.09) H 03/21/19 07:55 Problem List - Problems (1) Acute exacerbation of CHF (congestive heart failure) Code(s): I50.9 - HEART FAILURE, UNSPECIFIED Qualifiers: Heart failure type: systolic Qualified Code(s): I50.23 - Acute on chronic systolic (congestive) heart failure (2) Edema Code(s): R60.9 - EDEMA, UNSPECIFIED Qualifiers: Edema type: due to malnutrition (3) Acute kidney injury Code(s): N17.9 - ACUTE KIDNEY FAILURE, UNSPECIFIED (4) CKD (chronic kidney disease) Code(s): N18.9 - CHRONIC KIDNEY DISEASE, UNSPECIFIED Qualifiers: Chronic kidney disease stage: stage 2 (mild) Qualified Code(s): N18.2 - Chronic kidney disease, stage 2 (mild) Assessment/Plan Current Medications Generic Name Dose Route Start Last Admin Trade Name Freq PRN Reason Stop Dose Admin Acetaminophen 650 mg 03/25/19 16:53 03/26/19 09:42 Tylenol - PO 650 mg Q4H PRN Administration PAIN OR FEVER Amiodarone HCl 200 mg 03/21/19 10:00 03/26/19 09:29 Cordarone - PO 200 mg DAILY [facility] Administration Amlodipine Besylate 5 mg 03/25/19 10:00 03/26/19 09:32 Norvasc - PO 5 mg DAILY [facility] Administration Aspirin 81 mg 03/21/19 10:00 03/26/19 09:33 Asa - PO 81 mg DAILY [facility] Administration Atorvastatin Calcium 40 mg 03/21/19 22:00 03/25/19 22:21 Lipitor - PO 40 mg HS [facility] Administration Clopidogrel Bisulfate 75 mg 03/21/19 10:00 03/26/19 09:33 Plavix - PO 75 mg DAILY [facility] Administration Digoxin 0.125 mg 03/26/19 10:00 03/26/19 09:29 Lanoxin - PO 0.125 mg DAILY [facility] Administration Furosemide 80 mg 03/25/19 14:00 03/26/19 06:23 Lasix - PO 80 mg BID@0600,1400 [facility] Administration Insulin Aspart 1 vial 03/21/19 22:00 03/26/19 13:17 Novolog Vial Sliding Scale - SQ Not Given ACHS [facility] Protocol Levothyroxine Sodium 100 mcg 03/24/19 07:00 03/26/19 06:23 Synthroid - PO 100 mcg DAILY@0700 [facility] Administration Metoprolol Tartrate 100 mg 03/25/19 10:30 03/26/19 09:32 Lopressor - PO 100 mg BID [facility] Administration Metoprolol Tartrate 5 mg 03/25/19 10:37 03/25/19 09:50 Lopressor Injection - IVPUSH 5 mg Q2H PRN Administration HR>160 Potassium Chloride 10 meq 03/25/19 12:45 03/26/19 09:33 K-Dur - PO 10 meq DAILY [facility] Administration Sacubitril/Valsartan 1 tab 03/25/19 10:00 03/26/19 09:45 Entresto 49 Mg-51 Mg Tablet PO 1 tab BID [facility] Administration Sitagliptin Phosphate 25 mg 03/24/19 07:00 03/26/19 06:23 Januvia - PO 25 mg DAILY@0700 [facility] Administration Impression 1. CKD 2. CHF 3. DM 4. HTN 5. hx CVA 6. a-fib 7. elevated kappa chains 8. fluid overload 9. KULDIP 10. ascites Plan - cont lasix - will need outpt follow up - avoid nsaids - discussed low sodium diet with pt - volume status is improving
--- NOTE | 2019-03-26 18:01 | PN ---
Progress Note, Physician Chief Complaint: The patient appears comfortable at the time of exam. he reports no chest pain, shortness of breath, palpitation or dizziness. Telemetry shows sinus rhythm in 70s. 4 beat NSVT noted. History of Present Illness: 73 year old female with a PMHx of HTN, CVA in 2017, SVT, wide complex tachycardia thought to be SVT with aberrancy, systolic CHF, severe TR, KULDIP/ATN admitted on 03/21/19 with worsening leg edema, likley secondary to dietary sodium intake. 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 Echo 01/07/19 and 03/22/19: Mild LV dilatation with severely reduced LV systolic function. Normal RV. Mild LA dilatation. Moderate to severe RA dilatation. Mild MR. Severe TR. ?pulmonary hypertension. - Current Medication List Current Medications: Active Medications Acetaminophen (Tylenol -) 650 mg PO Q4H PRN PRN Reason: PAIN OR FEVER Last Admin: 03/26/19 09:42 Dose: 650 mg Amiodarone HCl (Cordarone -) 200 mg PO DAILY [facility] Last Admin: 03/26/19 09:29 Dose: 200 mg Amlodipine Besylate (Norvasc -) 5 mg PO DAILY [facility] Last Admin: 03/26/19 09:32 Dose: 5 mg Aspirin (Asa -) 81 mg PO DAILY [facility] Last Admin: 03/26/19 09:33 Dose: 81 mg Atorvastatin Calcium (Lipitor -) 40 mg PO HS [facility] Last Admin: 03/25/19 22:21 Dose: 40 mg Clopidogrel Bisulfate (Plavix -) 75 mg PO DAILY [facility] Last Admin: 03/26/19 09:33 Dose: 75 mg Digoxin (Lanoxin -) 0.125 mg PO DAILY [facility] Last Admin: 03/26/19 09:29 Dose: 0.125 mg Furosemide (Lasix -) 80 mg PO BID@0600,1400 [facility] Last Admin: 03/26/19 16:09 Dose: 80 mg Insulin Aspart (Novolog Vial Sliding Scale -) 1 vial SQ ACHS [facility]; Protocol Last Admin: 03/26/19 17:37 Dose: Not Given Levothyroxine Sodium (Synthroid -) 100 mcg PO DAILY@0700 [facility] Last Admin: 03/26/19 06:23 Dose: 100 mcg Metoprolol Tartrate (Lopressor -) 100 mg PO BID [facility] Last Admin: 03/26/19 09:32 Dose: 100 mg Metoprolol Tartrate (Lopressor Injection -) 5 mg IVPUSH Q2H PRN PRN Reason: HR>160 Last Admin: 03/25/19 09:50 Dose: 5 mg Potassium Chloride (K-Dur -) 10 meq PO DAILY [facility] Last Admin: 03/26/19 09:33 Dose: 10 meq Sacubitril/Valsartan (Entresto 49 Mg-51 Mg Tablet) 1 tab PO BID [facility] Last Admin: 03/26/19 09:45 Dose: 1 tab Sitagliptin Phosphate (Januvia -) 25 mg PO DAILY@0700 [facility] Last Admin: 03/26/19 06:23 Dose: 25 mg - Objective Vital Signs: Vital Signs Temperature 98.1 F 03/26/19 14:00 Pulse Rate 72 03/26/19 14:00 Respiratory Rate 18 03/26/19 10:00 Blood Pressure 126/59 L 03/26/19 14:00 O2 Sat by Pulse Oximetry (%) 98 03/26/19 09:00 General: Well developed. Well nourished. No acute distress. Head: Normocephalic. Atraumatic, Eyes: PERRLA, EOMI. Sclerae anicteric. Conjunctivae clear. Neck: Supple. No JVD. No bruits. Heart: Normal S1, S2: Regular rhythm and rate. No murmur. No gallop or rub. Lungs: Symmetrical air entry. Clear to auscultation. No crackles. No wheezing or rhonchi. Abdomen: Soft. Bowel sound positive. Non tender. No masses. Extremities: No edema. No clubbing or cyanosis. PD 2+, equal bilaterally. Neuro: Intact, no focal findings. AAO X3. Labs: CBC, BMP 03/22/19 05:45 03/25/19 06:15 INR, PTT INR 1.13 (0.83-1.09) H 03/21/19 07:55 Assessment/Plan 73 year old female with a PMHx of HTN, CVA in 2017, SVT, wide complex tachycardia thought to be SVT with aberrancy, systolic CHF, severe TR, KULDIP/ATN admitted on 03/21/19 with worsening leg edema, likley secondary to dietary sodium intake. 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 Echo 01/07/19 and 03/22/19: Mild LV dilatation with severely reduced LV systolic function. Normal RV. Mild LA dilatation. Moderate to severe RA dilatation. Mild MR. Severe TR. ?pulmonary hypertension. 1) Acute on chronic systolic CHF: Improved with IV Lasix. Continue Lasix PO 80 mg BID Continue metoprolol to 150 mg PO BID Continue Sacubitril/Valsartan to 49/51 mg BID 2) Arhythmias: History of PSVT. 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 Currently in sinus with controlled heart rate in 70s. Continue Amiodarone 200 mg PO daily. Increase metoprolol to 100 mg PO BID. Digoxin added. PSVT ablation is indicated. It can be done as out-patient. May discontinue tele. 3) HTN: BP control improved. Continue metoprolol 100 mg PO BID Continue Sacubitril/Valsartan to 49/51 mg BID 4) History of CVA on ASA/Plavix/Statin. Please do not hesitate to call us for reconsult at any time if any further questions or additional issue arises regarding this patient.
[2019-03-26] MEDS: ATORVASTATIN CA 40 MG TABLET (FP) PO SCH (22:26)
[2019-03-27] MEDS: LEVOTHYROXINE NA 100 MCG TABLET (FP) PO SCH (06:25)
[2019-03-27] MEDS: INSULIN SLIDING SCALE (NOVOLOG) 1 VIAL SQ SCH ×4 (06:26→22:27)
[2019-03-27] MEDS: FUROSEMIDE 40 MG TABLET (FP) PO SCH ×2 (06:27→13:45)
--- NOTE | 2019-03-27 10:00 | DS ---
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 (Acute) Hospital Course: - Problems (1) Acute exacerbation of CHF (congestive heart failure) Assessment/Plan: iv lasix bid---po monitor lytes and renal function daily weights Code(s): I50.9 - HEART FAILURE, UNSPECIFIED Qualifiers: Heart failure type: systolic Qualified Code(s): I50.23 - Acute on chronic systolic (congestive) heart failure (2) Edema Assessment/Plan: iv lasix--po no dvt legs warpped with alexa warps, elevate Code(s): R60.9 - EDEMA, UNSPECIFIED (3) Diabetes 1.5, managed as type 2 Assessment/Plan: hba1c 6.8 sliding scale Code(s): E10.9 - TYPE 1 DIABETES MELLITUS WITHOUT COMPLICATIONS (4) Hypothyroid Assessment/Plan: tsh noted inc synthroid to 50mcg Code(s): E03.9 - HYPOTHYROIDISM, UNSPECIFIED (5) Acute kidney injury Assessment/Plan: renal sono renal consult noted Code(s): N17.9 - ACUTE KIDNEY FAILURE, UNSPECIFIED (6) Confusion Assessment/Plan: Neuro noted improved today (7) Htn Assessment/Plan: meds adjusted dc planning--pt--snf--pt agrees Condition: Improved - Instructions Diet, Activity, Other Instructions: follow up labs on friday Referrals: Tony Golden MD [Primary Care Provider] - Disposition: [facility] - Home Medications Comprehensive Discharge Medication List: Ambulatory Orders Atorvastatin Ca [Lipitor] 40 mg PO HS #30 tablet 12/30/16 Clopidogrel Bisulfate [Plavix -] 75 mg PO DAILY #30 tablet 12/30/16 Amiodarone HCl 200 mg PO DAILY 01/06/19 Aspirin [ASA -] 81 mg PO DAILY 01/06/19 Metoprolol Tartrate [Lopressor -] 25 mg PO BID #60 tablet 01/08/19 Amlodipine Besylate [Norvasc -] 5 mg PO DAILY tablet 03/26/19 Digoxin [Lanoxin -] 0.125 mg PO DAILY tablet 03/26/19 Furosemide [Lasix -] 80 mg PO BID@0600,1400 tablet 03/26/19 Insulin Sliding Scale [Novolog Vial Sliding Scale -] 1 vial SQ ACHS units 03/26 Levothyroxine [Synthroid -] 100 mcg PO DAILY@0700 tablet 03/26/19 Metoprolol Tartrate [Lopressor -] 100 mg PO BID tablet 03/26/19 Potassium Chloride [K-Dur -] 10 meq PO DAILY tablet.er 03/26/19 Sacubitril/Valsartan [Entresto 49 mg-51 mg Tablet] 1 tab PO BID tablet Sitagliptin Phosphate [Januvia -] 25 mg PO DAILY@0700 tab 03/26/19
[2019-03-27] MEDS: ASPIRIN 81 MG CHEWABLE TABLETS PO SCH (10:26)
[2019-03-27] MEDS: METOPROLOL TARTRATE 50 MG TABLET (FP) PO SCH ×2 (10:26→21:33)
[2019-03-27] MEDS: DIGOXIN 0.125 MG TABLET (FP) PO SCH (10:26)
[2019-03-27] MEDS: CLOPIDOGREL BISULFATE 75 MG TABLET (FP) PO SCH (10:27)
[2019-03-27] MEDS: amLODIPine BESYLATE 5 MG TABLET (FP) PO SCH (10:27)
[2019-03-27] MEDS: SACUBITRIL/VALSARTAN 49 MG-51 MG TABLET PO SCH ×2 (10:27→23:49)
[2019-03-27] MEDS: AMIODARONE HCL 200 MG TABLET (FP) PO SCH (10:27)
[2019-03-27] MEDS: POTASSIUM CHLORIDE TABS 10 MEQ TABLET.ER (FP) PO SCH (10:27)
--- NOTE | 2019-03-27 10:33 | PN ---
Progress Note (short form) - Note Progress Note: Neurology History of Present Illness: 73 y/o woman with a past medical history of DM, COPD(3-4L home O2), HFrEF(20-25% , January 2019), DM, MR, TR. Who presents to the ED with complaint of weeping serous BLE wounds x1 week prior to admission. Patient reports lightheadedness, weakness. slumping to her L- side. Witnessed by daughter, at bedside. Has fallen x3 in the last 3mo. Daughter was concerned on day of admission due to thin serous drainage from anterior and posterior wounds to BLE. Has had chronic intermittent BLE edema. Endorses being compliant with medications. <30d prior, had lasix 80mg QD decr to 40mg QD. Has been noncompliant with low-sodium diet. Two days prior, ate pork and chitlins. Has had a nonproductive cough for several months with orthopnea. Sleeps upright in armchair. Patient endorses ability to ambulate w/o assistive device, lives independently, no HOSPITAL UNIT CLERK, daughter lives across street, grandson lives above her. I was consulted for confusion. During my eval, she was awake, alert and knows name of [facility], knows its March, knows . She may have had confusion from CHF exacerbation but seems improved and possibly near baseline mental status. Head CT completed, generalized volume loss with moderate ventricular dilation and moderate periventricular chronic microvascular ischemic disease changes. Left Mastoid effusion and trace right mastoid effusion. No new neurologic events overnight and patient reports being stable, mental status remains intact. Awaiting discharge, possibly for today. Active Medications Acetaminophen (Tylenol -) 650 mg PO Q4H PRN PRN Reason: PAIN OR FEVER Last Admin: 03/26/19 09:42 Dose: 650 mg Amiodarone HCl (Cordarone -) 200 mg PO DAILY [facility] Last Admin: 03/27/19 10:27 Dose: 200 mg Amlodipine Besylate (Norvasc -) 5 mg PO DAILY [facility] Last Admin: 03/27/19 10:27 Dose: 5 mg Aspirin (Asa -) 81 mg PO DAILY [facility] Last Admin: 03/27/19 10:26 Dose: 81 mg Atorvastatin Calcium (Lipitor -) 40 mg PO HS [facility] Last Admin: 03/26/19 22:26 Dose: 40 mg Clopidogrel Bisulfate (Plavix -) 75 mg PO DAILY [facility] Last Admin: 03/27/19 10:27 Dose: 75 mg Digoxin (Lanoxin -) 0.125 mg PO DAILY [facility] Last Admin: 03/27/19 10:26 Dose: 0.125 mg Furosemide (Lasix -) 80 mg PO BID@0600,1400 [facility] Last Admin: 03/27/19 06:27 Dose: 80 mg Insulin Aspart (Novolog Vial Sliding Scale -) 1 vial SQ [facility]; Protocol Last Admin: 03/27/19 06:26 Dose: Not Given Levothyroxine Sodium (Synthroid -) 100 mcg PO DAILY@0700 [facility] Last Admin: 03/27/19 06:25 Dose: 100 mcg Metoprolol Tartrate (Lopressor -) 100 mg PO BID [facility] Last Admin: 03/27/19 10:26 Dose: 100 mg Metoprolol Tartrate (Lopressor Injection -) 5 mg IVPUSH Q2H PRN PRN Reason: HR>160 Last Admin: 03/25/19 09:50 Dose: 5 mg Potassium Chloride (K-Dur -) 10 meq PO DAILY [facility] Last Admin: 03/27/19 10:27 Dose: 10 meq Sacubitril/Valsartan (Entresto 49 Mg-51 Mg Tablet) 1 tab PO BID [facility] Last Admin: 03/27/19 10:27 Dose: 1 tab Sitagliptin Phosphate (Januvia -) 25 mg PO DAILY@0700 [facility] Last Admin: 03/27/19 06:42 Dose: 25 mg Physical Examination Vital Signs: Vital Signs Temperature 98 F 03/27/19 06:00 Pulse Rate 72 03/27/19 10:26 Respiratory Rate 20 03/27/19 06:00 Blood Pressure 177/102 H 03/27/19 06:00 O2 Sat by Pulse Oximetry (%) 97 03/26/19 22:35 Constitutional: Yes: No Distress, Calm, Obese Eyes: Yes: WNL, Conjunctiva Clear, EOM Intact, PERRL HENT: Yes: WNL, Atraumatic, Normocephalic Neck: Yes: WNL, Supple, Trachea Midline Cardiovascular: Yes: Regular Rate and Rhythm, S1, S2 Respiratory: Yes: Diminished, SOB on Exertion (bases) Gastrointestinal: Yes: Normal Bowel Sounds, Soft, Abdomen, Obese Renal/: Yes: WNL Breast(s): Yes: WNL Musculoskeletal: Yes: WNL Extremities: Yes: WNL Edema: Yes Edema: LLE: 2+, RLE: 2+ Peripheral Pulses WNL: Yes Integumentary: Yes: Erythema Neurological: Cn intact, no slurred speech, no facial droop, moves all extremities equally, sensory intact, gait deffered CBCD WBC 7.8 K/mm3 (4.0-10.0) 03/22/19 05:45 RBC 4.33 M/mm3 (3.60-5.2) 03/22/19 05:45 Hgb 12.3 GM/dL (10.7-15.3) 03/22/19 05:45 Hct 38.3 % (32.4-45.2) 03/22/19 05:45 MCV 88.5 fl (80-96) 03/22/19 05:45 MCHC 32.0 g/dl (32.0-36.0) 03/22/19 05:45 RDW 17.7 % (11.6-15.6) H 03/22/19 05:45 Plt Count 122 K/MM3 (134-434) L 03/22/19 05:45 MPV 9.3 fl (7.5-11.1) 03/22/19 05:45 CMP Sodium 141 mmol/L (136-145) 03/25/19 06:15 Potassium 3.5 mmol/L (3.5-5.1) 03/25/19 06:15 Chloride 101 mmol/L (98-107) 03/25/19 06:15 Carbon Dioxide 33 mmol/L (21-32) H 03/25/19 06:15 Anion Gap 8 MMOL/L (8-16) 03/25/19 06:15 BUN 24.0 mg/dL (7-18) H 03/25/19 06:15 Creatinine 1.8 mg/dL (0.55-1.3) H 03/25/19 06:15 Random Glucose 95 mg/dL (74-106) 03/25/19 06:15 Calcium 8.4 mg/dL (8.5-10.1) L 03/25/19 06:15 Total Bilirubin 3.7 mg/dL (0.2-1) H D 03/24/19 06:51 AST 22 U/L (15-37) 03/24/19 06:51 ALT 16 U/L (13-61) 03/24/19 06:51 Alkaline Phosphatase 86 U/L (45-117) 03/24/19 06:51 Total Protein 7.2 g/dl (6.4-8.2) 03/24/19 06:51 Albumin 3.2 g/dl (3.4-5.0) L 03/24/19 06:51 CARDIAC ENZYMES Creatine Kinase 145 U/L (26-192) 03/20/19 17:30 Troponin I < 0.02 ng/ml (0.00-0.05) 03/21/19 07:55 Plan: 73 y/o woman with a past medical history of DM, COPD(3-4L home O2), HFrEF(20-25% , January 2019), DM, MR, TR. Who presents to the ED with complaint of weeping serous BLE wounds x1 week prior to admission. Patient reports lightheadedness , weakness. slumping to her L- side. Witnessed by daughter, at bedside. Has fallen x3 in the last 3mo. Daughter was concerned on day of admission, due to thin serous drainage from anterior and posterior wounds to BLE. Has had chronic intermittent BLE edema. Endorses being compliant with medications. <30d prior, had lasix 80mg QD decr to 40mg QD. Has been noncompliant with low-sodium diet. Two days prior, ate pork and chitlins. Has had a nonproductive cough for several months with orthopnea. Sleeps upright in armchair. Patient endorses ability to ambulate w/o assistive device, lives independently, no HOSPITAL UNIT CLERK, daughter lives across street, grandson lives above her. I was consulted for confusion. During my eval, she was awake, alert and knows name of hospital, knows its [place], knows year. She may have had confusion from CHF exacerbation but seems improved and possibly near baseline mental status. Head CT completed, generalized volume loss with moderate ventricular dilation and moderate periventricular chronic microvascular ischemic disease changes. Left Mastoid effusion and trace right mastoid effusion. Continue medical optimization and cardiology mgmt. Monitor bp, maintain normotensive range. Follow up CHF imaging. MOnitor thyroid level, continue optimization. Neurologically mental status remains at baseline, awaiting discharge possibly for today.
--- NOTE | 2019-03-27 13:08 | PN ---
Progress Note, Physician History of Present Illness: Pt seen and examined at bedside. She is awake and alert. She denies shortness of breath. - Current Medication List Current Medications: Active Medications Acetaminophen (Tylenol -) 650 mg PO Q4H PRN PRN Reason: PAIN OR FEVER Last Admin: 03/26/19 09:42 Dose: 650 mg Amiodarone HCl (Cordarone -) 200 mg PO DAILY [facility] Last Admin: 03/27/19 10:27 Dose: 200 mg Amlodipine Besylate (Norvasc -) 5 mg PO DAILY [facility] Last Admin: 03/27/19 10:27 Dose: 5 mg Aspirin (Asa -) 81 mg PO DAILY [facility] Last Admin: 03/27/19 10:26 Dose: 81 mg Atorvastatin Calcium (Lipitor -) 40 mg PO HS [facility] Last Admin: 03/26/19 22:26 Dose: 40 mg Clopidogrel Bisulfate (Plavix -) 75 mg PO DAILY [facility] Last Admin: 03/27/19 10:27 Dose: 75 mg Digoxin (Lanoxin -) 0.125 mg PO DAILY [facility] Last Admin: 03/27/19 10:26 Dose: 0.125 mg Furosemide (Lasix -) 80 mg PO BID@0600,1400 [facility] Last Admin: 03/27/19 06:27 Dose: 80 mg Insulin Aspart (Novolog Vial Sliding Scale -) 1 vial SQ [facility]; Protocol Last Admin: 03/27/19 12:43 Dose: Not Given Levothyroxine Sodium (Synthroid -) 100 mcg PO DAILY@0700 [facility] Last Admin: 03/27/19 06:25 Dose: 100 mcg Metoprolol Tartrate (Lopressor -) 100 mg PO BID [facility] Last Admin: 03/27/19 10:26 Dose: 100 mg Metoprolol Tartrate (Lopressor Injection -) 5 mg IVPUSH Q2H PRN PRN Reason: HR>160 Last Admin: 03/25/19 09:50 Dose: 5 mg Potassium Chloride (K-Dur -) 10 meq PO DAILY [facility] Last Admin: 03/27/19 10:27 Dose: 10 meq Sacubitril/Valsartan (Entresto 49 Mg-51 Mg Tablet) 1 tab PO BID [facility] Last Admin: 03/27/19 10:27 Dose: 1 tab Sitagliptin Phosphate (Januvia -) 25 mg PO DAILY@0700 [facility] Last Admin: 03/27/19 06:42 Dose: 25 mg - Objective Vital Signs: Vital Signs Temperature 98.2 F 03/27/19 10:00 Pulse Rate 72 03/27/19 10:26 Respiratory Rate 20 03/27/19 10:00 Blood Pressure 160/83 03/27/19 10:00 O2 Sat by Pulse Oximetry (%) 97 03/27/19 09:00 Constitutional: Yes: Calm Eyes: Yes: Conjunctiva Clear HENT: Yes: Atraumatic Neck: Yes: Supple Cardiovascular: Yes: S1, S2 Respiratory: Yes: CTA Bilaterally Gastrointestinal: Yes: Soft, Abdomen, Obese Genitourinary: Yes: WNL Musculoskeletal: Yes: WNL Edema: Yes Edema: LLE: 1+, RLE: 1+ Neurological: Yes: Oriented Psychiatric: Yes: Oriented Labs: CBC, BMP 03/22/19 05:45 03/25/19 06:15 INR, PTT INR 1.13 (0.83-1.09) H 03/21/19 07:55 Problem List - Problems (1) Acute exacerbation of CHF (congestive heart failure) Code(s): I50.9 - HEART FAILURE, UNSPECIFIED Qualifiers: Heart failure type: systolic Qualified Code(s): I50.23 - Acute on chronic systolic (congestive) heart failure (2) Edema Code(s): R60.9 - EDEMA, UNSPECIFIED Qualifiers: Edema type: due to malnutrition (3) Acute kidney injury Code(s): N17.9 - ACUTE KIDNEY FAILURE, UNSPECIFIED (4) CKD (chronic kidney disease) Code(s): N18.9 - CHRONIC KIDNEY DISEASE, UNSPECIFIED Qualifiers: Chronic kidney disease stage: stage 2 (mild) Qualified Code(s): N18.2 - Chronic kidney disease, stage 2 (mild) Assessment/Plan Current Medications Generic Name Dose Route Start Last Admin Trade Name Freq PRN Reason Stop Dose Admin Acetaminophen 650 mg 03/25/19 16:53 03/26/19 09:42 Tylenol - PO 650 mg Q4H PRN Administration PAIN OR FEVER Amiodarone HCl 200 mg 03/21/19 10:00 03/27/19 10:27 Cordarone - PO 200 mg DAILY [facility] Administration Amlodipine Besylate 5 mg 03/25/19 10:00 03/27/19 10:27 Norvasc - PO 5 mg DAILY [facility] Administration Aspirin 81 mg 03/21/19 10:00 03/27/19 10:26 Asa - PO 81 mg DAILY [facility] Administration Atorvastatin Calcium 40 mg 03/21/19 22:00 03/26/19 22:26 Lipitor - PO 40 mg HS [facility] Administration Clopidogrel Bisulfate 75 mg 03/21/19 10:00 03/27/19 10:27 Plavix - PO 75 mg DAILY [facility] Administration Digoxin 0.125 mg 03/26/19 10:00 03/27/19 10:26 Lanoxin - PO 0.125 mg DAILY [facility] Administration Furosemide 80 mg 03/25/19 14:00 03/27/19 06:27 Lasix - PO 80 mg BID@0600,1400 [facility] Administration Insulin Aspart 1 vial 03/21/19 22:00 03/27/19 12:43 Novolog Vial Sliding Scale - SQ Not Given ACHS [facility] Protocol Levothyroxine Sodium 100 mcg 03/24/19 07:00 03/27/19 06:25 Synthroid - PO 100 mcg DAILY@0700 [facility] Administration Metoprolol Tartrate 100 mg 03/25/19 10:30 03/27/19 10:26 Lopressor - PO 100 mg BID [facility] Administration Metoprolol Tartrate 5 mg 03/25/19 10:37 03/25/19 09:50 Lopressor Injection - IVPUSH 5 mg Q2H PRN Administration HR>160 Potassium Chloride 10 meq 03/25/19 12:45 03/27/19 10:27 K-Dur - PO 10 meq DAILY [facility] Administration Sacubitril/Valsartan 1 tab 03/25/19 10:00 03/27/19 10:27 Entresto 49 Mg-51 Mg Tablet PO 1 tab BID [facility] Administration Sitagliptin Phosphate 25 mg 03/24/19 07:00 03/27/19 06:42 Januvia - PO 25 mg DAILY@0700 [facility] Administration Impression 1. CKD 2. CHF 3. DM 4. HTN 5. hx CVA 6. a-fib 7. elevated kappa chains 8. fluid overload 9. KULDIP 10. ascites Plan - check cmp - check mag - cont lasix - volume status is improving - 2 grams sodium diet - avoid nsaids
[2019-03-27] MEDS: ACETAMINOPHEN 325 MG TABLET (FP) PO PRN (21:31)
[2019-03-27] MEDS: ATORVASTATIN CA 40 MG TABLET (FP) PO SCH (21:33)
[2019-03-28] MEDS: INSULIN SLIDING SCALE (NOVOLOG) 1 VIAL SQ SCH ×4 (06:21→22:04)
[2019-03-28] MEDS: LEVOTHYROXINE NA 100 MCG TABLET (FP) PO SCH (06:22)
[2019-03-28] MEDS: FUROSEMIDE 40 MG TABLET (FP) PO SCH ×2 (06:23→15:12)
[2019-03-28 07:32] LABS: ALBUMIN 2.9 g/dl (3.4-5.0); BILIRUBIN,TOTAL 1.2 mg/dL (0.2-1); BLOOD UREA NITROGEN 29.2 mg/dL (7-18); CALCIUM 8.8 mg/dL (8.5-10.1); CREATININE 1.8 mg/dL (0.55-1.3); MAGNESIUM 2.1 mg/dL (1.8-2.4); POTASSIUM 3.8 mmol/L (3.5-5.1); TOT PROT 7.4 g/dl (6.4-8.2)
--- NOTE | 2019-03-28 11:05 | PN ---
Progress Note (short form) - Note Progress Note: Neurology History of Present Illness: 73 y/o woman with a past medical history of DM, COPD(3-4L home O2), HFrEF(20-25% , January 2019), DM, MR, TR. Who presents to the ED with complaint of weeping serous BLE wounds x1 week prior to admission. Patient reports lightheadedness, weakness. slumping to her L- side. Witnessed by daughter, at bedside. Has fallen x3 in the last 3mo. Daughter was concerned on day of admission due to thin serous drainage from anterior and posterior wounds to BLE. Has had chronic intermittent BLE edema. Endorses being compliant with medications. <30d prior, had lasix 80mg QD decr to 40mg QD. Has been noncompliant with low-sodium diet. Two days prior, ate pork and chitlins. Has had a nonproductive cough for several months with orthopnea. Sleeps upright in armchair. 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 I was consulted for confusion. During my eval, she was awake, alert and knows name of [facility], knows its [place], knows . She may have had confusion from CHF exacerbation but seems improved and possibly near baseline mental status. Head CT completed, generalized volume loss with moderate ventricular dilation and moderate periventricular chronic microvascular ischemic disease changes. Left Mastoid effusion and trace right mastoid effusion. No new neurologic events overnight and patient reports being stable, mental status remains intact. Awaiting discharge. States she is going to SNF, no objection to this. R Allergies Allergy/AdvReac Type Severity Reaction Status Date / Time No Known Allergies Allergy Verified 03/20/19 13:31 Active Medications Acetaminophen (Tylenol -) 650 mg PO Q4H PRN PRN Reason: PAIN OR FEVER Last Admin: 03/27/19 21:31 Dose: 650 mg Amiodarone HCl (Cordarone -) 200 mg PO DAILY [facility] Last Admin: 03/27/19 10:27 Dose: 200 mg Amlodipine Besylate (Norvasc -) 5 mg PO DAILY [facility] Last Admin: 03/27/19 10:27 Dose: 5 mg Aspirin (Asa -) 81 mg PO DAILY [facility] Last Admin: 03/27/19 10:26 Dose: 81 mg Atorvastatin Calcium (Lipitor -) 40 mg PO HS [facility] Last Admin: 03/27/19 21:33 Dose: 40 mg Clopidogrel Bisulfate (Plavix -) 75 mg PO DAILY [facility] Last Admin: 03/27/19 10:27 Dose: 75 mg Digoxin (Lanoxin -) 0.125 mg PO DAILY [facility] Last Admin: 03/27/19 10:26 Dose: 0.125 mg Furosemide (Lasix -) 80 mg PO BID@0600,1400 [facility] Last Admin: 03/28/19 06:23 Dose: 80 mg Insulin Aspart (Novolog Vial Sliding Scale -) 1 vial SQ [facility]; Protocol Last Admin: 03/28/19 06:21 Dose: Not Given Levothyroxine Sodium (Synthroid -) 100 mcg PO DAILY@0700 [facility] Last Admin: 03/28/19 06:22 Dose: 100 mcg Metoprolol Tartrate (Lopressor -) 100 mg PO BID [facility] Last Admin: 03/27/19 21:33 Dose: 100 mg Metoprolol Tartrate (Lopressor Injection -) 5 mg IVPUSH Q2H PRN PRN Reason: HR>160 Last Admin: 03/25/19 09:50 Dose: 5 mg Potassium Chloride (K-Dur -) 10 meq PO DAILY [facility] Last Admin: 03/27/19 10:27 Dose: 10 meq Sacubitril/Valsartan (Entresto 49 Mg-51 Mg Tablet) 1 tab PO BID [facility] Last Admin: 03/27/19 23:49 Dose: 1 tab Sitagliptin Phosphate (Januvia -) 25 mg PO DAILY@0700 [facility] Last Admin: 03/28/19 06:22 Dose: 25 mg Physical Examination Vital Signs: Vital Signs Temperature 98.2 F 03/28/19 06:00 Pulse Rate 69 03/28/19 06:00 Respiratory Rate 20 03/28/19 06:00 Blood Pressure 165/104 H 03/28/19 06:00 O2 Sat by Pulse Oximetry (%) 98 03/27/19 21:00 Constitutional: Yes: No Distress, Calm, Obese Eyes: Yes: WNL, Conjunctiva Clear, EOM Intact, PERRL HENT: Yes: WNL, Atraumatic, Normocephalic Neck: Yes: WNL, Supple, Trachea Midline Cardiovascular: Yes: Regular Rate and Rhythm, S1, S2 Respiratory: Yes: Diminished, SOB on Exertion (bases) Gastrointestinal: Yes: Normal Bowel Sounds, Soft, Abdomen, Obese Renal/: Yes: WNL Breast(s): Yes: WNL Musculoskeletal: Yes: WNL Extremities: Yes: WNL Edema: Yes Edema: LLE: 2+, RLE: 2+ Peripheral Pulses WNL: Yes Integumentary: Yes: Erythema Neurological: Cn intact, no slurred speech, no facial droop, moves all extremities equally, sensory intact, gait deffered CBCD WBC 7.8 K/mm3 (4.0-10.0) 03/22/19 05:45 RBC 4.33 M/mm3 (3.60-5.2) 03/22/19 05:45 Hgb 12.3 GM/dL (10.7-15.3) 03/22/19 05:45 Hct 38.3 % (32.4-45.2) 03/22/19 05:45 MCV 88.5 fl (80-96) 03/22/19 05:45 MCHC 32.0 g/dl (32.0-36.0) 03/22/19 05:45 RDW 17.7 % (11.6-15.6) H 03/22/19 05:45 Plt Count 122 K/MM3 (134-434) L 03/22/19 05:45 MPV 9.3 fl (7.5-11.1) 03/22/19 05:45 CMP Sodium 140 mmol/L (136-145) 03/28/19 05:35 Potassium 3.8 mmol/L (3.5-5.1) 03/28/19 05:35 Chloride 100 mmol/L (98-107) 03/28/19 05:35 Carbon Dioxide 32 mmol/L (21-32) 03/28/19 05:35 Anion Gap 8 MMOL/L (8-16) 03/28/19 05:35 BUN 29.2 mg/dL (7-18) H 03/28/19 05:35 Creatinine 1.8 mg/dL (0.55-1.3) H 03/28/19 05:35 Random Glucose 82 mg/dL (74-106) 03/28/19 05:35 Calcium 8.8 mg/dL (8.5-10.1) 03/28/19 05:35 Total Bilirubin 1.2 mg/dL (0.2-1) H D 03/28/19 05:35 AST 27 U/L (15-37) 03/28/19 05:35 ALT 19 U/L (13-61) 03/28/19 05:35 Alkaline Phosphatase 100 U/L (45-117) 03/28/19 05:35 Total Protein 7.4 g/dl (6.4-8.2) 03/28/19 05:35 Albumin 2.9 g/dl (3.4-5.0) L 03/28/19 05:35 CARDIAC ENZYMES Creatine Kinase 145 U/L (26-192) 03/20/19 17:30 Troponin I < 0.02 ng/ml (0.00-0.05) 03/21/19 07:55 Plan: 73 y/o woman with a past medical history of DM, COPD(3-4L home O2), HFrEF(20-25% , January 2019), DM, MR, TR. Who presents to the ED with complaint of weeping serous BLE wounds x1 week prior to admission. Patient reports lightheadedness , weakness. slumping to her L- side. Witnessed by daughter, at bedside. Has fallen x3 in the last 3mo. Daughter was concerned on day of admission, due to thin serous drainage from anterior and posterior wounds to BLE. Has had chronic intermittent BLE edema. Endorses being compliant with medications. <30d prior, had lasix 80mg QD decr to 40mg QD. Has been noncompliant with low-sodium diet. Two days prior, ate pork and chitlins. Has had a nonproductive cough for several months with orthopnea. Sleeps upright in armchair. 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 I was consulted for confusion. During my eval, she was awake, alert and knows name of hospital, knows its [place], knows year. She may have had confusion from CHF exacerbation but seems improved and possibly near baseline mental status. Head CT completed, generalized volume loss with moderate ventricular dilation and moderate periventricular chronic microvascular ischemic disease changes. Left Mastoid effusion and trace right mastoid effusion. Continue medical optimization and cardiology mgmt. Monitor bp, maintain normotensive range. Neurologically mental status remains at baseline, awaiting possible discharge. States she is going to SNF, no objection to this.
[2019-03-28] MEDS: AMIODARONE HCL 200 MG TABLET (FP) PO SCH (11:12)
[2019-03-28] MEDS: METOPROLOL TARTRATE 50 MG TABLET (FP) PO SCH ×2 (11:39→21:55)
[2019-03-28] MEDS: ASPIRIN 81 MG CHEWABLE TABLETS PO SCH (11:39)
[2019-03-28] MEDS: DIGOXIN 0.125 MG TABLET (FP) PO SCH (11:39)
[2019-03-28] MEDS: amLODIPine BESYLATE 5 MG TABLET (FP) PO SCH (11:40)
[2019-03-28] MEDS: POTASSIUM CHLORIDE TABS 10 MEQ TABLET.ER (FP) PO SCH (11:40)
[2019-03-28] MEDS: CLOPIDOGREL BISULFATE 75 MG TABLET (FP) PO SCH (11:41)
--- NOTE | 2019-03-28 11:41 | PN ---
Progress Note, Physician - Current Medication List Current Medications: Active Medications Acetaminophen (Tylenol -) 650 mg PO Q4H PRN PRN Reason: PAIN OR FEVER Last Admin: 03/27/19 21:31 Dose: 650 mg Amiodarone HCl (Cordarone -) 200 mg PO DAILY [facility] Last Admin: 03/27/19 10:27 Dose: 200 mg Amlodipine Besylate (Norvasc -) 5 mg PO DAILY [facility] Last Admin: 03/27/19 10:27 Dose: 5 mg Aspirin (Asa -) 81 mg PO DAILY [facility] Last Admin: 03/27/19 10:26 Dose: 81 mg Atorvastatin Calcium (Lipitor -) 40 mg PO HS [facility] Last Admin: 03/27/19 21:33 Dose: 40 mg Clopidogrel Bisulfate (Plavix -) 75 mg PO DAILY [facility] Last Admin: 03/27/19 10:27 Dose: 75 mg Digoxin (Lanoxin -) 0.125 mg PO DAILY [facility] Last Admin: 03/27/19 10:26 Dose: 0.125 mg Furosemide (Lasix -) 80 mg PO BID@0600,1400 [facility] Last Admin: 03/28/19 06:23 Dose: 80 mg Insulin Aspart (Novolog Vial Sliding Scale -) 1 vial SQ [facility]; Protocol Last Admin: 03/28/19 06:21 Dose: Not Given Levothyroxine Sodium (Synthroid -) 100 mcg PO DAILY@0700 [facility] Last Admin: 03/28/19 06:22 Dose: 100 mcg Metoprolol Tartrate (Lopressor -) 100 mg PO BID [facility] Last Admin: 03/27/19 21:33 Dose: 100 mg Metoprolol Tartrate (Lopressor Injection -) 5 mg IVPUSH Q2H PRN PRN Reason: HR>160 Last Admin: 03/25/19 09:50 Dose: 5 mg Potassium Chloride (K-Dur -) 10 meq PO DAILY [facility] Last Admin: 03/27/19 10:27 Dose: 10 meq Sacubitril/Valsartan (Entresto 49 Mg-51 Mg Tablet) 1 tab PO BID [facility] Last Admin: 03/27/19 23:49 Dose: 1 tab Sitagliptin Phosphate (Januvia -) 25 mg PO DAILY@0700 [facility] Last Admin: 03/28/19 06:22 Dose: 25 mg - Objective Vital Signs: Vital Signs Temperature 98.2 F 03/28/19 06:00 Pulse Rate 69 03/28/19 06:00 Respiratory Rate 20 03/28/19 06:00 Blood Pressure 165/104 H 03/28/19 06:00 O2 Sat by Pulse Oximetry (%) 98 03/27/19 21:00 Cardiovascular: Yes: Regular Rate and Rhythm Respiratory: Yes: Regular, CTA Bilaterally Gastrointestinal: Yes: Normal Bowel Sounds, Soft Labs: CBC, BMP 03/22/19 05:45 03/28/19 05:35 INR, PTT INR 1.13 (0.83-1.09) H 03/21/19 07:55 Assessment/Plan - Problems (1) Acute exacerbation of CHF (congestive heart failure) Assessment/Plan: iv lasix bid---po monitor lytes and renal function daily weights Code(s): I50.9 - HEART FAILURE, UNSPECIFIED Qualifiers: Heart failure type: systolic Qualified Code(s): I50.23 - Acute on chronic systolic (congestive) heart failure (2) Edema Assessment/Plan: iv lasix--po no dvt legs warpped with alexa warps, elevate Code(s): R60.9 - EDEMA, UNSPECIFIED (3) Diabetes 1.5, managed as type 2 Assessment/Plan: hba1c 6.8 sliding scale Code(s): E10.9 - TYPE 1 DIABETES MELLITUS WITHOUT COMPLICATIONS (4) Hypothyroid Assessment/Plan: tsh noted inc synthroid to 50mcg Code(s): E03.9 - HYPOTHYROIDISM, UNSPECIFIED (5) Acute kidney injury Assessment/Plan: renal sono renal consult noted Code(s): N17.9 - ACUTE KIDNEY FAILURE, UNSPECIFIED (6) Confusion Assessment/Plan: Neuro noted improved today (7) Htn Assessment/Plan: meds adjusted dc planning--pt
[2019-03-28] MEDS: SACUBITRIL/VALSARTAN 49 MG-51 MG TABLET PO SCH ×2 (11:42→21:56)
--- NOTE | 2019-03-28 13:49 | PN ---
Progress Note, Physician History of Present Illness: Pt seen and examined at bedside. She is awake and alert. She denies shortness of breath. - Current Medication List Current Medications: Active Medications Acetaminophen (Tylenol -) 650 mg PO Q4H PRN PRN Reason: PAIN OR FEVER Last Admin: 03/27/19 21:31 Dose: 650 mg Amiodarone HCl (Cordarone -) 200 mg PO DAILY [facility] Last Admin: 03/27/19 10:27 Dose: 200 mg Amlodipine Besylate (Norvasc -) 5 mg PO DAILY [facility] Last Admin: 03/28/19 11:40 Dose: 5 mg Aspirin (Asa -) 81 mg PO DAILY [facility] Last Admin: 03/28/19 11:39 Dose: 81 mg Atorvastatin Calcium (Lipitor -) 40 mg PO HS [facility] Last Admin: 03/27/19 21:33 Dose: 40 mg Clopidogrel Bisulfate (Plavix -) 75 mg PO DAILY [facility] Last Admin: 03/28/19 11:41 Dose: 75 mg Digoxin (Lanoxin -) 0.125 mg PO DAILY [facility] Last Admin: 03/28/19 11:39 Dose: 0.125 mg Furosemide (Lasix -) 80 mg PO BID@0600,1400 [facility] Last Admin: 03/28/19 06:23 Dose: 80 mg Insulin Aspart (Novolog Vial Sliding Scale -) 1 vial SQ [facility]; Protocol Last Admin: 03/28/19 12:32 Dose: Not Given Levothyroxine Sodium (Synthroid -) 100 mcg PO DAILY@0700 [facility] Last Admin: 03/28/19 06:22 Dose: 100 mcg Metoprolol Tartrate (Lopressor -) 100 mg PO BID [facility] Last Admin: 03/28/19 11:39 Dose: 100 mg Metoprolol Tartrate (Lopressor Injection -) 5 mg IVPUSH Q2H PRN PRN Reason: HR>160 Last Admin: 03/25/19 09:50 Dose: 5 mg Potassium Chloride (K-Dur -) 10 meq PO DAILY [facility] Last Admin: 03/28/19 11:40 Dose: 10 meq Sacubitril/Valsartan (Entresto 49 Mg-51 Mg Tablet) 1 tab PO BID [facility] Last Admin: 03/28/19 11:42 Dose: 1 tab Sitagliptin Phosphate (Januvia -) 25 mg PO DAILY@0700 [facility] Last Admin: 03/28/19 06:22 Dose: 25 mg - Objective Vital Signs: Vital Signs Temperature 98.2 F 03/28/19 06:00 Pulse Rate 73 03/28/19 11:39 Respiratory Rate 20 03/28/19 06:00 Blood Pressure 165/104 H 03/28/19 06:00 O2 Sat by Pulse Oximetry (%) 98 03/27/19 21:00 Constitutional: Yes: Calm Eyes: Yes: Conjunctiva Clear HENT: Yes: Atraumatic Neck: Yes: Supple Cardiovascular: Yes: S1, S2 Respiratory: Yes: CTA Bilaterally Gastrointestinal: Yes: Soft Genitourinary: Yes: WNL Edema: Yes Edema: LLE: Trace, RLE: Trace Integumentary: Yes: Venous Stasis Changes Neurological: Yes: Oriented Psychiatric: Yes: Oriented Labs: CBC, BMP 03/22/19 05:45 03/28/19 05:35 INR, PTT INR 1.13 (0.83-1.09) H 03/21/19 07:55 Problem List - Problems (1) Acute exacerbation of CHF (congestive heart failure) Code(s): I50.9 - HEART FAILURE, UNSPECIFIED Qualifiers: Heart failure type: systolic Qualified Code(s): I50.23 - Acute on chronic systolic (congestive) heart failure (2) Edema Code(s): R60.9 - EDEMA, UNSPECIFIED Qualifiers: Edema type: due to malnutrition (3) Acute kidney injury Code(s): N17.9 - ACUTE KIDNEY FAILURE, UNSPECIFIED (4) CKD (chronic kidney disease) Code(s): N18.9 - CHRONIC KIDNEY DISEASE, UNSPECIFIED Qualifiers: Chronic kidney disease stage: stage 2 (mild) Qualified Code(s): N18.2 - Chronic kidney disease, stage 2 (mild) Assessment/Plan Current Medications Generic Name Dose Route Start Last Admin Trade Name Freq PRN Reason Stop Dose Admin Acetaminophen 650 mg 03/25/19 16:53 03/27/19 21:31 Tylenol - PO 650 mg Q4H PRN Administration PAIN OR FEVER Amiodarone HCl 200 mg 03/21/19 10:00 03/27/19 10:27 Cordarone - PO 200 mg DAILY [facility] Administration Amlodipine Besylate 5 mg 03/25/19 10:00 03/28/19 11:40 Norvasc - PO 5 mg DAILY [facility] Administration Aspirin 81 mg 03/21/19 10:00 03/28/19 11:39 Asa - PO 81 mg DAILY [facility] Administration Atorvastatin Calcium 40 mg 03/21/19 22:00 03/27/19 21:33 Lipitor - PO 40 mg HS [facility] Administration Clopidogrel Bisulfate 75 mg 03/21/19 10:00 03/28/19 11:41 Plavix - PO 75 mg DAILY [facility] Administration Digoxin 0.125 mg 03/26/19 10:00 03/28/19 11:39 Lanoxin - PO 0.125 mg DAILY [facility] Administration Furosemide 80 mg 03/25/19 14:00 03/28/19 06:23 Lasix - PO 80 mg BID@0600,1400 [facility] Administration Insulin Aspart 1 vial 03/21/19 22:00 03/28/19 12:32 Novolog Vial Sliding Scale - SQ Not Given ACHS [facility] Protocol Levothyroxine Sodium 100 mcg 03/24/19 07:00 03/28/19 06:22 Synthroid - PO 100 mcg DAILY@0700 [facility] Administration Metoprolol Tartrate 100 mg 03/25/19 10:30 03/28/19 11:39 Lopressor - PO 100 mg BID [facility] Administration Metoprolol Tartrate 5 mg 03/25/19 10:37 03/25/19 09:50 Lopressor Injection - IVPUSH 5 mg Q2H PRN Administration HR>160 Potassium Chloride 10 meq 03/25/19 12:45 03/28/19 11:40 K-Dur - PO 10 meq DAILY [facility] Administration Sacubitril/Valsartan 1 tab 03/25/19 10:00 03/28/19 11:42 Entresto 49 Mg-51 Mg Tablet PO 1 tab BID [facility] Administration Sitagliptin Phosphate 25 mg 03/24/19 07:00 03/28/19 06:22 Januvia - PO 25 mg DAILY@0700 [facility] Administration Laboratory Tests 03/28/19 05:35 Magnesium 2.1 Impression 1. CKD 2. CHF 3. DM 4. HTN 5. hx CVA 6. a-fib 7. elevated kappa chains 8. fluid overload 9. KULDIP 10. ascites Plan - cont to monitor renal function - cont po lasix - mag level is normal - volume status is improving - 2 grams sodium diet - avoid nsaids
[2019-03-28] MEDS: ATORVASTATIN CA 40 MG TABLET (FP) PO SCH (21:55)
[2019-03-29] MEDS: LEVOTHYROXINE NA 100 MCG TABLET (FP) PO SCH (06:14)
[2019-03-29] MEDS: FUROSEMIDE 40 MG TABLET (FP) PO SCH (06:14)
[2019-03-29] MEDS: ACETAMINOPHEN 325 MG TABLET (FP) PO PRN (06:15)
[2019-03-29] MEDS: INSULIN SLIDING SCALE (NOVOLOG) 1 VIAL SQ SCH (06:26)
--- NOTE | 2019-03-29 08:06 | DS ---
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 (Acute) Hospital Course: - Problems (1) Acute exacerbation of CHF (congestive heart failure) Assessment/Plan: iv lasix bid---po monitor lytes and renal function daily weights Code(s): I50.9 - HEART FAILURE, UNSPECIFIED Qualifiers: Heart failure type: systolic Qualified Code(s): I50.23 - Acute on chronic systolic (congestive) heart failure (2) Edema Assessment/Plan: iv lasix--po no dvt legs warpped with alexa warps, elevate Code(s): R60.9 - EDEMA, UNSPECIFIED (3) Diabetes 1.5, managed as type 2 Assessment/Plan: hba1c 6.8 sliding scale Code(s): E10.9 - TYPE 1 DIABETES MELLITUS WITHOUT COMPLICATIONS (4) Hypothyroid Assessment/Plan: tsh noted inc synthroid to 50mcg Code(s): E03.9 - HYPOTHYROIDISM, UNSPECIFIED (5) Acute kidney injury Assessment/Plan: renal sono renal consult noted Code(s): N17.9 - ACUTE KIDNEY FAILURE, UNSPECIFIED (6) Confusion Assessment/Plan: Neuro noted improved today (7) Htn Assessment/Plan: meds adjusted dc planning--pt Condition: Improved - Instructions Diet, Activity, Other Instructions: follow up labs on friday Referrals: Tony Golden MD [Primary Care Provider] - Disposition: HALF-WAY FACILITY - Home Medications Comprehensive Discharge Medication List: Ambulatory Orders Atorvastatin Ca [Lipitor] 40 mg PO HS #30 tablet 12/30/16 Clopidogrel Bisulfate [Plavix -] 75 mg PO DAILY #30 tablet 12/30/16 Amiodarone HCl 200 mg PO DAILY 01/06/19 Aspirin [ASA -] 81 mg PO DAILY 01/06/19 Metoprolol Tartrate [Lopressor -] 25 mg PO BID #60 tablet 01/08/19 Amlodipine Besylate [Norvasc -] 5 mg PO DAILY tablet 03/26/19 Digoxin [Lanoxin -] 0.125 mg PO DAILY tablet 03/26/19 Furosemide [Lasix -] 80 mg PO BID@0600,1400 tablet 03/26/19 Insulin Sliding Scale [Novolog Vial Sliding Scale -] 1 vial SQ [facility] units 03/26 Levothyroxine [Synthroid -] 100 mcg PO DAILY@0700 tablet 03/26/19 Metoprolol Tartrate [Lopressor -] 100 mg PO BID tablet 03/26/19 Potassium Chloride [K-Dur -] 10 meq PO DAILY tablet.er 03/26/19 Sacubitril/Valsartan [Entresto 49 mg-51 mg Tablet] 1 tab PO BID tablet Sitagliptin Phosphate [Januvia -] 25 mg PO DAILY@0700 tab 03/26/19
--- NOTE | 2019-03-29 09:39 | PN ---
Progress Note (short form) - Note Progress Note: Neurology History of Present Illness: 73 y/o woman with a past medical history of DM, COPD(3-4L home O2), HFrEF(20-25% , January 2019), DM, MR, TR. Who presents to the ED with complaint of weeping serous BLE wounds x1 week prior to admission. Patient reports lightheadedness, weakness. slumping to her L- side. Witnessed by daughter, at bedside. Has fallen x3 in the last 3mo. Daughter was concerned on day of admission due to thin serous drainage from anterior and posterior wounds to BLE. Has had chronic intermittent BLE edema. Endorses being compliant with medications. <30d prior, had lasix 80mg QD decr to 40mg QD. Has been noncompliant with low-sodium diet. Two days prior, ate pork and chitlins. Has had a nonproductive cough for several months with orthopnea. Sleeps upright in armchair. Patient endorses ability to ambulate w/o assistive device, lives independently, no [employer], daughter lives across street, grandson lives above her. I was consulted for confusion. During my eval, she was awake, alert and knows name of [facility], knows its [facility], knows . She may have had confusion from CHF exacerbation but seems improved and possibly near baseline mental status. Head CT completed, generalized volume loss with moderate ventricular dilation and moderate periventricular chronic microvascular ischemic disease changes. Left Mastoid effusion and trace right mastoid effusion. No new neurologic events overnight and patient reports being stable, mental status remains intact. Awaiting discharge. States she is going to SNF, no objection to this. Discharge summary noted, no objection to discharge. Allergies Allergy/AdvReac Type Severity Reaction Status Date / Time No Known Allergies Allergy Verified 03/20/19 13:31 Active Medications Acetaminophen (Tylenol -) 650 mg PO Q4H PRN PRN Reason: PAIN OR FEVER Last Admin: 03/29/19 06:15 Dose: 650 mg Amiodarone HCl (Cordarone -) 200 mg PO DAILY [facility] Last Admin: 03/28/19 11:12 Dose: 200 mg Amlodipine Besylate (Norvasc -) 5 mg PO DAILY [facility] Last Admin: 03/28/19 11:40 Dose: 5 mg Aspirin (Asa -) 81 mg PO DAILY [facility] Last Admin: 03/28/19 11:39 Dose: 81 mg Atorvastatin Calcium (Lipitor -) 40 mg PO HS [facility] Last Admin: 03/28/19 21:55 Dose: 40 mg Clopidogrel Bisulfate (Plavix -) 75 mg PO DAILY [facility] Last Admin: 03/28/19 11:41 Dose: 75 mg Digoxin (Lanoxin -) 0.125 mg PO DAILY [facility] Last Admin: 03/28/19 11:39 Dose: 0.125 mg Furosemide (Lasix -) 80 mg PO BID@0600,1400 [facility] Last Admin: 03/29/19 06:14 Dose: 80 mg Insulin Aspart (Novolog Vial Sliding Scale -) 1 vial SQ [facility]; Protocol Last Admin: 03/29/19 06:26 Dose: Not Given Levothyroxine Sodium (Synthroid -) 100 mcg PO DAILY@0700 [facility] Last Admin: 03/29/19 06:14 Dose: 100 mcg Metoprolol Tartrate (Lopressor -) 100 mg PO BID [facility] Last Admin: 03/28/19 21:55 Dose: 100 mg Metoprolol Tartrate (Lopressor Injection -) 5 mg IVPUSH Q2H PRN PRN Reason: HR>160 Last Admin: 03/25/19 09:50 Dose: 5 mg Potassium Chloride (K-Dur -) 10 meq PO DAILY [facility] Last Admin: 03/28/19 11:40 Dose: 10 meq Sacubitril/Valsartan (Entresto 49 Mg-51 Mg Tablet) 1 tab PO BID [facility] Last Admin: 03/28/19 21:56 Dose: 1 tab Sitagliptin Phosphate (Januvia -) 25 mg PO DAILY@0700 [facility] Last Admin: 03/29/19 06:14 Dose: 25 mg Physical Examination Vital Signs: Vital Signs Period Temp Pulse Resp BP Sys/Sommer Pulse Ox Last 24 Hr 97.7 F-98.4 F 61-73 20-20 131-171/68-100 98 Constitutional: Yes: No Distress, Calm, Obese Eyes: Yes: WNL, Conjunctiva Clear, EOM Intact, PERRL HENT: Yes: WNL, Atraumatic, Normocephalic Neck: Yes: WNL, Supple, Trachea Midline Cardiovascular: Yes: Regular Rate and Rhythm, S1, S2 Respiratory: Yes: Diminished, SOB on Exertion (bases) Gastrointestinal: Yes: Normal Bowel Sounds, Soft, Abdomen, Obese Renal/: Yes: WNL Breast(s): Yes: WNL Musculoskeletal: Yes: WNL Extremities: Yes: WNL Edema: Yes Edema: LLE: 2+, RLE: 2+ Peripheral Pulses WNL: Yes Integumentary: Yes: Erythema Neurological: Cn intact, no slurred speech, no facial droop, moves all extremities equally, sensory intact, gait deffered CBCD WBC 7.8 K/mm3 (4.0-10.0) 03/22/19 05:45 RBC 4.33 M/mm3 (3.60-5.2) 03/22/19 05:45 Hgb 12.3 GM/dL (10.7-15.3) 03/22/19 05:45 Hct 38.3 % (32.4-45.2) 03/22/19 05:45 MCV 88.5 fl (80-96) 03/22/19 05:45 MCHC 32.0 g/dl (32.0-36.0) 03/22/19 05:45 RDW 17.7 % (11.6-15.6) H 03/22/19 05:45 Plt Count 122 K/MM3 (134-434) L 03/22/19 05:45 MPV 9.3 fl (7.5-11.1) 03/22/19 05:45 CMP Sodium 140 mmol/L (136-145) 03/28/19 05:35 Potassium 3.8 mmol/L (3.5-5.1) 03/28/19 05:35 Chloride 100 mmol/L (98-107) 03/28/19 05:35 Carbon Dioxide 32 mmol/L (21-32) 03/28/19 05:35 Anion Gap 8 MMOL/L (8-16) 03/28/19 05:35 BUN 29.2 mg/dL (7-18) H 03/28/19 05:35 Creatinine 1.8 mg/dL (0.55-1.3) H 03/28/19 05:35 Random Glucose 82 mg/dL (74-106) 03/28/19 05:35 Calcium 8.8 mg/dL (8.5-10.1) 03/28/19 05:35 Total Bilirubin 1.2 mg/dL (0.2-1) H D 03/28/19 05:35 AST 27 U/L (15-37) 03/28/19 05:35 ALT 19 U/L (13-61) 03/28/19 05:35 Alkaline Phosphatase 100 U/L (45-117) 03/28/19 05:35 Total Protein 7.4 g/dl (6.4-8.2) 03/28/19 05:35 Albumin 2.9 g/dl (3.4-5.0) L 03/28/19 05:35 CARDIAC ENZYMES Creatine Kinase 145 U/L (26-192) 03/20/19 17:30 Troponin I < 0.02 ng/ml (0.00-0.05) 03/21/19 07:55 Plan: 73 y/o woman with a past medical history of DM, COPD(3-4L home O2), HFrEF(20-25% , January 2019), DM, MR, TR. Who presents to the ED with complaint of weeping serous BLE wounds x1 week prior to admission. Patient reports lightheadedness , weakness. slumping to her L- side. Witnessed by daughter, at bedside. Has fallen x3 in the last 3mo. Daughter was concerned on day of admission, due to thin serous drainage from anterior and posterior wounds to BLE. Has had chronic intermittent BLE edema. Endorses being compliant with medications. <30d prior, had lasix 80mg QD decr to 40mg QD. Has been noncompliant with low-sodium diet. Two days prior, ate pork and chitlins. Has had a nonproductive cough for several months with orthopnea. Sleeps upright in armchair. Patient endorses ability to ambulate w/o assistive device, lives independently, no [employer], daughter lives across street, grandson lives above her. I was consulted for confusion. During my eval, she was awake, alert and knows name of hospital, knows its [place], knows year. She may have had confusion from CHF exacerbation but seems improved and possibly near baseline mental status. Head CT completed, generalized volume loss with moderate ventricular dilation and moderate periventricular chronic microvascular ischemic disease changes. Left Mastoid effusion and trace right mastoid effusion. Continue medical optimization and cardiology mgmt. Monitor bp, maintain normotensive range. Neurologically mental status remains at baseline, possibly d/c to SNF today. Outpatient follow up.
[2019-03-29] MEDS: METOPROLOL TARTRATE 50 MG TABLET (FP) PO SCH (09:58)
[2019-03-29] MEDS: DIGOXIN 0.125 MG TABLET (FP) PO SCH (09:58)
[2019-03-29] MEDS: CLOPIDOGREL BISULFATE 75 MG TABLET (FP) PO SCH (09:59)
[2019-03-29] MEDS: AMIODARONE HCL 200 MG TABLET (FP) PO SCH (09:59)
[2019-03-29] MEDS: POTASSIUM CHLORIDE TABS 10 MEQ TABLET.ER (FP) PO SCH (09:59)
[2019-03-29] MEDS: ASPIRIN 81 MG CHEWABLE TABLETS PO SCH (09:59)
[2019-03-29] MEDS: SACUBITRIL/VALSARTAN 49 MG-51 MG TABLET PO SCH (09:59)
[2019-03-29 10:03] VITALS: PULSE 71
--- NOTE | 2019-03-29 10:52 | PN ---
Progress Note, Physician History of Present Illness: Pt seen and examined at bedside. She is awake and alert. She is eager to go home. She denies shortness of breath. SHe will follow with me in the office. - Current Medication List Current Medications: Active Medications Acetaminophen (Tylenol -) 650 mg PO Q4H PRN PRN Reason: PAIN OR FEVER Last Admin: 03/29/19 06:15 Dose: 650 mg Amiodarone HCl (Cordarone -) 200 mg PO DAILY [facility] Last Admin: 03/29/19 09:59 Dose: 200 mg Amlodipine Besylate (Norvasc -) 5 mg PO DAILY [facility] Last Admin: 03/28/19 11:40 Dose: 5 mg Aspirin (Asa -) 81 mg PO DAILY [facility] Last Admin: 03/29/19 09:59 Dose: 81 mg Atorvastatin Calcium (Lipitor -) 40 mg PO HS [facility] Last Admin: 03/28/19 21:55 Dose: 40 mg Clopidogrel Bisulfate (Plavix -) 75 mg PO DAILY [facility] Last Admin: 03/29/19 09:59 Dose: 75 mg Digoxin (Lanoxin -) 0.125 mg PO DAILY [facility] Last Admin: 03/29/19 09:58 Dose: 0.125 mg Furosemide (Lasix -) 80 mg PO BID@0600,1400 [facility] Last Admin: 03/29/19 06:14 Dose: 80 mg Insulin Aspart (Novolog Vial Sliding Scale -) 1 vial SQ [facility]; Protocol Last Admin: 03/29/19 06:26 Dose: Not Given Levothyroxine Sodium (Synthroid -) 100 mcg PO DAILY@0700 [facility] Last Admin: 03/29/19 06:14 Dose: 100 mcg Metoprolol Tartrate (Lopressor -) 100 mg PO BID [facility] Last Admin: 03/29/19 09:58 Dose: 100 mg Metoprolol Tartrate (Lopressor Injection -) 5 mg IVPUSH Q2H PRN PRN Reason: HR>160 Last Admin: 03/25/19 09:50 Dose: 5 mg Potassium Chloride (K-Dur -) 10 meq PO DAILY [facility] Last Admin: 03/29/19 09:59 Dose: 10 meq Sacubitril/Valsartan (Entresto 49 Mg-51 Mg Tablet) 1 tab PO BID [facility] Last Admin: 03/29/19 09:59 Dose: 1 tab Sitagliptin Phosphate (Januvia -) 25 mg PO DAILY@0700 [facility] Last Admin: 03/29/19 06:14 Dose: 25 mg - Objective Vital Signs: Vital Signs Temperature 97.9 F 03/29/19 05:00 Pulse Rate 71 03/29/19 09:58 Respiratory Rate 20 03/29/19 05:00 Blood Pressure 171/100 H 03/29/19 05:00 O2 Sat by Pulse Oximetry (%) 98 03/28/19 21:00 Constitutional: Yes: Calm Eyes: Yes: Conjunctiva Clear HENT: Yes: Atraumatic Neck: Yes: Supple Cardiovascular: Yes: S1, S2 Respiratory: Yes: CTA Bilaterally Gastrointestinal: Yes: Soft Genitourinary: Yes: WNL Musculoskeletal: Yes: WNL Edema: Yes Edema: LLE: Trace, RLE: Trace Neurological: Yes: Oriented Psychiatric: Yes: Oriented Labs: CBC, BMP 03/22/19 05:45 03/28/19 05:35 INR, PTT INR 1.13 (0.83-1.09) H 03/21/19 07:55 Problem List - Problems (1) Acute exacerbation of CHF (congestive heart failure) Code(s): I50.9 - HEART FAILURE, UNSPECIFIED Qualifiers: Heart failure type: systolic Qualified Code(s): I50.23 - Acute on chronic systolic (congestive) heart failure (2) Edema Code(s): R60.9 - EDEMA, UNSPECIFIED Qualifiers: Edema type: due to malnutrition (3) Acute kidney injury Code(s): N17.9 - ACUTE KIDNEY FAILURE, UNSPECIFIED (4) CKD (chronic kidney disease) Code(s): N18.9 - CHRONIC KIDNEY DISEASE, UNSPECIFIED Qualifiers: Chronic kidney disease stage: stage 2 (mild) Qualified Code(s): N18.2 - Chronic kidney disease, stage 2 (mild) Assessment/Plan Current Medications Generic Name Dose Route Start Last Admin Trade Name Freq PRN Reason Stop Dose Admin Acetaminophen 650 mg 03/25/19 16:53 03/29/19 06:15 Tylenol - PO 650 mg Q4H PRN Administration PAIN OR FEVER Amiodarone HCl 200 mg 03/21/19 10:00 03/29/19 09:59 Cordarone - PO 200 mg DAILY [facility] Administration Amlodipine Besylate 5 mg 03/25/19 10:00 03/28/19 11:40 Norvasc - PO 5 mg DAILY [facility] Administration Aspirin 81 mg 03/21/19 10:00 03/29/19 09:59 Asa - PO 81 mg DAILY [facility] Administration Atorvastatin Calcium 40 mg 03/21/19 22:00 03/28/19 21:55 Lipitor - PO 40 mg HS [facility] Administration Clopidogrel Bisulfate 75 mg 03/21/19 10:00 03/29/19 09:59 Plavix - PO 75 mg DAILY [facility] Administration Digoxin 0.125 mg 03/26/19 10:00 03/29/19 09:58 Lanoxin - PO 0.125 mg DAILY [facility] Administration Furosemide 80 mg 03/25/19 14:00 03/29/19 06:14 Lasix - PO 80 mg BID@0600,1400 [facility] Administration Insulin Aspart 1 vial 03/21/19 22:00 03/29/19 06:26 Novolog Vial Sliding Scale - SQ Not Given ACHS [facility] Protocol Levothyroxine Sodium 100 mcg 03/24/19 07:00 03/29/19 06:14 Synthroid - PO 100 mcg DAILY@0700 [facility] Administration Metoprolol Tartrate 100 mg 03/25/19 10:30 03/29/19 09:58 Lopressor - PO 100 mg BID [facility] Administration Metoprolol Tartrate 5 mg 03/25/19 10:37 03/25/19 09:50 Lopressor Injection - IVPUSH 5 mg Q2H PRN Administration HR>160 Potassium Chloride 10 meq 03/25/19 12:45 03/29/19 09:59 K-Dur - PO 10 meq DAILY [facility] Administration Sacubitril/Valsartan 1 tab 03/25/19 10:00 03/29/19 09:59 Entresto 49 Mg-51 Mg Tablet PO 1 tab BID [facility] Administration Sitagliptin Phosphate 25 mg 03/24/19 07:00 03/29/19 06:14 Januvia - PO 25 mg DAILY@0700 [facility] Administration Impression 1. CKD 2. CHF 3. DM 4. HTN 5. hx CVA 6. a-fib 7. elevated kappa chains 8. fluid overload 9. KULDIP 10. ascites Plan - renal function stable - will need outpt follow up after discharge - cont lasix - low sodium diet - avoid nsaids
[2019-03-29 11:16] VITALS: BP 139/77; TEMP 97.7
== END 2019-03-29 11:24 | DRG 291 ==
LOC: JER 13:24 → JERBED 16:50 → J4W 03-21 21:36
PROVIDERS: ADMIT Family Medicine; ATTEND Family Medicine
DX: I13.0 Hypertensive heart and chronic kidney disease with heart failure and stage 1 through stage 4 chronic kidney disease, or unspecified chronic kidney disease (principal); I50.23 Acute on chronic systolic (congestive) heart failure; N17.9 Acute kidney failure, unspecified; I69.354 Hemiplegia and hemiparesis following cerebral infarction affecting left non-dominant side; L97.319 Non-pressure chronic ulcer of right ankle with unspecified severity; E46 Unspecified protein-calorie malnutrition; E11.621 Type 2 diabetes mellitus with foot ulcer; I48.91 Unspecified atrial fibrillation; J44.9 Chronic obstructive pulmonary disease, unspecified; Z99.81 Dependence on supplemental oxygen; I34.0 Nonrheumatic mitral (valve) insufficiency; I36.1 Nonrheumatic tricuspid (valve) insufficiency; R29.6 Repeated falls; Z91.14 Patient's other noncompliance with medication regimen; Z87.891 Personal history of nicotine dependence; Z68.34 Body mass index [BMI] 34.0-34.9, adult; I27.20 Pulmonary hypertension, unspecified; E66.01 Morbid (severe) obesity due to excess calories; E11.22 Type 2 diabetes mellitus with diabetic chronic kidney disease; N18.2 Chronic kidney disease, stage 2 (mild); E06.3 Autoimmune thyroiditis; Z79.4 Long term (current) use of insulin
CPT/HCPCS: 36415; 70450-TC; 71045-TC-FY; 76775-TC; 80048; 80053; 81003; 81015; 82550; 82607; 82962; 83036; 83735; 83880; 84439; 84443; 84480; 84484; 85025; 85027; 85610; 86593; 93005; 93010; 93306-TC; 93970-TC; 97116-GP; 97161-GP; 99284-25

== ENCOUNTER 2019-04-24 15:43 | Inpatient (IN) | payer OTHER ==
--- NOTE | 2019-04-24 16:14 | PDOC ---
History of Present Illness - General Chief Complaint: Wound Stated Complaint: WOUND Time Seen by Provider: 04/24/19 16:14 History Source: Patient, Family, Residential Records Exam Limitations: No Limitations - History of Present Illness Initial Comments: 73 year old female with PMH HTN, HLD, prediabetes, hypothyroidism, hypokalemia, former nicotine user, HFrEF (20-25% 01/2019) on digoxin, COPD on 3-4L home O2, CKD, CVA, SVT with abberancy, ATN, TR/MR presented to ED for bilateral LE wounds x1 month. Pt reported she was recently discharged from [facility] for physical therapy Friday, and had her first home health nurse visit today, who suggested she come to the ED for medical evaluation. Pt reported pain to the site of the wounds. Pt denied fever, chills, nausea, vomiting, lightheadedness, chest pain, shortness of breath, lower extremity swelling. ROS General: denied fever, chills, generalized weakness. HEENT: denied sore throat, rhinorrhea, ear pain. Cardiovascular: denied chest pain, palpitations, syncope, diaphoresis. Respiratory: denied shortness of breath, cough, sputum production, hemoptysis. Gastrointestinal: denied abdominal pain, nausea, vomiting, diarrhea, constipation, blood in stool. Genitourinary: denied dysuria, increased urinary frequency, hematuria, urinary incontinence, flank pain. Back: denied back pain. Musculoskeletal: denied joint pain, muscle pain, joint swelling. Neurological: denied headache, dizziness, numbness, tingling, weakness. Integumentary: admitted to LE wounds. denied rash, laceration, abrasion. Hematologic/Lymphatic: denied bruising or bleeding. PE Constitutional: Well-nourished, Well-developed, appearing stated age. HEENT: head is normocephalic, atraumatic. EOMI. PERRLA. Neck: supple. Full ROM. Cardiovascular: regular heart rhythm. no murmurs. no pericardial friction rub. Respiratory: clear to auscultation bilaterally. no crackles, rhonchi or wheezing. no stridor. Gastrointestinal: soft, nontender. normal bowel sounds. no rebound, guarding, masses. Extremities: peripheral pulses intact. no lower extremity edema. Neurological: CN 2-12 grossly intact. moves all four extremities. Psych: awake, alert, oriented x3. follows commands. answers questions appropriately. Right lower extremity: multiple ulcers to the lower leg, almost circumferential , eschar, surrounding erythema, mild warmth. Left lower extremity: wound to posterior lower extremity, eschar, no surrounding erythema, no warmth. Past History - Past Medical History Allergies/Adverse Reactions: Allergies Allergy/AdvReac Type Severity Reaction Status Date / Time No Known Allergies Allergy Verified 04/24/19 15:47 Home Medications: Ambulatory Orders Atorvastatin Ca [Lipitor] 40 mg PO HS #30 tablet 12/30/16 Clopidogrel Bisulfate [Plavix -] 75 mg PO DAILY #30 tablet 12/30/16 Metoprolol Tartrate [Lopressor -] 25 mg PO BID #60 tablet 01/08/19 Amlodipine Besylate [Norvasc -] 5 mg PO DAILY tablet 03/26/19 Digoxin [Lanoxin -] 0.125 mg PO DAILY tablet 03/26/19 Furosemide [Lasix -] 80 mg PO BID@0600,1400 tablet 03/26/19 Insulin Sliding Scale [Novolog Vial Sliding Scale -] 1 vial SQ ACHS units 03/26 Levothyroxine [Synthroid -] 100 mcg PO DAILY@0700 tablet 03/26/19 Metoprolol Tartrate [Lopressor -] 100 mg PO BID tablet 03/26/19 Potassium Chloride [K-Dur -] 10 meq PO DAILY tablet.er 03/26/19 Sacubitril/Valsartan [Entresto 49 mg-51 mg Tablet] 1 tab PO BID tablet Sitagliptin Phosphate [Januvia -] 25 mg PO DAILY@0700 tab 03/26/19 Anemia: No Asthma: No Cardiac Disorders: Yes (heart murmur, CHF) CVA: Yes COPD: Yes (home o2 3 to 4/min nc) CHF: Yes DVT: No Dementia: No Diabetes: Yes (Managed with Diet) Dialysis: No GI Disorders: No Disorders: (incontinence) HTN: Yes Hypercholesterolemia: Yes Kidney Stones: No Liver Disease: No Thyroid Disease: No - Surgical History Abdominal Surgery: No Appendectomy: No Cardiac Surgery: No Cholecystectomy: No Gastric Stapling: No GI Surgery: No Lung Surgery: No Neurologic Surgery: No Orthopedic Surgery: No - Family Disease History Family Disease History: Diabetes: Father (HTN, DM), Mother (HTN, DM), Heart Disease: Father, Mother - Immunization History Immunization Up to Date: No - Suicide/Smoking/Psychosocial Hx Smoking Status: Yes Smoking History: Never smoked Years of Tobacco Use: 25 Have you smoked in the past 12 months: No Number of Cigarettes Smoked Daily: 6 If you are a former smoker, when did you quit?: 1967 Hx Alcohol Use: No Drug/Substance Use Hx: No Substance Use Type: None Hx Substance Use Treatment: No *Physical Exam - Vital Signs Last Vital Signs Temp Pulse Resp BP Pulse Ox 98.1 F 65 16 137/77 94 L 04/24/19 15:45 04/24/19 15:45 04/24/19 15:45 04/24/19 15:45 04/24/19 15:45 ED Treatment Course - LABORATORY CBC & Chemistry Diagram: 04/24/19 16:30 04/24/19 16:30 Medical Decision Making - Medical Decision Making 73 year old female with above PMH presented to ED for bilateral lower extremity wounds. Initial Vital Signs Temp Pulse Resp BP Pulse Ox 98.1 F 65 16 137/77 94 L 04/24/19 15:45 04/24/19 15:45 04/24/19 15:45 04/24/19 15:45 04/24/19 15:45 Afebrile. No tachycardia. No tachypnea. No hypotension. Borderline hypoxia on home O2. -Hx COPD Labs ordered: CBC, CMP, mag, blood cultures Imaging ordered: CXR Medications ordered: NONE EKG performed at 1630: rate 65, regular rhythm, normal axis, normal intervals, 04/24/19 17:06 CBC WBC 14.1 K/mm3 (4.0-10.0) H 04/24/19 16:30 RBC 4.54 M/mm3 (3.60-5.2) 04/24/19 16:30 Hgb 12.5 GM/dL (10.7-15.3) 04/24/19 16:30 Hct 39.0 % (32.4-45.2) 04/24/19 16:30 MCV 85.9 fl (80-96) 04/24/19 16:30 MCH 27.5 pg (25.7-33.7) 04/24/19 16:30 MCHC 32.0 g/dl (32.0-36.0) 04/24/19 16:30 RDW 17.3 % (11.6-15.6) H 04/24/19 16:30 Plt Count 298 K/MM3 (134-434) D 04/24/19 16:30 MPV 8.0 fl (7.5-11.1) D 04/24/19 16:30 Absolute Neuts (auto) 10.7 K/mm3 (1.5-8.0) H 04/24/19 16:30 Neutrophils % 76.4 % (42.8-82.8) 04/24/19 16:30 Lymphocytes % 10.7 % (8-40) D 04/24/19 16:30 Monocytes % 11.7 % (3.8-10.2) H 04/24/19 16:30 Eosinophils % 0.7 % (0-4.5) 04/24/19 16:30 Basophils % 0.5 % (0-2.0) 04/24/19 16:30 Nucleated RBC % 0 % (0-0) 04/24/19 16:30 Leukocytosis with left shift. No anemia. Medications ordered: Vancomycin, Zosyn 04/24/19 17:23 CXr my view: no infiltrate. -Pending official report. 04/24/19 17:46 CMP Sodium 138 mmol/L (136-145) 04/24/19 16:30 Potassium 4.2 mmol/L (3.5-5.1) 04/24/19 16:30 Chloride 103 mmol/L (98-107) 04/24/19 16:30 Carbon Dioxide 28 mmol/L (21-32) 04/24/19 16:30 Anion Gap 8 MMOL/L (8-16) 04/24/19 16:30 BUN 45.3 mg/dL (7-18) H 04/24/19 16:30 Creatinine 2.4 mg/dL (0.55-1.3) H 04/24/19 16:30 Est GFR (CKD-EPI)AfAm 22.15 04/24/19 16:30 Est GFR (CKD-EPI)NonAf 19.11 04/24/19 16:30 Random Glucose 96 mg/dL (74-106) 04/24/19 16:30 Calcium 8.9 mg/dL (8.5-10.1) 04/24/19 16:30 Magnesium 2.5 mg/dL (1.8-2.4) H 04/24/19 16:30 Total Bilirubin 0.8 mg/dL (0.2-1) 04/24/19 16:30 AST 13 U/L (15-37) L 04/24/19 16:30 ALT 10 U/L (13-61) L 04/24/19 16:30 Alkaline Phosphatase 78 U/L (45-117) 04/24/19 16:30 B-Natriuretic Peptide 1081.4 pg/ml (5-450) H 04/24/19 16:30 Total Protein 8.3 g/dl (6.4-8.2) H 04/24/19 16:30 Albumin 3.4 g/dl (3.4-5.0) 04/24/19 16:30 No electrolyte abnormalities. No Kuldip. KULDIP on CKD. No transaminitis. BNP elevated. Pt to be admitted for lower extremity wounds, cellulitis, leukocytosis. Pending admission. Signout given to [employer], pt to be admitted under Dr. Choi's care. *DC/Admit/Observation/Transfer Diagnosis at time of Disposition: Wound of lower extremity, Cellulitis, Leukocytosis - Discharge Dispostion Condition at time of disposition: Stable Decision to Admit order: Yes - Referrals Referrals: Tony Golden MD [Primary Care Provider] - - Patient Instructions - Post Discharge Activity
[2019-04-24 16:57] LABS: BASO % 0.5 % (0-2.0); EOS % 0.7 % (0-4.5); HEMOGLOBIN 12.5 GM/dL (10.7-15.3); LYMPH % 10.7 % (8-40); MCH 27.5 pg (25.7-33.7); MEAN CELL VOLUME 85.9 fl (80-96); MONO % 11.7 % (3.8-10.2); NEUT % 76.4 % (42.8-82.8); PLATELET COUNT 298 K/MM3 (134-434); RBC 4.54 M/mm3 (3.60-5.2); RDW 17.3 % (11.6-15.6); WHITE BLOOD COUNT 14.1 K/mm3 (4.0-10.0)
[2019-04-24 17:11] LABS: INR 1.08 (0.83-1.09); PROTHROMBIN TIME (PATIENT) 12.7 SEC (9.7-13.0)
[2019-04-24 17:14] LABS: ACTIVATED PTT 30.9 SECONDS (25.2-36.5)
[2019-04-24 17:26] LABS: ALBUMIN 3.4 g/dl (3.4-5.0); BILIRUBIN,TOTAL 0.8 mg/dL (0.2-1); BLOOD UREA NITROGEN 45.3 mg/dL (7-18); CALCIUM 8.9 mg/dL (8.5-10.1); CREATININE 2.4 mg/dL (0.55-1.3); MAGNESIUM 2.5 mg/dL (1.8-2.4); N-TERMINAL BNP 1081.4 pg/ml (5-450); POTASSIUM 4.2 mmol/L (3.5-5.1); TOT PROT 8.3 g/dl (6.4-8.2)
[2019-04-24] MEDS ORDERED: VANCOMYCIN 1,000 MG in DEXTROSE 5%-WATER - 250 ML IVPB ONE (17:33)
[2019-04-24] MEDS ORDERED: PIPERACILLIN/TAZOB 4.5 GM 4.5 GM in DEXTROSE 5%-WATER 100 ML IVPB ONE (17:33)
[2019-04-24] MEDS ORDERED: VANCOMYCIN 1 GRAM (PRE-DOCKED) 1,000 MG/250 ML BAG IVPB ONE (18:06)
[2019-04-24] MEDS ORDERED: PIPERACILLIN/TAZOB 4.5 GM 4.5 GM/100 ML BAG IVPB ONE (18:06)
--- NOTE | 2019-04-24 19:10 | PDOC ---
Attending Attestation - Resident Resident Name: Babs Trinidad - ED Attending Attestation I have performed the following: I have examined & evaluated the patient, The case was reviewed & discussed with the resident, I agree w/resident's findings & plan, Exceptions are as noted - HPI HPI: 04/24/19 19:05 73 yo F with h/o copd ( home O2) htn HLD CHF(20-25%) on digoxin, CKD, CVA, here with c/o for bilateral LE wounds x1 month was recently admitted, and sent to rehab, today seen by home wound care, and told to come for worsenign wounds. pt state her wound have been weepin. malodorous. bilat posterior calfs. no f/c no n/v. not currently on abx. - Physicial Exam PE: 04/24/19 19:10 awake alert lungs clear bilat heart rrr no mrg abd soft nt nd ext wwp. bilat posterior calf with necrotic malodourous gangrenous wounds 2 x 3 inches. some drainage expressable. ttp on touch. distally 1+ dp/ pt pulses feet warm. - Medical Decision Making 04/24/19 19:11 73 yo F with severe leg wounds, necrosis and malodourous. acute infection due to amount of pain concerns for underlying osteo. will treat with vancomycin and zosyn. will admit for iv abx. leg xray r/o osteo. labs cultures.
--- NOTE | 2019-04-24 20:49 | HP ---
CHIEF COMPLAINT: leg wounds PCP: Dr Golden HISTORY OF PRESENT ILLNESS: This is a 73yF with a significant past medical history of DM, HTN, HFrEF who presented from home at the behest of her visiting nurse for lower extremity wounds. Pt reports she has had the wounds for "about a week" and today was her first visiting nurse visit. The patient reports she has no one to care for her wounds at home. ER course was notable for: (1) WBC 14.1 (2) afebrile (3) Erythematous rash and itching with zosyn administration, treated successfully with benadryl Recent Travel: pt denies PAST MEDICAL HISTORY: HTN, HLD, HFrEF (20-25%), CVA, DM, CKD, hypothyroidism PAST SURGICAL HISTORY: pt denies Social History: Smoking: quit age 28, prior "social smoker" Alcohol: occasionally at social events Drugs: pt denies Allergies piperacillin [From Zosyn] Allergy (Verified 04/24/19 19:34) Rash tazobactam [From Zosyn] Allergy (Verified 04/24/19 19:34) Rash HOME MEDICATIONS: 3 Medication Instructions Recorded Atorvastatin Ca [Lipitor] 40 mg PO HS #30 tablet 12/30/16 Clopidogrel Bisulfate [Plavix -] 75 mg PO DAILY #30 tablet 12/30/16 Metoprolol Tartrate [Lopressor -] 25 mg PO BID #60 tablet 01/08/19 Amlodipine Besylate [Norvasc -] 5 mg PO DAILY tablet 03/26/19 Digoxin [Lanoxin -] 0.125 mg PO DAILY tablet 03/26/19 Furosemide [Lasix -] 80 mg PO BID@0600,1400 tablet 03/26/19 Insulin Sliding Scale [Novolog 1 vial SQ ACHS units 03/26/19 Vial Sliding Scale -] Levothyroxine [Synthroid -] 100 mcg PO DAILY@0700 tablet 03/26/19 Metoprolol Tartrate [Lopressor -] 100 mg PO BID tablet 03/26/19 Potassium Chloride [K-Dur -] 10 meq PO DAILY tablet.er 03/26/19 Sacubitril/Valsartan [Entresto 49 1 tab PO BID tablet 03/26/19 mg-51 mg Tablet] Sitagliptin Phosphate [Januvia -] 25 mg PO DAILY@0700 tab 08/23/19 REVIEW OF SYSTEMS CONSTITUTIONAL: Absent: fever, chills, diaphoresis, generalized weakness, malaise, loss of appetite, weight change HEENT: Absent: rhinorrhea, nasal congestion, throat pain, throat swelling, difficulty swallowing, mouth swelling, ear pain, eye pain, visual changes CARDIOVASCULAR: Absent: chest pain, syncope, palpitations, irregular heart rate, lightheadedness , peripheral edema RESPIRATORY: Absent: cough, shortness of breath, dyspnea with exertion, orthopnea, wheezing, stridor, hemoptysis GASTROINTESTINAL: Absent: abdominal pain, abdominal distension, nausea, vomiting, diarrhea, constipation, melena, hematochezia GENITOURINARY: Absent: dysuria, frequency, urgency, hesitancy, hematuria, flank pain, genital pain MUSCULOSKELETAL: Absent: myalgia, arthralgia, joint swelling, back pain, neck pain SKIN: Present: bilat lower leg wounds Absent: rash, itching, pallor HEMATOLOGIC/IMMUNOLOGIC: Absent: easy bleeding, easy bruising, lymphadenopathy, frequent infections ENDOCRINE: Absent: unexplained weight gain, unexplained weight loss, heat intolerance, cold intolerance NEUROLOGIC: Absent: headache, focal weakness or paresthesias, dizziness, unsteady gait, seizure, mental status changes, bladder or bowel incontinence PSYCHIATRIC: Absent: anxiety, depression, suicidal or homicidal ideation, hallucinations. PHYSICAL EXAMINATION Vital Signs - 24 hr 3 04/24/19 04/24/19 04/24/19 15:45 16:49 19:10 Temperature 98.1 F Pulse Rate 65 Pulse Rate [ 65 74 Left Radial] Respiratory 16 18 18 Rate Blood Pressure 137/77 Blood Pressure 149/83 134/102 H [Right Arm] O2 Sat by Pulse 94 L 96 96 Oximetry (%) GENERAL: Awake, alert, and fully oriented, in no acute distress. HEAD: Normal with no signs of trauma. EYES: Pupils equal, round and reactive to light, extraocular movements intact, sclera anicteric, conjunctiva clear. No lid lag. EARS, NOSE, THROAT: Ears normal, nares patent, oropharynx clear without exudates. Moist mucous membranes. NECK: Normal range of motion, supple without lymphadenopathy, JVD, or masses. LUNGS: Breath sounds equal, clear to auscultation bilaterally. No wheezes, and no crackles. No accessory muscle use. HEART: Regular rate and rhythm, normal S1 and S2 without murmur, rub or gallop. ABDOMEN: Soft, nontender, not distended, normoactive bowel sounds, no guarding, no rebound, no masses. No hepatomegaly or splenomegaly. MUSCULOSKELETAL: Normal range of motion at all joints. No bony deformities or tenderness. No CVA tenderness. UPPER EXTREMITIES: 2+ pulses, warm, well-perfused. No cyanosis. No clubbing. No peripheral edema. LOWER EXTREMITIES: decreased pedal pulses, warm. No calf tenderness. No peripheral edema. + multiple wounds bilat lower extremities NEUROLOGICAL: Cranial nerves II-XII intact. Normal speech. Normal gait. PSYCHIATRIC: Cooperative. Good eye contact. Appropriate mood and affect. SKIN: Warm, dry, normal turgor, no rashes noted, normal capillary refill. right lower leg: proximal wound: 1.0 x 0.8cm, wound bed covered with escar, medial lower le.6cm x 3.4cm, wound bed + eschar, distal lower leg 1.3cm x 1.6cm, wound bed covered with eschar. Surrounding skin + erythematous circumferentially. posterior lower leg 9.8 x 4.5, irreg shape, + 100% eschar, foul smelling, surrounding skin erythematous. left lower lecm x 3.4cm wound, no depth, 100% eschar. no foul odor. surrounding skin mildly erythematous Laboratory Results - last 24 hr 3 04/24/19 04/24/19 04/24/19 16:30 16:30 16:30 WBC 14.1 H RBC 4.54 Hgb 12.5 Hct 39.0 MCV 85.9 MCH 27.5 MCHC 32.0 RDW 17.3 H Plt Count 298 D MPV 8.0 D Absolute Neuts (auto) 10.7 H Neutrophils % 76.4 Lymphocytes % 10.7 D Monocytes % 11.7 H Eosinophils % 0.7 Basophils % 0.5 Nucleated RBC % 0 PT with INR 12.70 INR 1.08 PTT (Actin FS) 30.9 Sodium 138 Potassium 4.2 Chloride 103 Carbon Dioxide 28 Anion Gap 8 BUN 45.3 H Creatinine 2.4 H Est GFR (CKD-EPI)AfAm 22.15 Est GFR (CKD-EPI)NonAf 19.11 Random Glucose 96 Calcium 8.9 Magnesium 2.5 H Total Bilirubin 0.8 AST 13 L ALT 10 L Alkaline Phosphatase 78 B-Natriuretic Peptide 1081.4 H Total Protein 8.3 H Albumin 3.4 CXR with no obvious infiltrates or effusions as read by me, official read pending. ASSESSMENT/PLAN: 73yF with PMH DM, HTN, HFrEF presented with bilat lower extremity wounds now admitted with cellulitis. B/L LE cellulitis in s/o vascular ulcers - allergic reaction to zosyn, will start clindamycin - cont vanc, ID consult for approval - consider vascular consult, defer to primary MD HTN, HFrEF, HLD - cont norvasc, digoxin, check digoxin level - hold lasix and entresto in s/o KULDIP, monitor fluid volume status, strict I&Os, daily weights - cont lipitor h/o CVA - cont plavix KULDIP on CKD - hold lasix and entresto for now, restart if renal recovery - renal US - consider renal consult DM - BGM with sliding scale insulin hypothyroidism - cont synthroid, check TSH DVT PPX - heparin bid FEN - po fluids as tolerated - BMP in am - low sodium, diabetic diet as tolerated Dispo: Pt currently requires inpatient management of her emergent condition and anticipated LOS is greater than 2 days. Family Medical History Family Hx Cardiac Disorders: Mother, Father, Sister, Brother Family Hx Congestive Heart Failure: Mother, Father, Sister Family Hx Diabetes: Mother, Sister Visit type - Emergency Visit Emergency Visit: Yes ED Registration Date: 04/24/19 Care time: The patient presented to the Emergency Department on the above date and was hospitalized for further evaluation of their emergent condition. - New Patient This patient is new to me today: Yes Date on this admission: 04/24/19 - Critical Care Critical Care patient: No
[2019-04-24] MEDS ORDERED: SACUBITRIL/VALSARTAN 49 MG-51 MG TABLET PO SCH (22:00)
[2019-04-24] MEDS ORDERED: CLINDAMYCIN 600MG PREMIX IVPB 600 MG/50 ML BAG IVPB ONE (22:50)
[2019-04-24] MEDS ORDERED: ATORVASTATIN CA 40 MG TABLET (FP) ONE (22:50)
[2019-04-24] MEDS ORDERED: METOPROLOL TARTRATE 25 MG TABLET (FP) ONE (22:50)
[2019-04-24] MEDS: METOPROLOL TARTRATE 50 MG TABLET (FP) PO SCH (23:00)
[2019-04-24] MEDS: CLINDAMYCIN 600MG PREMIX IVPB 600 MG/50 ML BAG IVPB SCH (23:00)
[2019-04-24] MEDS: ATORVASTATIN CA 40 MG TABLET (FP) PO SCH (23:00)
[2019-04-25] MEDS ORDERED: CLINDAMYCIN 600MG PREMIX IVPB 600 MG/50 ML BAG IVPB ONE (02:23)
[2019-04-25] MEDS: CLINDAMYCIN 600MG PREMIX IVPB 600 MG/50 ML BAG IVPB SCH ×2 (02:47→09:46)
[2019-04-25] MEDS ORDERED: sitaGLIPtin PHOSPHATE 50 MG TABLET ONE (06:09)
[2019-04-25] MEDS ORDERED: LEVOTHYROXINE NA 25 MCG TABLET (FP) ONE (06:09)
[2019-04-25] MEDS: LEVOTHYROXINE NA 100 MCG TABLET (FP) PO SCH (06:15)
[2019-04-25 06:23] LABS: BASO % 0.4 % (0-2.0); EOS % 1.3 % (0-4.5); HEMATOCRIT 38.8 % (32.4-45.2); HEMOGLOBIN 12.8 GM/dL (10.7-15.3); LYMPH % 13.3 % (8-40); MCHC 32.9 g/dl (32.0-36.0); MEAN CELL VOLUME 85.1 fl (80-96); MEAN PLT VOLUME 7.6 fl (7.5-11.1); MONO % 10.9 % (3.8-10.2); NEUT % 74.1 % (42.8-82.8); PLATELET COUNT 301 K/MM3 (134-434); RBC 4.56 M/mm3 (3.60-5.2); RDW 17.4 % (11.6-15.6); WHITE BLOOD COUNT 10.6 K/mm3 (4.0-10.0)
[2019-04-25 06:57] LABS: BLOOD UREA NITROGEN 41.5 mg/dL (7-18); CALCIUM 9.1 mg/dL (8.5-10.1); CREATININE 2.1 mg/dL (0.55-1.3); MAGNESIUM 2.5 mg/dL (1.8-2.4); PHOSPHOROUS 3.6 mg/dL (2.5-4.9); POTASSIUM 4.1 mmol/L (3.5-5.1)
[2019-04-25] MEDS: INSULIN SLIDING SCALE (NOVOLOG) 1 VIAL SQ SCH ×3 (07:06→16:41)
[2019-04-25 07:13] LABS: INR 1.07 (0.83-1.09); PROTHROMBIN TIME (PATIENT) 12.6 SEC (9.7-13.0)
[2019-04-25] MEDS ORDERED: PT OWN MED DRAWER 7, Y5N ONE (08:28)
[2019-04-25] MEDS ORDERED: CLINDAMYCIN PHOSPHATE 600 MG/4 ML VIAL ONE (08:28)
[2019-04-25] MEDS: COLLAGENASE CLOSTRIDIUM HIST. 30 GRAMS TUBE TP SCH (09:45)
[2019-04-25] MEDS: CLOPIDOGREL BISULFATE 75 MG TABLET (FP) PO SCH (09:45)
[2019-04-25] MEDS: DIGOXIN 0.125 MG TABLET (FP) PO SCH (09:46)
[2019-04-25] MEDS: METOPROLOL TARTRATE 50 MG TABLET (FP) PO SCH ×2 (09:46→21:55)
[2019-04-25] MEDS: HEPARIN NA (PORCINE) 5,000 UNITS/ML 1ML VIAL SQ SCH ×2 (09:46→21:54)
[2019-04-25] MEDS: amLODIPine BESYLATE 5 MG TABLET (FP) PO SCH (09:46)
[2019-04-25] MEDS ORDERED: METOPROLOL TARTRATE 50 MG TABLET (FP) ONE (09:54)
[2019-04-25] MEDS ORDERED: COLLAGENASE CLOSTRIDIUM HIST. 30 GRAMS TUBE TP SCH (10:00)
--- NOTE | 2019-04-25 12:26 | PN ---
Progress Note, Physician Chief Complaint: EVENTS AND NOTES REVIEWED PT ASLEEP NAD - Current Medication List Current Medications: Active Medications Amlodipine Besylate (Norvasc -) 5 mg PO DAILY [facility] Last Admin: 04/25/19 09:46 Dose: 5 mg Atorvastatin Calcium (Lipitor -) 40 mg PO HS [facility] Last Admin: 04/24/19 23:00 Dose: 40 mg Clopidogrel Bisulfate (Plavix -) 75 mg PO DAILY [facility] Last Admin: 04/25/19 09:45 Dose: 75 mg Collagenase (Santyl -) 1 applic TP DAILY [facility]; Protocol Last Admin: 04/25/19 09:45 Dose: Not Given Digoxin (Lanoxin -) 0.125 mg PO DAILY [facility] Last Admin: 04/25/19 09:46 Dose: 0.125 mg Heparin Sodium (Porcine) (Heparin -) 5,000 unit SQ BID [facility] Last Admin: 04/25/19 09:46 Dose: 5,000 unit Clindamycin Phosphate (Cleocin 600 Mg Premix Ivpb -) 600 mg in 50 mls @ 100 mls /hr IVPB Q8H-IV [facility]; Protocol Last Admin: 04/25/19 09:46 Dose: 100 mls/hr Insulin Aspart (Novolog Vial Sliding Scale -) 1 vial SQ TIDAC [facility]; Protocol Last Admin: 04/25/19 10:06 Dose: Not Given Levothyroxine Sodium (Synthroid -) 100 mcg PO DAILY@0700 [facility] Last Admin: 04/25/19 06:15 Dose: 100 mcg Metoprolol Tartrate (Lopressor -) 125 mg PO BID [facility] Last Admin: 04/25/19 09:46 Dose: 125 mg Sitagliptin Phosphate (Januvia -) 25 mg PO DAILY@0700 [facility] Last Admin: 04/25/19 06:15 Dose: 25 mg - Objective Vital Signs: Vital Signs Temperature 98 F 04/25/19 09:35 Pulse Rate 70 04/25/19 09:35 Respiratory Rate 17 04/25/19 09:35 Blood Pressure 165/92 04/25/19 09:35 O2 Sat by Pulse Oximetry (%) 99 04/25/19 09:35 Constitutional: Yes: No Distress Cardiovascular: Yes: Regular Rate and Rhythm Respiratory: Yes: WNL Gastrointestinal: Yes: Soft, Abdomen, Obese Genitourinary: Yes: WNL Musculoskeletal: Yes: Back Pain Edema: Yes Integumentary: Yes: Pressure Ulcer, Rash, Venous Stasis Changes Wound/Incision: Yes: Open to air Neurological: Yes: Numbness, Paresthesia, Weakness ...Motor Strength: LLE, RLE Psychiatric: Yes: Other Labs: CBC, BMP 04/25/19 06:10 04/25/19 06:10 INR, PTT INR 1.07 (0.83-1.09) 04/25/19 06:10 Problem List - Problems (1) Allergy to antibiotic Code(s): Z88.1 - ALLERGY STATUS TO OTHER ANTIBIOTIC AGENTS STATUS (2) Cellulitis Code(s): L03.90 - CELLULITIS, UNSPECIFIED (3) Infected stasis ulcer of left lower extremity Code(s): I83.229 - VARICOS VN OF L LOW EXTREM W ULC OF UNSP SITE AND INFLAM; L97.929 - NON-PRS CHRONIC ULC UNSP PRT OF L LOW LEG W UNSP SEVERITY (4) Infected ulcer of skin Code(s): L98.499 - NON-PRESSURE CHRONIC ULCER OF SKIN OF SITES W UNSP SEVERITY; L08.9 - LOCAL INFECTION OF THE SKIN AND SUBCUTANEOUS TISSUE, UNSP (5) Leukocytosis Code(s): D72.829 - ELEVATED WHITE BLOOD CELL COUNT, UNSPECIFIED (6) Wound of lower extremity Code(s): S81.809A - UNSPECIFIED OPEN WOUND, UNSPECIFIED LOWER LEG, INIT ENCNTR (7) Acute on chronic diastolic CHF (congestive heart failure) Code(s): I50.33 - ACUTE ON CHRONIC DIASTOLIC (CONGESTIVE) HEART FAILURE (8) Edema Code(s): R60.9 - EDEMA, UNSPECIFIED Qualifiers: Edema type: due to malnutrition (9) Hypothyroid Code(s): E03.9 - HYPOTHYROIDISM, UNSPECIFIED Assessment/Plan WOUND CARE VASC SX AND ID CONSULT DVT PROPHYLAXIS PT EVAL/OOB-CHAIR DM CONTROL OBESITY D/W PATIENT DIET AND COUNCELING WILL NEED AGGRESSIVE PT AND COMPLIANCE WITH WOUND CARE ENDOCRINE CONSULT DM CONTROL
[2019-04-25] MEDS ORDERED: TIGECYCLINE 100 MG in DEXTROSE 5%-WATER - 100 ML IVPB ONE (14:45)
--- NOTE | 2019-04-25 14:45 | PN ---
Progress Note (short form) - Note Progress Note: ID consult imp/reccd infected leg ulcers- would obtain wound cultures f/u blood cultures CKD hx CHF zosyn allergy switch to tygacil surgery to see for wound debridement and wound care Problem List - Problems (1) Infected ulcer of skin Code(s): L98.499 - NON-PRESSURE CHRONIC ULCER OF SKIN OF SITES W UNSP SEVERITY; L08.9 - LOCAL INFECTION OF THE SKIN AND SUBCUTANEOUS TISSUE, UNSP (2) CKD (chronic kidney disease) Code(s): N18.9 - CHRONIC KIDNEY DISEASE, UNSPECIFIED Qualifiers: Chronic kidney disease stage: stage 2 (mild) Qualified Code(s): N18.2 - Chronic kidney disease, stage 2 (mild) (3) CHF (congestive heart failure) Code(s): I50.9 - HEART FAILURE, UNSPECIFIED (4) Allergy to antibiotic Code(s): Z88.1 - ALLERGY STATUS TO OTHER ANTIBIOTIC AGENTS STATUS
--- NOTE | 2019-04-25 14:49 | CONSULT ---
Consult Consult Specialty:: Nephrology Reason for Consultation:: CKD - History of Present Illness Chief Complaint: lower ext edema and worsening wound History of Present Illness: Pt is a 73 year old female with pmhx of ckd, htn, dm, chf, hld, dm, copd on yo oxygen, and cva who presents with worsening lower ext edema. She was in rehab and was recently discharged. She complains of lower ext edema. She is on lasix at home. She denies nsaid use. She is not compliant with salt restriction. She was found to have elevated occupational therapy asst. She denies hematuria or dysuria. She denies fevers of chills. 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 History of Recent Travel: No Home Medications - Allergies Allergies/Adverse Reactions: Allergies Allergy/AdvReac Type Severity Reaction Status Date / Time piperacillin [From Zosyn] Allergy Rash Verified 04/24/19 19:34 tazobactam [From Zosyn] Allergy Rash Verified 04/24/19 19:34 - Home Medications Home Medications: Ambulatory Orders Atorvastatin Ca [Lipitor] 40 mg PO HS #30 tablet 12/30/16 Clopidogrel Bisulfate [Plavix -] 75 mg PO DAILY #30 tablet 12/30/16 Metoprolol Tartrate [Lopressor -] 25 mg PO BID #60 tablet 01/08/19 Amlodipine Besylate [Norvasc -] 5 mg PO DAILY tablet 03/26/19 Digoxin [Lanoxin -] 0.125 mg PO DAILY tablet 03/26/19 Furosemide [Lasix -] 80 mg PO BID@0600,1400 tablet 03/26/19 Insulin Sliding Scale [Novolog Vial Sliding Scale -] 1 vial SQ ACHS units 03/26 Levothyroxine [Synthroid -] 100 mcg PO DAILY@0700 tablet 03/26/19 Metoprolol Tartrate [Lopressor -] 100 mg PO BID tablet 03/26/19 Potassium Chloride [K-Dur -] 10 meq PO DAILY tablet.er 03/26/19 Sacubitril/Valsartan [Entresto 49 mg-51 mg Tablet] 1 tab PO BID tablet Sitagliptin Phosphate [Januvia -] 25 mg PO DAILY@0700 tab 03/26/19 Family Medical History Family History: Denies Review of Systems - Review of Systems Constitutional: reports: Malaise Eyes: reports: No Symptoms HENT: reports: No Symptoms Neck: reports: No Symptoms Cardiovascular: reports: Edema Respiratory: reports: SOB on Exertion Gastrointestinal: reports: No Symptoms Genitourinary: reports: No Symptoms Integumentary: reports: Erythema Neurological: reports: No Symptoms Endocrine: reports: No Symptoms Hematology/Lymphatic: reports: No Symptoms Psychiatric: reports: No Symptoms Physical Exam Vital Signs: Vital Signs Temperature 98.1 F 04/25/19 14:09 Pulse Rate 58 L 04/25/19 14:09 Respiratory Rate 17 04/25/19 09:35 Blood Pressure 169/86 04/25/19 14:09 O2 Sat by Pulse Oximetry (%) 95 04/25/19 14:09 Constitutional: Yes: Calm Eyes: Yes: Conjunctiva Clear HENT: Yes: Atraumatic Neck: Yes: Supple Cardiovascular: Yes: S1, S2 Respiratory: Yes: CTA Bilaterally Gastrointestinal: Yes: Soft Renal/: Yes: WNL Musculoskeletal: Yes: WNL Edema: Yes Edema: LLE: 1+, RLE: 1+ Wound/Incision: Yes: Dressing Dry and Intact Neurological: Yes: Oriented Psychiatric: Yes: Oriented Labs: CBC, BMP 04/25/19 06:10 04/25/19 06:10 Laboratory Tests 04/24/19 04/24/19 04/25/19 16:30 16:30 06:10 WBC 14.1 H 10.6 H Hgb 12.8 Sodium Potassium Chloride Carbon Dioxide Anion Gap Creatinine 2.4 H B-Natriuretic Peptide 1081.4 H 04/25/19 06:10 WBC Hgb Sodium 138 Potassium 4.1 Chloride 103 Carbon Dioxide 28 Anion Gap 7 L Creatinine 2.1 H B-Natriuretic Peptide Imaging - Results Ultrasound: Report Reviewed Assessment/Plan Current Medications Generic Name Dose Route Start Last Admin Trade Name Sandoval PRN Reason Stop Dose Admin Amlodipine Besylate 5 mg 04/25/19 10:00 04/25/19 09:46 Norvasc - PO 5 mg DAILY ABIM[facility]OLA Administration Atorvastatin Calcium 40 mg 04/24/19 22:00 04/24/19 23:00 Lipitor - PO 40 mg HS ABIMBOLA Administration Clopidogrel Bisulfate 75 mg 04/25/19 10:00 04/25/19 09:45 Plavix - PO 75 mg DAILY [facility]IM[facility]OLA Administration Collagenase 1 applic 04/25/19 10:00 04/25/19 09:45 Santyl - TP Not Given DAILY [facility] Protocol Digoxin 0.125 mg 04/25/19 10:00 04/25/19 09:46 Lanoxin - PO 0.125 mg DAILY ABIMBOLA Administration Heparin Sodium (Porcine) 5,000 unit 04/25/19 10:00 04/25/19 09:46 Heparin - SQ 5,000 unit BID ABIM[facility]OLA Administration Tigecycline 100 mg/ Dextrose 100 mls @ 100 mls/hr 04/25/19 14:45 IVPB 04/25/19 15:44 ONCE ONE Protocol Tigecycline 50 mg/ Dextrose 100 mls @ 100 mls/hr 04/26/19 10:00 IVPB BID [facility] Protocol Insulin Aspart 1 vial 04/25/19 07:00 04/25/19 10:06 Novolog Vial Sliding Scale - SQ Not Given TIDAC [facility] Protocol Levothyroxine Sodium 100 mcg 04/25/19 07:00 04/25/19 06:15 Synthroid - PO 100 mcg DAILY@0700 [facility] Administration Metoprolol Tartrate 125 mg 04/24/19 22:00 04/25/19 09:46 Lopressor - PO 125 mg BID [facility]IM[facility] Administration Sitagliptin Phosphate 25 mg 04/25/19 07:00 04/25/19 06:15 Januvia - PO 25 mg DAILY@0700 [facility] Administration Impression 1. CKD 2. CHF 3. DM 4. HTN 5. hx CVA 6. a-fib 7. elevated kappa chains 8. cellulitis 9. KULDIP Plan - cont abx - resume lasix - repeat labs in am - pt does have ckd - neg hydro on ct - low sodium diet - avoid nsaids
--- NOTE | 2019-04-25 17:32 | CONS ---
INFECTIOUS DISEASE CONSULTATION DATE OF CONSULTATION: DATE OF DICTATION: 04/25/2019 REQUESTING PHYSICIAN: Ravi Valentine MD HISTORY: This is a 73-year-old woman with past medical history of congestive heart failure. She was recently hospitalized in March of this year. She was at [facility] from the to the with congestive heart failure. She had significant lower extremity edema, which she reports markedly improved during that admission. She was discharged to the [facility] facility for rehabilitation, and she has been home for about a week now. She went home on Friday. Her 1st visiting nurse appointment was yesterday. She was seen by the visiting nurse and told to come to the ER for worsening leg wounds. She denies any fevers, chills, nausea, vomiting. She was [facility]. She says her wounds have gotten worse during that time. She is aware that they are foul smelling, and she has been trying to do her own dressing changes at home. While in the emergency room, she received piperacillin, tazobactam. She developed itching and apparently a rash on her shoulders and arms that was treated with Benadryl and resolution. Her white count is 14.1. PAST MEDICAL HISTORY: Notable for hypertension, hyperlipidemia, congestive heart failure with an EF of 25%-25%, CVA, diabetes, CKD, and hypothyroidism. SOCIAL HISTORY: He stop smoking many years ago. Occasional social alcohol. She lives alone. FAMILY HISTORY: She has positive family history for diabetes, hypertension in both her parents and heart disease as well both her parents. ALLERGIES: Prior to the reaction in the emergency room, she had no drug allergies. MEDICATIONS: At home included Lipitor, Plavix, Lopressor, Norvasc, Lanoxin, Lasix, insulin, Synthroid, Lopressor, potassium, Entresto, and Januvia. REVIEW OF SYSTEMS: She has no fevers or chills. She notes that these wounds are recent. PHYSICAL EXAMINATION: General: She is awake and alert. Vital Signs: Temperature 98.1, pulse of 58, blood pressure 169/86, respiratory rate 17. She is saturating 95% on room air. HEENT: She is normocephalic. Her eyes are anicteric. Neck: Supple. Lungs: Clear to auscultation. Heart: Regular rate and rhythm. Abdomen: Soft. Extremities: On her legs, she has 2 on each leg large, foul-smelling ulcers with purulence and eschars on the backside of both her calves. Labs are notable for a white count of 14.1, hemoglobin 12.5, platelets are 298, BUN 41, creatinine 2.1. Her TSH is 6. On her prior admission, it was 36. She had a renal sonogram done in the emergency room that shows both kidneys are unremarkable. She had tibia-fibula x-rays of both legs that showed no bony abnormality or fracture, and she had a chest x-ray as well that was notable for no acute chest pathology. In summary, this is a 73-year-old woman with bilateral leg ulcers that clearly needs wound care and debridement. As well, she appears to be allergic to PIPERACILLIN, TAZOBACTAM given her reaction in the emergency room, and she has an element of CKD along with her chronic heart failure. Given this, I would suggest we switch her to Tygacil at this time and will obtain a wound culture as well. JOHNNY BROWN M.D. [id number]
[2019-04-25] MEDS: ATORVASTATIN CA 40 MG TABLET (FP) PO SCH (21:55)
[2019-04-26] MEDS: LEVOTHYROXINE NA 100 MCG TABLET (FP) PO SCH (06:09)
[2019-04-26] MEDS: INSULIN SLIDING SCALE (NOVOLOG) 1 VIAL SQ SCH ×3 (06:10→17:03)
--- NOTE | 2019-04-26 07:13 | EKG ---
Test Reason : Blood Pressure : / mmHG Vent. Rate : 065 BPM Atrial Rate : 065 BPM P-R Int : 176 ms QRS Dur : 092 ms QT Int : 388 ms P-R-T Axes : 046 014 064 degrees QTc Int : 403 ms POOR DATA QUALITY, INTERPRETATION MAY BE ADVERSELY AFFECTED NORMAL SINUS RHYTHM ABNORMAL ECG WHEN COMPARED WITH ECG OF 25-MAR-2019 09:43, VENT. RATE HAS DECREASED BY [address] NO LONGER DEPRESSED IN INFERIOR LEADS ST NO LONGER DEPRESSED IN LATERAL LEADS T WAVE INVERSION NOW EVIDENT IN ANTERIOR LEADS Confirmed by STEPHEN YOUNG, CORINE ([id number]) on 04/26/2019 7:12:47 AM Referred By: Confirmed By:CORINE MITCHELL MD
[2019-04-26 07:58] LABS: HEMATOCRIT 38.9 % (32.4-45.2); HEMOGLOBIN 12.8 GM/dL (10.7-15.3); MCHC 32.8 g/dl (32.0-36.0); MEAN CELL VOLUME 85.2 fl (80-96); PLATELET COUNT 300 K/MM3 (134-434); RBC 4.57 M/mm3 (3.60-5.2); RDW 17.2 % (11.6-15.6); WHITE BLOOD COUNT 8.9 K/mm3 (4.0-10.0)
[2019-04-26 08:03] LABS: ALBUMIN 3.1 g/dl (3.4-5.0); BILIRUBIN,TOTAL 1.2 mg/dL (0.2-1); BLOOD UREA NITROGEN 47.6 mg/dL (7-18); CALCIUM 9.4 mg/dL (8.5-10.1); CREATININE 1.8 mg/dL (0.55-1.3); POTASSIUM 4.1 mmol/L (3.5-5.1); TOT PROT 7.9 g/dl (6.4-8.2)
--- NOTE | 2019-04-26 09:03 | CONSULT ---
- Consultation REQUESTING PROVIDER: CONSULT REQUEST: We have been asked to surgically evaluate this patient for b/l LE wounds PCP: Ravi Valentine HISTORY OF PRESENT ILLNESS: The patient is a 73 y/o woman with a past medical history of DM, COPD(3-4L home O2), HFrEF(20-25%, January 2019), DM, MR, TR. She presented to the ED for b/l LE wounds. The patient was evaluated by the vascular team last month for a small ulcer of the right ankle (no other wounds present at the time) but she never followed up in the wound care clinic as instructed. She was in the process of setting up VNS when the visiting nurse suggested the patient go to the ER upon her initial evaluation at the patient's home. The patients has been on oral diuretics for her leg swelling. She denies any chronic non-healing ulcers in the past. She ambulates with a cane and has some right upper extremity weakness from a previous stroke. She denies any associated Fever, chills, CP, new SOB, N/V/D. PMHx: DM, HTN, heart failure, kidney disfunction (sees a renal doctor) PSHx: Denies Home Medications Medication Instructions Recorded Atorvastatin Ca [Lipitor] 40 mg PO HS #30 tablet 12/30/16 Clopidogrel Bisulfate [Plavix -] 75 mg PO DAILY #30 tablet 12/30/16 Amiodarone HCl 200 mg PO DAILY 01/06/19 Aspirin [ASA -] 81 mg PO DAILY 01/06/19 Calcium Acetate 667 mg PO DAILY 01/06/19 Furosemide [Lasix -] 40 mg PO BID #60 tablet 01/08/19 Levothyroxine [Synthroid -] 25 mcg PO DAILY@0700 #30 tablet 01/08/19 Metoprolol Tartrate [Lopressor -] 25 mg PO BID #60 tablet 01/08/19 Sacubitril/Valsartan [Entresto 24 1 tab PO BID #60 tablet 01/08/19 mg-26 mg Tablet] Allergies Allergy/AdvReac Type Severity Reaction Status Date / Time No Known Allergies Allergy Verified 03/20/19 13:31 REVIEW OF SYSTEMS: CONSTITUTIONAL: Absent: fever, chills CARDIOVASCULAR: Absent: chest pain, syncope, palpitations, irregular heart rate, lightheadedness , + peripheral edema RESPIRATORY: Present: cough, shortness of breath with exertion. (CHF) GASTROINTESTINAL: Absent: abdominal pain, abdominal distension, nausea, vomiting GENITOURINARY: Absent: dysuria, hematuria HEMATOLOGIC/IMMUNOLOGIC: Absent: easy bleeding, easy bruising, lymphadenopathy NEUROLOGIC: present: +unsteady gait-ambulates with cane, Right upper ext weakness PHYSICAL EXAM: GENERAL: Awake, alert, and fully oriented, in no acute distress. LUNGS: no auditory wheezes, Unlabored resp on RA HEART: Regular rate and rhythm. LOWER EXTREMITIES: Left LE + pulses DP and PT with doppler, warm, well- perfused. Several unstagable wounds over posterior mid portion calf the largest one @ 6cm x 4cm with surrounding tissue intact and no active d/c. Right LE several unstagable ulcers extending from posterior mid calf circumstantially extending laterally. largest wound @ 10cm x 5cm. Areas with mixed fibrinous slough and eschar. some ss d/c. mild erythema and chronic skin changes seen laterally. NEUROLOGICAL: Normal speech, gait not observed. PSYCH: Cooperative. Good eye contact. Appropriate mood and affect. Vital Signs Temp 98.3 F 04/26/19 06:00 Pulse 61 04/26/19 06:00 Resp 18 04/26/19 06:00 BP 155/71 04/26/19 06:00 Pulse Ox 99 04/25/19 21:00 Intake & Output 04/25/19 04/25/19 04/26/19 11:59 23:59 11:59 Intake Total 550 900 Balance 550 900 Weight 220 lb 8 oz 190 lb Intake: IVPB 100 Oral 450 900 Other: Voiding Method Diaper Incontinent # Unmeasured Voids Void 1 2 Bowel Movement No Height 5 ft 6 in Body Mass Index (BMI) 35.6 Weight Measurement Method Standing Scale Built in [facility] CBC, BMP 04/26/19 06:55 04/26/19 06:55 Problem List - Problems (1) Wound of lower extremity Assessment/Plan: A/P: 73 yo female with CHF, b/l lower extremity unstagable wounds which have gotten significantly worse over the past month as patient has been non- compliant with wound care follow up. - LESLIE/PVR scheduled tomorrow -irrigate wounds with NS and apply Santyl 4x4, ABD and kurlex to b/l LE daily. -light alexa wrap to b/l LE daily -elevated b/l lower ext on pillows and with the foot of the bed elevated. -Medical clearance for possible debridement later this week. Evaluation and plan discussed with Dr Andino. Code(s): S81.809A - UNSPECIFIED OPEN WOUND, UNSPECIFIED LOWER LEG, INIT ENCNTR
[2019-04-26] MEDS: TIGECYCLINE 50 MG in DEXTROSE 5%-WATER - 100 ML IVPB SCH ×2 (09:36→21:52)
[2019-04-26] MEDS: CLOPIDOGREL BISULFATE 75 MG TABLET (FP) PO SCH (09:45)
[2019-04-26] MEDS: FUROSEMIDE 40 MG TABLET (FP) PO SCH (09:45)
[2019-04-26] MEDS: METOPROLOL TARTRATE 50 MG TABLET (FP) PO SCH ×2 (09:45→21:53)
[2019-04-26] MEDS: amLODIPine BESYLATE 5 MG TABLET (FP) PO SCH (09:45)
[2019-04-26] MEDS: DIGOXIN 0.125 MG TABLET (FP) PO SCH (09:46)
[2019-04-26] MEDS: HEPARIN NA (PORCINE) 5,000 UNITS/ML 1ML VIAL SQ SCH ×2 (09:47→21:54)
--- NOTE | 2019-04-26 11:50 | PN ---
Progress Note (short form) - Note Progress Note: Vascular Surgery Pt seen and examined. BL post calf ulcers for some time. Right side is necrotic and has a odor. Pt has palpable PT Pulses in both legs. All pulses are dopplerable. Pt will need LESLIE/PVR. Pt is set up for edgar morning at 8am on 5w for ultrasound. This way we can see arterial runoff to both legs. Will start santyl daily to all wounds. Kevin Andino DO
[2019-04-26] MEDS: COLLAGENASE CLOSTRIDIUM HIST. 30 GRAMS TUBE TP SCH (12:00)
--- NOTE | 2019-04-26 15:06 | PN ---
Progress Note, Physician Chief Complaint: patient seen and examined on lasix to get LESLIE tmw morning for leg ulcers - Current Medication List Current Medications: Active Medications Amlodipine Besylate (Norvasc -) 5 mg PO DAILY [facility] Last Admin: 04/26/19 09:45 Dose: 5 mg Atorvastatin Calcium (Lipitor -) 40 mg PO HS [facility] Last Admin: 04/25/19 21:55 Dose: 40 mg Clopidogrel Bisulfate (Plavix -) 75 mg PO DAILY [facility] Last Admin: 04/26/19 09:45 Dose: 75 mg Collagenase (Santyl -) 1 applic TP DAILY [facility]; Protocol Last Admin: 04/25/19 09:45 Dose: Not Given Digoxin (Lanoxin -) 0.125 mg PO DAILY [facility] Last Admin: 04/26/19 09:46 Dose: 0.125 mg Furosemide (Lasix -) 80 mg PO DAILY [facility] Last Admin: 04/26/19 09:45 Dose: 80 mg Heparin Sodium (Porcine) (Heparin -) 5,000 unit SQ BID [facility] Last Admin: 04/26/19 09:47 Dose: 5,000 unit Tigecycline 50 mg/ Dextrose 100 mls @ 100 mls/hr IVPB BID [facility]; Protocol Last Admin: 04/26/19 09:36 Dose: 100 mls/hr Insulin Aspart (Novolog Vial Sliding Scale -) 1 vial SQ TIDAC [facility]; Protocol Last Admin: 04/26/19 11:34 Dose: Not Given Levothyroxine Sodium (Synthroid -) 100 mcg PO DAILY@0700 [facility] Last Admin: 04/26/19 06:09 Dose: 100 mcg Metoprolol Tartrate (Lopressor -) 125 mg PO BID [facility] Last Admin: 04/26/19 09:45 Dose: 125 mg Sitagliptin Phosphate (Januvia -) 25 mg PO DAILY@0700 [facility] Last Admin: 04/26/19 06:09 Dose: 25 mg - Objective Vital Signs: Vital Signs Temperature 98.5 F 04/26/19 14:48 Pulse Rate 56 L 04/26/19 14:48 Respiratory Rate 18 04/26/19 14:48 Blood Pressure 143/95 04/26/19 14:48 O2 Sat by Pulse Oximetry (%) 99 04/25/19 21:00 Constitutional: Yes: Calm Cardiovascular: Yes: Regular Rate and Rhythm, S1, S2 Respiratory: Yes: CTA Bilaterally Gastrointestinal: Yes: Normal Bowel Sounds, Soft Extremities: Yes: Other (legs wrapped) Labs: CBC, BMP 04/26/19 06:55 04/26/19 06:55 INR, PTT INR 1.07 (0.83-1.09) 04/25/19 06:10 Problem List - Problems (1) Leg ulcer Assessment/Plan: iv abx tigycycliine vascular on board to get LESLIE Code(s): L97.909 - NON-PRS CHRONIC ULC UNSP PRT OF UNSP LOW LEG W UNSP SEVERITY (2) Hypothyroid Assessment/Plan: tsh noted to be elevated synthoid dose increased from 100 to 125 mcg recheck in 4 weeks Code(s): E03.9 - HYPOTHYROIDISM, UNSPECIFIED (3) Diabetes Assessment/Plan: [id number] januvia Code(s): E11.9 - TYPE 2 DIABETES MELLITUS WITHOUT COMPLICATIONS Qualifiers: Diabetes mellitus type: type 2 (4) CHF (congestive heart failure) Assessment/Plan: lasix for leg swelling metoprolol Code(s): I50.9 - HEART FAILURE, UNSPECIFIED
--- NOTE | 2019-04-26 15:16 | PN ---
Progress Note, Physician History of Present Illness: Pt seen and examined at bedside. She is awake and alert. - Current Medication List Current Medications: Active Medications Amlodipine Besylate (Norvasc -) 5 mg PO DAILY [facility] Last Admin: 04/26/19 09:45 Dose: 5 mg Atorvastatin Calcium (Lipitor -) 40 mg PO HS [facility] Last Admin: 04/25/19 21:55 Dose: 40 mg Clopidogrel Bisulfate (Plavix -) 75 mg PO DAILY [facility] Last Admin: 04/26/19 09:45 Dose: 75 mg Collagenase (Santyl -) 1 applic TP DAILY [facility]; Protocol Last Admin: 04/25/19 09:45 Dose: Not Given Digoxin (Lanoxin -) 0.125 mg PO DAILY [facility] Last Admin: 04/26/19 09:46 Dose: 0.125 mg Furosemide (Lasix -) 80 mg PO DAILY [facility] Last Admin: 04/26/19 09:45 Dose: 80 mg Heparin Sodium (Porcine) (Heparin -) 5,000 unit SQ BID [facility] Last Admin: 04/26/19 09:47 Dose: 5,000 unit Tigecycline 50 mg/ Dextrose 100 mls @ 100 mls/hr IVPB BID [facility]; Protocol Last Admin: 04/26/19 09:36 Dose: 100 mls/hr Insulin Aspart (Novolog Vial Sliding Scale -) 1 vial SQ TIDAC [facility]; Protocol Last Admin: 04/26/19 11:34 Dose: Not Given Levothyroxine Sodium (Synthroid -) 125 mcg PO DAILY@0700 [facility] Metoprolol Tartrate (Lopressor -) 125 mg PO BID [facility] Last Admin: 04/26/19 09:45 Dose: 125 mg Sitagliptin Phosphate (Januvia -) 25 mg PO DAILY@0700 [facility] Last Admin: 04/26/19 06:09 Dose: 25 mg - Objective Vital Signs: Vital Signs Temperature 98.5 F 04/26/19 14:48 Pulse Rate 56 L 04/26/19 14:48 Respiratory Rate 18 04/26/19 14:48 Blood Pressure 143/95 04/26/19 14:48 O2 Sat by Pulse Oximetry (%) 99 04/25/19 21:00 Constitutional: Yes: Calm Eyes: Yes: Conjunctiva Clear HENT: Yes: Atraumatic Neck: Yes: Supple Cardiovascular: Yes: S1, S2 Respiratory: Yes: CTA Bilaterally Gastrointestinal: Yes: Soft, Abdomen, Obese Genitourinary: Yes: WNL Extremities: Yes: WNL Edema: No Wound/Incision: Yes: Dressing Dry and Intact Neurological: Yes: Oriented Psychiatric: Yes: Oriented Labs: CBC, BMP 04/26/19 06:55 04/26/19 06:55 INR, PTT INR 1.07 (0.83-1.09) 04/25/19 06:10 Assessment/Plan Current Medications Generic Name Dose Route Start Last Admin Trade Name Sandoval PRN Reason Stop Dose Admin Amlodipine Besylate 5 mg 04/25/19 10:00 04/26/19 09:45 Norvasc - PO 5 mg DAILY [facility] Administration Atorvastatin Calcium 40 mg 04/24/19 22:00 04/25/19 21:55 Lipitor - PO 40 mg HS [facility] Administration Clopidogrel Bisulfate 75 mg 04/25/19 10:00 04/26/19 09:45 Plavix - PO 75 mg DAILY [facility] Administration Collagenase 1 applic 04/25/19 10:00 04/25/19 09:45 Santyl - TP Not Given DAILY [facility] Protocol Digoxin 0.125 mg 04/25/19 10:00 04/26/19 09:46 Lanoxin - PO 0.125 mg DAILY [facility] Administration Furosemide 80 mg 04/26/19 10:00 04/26/19 09:45 Lasix - PO 80 mg DAILY [facility] Administration Heparin Sodium (Porcine) 5,000 unit 04/25/19 10:00 04/26/19 09:47 Heparin - SQ 5,000 unit BID [facility] Administration Tigecycline 50 mg/ Dextrose 100 mls @ 100 mls/hr 04/26/19 10:00 04/26/19 09: 36 IVPB 100 mls/hr BID [facility] Administration Protocol Insulin Aspart 1 vial 04/25/19 07:00 04/26/19 11:34 Novolog Vial Sliding Scale - SQ Not Given TIDAC [facility] Protocol Levothyroxine Sodium 125 mcg 04/26/19 15:03 Synthroid - PO DAILY@0700 [facility] Metoprolol Tartrate 125 mg 04/24/19 22:00 04/26/19 09:45 Lopressor - PO 125 mg BID [facility] Administration Sitagliptin Phosphate 25 mg 04/25/19 07:00 04/26/19 06:09 Januvia - PO 25 mg DAILY@0700 [facility] Administration Impression 1. CKD 2. CHF 3. DM 4. HTN 5. hx CVA 6. a-fib 7. elevated kappa chains 8. cellulitis 9. KULDIP Plan - cont lasix - monitor volume status - monitor renal function - renal dose meds - abx per medical celina - low sodium diet - avoid nsaids
[2019-04-26] MEDS: ATORVASTATIN CA 40 MG TABLET (FP) PO SCH (21:54)
[2019-04-27] MEDS: LEVOTHYROXINE NA 125 MCG TABLET (FP) PO SCH (06:06)
[2019-04-27] MEDS: INSULIN SLIDING SCALE (NOVOLOG) 1 VIAL SQ SCH (06:06)
[2019-04-27 08:23] LABS: ALBUMIN 3.2 g/dl (3.4-5.0); BILIRUBIN,TOTAL 1.1 mg/dL (0.2-1); BLOOD UREA NITROGEN 56.4 mg/dL (7-18); CALCIUM 9.3 mg/dL (8.5-10.1); CREATININE 1.8 mg/dL (0.55-1.3); TOT PROT 8.1 g/dl (6.4-8.2)
[2019-04-27] MEDS: amLODIPine BESYLATE 5 MG TABLET (FP) PO SCH (08:42)
[2019-04-27] MEDS: CLOPIDOGREL BISULFATE 75 MG TABLET (FP) PO SCH (08:44)
[2019-04-27] MEDS: ACETAMINOPHEN 325 MG TABLET (FP) PO PRN (08:44)
--- NOTE | 2019-04-27 10:29 | PN ---
Progress Note, Physician Chief Complaint: BLLE ulcers NIDDM CHF History of Present Illness: NAD in bed seen by vascular surgery - Current Medication List Current Medications: Active Medications Acetaminophen (Tylenol -) 650 mg PO Q6H PRN PRN Reason: PAIN OR FEVER Last Admin: 04/27/19 08:44 Dose: 650 mg Amlodipine Besylate (Norvasc -) 5 mg PO DAILY [facility] Last Admin: 04/27/19 08:42 Dose: 5 mg Atorvastatin Calcium (Lipitor -) 40 mg PO HS [facility] Last Admin: 04/26/19 21:54 Dose: 40 mg Clopidogrel Bisulfate (Plavix -) 75 mg PO DAILY [facility] Last Admin: 04/27/19 08:44 Dose: 75 mg Collagenase (Santyl -) 1 applic TP DAILY [facility]; Protocol Last Admin: 04/26/19 12:00 Dose: Not Given Digoxin (Lanoxin -) 0.125 mg PO DAILY [facility] Last Admin: 04/26/19 09:46 Dose: 0.125 mg Furosemide (Lasix -) 80 mg PO DAILY [facility] Last Admin: 04/26/19 09:45 Dose: 80 mg Heparin Sodium (Porcine) (Heparin -) 5,000 unit SQ BID [facility] Last Admin: 04/26/19 21:54 Dose: 5,000 unit Tigecycline 50 mg/ Dextrose 100 mls @ 100 mls/hr IVPB BID [facility]; Protocol Last Admin: 04/26/19 21:52 Dose: 100 mls/hr Insulin Aspart (Novolog Vial Sliding Scale -) 1 vial SQ TIDAC [facility]; Protocol Last Admin: 04/27/19 06:06 Dose: Not Given Levothyroxine Sodium (Synthroid -) 125 mcg PO DAILY@0700 [facility] Last Admin: 04/27/19 06:06 Dose: 125 mcg Metoprolol Tartrate (Lopressor -) 125 mg PO BID [facility] Last Admin: 04/26/19 21:53 Dose: 125 mg Sitagliptin Phosphate (Januvia -) 25 mg PO DAILY@0700 [facility] Last Admin: 04/27/19 06:06 Dose: 25 mg - Objective Vital Signs: Vital Signs Temperature 97.9 F 04/27/19 05:20 Pulse Rate 60 04/27/19 05:20 Respiratory Rate 18 04/27/19 05:20 Blood Pressure 155/88 04/27/19 05:20 O2 Sat by Pulse Oximetry (%) 99 04/26/19 21:00 Constitutional: Yes: Well Nourished, No Distress, Calm Cardiovascular: Yes: Regular Rate and Rhythm Respiratory: Yes: Regular Gastrointestinal: Yes: Normal Bowel Sounds, Soft, Abdomen, Obese Genitourinary: Yes: Incontinence Musculoskeletal: Yes: Muscle Weakness Edema: Yes (BLLE non pitting edema) Peripheral Pulses WNL: Yes Wound/Incision: Yes: Dressing Dry and Intact Neurological: Yes: Alert, Oriented Psychiatric: Yes: Alert, Oriented Labs: CBC, BMP 04/26/19 06:55 04/27/19 07:35 INR, PTT INR 1.07 (0.83-1.09) 04/25/19 06:10 Problem List - Problems (1) CHF (congestive heart failure) Assessment/Plan: -Continue Furosemide 80 mg po daily -Daily weights -low sodium diabetic diet -Cardiology consult -CXR unremarkable -Last echo 03/22/19- LVEF-20-25%,LV mildly dilated, LA mildly dilated, RA- moderate to severe dilation, mild mitral regurg Code(s): I50.9 - HEART FAILURE, UNSPECIFIED (2) Diabetes Assessment/Plan: -A1c at 6.5 -BGM AC HS -Januvia 25 mg po daily -Diabetic low sodium diet Code(s): E11.9 - TYPE 2 DIABETES MELLITUS WITHOUT COMPLICATIONS Qualifiers: Diabetes mellitus type: type 2 (3) Wound of lower extremity Assessment/Plan: -Seen by ID -On IV tigecycline -Seen by Vascular surgery -LESLIE today -Wound culture: Microbiology 04/25/19 17:50 Leg - Right Lower Gram Stain - Final 04/24/19 16:30 Blood - Peripheral Venous Blood Culture - Preliminary NO GROWTH OBTAINED AFTER 48 HOURS, INCUBATION TO CONTINUE FOR 3 DAYS. 04/24/19 16:30 Blood - Peripheral Venous Blood Culture - Preliminary NO GROWTH OBTAINED AFTER 48 HOURS, INCUBATION TO CONTINUE FOR 3 DAYS. -leukocytosis improved -afebrile -Cleared by Cardiology + pulmonary. -medically cleared for OR with acceptable risks Code(s): S81.809A - UNSPECIFIED OPEN WOUND, UNSPECIFIED LOWER LEG, INIT ENCNTR (4) CKD (chronic kidney disease) Assessment/Plan: -Nephrology on board -Cr improved -monitor trend Code(s): N18.9 - CHRONIC KIDNEY DISEASE, UNSPECIFIED Qualifiers: Chronic kidney disease stage: stage 2 (mild) Qualified Code(s): N18.2 - Chronic kidney disease, stage 2 (mild) Assessment/Plan See problem list -medically cleared for OR with acceptable risks
[2019-04-27] MEDS: FUROSEMIDE 40 MG TABLET (FP) PO SCH (11:25)
[2019-04-27] MEDS: METOPROLOL TARTRATE 50 MG TABLET (FP) PO SCH ×2 (11:25→21:05)
[2019-04-27] MEDS: DIGOXIN 0.125 MG TABLET (FP) PO SCH (11:25)
[2019-04-27] MEDS: HEPARIN NA (PORCINE) 5,000 UNITS/ML 1ML VIAL SQ SCH ×2 (11:26→21:05)
--- NOTE | 2019-04-27 12:18 | CON.PULM ---
Consult Consult Specialty:: PULMONARY Referred by:: Dr Valentine Reason for Consultation:: pre-op clearance - History of Present Illness Chief Complaint: leg pain History of Present Illness: 73yo female with h/o HTN, hyperlipidemia, DM, LV systolic dysfunction, tricuspid regurgitation, CKD, hypothyroidism who was admitted with infected leg ulcers. Started on antibiotics, planned for surgical debridement. She denies any shortness of breath, chest pain or palpitations. No cough or wheezing. Denies history of asthma or COPD. She is a remote smoker, does not use any inhalers at home. She has unlimited exercise tolerance. - History Source History Provided By: Patient, Medical Record Limitations to Obtaining History: No Limitations - Past Medical History Cardio/Vascular: Yes: CHF (EF 20-25%), HTN Pulmonary: Yes: COPD, O2 Dependent Renal/: Yes: Renal Inusuff Endocrine: Yes: Diabetes Mellitus - Past Surgical History Past Surgical History: Yes: Tubal Ligation - Alcohol/Substance Use Hx Alcohol Use: No History of Substance Use: reports: None - Smoking History Smoking history: Former smoker Have you smoked in the past 12 months: No Aproximately how many cigarettes per day: 6 If you are a former smoker, when did you quit?: 1966 - Social History ADL: Independent 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 History of Recent Travel: No Home Medications - Allergies Allergies/Adverse Reactions: Allergies Allergy/AdvReac Type Severity Reaction Status Date / Time piperacillin [From Zosyn] Allergy Rash Verified 04/24/19 19:34 tazobactam [From Zosyn] Allergy Rash Verified 04/24/19 19:34 - Home Medications Home Medications: Ambulatory Orders Atorvastatin Ca [Lipitor] 40 mg PO HS #30 tablet 12/30/16 Clopidogrel Bisulfate [Plavix -] 75 mg PO DAILY #30 tablet 12/30/16 Metoprolol Tartrate [Lopressor -] 25 mg PO BID #60 tablet 01/08/19 Amlodipine Besylate [Norvasc -] 5 mg PO DAILY tablet 03/26/19 Digoxin [Lanoxin -] 0.125 mg PO DAILY tablet 03/26/19 Furosemide [Lasix -] 80 mg PO BID@0600,1400 tablet 03/26/19 Insulin Sliding Scale [Novolog Vial Sliding Scale -] 1 vial SQ ACHS units 03/26 Levothyroxine [Synthroid -] 100 mcg PO DAILY@0700 tablet 03/26/19 Metoprolol Tartrate [Lopressor -] 100 mg PO BID tablet 03/26/19 Potassium Chloride [K-Dur -] 10 meq PO DAILY tablet.er 03/26/19 Sacubitril/Valsartan [Entresto 49 mg-51 mg Tablet] 1 tab PO BID tablet Sitagliptin Phosphate [Januvia -] 25 mg PO DAILY@0700 tab 03/26/19 Review of Systems - Review of Systems Constitutional: denies: Chills, Fever Eyes: denies: Recent Change in Vision HENT: denies: Nasal Congestion, Throat Pain Neck: denies: Stiffness, Tenderness Cardiovascular: denies: Chest Pain, Edema, Shortness of Breath Respiratory: denies: Cough, Hemoptysis, SOB on Exertion, Wheezing Gastrointestinal: denies: Abdominal Pain, Nausea, Vomiting Genitourinary: denies: Dysuria, Hematuria Musculoskeletal: reports: Extremity Pain Neurological: denies: Dizziness, Headache Endocrine: denies: Unexplained Weight Loss Physical Exam Vital Sings: Vital Signs Temperature 97.9 F 04/27/19 05:20 Pulse Rate 68 04/27/19 11:25 Respiratory Rate 18 04/27/19 05:20 Blood Pressure 155/88 04/27/19 05:20 O2 Sat by Pulse Oximetry (%) 99 04/26/19 21:00 Constitutional: Yes: No Distress, Calm Eyes: Yes: Conjunctiva Clear, EOM Intact HENT: Yes: Atraumatic, Normocephalic Neck: Yes: Supple, Trachea Midline Cardiovascular: Yes: Regular Rate and Rhythm Respiratory: Yes: Diminished (decreased breath sounds at the bases) ...Clubbing: No Gastrointestinal: Yes: Normal Bowel Sounds, Soft. No: Tenderness Edema: No Labs: CBC, BMP 04/26/19 06:55 04/27/19 07:35 Imaging - Results Chest X-ray: Report Reviewed, Image Reviewed (no infiltrates) Problem List - Problems (1) Infected stasis ulcer of left lower extremity Code(s): I83.229 - VARICOS VN OF L LOW EXTREM W ULC OF UNSP SITE AND INFLAM; L97.929 - NON-PRS CHRONIC ULC UNSP PRT OF L LOW LEG W UNSP SEVERITY Assessment/Plan Infected Leg Ulcers LV Systolic Dysfunction Tricuspid Regurgitation HTN DM Hyperlipidemia Hypothyroidism CKD h/o CVA - continue antibiotics - for ulcer debridement - pt with unlimited exercise tolerance, asymptomatic from pulmonary standpoint , remote smoker - no pulmonary contraindications to planned surgery - DVT prophylaxis Thank you for this consult Magno Escobedo MD
--- NOTE | 2019-04-27 13:00 | PN ---
Progress Note, Physician History of Present Illness: Pt seen and examined at bedside. She is awake and alert. She denies shortness of breath. - Current Medication List Current Medications: Active Medications Acetaminophen (Tylenol -) 650 mg PO Q6H PRN PRN Reason: PAIN OR FEVER Last Admin: 04/27/19 08:44 Dose: 650 mg Amlodipine Besylate (Norvasc -) 5 mg PO DAILY [facility] Last Admin: 04/27/19 08:42 Dose: 5 mg Atorvastatin Calcium (Lipitor -) 40 mg PO HS [facility] Last Admin: 04/26/19 21:54 Dose: 40 mg Clopidogrel Bisulfate (Plavix -) 75 mg PO DAILY [facility] Last Admin: 04/27/19 08:44 Dose: 75 mg Collagenase (Santyl -) 1 applic TP DAILY [facility]; Protocol Last Admin: 04/26/19 12:00 Dose: Not Given Digoxin (Lanoxin -) 0.125 mg PO DAILY [facility] Last Admin: 04/27/19 11:25 Dose: 0.125 mg Furosemide (Lasix -) 80 mg PO DAILY [facility] Last Admin: 04/27/19 11:25 Dose: 80 mg Heparin Sodium (Porcine) (Heparin -) 5,000 unit SQ BID [facility] Last Admin: 04/27/19 11:26 Dose: 5,000 unit Tigecycline 50 mg/ Dextrose 100 mls @ 100 mls/hr IVPB BID [facility]; Protocol Last Admin: 04/26/19 21:52 Dose: 100 mls/hr Insulin Aspart (Novolog Vial Sliding Scale -) 1 vial SQ TIDAC [facility]; Protocol Last Admin: 04/27/19 06:06 Dose: Not Given Levothyroxine Sodium (Synthroid -) 125 mcg PO DAILY@0700 [facility] Last Admin: 04/27/19 06:06 Dose: 125 mcg Metoprolol Tartrate (Lopressor -) 125 mg PO BID [facility] Last Admin: 04/27/19 11:25 Dose: 125 mg Sitagliptin Phosphate (Januvia -) 25 mg PO DAILY@0700 [facility] Last Admin: 04/27/19 06:06 Dose: 25 mg - Objective Vital Signs: Vital Signs Temperature 97.9 F 04/27/19 05:20 Pulse Rate 68 04/27/19 11:25 Respiratory Rate 18 04/27/19 05:20 Blood Pressure 155/88 04/27/19 05:20 O2 Sat by Pulse Oximetry (%) 99 04/26/19 21:00 Constitutional: Yes: Calm Cardiovascular: Yes: S1, S2 Respiratory: Yes: CTA Bilaterally Gastrointestinal: Yes: Soft, Abdomen, Obese Genitourinary: Yes: WNL Edema: Yes Edema: LLE: Trace, RLE: Trace Neurological: Yes: Oriented Psychiatric: Yes: Oriented Labs: CBC, BMP 04/26/19 06:55 04/27/19 07:35 INR, PTT INR 1.07 (0.83-1.09) 04/25/19 06:10 Assessment/Plan Current Medications Generic Name Dose Route Start Last Admin Trade Name Freq PRN Reason Stop Dose Admin Acetaminophen 650 mg 04/27/19 08:24 04/27/19 08:44 Tylenol - PO 650 mg Q6H PRN Administration PAIN OR FEVER Amlodipine Besylate 5 mg 04/25/19 10:00 04/27/19 08:42 Norvasc - PO 5 mg DAILY [facility] Administration Atorvastatin Calcium 40 mg 04/24/19 22:00 04/26/19 21:54 Lipitor - PO 40 mg HS [facility] Administration Clopidogrel Bisulfate 75 mg 04/25/19 10:00 04/27/19 08:44 Plavix - PO 75 mg DAILY [facility] Administration Collagenase 1 applic 04/25/19 10:00 04/26/19 12:00 Santyl - TP Not Given DAILY [facility] Protocol Digoxin 0.125 mg 04/25/19 10:00 04/27/19 11:25 Lanoxin - PO 0.125 mg DAILY [facility] Administration Furosemide 80 mg 04/26/19 10:00 04/27/19 11:25 Lasix - PO 80 mg DAILY [facility] Administration Heparin Sodium (Porcine) 5,000 unit 04/25/19 10:00 04/27/19 11:26 Heparin - SQ 5,000 unit BID [facility] Administration Tigecycline 50 mg/ Dextrose 100 mls @ 100 mls/hr 04/26/19 10:00 04/26/19 21: 52 IVPB 100 mls/hr BID [facility] Administration Protocol Insulin Aspart 1 vial 04/25/19 07:00 04/27/19 06:06 Novolog Vial Sliding Scale - SQ Not Given TIDAC [facility] Protocol Levothyroxine Sodium 125 mcg 04/26/19 15:03 04/27/19 06:06 Synthroid - PO 125 mcg DAILY@0700 [facility] Administration Metoprolol Tartrate 125 mg 04/24/19 22:00 04/27/19 11:25 Lopressor - PO 125 mg BID [facility] Administration Sitagliptin Phosphate 25 mg 04/25/19 07:00 04/27/19 06:06 Januvia - PO 25 mg DAILY@0700 [facility] Administration Impression 1. CKD 2. CHF 3. DM 4. HTN 5. hx CVA 6. a-fib 7. elevated kappa chains 8. cellulitis 9. KULDIP Plan - lasix 80 bid - monitor renal function - abx per primary team - renal dose meds - low sodium diet - avoid nsaids
--- NOTE | 2019-04-27 13:03 | CON.CARD ---
Consult Consult Specialty:: Cardiology Referred by:: Dr. Valentine Reason for Consultation:: Preop cardiac evaluation, h/o CHF - History of Present Illness Chief Complaint: LE ulcers History of Present Illness: 73 year old woman with a PMHx of HTN, CVA in 2017, SVT, wide complex tachycardia thought to be SVT with aberrancy, chronic systolic CHF, severe TR, KULDIP/ATN admitted on 03/21/19 with worsening leg edema, likley secondary to dietary sodium intake. 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 Now admitted with non-healing b/l LE ulcers. Pt was seen and examined today in nad. denies any chest pain or sob. no orthopnea or PND. no palpitations, lightheadedness, dizziness, syncope, or near syncope. Echo 01/07/19 and 03/22/19: Mild LV dilatation with severely reduced LV systolic function. Normal RV. Mild LA dilatation. Moderate to severe RA dilatation. Mild MR. Severe TR. ?pulmonary hypertension. - History Source History Provided By: Patient, Medical Record Limitations to Obtaining History: No Limitations - Past Medical History Cardio/Vascular: Yes: CHF (EF 20-25%), HTN Pulmonary: Yes: COPD, O2 Dependent Renal/: Yes: Renal Inusuff Endocrine: Yes: Diabetes Mellitus - Past Surgical History Past Surgical History: Yes: Tubal Ligation - Alcohol/Substance Use Hx Alcohol Use: No History of Substance Use: reports: None - Smoking History Smoking history: Former smoker Have you smoked in the past 12 months: No Aproximately how many cigarettes per day: 6 If you are a former smoker, when did you quit?: 1967 - Social History ADL: Independent 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 History of Recent Travel: No Home Medications - Allergies Allergies/Adverse Reactions: Allergies Allergy/AdvReac Type Severity Reaction Status Date / Time piperacillin [From Zosyn] Allergy Rash Verified 04/24/19 19:34 tazobactam [From Zosyn] Allergy Rash Verified 04/24/19 19:34 - Home Medications Home Medications: Ambulatory Orders Atorvastatin Ca [Lipitor] 40 mg PO HS #30 tablet 12/30/16 Clopidogrel Bisulfate [Plavix -] 75 mg PO DAILY #30 tablet 12/30/16 Metoprolol Tartrate [Lopressor -] 25 mg PO BID #60 tablet 01/08/19 Amlodipine Besylate [Norvasc -] 5 mg PO DAILY tablet 03/26/19 Digoxin [Lanoxin -] 0.125 mg PO DAILY tablet 03/26/19 Furosemide [Lasix -] 80 mg PO BID@0600,1400 tablet 03/26/19 Insulin Sliding Scale [Novolog Vial Sliding Scale -] 1 vial SQ ACHS units 03/26 Levothyroxine [Synthroid -] 100 mcg PO DAILY@0700 tablet 03/26/19 Metoprolol Tartrate [Lopressor -] 100 mg PO BID tablet 03/26/19 Potassium Chloride [K-Dur -] 10 meq PO DAILY tablet.er 03/26/19 Sacubitril/Valsartan [Entresto 49 mg-51 mg Tablet] 1 tab PO BID tablet Sitagliptin Phosphate [Januvia -] 25 mg PO DAILY@0700 tab 03/26/19 Review of Systems - Review of Systems Constitutional: reports: Chills, Fever. denies: No Symptoms, Diaphoresis, Lethargy, Loss of Appetite, Malaise, Night Sweats, Unintentional Wgt. Loss, Weakness, Other Eyes: denies: No Symptoms, Blind Spots, Blurred Vision, Double Vision, Eye Pain , Floaters, Photophobia, Recent Change in Vision, Other HENT: denies: No Symptoms, Difficult Swallowing, Ear Discharge, Ear Pain, Epistaxis, Gingival Bleeding, Hearing Loss, Mouth Swelling, Nasal Congestion, Ocular Prosthesis, Throat Pain, Toothache, Ringing in Ears, Other Neck: denies: No Symptoms, Decreased ROM, Lumps, Pain on Movement, Stiffness, Swollen Glands, Tenderness, Other Cardiovascular: denies: No Symptoms, Chest Pain, Edema, Palpitations, Shortness of Breath, Other Respiratory: denies: No Symptoms, Cough, Exercise Intolerance, Hemoptysis, Orthopnea, PND, Snoring, SOB, SOB on Exertion, Wheezing, Other Gastrointestinal: denies: No Symptoms, Abdominal Pain, Bloating, Constipation, Diarrhea, Dysphagia, Indigestion, Melena, Nausea, Rectal Bleeding, Vomiting, Vomiting Blood, Other Genitourinary: denies: No Symptoms, Burning, Discharge, Dysuria, Flank Pain, Frequency, Hematuria, Incontinence, Lesions, Menses, Pain, Testicular Mass, Testicular Pain, Testicular Swelling, Urgency, Vaginal Bleeding, Other Breasts: denies: No Symptoms Reported, See HPI, Breast Implants, Discharge from Nipple, Lumps, Pain, Skin Changes, Other Musculoskeletal: denies: No Symptoms, Back Pain, Crepitus, Decreased ROM, Extremity Pain, Joint Pain, Joint Swelling, Muscle Pain, Muscle Cramps, Muscle Weakness, Other Integumentary: denies: No Symptoms, Blister, Bruising, Change in Color, Eczema, Erythema, Incision, Lesions, Lump, Pallor, Pruritis, Rash, Wound, Other Neurological: denies: No Symptoms, Change in LOC, Change in Speech, Confusion, Dizziness, Headache, Incoordination, Numbness, Parasthesia, Pre-Existing Deficit , Seizure, Syncope, Tremors, Unsteady Gait, Weakness, Other Endocrine: denies: No Symptoms, Excessive Sweating, Flushing, Increased Hunger, Increased Thirst, Intolerance to Cold, Intolerance to Heat, Unexplained Weight Gain, Unexplained Weight Loss, Other Hematology/Lymphatic: denies: No Symptoms, Easily Bruised, Excessive Bleeding, Swollen Glands, Other Psychiatric: denies: No Symptoms, Altered Sleep Pattern, Anxiety, Depression, Hallucinations, Panic, Paranoia, Suicidal, Other - Risk Factors Known Risk Factors: Yes: Hypercholesterolemia, Hypertension Vital Signs: Vital Signs Temperature 97.9 F 04/27/19 05:20 Pulse Rate 68 04/27/19 11:25 Respiratory Rate 18 04/27/19 05:20 Blood Pressure 155/88 04/27/19 05:20 O2 Sat by Pulse Oximetry (%) 99 04/26/19 21:00 Constitutional: Yes: No Distress, Calm Eyes: Yes: Conjunctiva Clear, EOM Intact HENT: Yes: Atraumatic, Normocephalic Neck: Yes: Supple, Trachea Midline Respiratory: Yes: Regular. No: Rales, Rhonchi, SOB, Wheezes Gastrointestinal: Yes: Normal Bowel Sounds, Soft. No: Distention, Tenderness Cardiovascular: Yes: Regular Rate and Rhythm. No: Bradycardia, Tachycardia, Pulse Irregular, Gallop, Rub, Varicosities JVD: No Carotid Bruit: No PMI: Non-Displaced Heart Sounds: Yes: S1, S2. No: Split S2, S3, S4, Clicks, Gallop, Rub, Bruit Murmur: No: Systolic Murmur, Diastolic Murmur Edema: Yes Edema: LLE: Trace, RLE: Trace Neurological: Yes: Alert, Oriented Psychiatric: Yes: Alert, Oriented - Other Data Labs, Other Data: CBC, BMP 04/26/19 06:55 04/27/19 07:35 INR, PTT INR 1.07 (0.83-1.09) 04/25/19 06:10 nsr 65bpm, artifact, nsst Echo: Report Reviewed Imaging - Results Chest X-ray: Report Reviewed, Image Reviewed EKG: Report Reviewed, Image Reviewed Other: Report Reviewed, Image Reviewed Assessment/Plan 73 year old woman with a PMHx of HTN, CVA in 2017, SVT, wide complex tachycardia thought to be SVT with aberrancy, chronic systolic CHF, severe TR, KULDIP/ATN admitted on 03/21/19 with worsening leg edema, likley secondary to dietary sodium intake. 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 Now admitted with non-healing b/l LE ulcers. Pt was seen and examined today in nad. denies any chest pain or sob. no orthopnea or PND. no palpitations, lightheadedness, dizziness, syncope, or near syncope. Echo 01/07/19 and 03/22/19: Mild LV dilatation with severely reduced LV systolic function. Normal RV. Mild LA dilatation. Moderate to severe RA dilatation. Mild MR. Severe TR. ?pulmonary hypertension. Preop cardiovascular exam -pt has known chronic systolic CHF, h/o arrhythmias (PSVT) -she is of an increased cardiac risk for surgical procedures however at this time she is currently in her optimal cardiac condition, she is currently euvolemic -there are no current cardiac contraindications to the planned low risk procedure and would recommend to proceed without delay for additional cardiac work up. -cont current cardiac meds throughout the perioperative period. Chronic systolic CHF: Continue Lasix PO 80 mg BID Continue metoprolol to 125 mg PO BID Arhythmias: History of PSVT. 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 Currently in sinus with controlled heart rate in 70s. previously on Amiodarone 200 mg PO daily to be re-evaluated as outpatient COnt metoprolol COnt Digoxin added. PSVT ablation to be considered as out-patient. Will see as needed. Please call with any additional questions.
[2019-04-27] MEDS ORDERED: INSULIN (NOVOLOG) ASPART 100 UNITS/ML 10ML VIAL ONE (20:48)
[2019-04-27] MEDS ORDERED: PT OWN MED DRAWER 7, Y5N ONE (20:50)
[2019-04-27] MEDS: TIGECYCLINE 50 MG in DEXTROSE 5%-WATER - 100 ML IVPB SCH (21:04)
[2019-04-27] MEDS: ATORVASTATIN CA 40 MG TABLET (FP) PO SCH (21:05)
[2019-04-28] MEDS: FUROSEMIDE 40 MG TABLET (FP) PO SCH ×3 (05:48→14:39)
[2019-04-28] MEDS: LEVOTHYROXINE NA 125 MCG TABLET (FP) PO SCH (06:30)
[2019-04-28 07:54] LABS: BILIRUBIN,TOTAL 0.8 mg/dL (0.2-1); BLOOD UREA NITROGEN 60.4 mg/dL (7-18); CALCIUM 8.7 mg/dL (8.5-10.1); CREATININE 1.8 mg/dL (0.55-1.3); POTASSIUM 4.1 mmol/L (3.5-5.1); TOT PROT 7.8 g/dl (6.4-8.2)
[2019-04-28] MEDS: amLODIPine BESYLATE 5 MG TABLET (FP) PO SCH ×2 (08:15→13:23)
[2019-04-28] MEDS: CLOPIDOGREL BISULFATE 75 MG TABLET (FP) PO SCH ×2 (08:15→13:20)
--- NOTE | 2019-04-28 09:11 | SPA.PREOP ---
- PRE-OP NOTE Dx: Lower extremity wounds Planned Procedure: Lower extremity wound debridement Surgeon: Kevin Andino, Last Vital Signs Temp Pulse Resp BP Pulse Ox 98.0 F 58 L 18 149/77 99 04/28/19 04:00 04/28/19 04:00 04/28/19 04:00 04/28/19 04:00 04/27/19 22:00 Lab Results WBC 8.9 K/mm3 (4.0-10.0) 04/26/19 06:55 RBC 4.57 M/mm3 (3.60-5.2) 04/26/19 06:55 Hgb 12.8 GM/dL (10.7-15.3) 04/26/19 06:55 Hct 38.9 % (32.4-45.2) 04/26/19 06:55 MCV 85.2 fl (80-96) 04/26/19 06:55 MCHC 32.8 g/dl (32.0-36.0) 04/26/19 06:55 RDW 17.2 % (11.6-15.6) H 04/26/19 06:55 Plt Count 300 K/MM3 (134-434) 04/26/19 06:55 Sodium 136 mmol/L (136-145) 04/28/19 06:15 Potassium 4.1 mmol/L (3.5-5.1) 04/28/19 06:15 Chloride 102 mmol/L (98-107) 04/28/19 06:15 Carbon Dioxide 26 mmol/L (21-32) 04/28/19 06:15 Anion Gap 9 MMOL/L (8-16) 04/28/19 06:15 BUN 60.4 mg/dL (7-18) H 04/28/19 06:15 Creatinine 1.8 mg/dL (0.55-1.3) H 04/28/19 06:15 Random Glucose 102 mg/dL (74-106) 04/28/19 06:15 Calcium 8.7 mg/dL (8.5-10.1) 04/28/19 06:15 INR 1.07 (0.83-1.09) 04/25/19 06:10 - ASSESSMENT/PLAN 1. Make NPO after midnight except po meds 2. GI/DVT PPX 3. Medical optimization / clearance 4. Consent to be obtained by surgeon after risks, benefits and alternatives discussed with patient and or Health Care Proxy.
--- NOTE | 2019-04-28 10:59 | PN ---
Progress Note, Physician Chief Complaint: BLLE ulcers NIDDM CHF History of Present Illness: NAD in bed seen by vascular surgery - Current Medication List Current Medications: Active Medications Acetaminophen (Tylenol -) 650 mg PO Q6H PRN PRN Reason: PAIN OR FEVER Last Admin: 04/27/19 08:44 Dose: 650 mg Amlodipine Besylate (Norvasc -) 5 mg PO DAILY [facility] Last Admin: 04/28/19 08:15 Dose: Not Given Atorvastatin Calcium (Lipitor -) 40 mg PO HS [facility] Last Admin: 04/27/19 21:05 Dose: 40 mg Clopidogrel Bisulfate (Plavix -) 75 mg PO DAILY [facility] Last Admin: 04/28/19 08:15 Dose: Not Given Collagenase (Santyl -) 1 applic TP DAILY [facility]; Protocol Last Admin: 04/26/19 12:00 Dose: Not Given Digoxin (Lanoxin -) 0.125 mg PO DAILY [facility] Last Admin: 04/27/19 11:25 Dose: 0.125 mg Furosemide (Lasix -) 80 mg PO BID@0600,1400 [facility] Last Admin: 04/28/19 05:48 Dose: 80 mg Heparin Sodium (Porcine) (Heparin -) 5,000 unit SQ BID [facility] Last Admin: 04/27/19 21:05 Dose: 5,000 unit Tigecycline 50 mg/ Dextrose 100 mls @ 100 mls/hr IVPB BID [facility]; Protocol Last Admin: 04/27/19 21:04 Dose: 100 mls/hr Insulin Aspart (Novolog Vial Sliding Scale -) 1 vial SQ TIDAC [facility]; Protocol Last Admin: 04/27/19 06:06 Dose: Not Given Levothyroxine Sodium (Synthroid -) 125 mcg PO DAILY@0700 [facility] Last Admin: 04/28/19 06:30 Dose: 125 mcg Metoprolol Tartrate (Lopressor -) 125 mg PO BID [facility] Last Admin: 04/27/19 21:05 Dose: 125 mg Sitagliptin Phosphate (Januvia -) 25 mg PO DAILY@0700 [facility] Last Admin: 04/28/19 06:31 Dose: 25 mg - Objective Vital Signs: Vital Signs Temperature 98.0 F 04/28/19 04:00 Pulse Rate 58 L 04/28/19 04:00 Respiratory Rate 18 04/28/19 04:00 Blood Pressure 149/77 04/28/19 04:00 O2 Sat by Pulse Oximetry (%) 99 04/27/19 22:00 Constitutional: Yes: Well Nourished, No Distress, Calm Cardiovascular: Yes: Regular Rate and Rhythm Respiratory: Yes: Regular Gastrointestinal: Yes: Normal Bowel Sounds, Soft Genitourinary: Yes: WNL Musculoskeletal: Yes: Muscle Weakness Extremities: Yes: WNL Edema: No Peripheral Pulses WNL: Yes Wound/Incision: Yes: Dressing Dry and Intact Neurological: Yes: Alert, Oriented Psychiatric: Yes: Alert, Oriented Labs: CBC, BMP 04/26/19 06:55 04/28/19 06:15 INR, PTT INR 1.07 (0.83-1.09) 04/25/19 06:10 Problem List - Problems (1) CHF (congestive heart failure) Assessment/Plan: -Continue Furosemide 80 mg po daily -Daily weights -low sodium diabetic diet -Cardiology consult -CXR unremarkable -Last echo 03/22/19- LVEF-20-25%,LV mildly dilated, LA mildly dilated, RA- moderate to severe dilation, mild mitral regurg Code(s): I50.9 - HEART FAILURE, UNSPECIFIED (2) Diabetes Assessment/Plan: -A1c at 6.5 -BGM AC HS -Januvia 25 mg po daily -Diabetic low sodium diet Code(s): E11.9 - TYPE 2 DIABETES MELLITUS WITHOUT COMPLICATIONS Qualifiers: Diabetes mellitus type: type 2 (3) Wound of lower extremity Assessment/Plan: -Seen by ID -On IV tigecycline -Seen by Vascular surgery -LESLIE today -Wound culture: Microbiology 04/25/19 17:50 Leg - Right Lower Gram Stain - Final 04/25/19 17:50 Leg - Right Lower Wound Culture - Preliminary Proteus Mirabilis Serratia Marcescens Morganella Morganii Enterococcus Faecalis Staphylococcus Coagulase Neg 04/24/19 16:30 Blood - Peripheral Venous Blood Culture - Preliminary NO GROWTH OBTAINED AFTER 72 HOURS, INCUBATION TO CONTINUE FOR 2 DAYS. 04/24/19 16:30 Blood - Peripheral Venous Blood Culture - Preliminary NO GROWTH OBTAINED AFTER 72 HOURS, INCUBATION TO CONTINUE FOR 2 DAYS. -leukocytosis improved -afebrile -Cleared by Cardiology + pulmonary. -medically cleared for OR with acceptable risks Code(s): S81.809A - UNSPECIFIED OPEN WOUND, UNSPECIFIED LOWER LEG, INIT ENCNTR (4) CKD (chronic kidney disease) Assessment/Plan: -Nephrology on board -Cr improved -monitor trend Code(s): N18.9 - CHRONIC KIDNEY DISEASE, UNSPECIFIED Qualifiers: Chronic kidney disease stage: stage 2 (mild) Qualified Code(s): N18.2 - Chronic kidney disease, stage 2 (mild) Assessment/Plan See problem list -medically cleared for OR with acceptable risks
[2019-04-28] MEDS: INSULIN SLIDING SCALE (NOVOLOG) 1 VIAL SQ SCH (11:30)
--- NOTE | 2019-04-28 13:17 | PN ---
Progress Note, Physician History of Present Illness: Pt seen and examined at bedside. She is awake and appears comfortable. - Current Medication List Current Medications: Active Medications Acetaminophen (Tylenol -) 650 mg PO Q6H PRN PRN Reason: PAIN OR FEVER Last Admin: 04/27/19 08:44 Dose: 650 mg Amlodipine Besylate (Norvasc -) 5 mg PO DAILY [facility] Last Admin: 04/28/19 08:15 Dose: Not Given Atorvastatin Calcium (Lipitor -) 40 mg PO HS [facility] Last Admin: 04/27/19 21:05 Dose: 40 mg Clopidogrel Bisulfate (Plavix -) 75 mg PO DAILY [facility] Last Admin: 04/28/19 08:15 Dose: Not Given Collagenase (Santyl -) 1 applic TP DAILY [facility]; Protocol Last Admin: 04/26/19 12:00 Dose: Not Given Digoxin (Lanoxin -) 0.125 mg PO DAILY [facility] Last Admin: 04/27/19 11:25 Dose: 0.125 mg Furosemide (Lasix -) 80 mg PO BID@0600,1400 [facility] Last Admin: 04/28/19 05:48 Dose: 80 mg Heparin Sodium (Porcine) (Heparin -) 5,000 unit SQ BID [facility] Last Admin: 04/27/19 21:05 Dose: 5,000 unit Tigecycline 50 mg/ Dextrose 100 mls @ 100 mls/hr IVPB BID [facility]; Protocol Last Admin: 04/27/19 21:04 Dose: 100 mls/hr Insulin Aspart (Novolog Vial Sliding Scale -) 1 vial SQ TIDAC [facility]; Protocol Last Admin: 04/28/19 11:30 Dose: Not Given Levothyroxine Sodium (Synthroid -) 125 mcg PO DAILY@0700 [facility] Last Admin: 04/28/19 06:30 Dose: 125 mcg Metoprolol Tartrate (Lopressor -) 125 mg PO BID [facility] Last Admin: 04/27/19 21:05 Dose: 125 mg Sitagliptin Phosphate (Januvia -) 25 mg PO DAILY@0700 [facility] Last Admin: 04/28/19 06:31 Dose: 25 mg - Objective Vital Signs: Vital Signs Temperature 98.0 F 04/28/19 04:00 Pulse Rate 58 L 04/28/19 04:00 Respiratory Rate 18 04/28/19 04:00 Blood Pressure 149/77 04/28/19 04:00 O2 Sat by Pulse Oximetry (%) 99 04/27/19 22:00 Constitutional: Yes: Calm Eyes: Yes: Conjunctiva Clear HENT: Yes: Atraumatic Neck: Yes: Supple Cardiovascular: Yes: S1, S2 Respiratory: Yes: CTA Bilaterally Gastrointestinal: Yes: Soft Musculoskeletal: Yes: WNL Edema: Yes Edema: LLE: 1+, RLE: 1+ Wound/Incision: Yes: Dressing Dry and Intact Neurological: Yes: Oriented Labs: CBC, BMP 04/26/19 06:55 04/28/19 06:15 INR, PTT INR 1.07 (0.83-1.09) 04/25/19 06:10 Assessment/Plan Current Medications Generic Name Dose Route Start Last Admin Trade Name Freq PRN Reason Stop Dose Admin Acetaminophen 650 mg 04/27/19 08:24 04/27/19 08:44 Tylenol - PO 650 mg Q6H PRN Administration PAIN OR FEVER Amlodipine Besylate 5 mg 04/25/19 10:00 04/28/19 08:15 Norvasc - PO Not Given DAILY [facility] Atorvastatin Calcium 40 mg 04/24/19 22:00 04/27/19 21:05 Lipitor - PO 40 mg HS [facility] Administration Clopidogrel Bisulfate 75 mg 04/25/19 10:00 04/28/19 08:15 Plavix - PO Not Given DAILY [facility] Collagenase 1 applic 04/25/19 10:00 04/26/19 12:00 Santyl - TP Not Given DAILY [facility] Protocol Digoxin 0.125 mg 04/25/19 10:00 04/27/19 11:25 Lanoxin - PO 0.125 mg DAILY [facility] Administration Furosemide 80 mg 04/27/19 14:00 04/28/19 05:48 Lasix - PO 80 mg BID@0600,1400 [facility] Administration Heparin Sodium (Porcine) 5,000 unit 04/25/19 10:00 04/27/19 21:05 Heparin - SQ 5,000 unit BID [facility] Administration Tigecycline 50 mg/ Dextrose 100 mls @ 100 mls/hr 04/26/19 10:00 04/27/19 21: 04 IVPB 100 mls/hr BID [facility] Administration Protocol Insulin Aspart 1 vial 04/25/19 07:00 04/28/19 11:30 Novolog Vial Sliding Scale - SQ Not Given TIDAC [facility] Protocol Levothyroxine Sodium 125 mcg 04/26/19 15:03 09/25/19 06:30 Synthroid - PO 125 mcg DAILY@0700 [facility] Administration Metoprolol Tartrate 125 mg 04/24/19 22:00 04/27/19 21:05 Lopressor - PO 125 mg BID [facility] Administration Sitagliptin Phosphate 25 mg 04/25/19 07:00 04/28/19 06:31 Januvia - PO 25 mg DAILY@0700 [facility] Administration Impression 1. CKD 2. CHF 3. DM 4. HTN 5. hx CVA 6. a-fib 7. elevated kappa chains 8. cellulitis 9. KULDIP Plan - cont lasix - monitor renal function - cont wound care - repeat labs in am - pt for debridement - low sodium diet - avoid nsaids
[2019-04-28] MEDS: DIGOXIN 0.125 MG TABLET (FP) PO SCH (13:22)
[2019-04-28] MEDS: METOPROLOL TARTRATE 50 MG TABLET (FP) PO SCH ×2 (13:23→22:02)
[2019-04-28] MEDS: HEPARIN NA (PORCINE) 5,000 UNITS/ML 1ML VIAL SQ SCH ×2 (13:23→22:03)
[2019-04-28] MEDS: COLLAGENASE CLOSTRIDIUM HIST. 30 GRAMS TUBE TP SCH (13:24)
[2019-04-28] MEDS: TIGECYCLINE 50 MG in DEXTROSE 5%-WATER - 100 ML IVPB SCH ×2 (13:24→22:04)
--- NOTE | 2019-04-28 14:21 | PN ---
Progress Note (short form) - Note Progress Note: PULMONARY Denies shortness of breath, cough or wheezing. Vital Signs Period Temp Pulse Resp BP Sys/Sommer Pulse Ox Last 24 Hr 97.5 F-98.4 F 57-89 18-21 139-160/72-81 99 Gen: NAD at rest Heart: RRR Lung: decreased breath sounds at the bases Abd: soft, nontender Ext: wrapped CBC, BMP 04/26/19 06:55 04/28/19 06:15 Active Medications Acetaminophen (Tylenol -) 650 mg PO Q6H PRN PRN Reason: PAIN OR FEVER Last Admin: 04/27/19 08:44 Dose: 650 mg Amlodipine Besylate (Norvasc -) 5 mg PO DAILY [facility] Last Admin: 04/28/19 13:23 Dose: 5 mg Atorvastatin Calcium (Lipitor -) 40 mg PO HS [facility] Last Admin: 04/27/19 21:05 Dose: 40 mg Clopidogrel Bisulfate (Plavix -) 75 mg PO DAILY [facility] Last Admin: 04/28/19 13:20 Dose: Not Given Collagenase (Santyl -) 1 applic TP DAILY [facility]; Protocol Last Admin: 04/28/19 13:24 Dose: 1 applic Digoxin (Lanoxin -) 0.125 mg PO DAILY [facility] Last Admin: 04/28/19 13:22 Dose: 0.125 mg Furosemide (Lasix -) 80 mg PO BID@0600,1400 [facility] Last Admin: 04/28/19 13:23 Dose: 80 mg Heparin Sodium (Porcine) (Heparin -) 5,000 unit SQ BID [facility] Last Admin: 04/28/19 13:23 Dose: 5,000 unit Tigecycline 50 mg/ Dextrose 100 mls @ 100 mls/hr IVPB BID [facility]; Protocol Last Admin: 04/28/19 13:24 Dose: 100 mls/hr Insulin Aspart (Novolog Vial Sliding Scale -) 1 vial SQ TIDAC [facility]; Protocol Last Admin: 04/28/19 11:30 Dose: Not Given Levothyroxine Sodium (Synthroid -) 125 mcg PO DAILY@0700 [facility] Last Admin: 04/28/19 06:30 Dose: 125 mcg Metoprolol Tartrate (Lopressor -) 125 mg PO BID [facility] Last Admin: 04/28/19 13:23 Dose: 125 mg Sitagliptin Phosphate (Januvia -) 25 mg PO DAILY@0700 [facility] Last Admin: 04/28/19 06:31 Dose: 25 mg A/P Infected Leg Ulcers LV Systolic Dysfunction Tricuspid Regurgitation HTN DM Hyperlipidemia Hypothyroidism CKD h/o CVA - continue antibiotics - for ulcer debridement - pt with unlimited exercise tolerance, asymptomatic from pulmonary standpoint , remote smoker - no pulmonary contraindications to planned surgery - DVT prophylaxis Problem List - Problems (1) Infected stasis ulcer of left lower extremity Code(s): I83.229 - VARICOS VN OF L LOW EXTREM W ULC OF UNSP SITE AND INFLAM; L97.929 - NON-PRS CHRONIC ULC UNSP PRT OF L LOW LEG W UNSP SEVERITY
[2019-04-28] MEDS: ATORVASTATIN CA 40 MG TABLET (FP) PO SCH (22:03)
[2019-04-29] MEDS: ACETAMINOPHEN 325 MG TABLET (FP) PO PRN (05:11)
[2019-04-29] MEDS: FUROSEMIDE 40 MG TABLET (FP) PO SCH ×3 (05:11→15:53)
[2019-04-29] MEDS: INSULIN SLIDING SCALE (NOVOLOG) 1 VIAL SQ SCH ×2 (06:46→17:16)
[2019-04-29] MEDS: LEVOTHYROXINE NA 125 MCG TABLET (FP) PO SCH (06:46)
--- NOTE | 2019-04-29 09:58 | PN ---
Progress Note, Physician Chief Complaint: BL LE Ulcer CHF NIDDM History of Present Illness: Previous notes and events reviewed awake NAD awake and alert patient scheduled for wound debridement today pt sts feeling nervours for procedure denies chest pain or SOB - Current Medication List Current Medications: Active Medications Acetaminophen (Tylenol -) 650 mg PO Q6H PRN PRN Reason: PAIN OR FEVER Last Admin: 04/29/19 05:11 Dose: 650 mg Amlodipine Besylate (Norvasc -) 5 mg PO DAILY [facility] Last Admin: 04/28/19 13:23 Dose: 5 mg Atorvastatin Calcium (Lipitor -) 40 mg PO HS [facility] Last Admin: 04/28/19 22:03 Dose: 40 mg Clopidogrel Bisulfate (Plavix -) 75 mg PO DAILY [facility] Last Admin: 04/28/19 13:20 Dose: Not Given Collagenase (Santyl -) 1 applic TP DAILY [facility]; Protocol Last Admin: 04/28/19 13:24 Dose: 1 applic Digoxin (Lanoxin -) 0.125 mg PO DAILY [facility] Last Admin: 04/28/19 13:22 Dose: 0.125 mg Furosemide (Lasix -) 80 mg PO BID@0600,1400 [facility] Last Admin: 04/29/19 06:52 Dose: Not Given Heparin Sodium (Porcine) (Heparin -) 5,000 unit SQ BID [facility] Last Admin: 04/28/19 22:03 Dose: 5,000 unit Tigecycline 50 mg/ Dextrose 100 mls @ 100 mls/hr IVPB BID [facility]; Protocol Last Admin: 04/28/19 22:04 Dose: 100 mls/hr Insulin Aspart (Novolog Vial Sliding Scale -) 1 vial SQ TIDAC [facility]; Protocol Last Admin: 04/29/19 06:46 Dose: Not Given Levothyroxine Sodium (Synthroid -) 125 mcg PO DAILY@0700 [facility] Last Admin: 04/29/19 06:46 Dose: 125 mcg Metoprolol Tartrate (Lopressor -) 125 mg PO BID [facility] Last Admin: 04/28/19 22:02 Dose: 125 mg Sitagliptin Phosphate (Januvia -) 25 mg PO DAILY@0700 [facility] Last Admin: 04/29/19 06:51 Dose: Not Given - Objective Vital Signs: Vital Signs Temperature 97.4 F L 04/29/19 06:00 Pulse Rate 52 L 04/29/19 06:00 Respiratory Rate 18 04/29/19 06:00 Blood Pressure 146/73 04/29/19 06:00 O2 Sat by Pulse Oximetry (%) 99 04/28/19 20:23 Constitutional: Yes: No Distress, Calm Eyes: Yes: Conjunctiva Clear HENT: Yes: Atraumatic Cardiovascular: Yes: Regular Rate and Rhythm Respiratory: Yes: Regular, CTA Bilaterally Gastrointestinal: Yes: Normal Bowel Sounds, Soft Musculoskeletal: Yes: Muscle Weakness Extremities: Yes: WNL Edema: No Wound/Incision: Yes: Dressing Dry and Intact, Other (foul odor from wounds) Neurological: Yes: Alert, Oriented Psychiatric: Yes: Alert, Oriented Labs: CBC, BMP 04/26/19 06:55 04/28/19 06:15 INR, PTT INR 1.07 (0.83-1.09) 04/25/19 06:10 Microbiology 04/24/19 16:30 Blood - Peripheral Venous Blood Culture - Preliminary NO GROWTH OBTAINED AFTER 96 HOURS, INCUBATION TO CONTINUE FOR 1 DAYS. 04/24/19 16:30 Blood - Peripheral Venous Blood Culture - Preliminary NO GROWTH OBTAINED AFTER 96 HOURS, INCUBATION TO CONTINUE FOR 1 DAYS. 04/25/19 17:50 Leg - Right Lower Gram Stain - Final 04/25/19 17:50 Leg - Right Lower Wound Culture - Final Proteus Mirabilis Serratia Marcescens Morganella Morganii Enterococcus Faecalis Staphylococcus Coagulase Neg Problem List - Problems (1) CHF (congestive heart failure) Assessment/Plan: -Cardiology on board -1L fluid restriction -daily weights -Echo 03/22/19: EF 20/25%, mild LA dilatation, mod to severe RA dilatation, mild MR, severe TR -Lasix BID -Metoprolol BID -low Na diet Code(s): I50.9 - HEART FAILURE, UNSPECIFIED (2) Diabetes Assessment/Plan: -BG ACHS -ISS -Januvia -HgA1c 6.5% Code(s): E11.9 - TYPE 2 DIABETES MELLITUS WITHOUT COMPLICATIONS Qualifiers: Diabetes mellitus type: type 2 (3) Wound of lower extremity Assessment/Plan: -Vascular on board -patient is NPO for wound debridement today -cleared by cardiology and pulmonary -ID on board -no leukocytosis -afebrile -Tigecycline -wound culture positive Code(s): S81.809A - UNSPECIFIED OPEN WOUND, UNSPECIFIED LOWER LEG, INIT ENCNTR (4) CKD (chronic kidney disease) Assessment/Plan: -Renal on board -BUN/Cr 60.4/1.8 -Renal US unremarkable -monitor renal function Code(s): N18.9 - CHRONIC KIDNEY DISEASE, UNSPECIFIED Qualifiers: Chronic kidney disease stage: stage 2 (mild) Qualified Code(s): N18.2 - Chronic kidney disease, stage 2 (mild) (5) HTN (hypertension) Assessment/Plan: -Norvasc -low Na diet Code(s): I10 - ESSENTIAL (PRIMARY) HYPERTENSION Assessment/Plan see problem list dvt ppx medically clear for OR with acceptable risks
[2019-04-29] MEDS: COLLAGENASE CLOSTRIDIUM HIST. 30 GRAMS TUBE TP SCH (10:22)
[2019-04-29] MEDS: HEPARIN NA (PORCINE) 5,000 UNITS/ML 1ML VIAL SQ SCH ×2 (10:22→21:18)
[2019-04-29] MEDS: TIGECYCLINE 50 MG in DEXTROSE 5%-WATER - 100 ML IVPB SCH ×2 (10:25→21:17)
[2019-04-29] MEDS: DIGOXIN 0.125 MG TABLET (FP) PO SCH (10:25)
[2019-04-29] MEDS: CLOPIDOGREL BISULFATE 75 MG TABLET (FP) PO SCH (10:26)
[2019-04-29] MEDS: amLODIPine BESYLATE 5 MG TABLET (FP) PO SCH (10:26)
[2019-04-29] MEDS: METOPROLOL TARTRATE 50 MG TABLET (FP) PO SCH ×2 (10:26→21:20)
--- NOTE | 2019-04-29 10:27 | PN ---
Progress Note (short form) - Note Progress Note: PULMONARY For OR today. Denies shortness of breath, cough or wheezing. Vital Signs Period Temp Pulse Resp BP Sys/Sommer Pulse Ox Last 24 Hr 97.4 F-97.6 F 52-66 18-20 146-160/73-87 99 Gen: NAD at rest Heart: RRR Lung: decreased breath sounds at the bases Abd: soft, nontender Ext: wrapped CBC, BMP 04/26/19 06:55 04/28/19 06:15 Active Medications Acetaminophen (Tylenol -) 650 mg PO Q6H PRN PRN Reason: PAIN OR FEVER Last Admin: 04/29/19 05:11 Dose: 650 mg Amlodipine Besylate (Norvasc -) 5 mg PO DAILY [facility] Last Admin: 04/29/19 10:26 Dose: 5 mg Atorvastatin Calcium (Lipitor -) 40 mg PO HS [facility] Last Admin: 04/28/19 22:03 Dose: 40 mg Clopidogrel Bisulfate (Plavix -) 75 mg PO DAILY [facility] Last Admin: 04/29/19 10:26 Dose: Not Given Collagenase (Santyl -) 1 applic TP DAILY [facility]; Protocol Last Admin: 04/29/19 10:22 Dose: Not Given Digoxin (Lanoxin -) 0.125 mg PO DAILY [facility] Last Admin: 04/29/19 10:25 Dose: 0.125 mg Furosemide (Lasix -) 80 mg PO BID@0600,1400 [facility] Last Admin: 04/29/19 06:52 Dose: Not Given Heparin Sodium (Porcine) (Heparin -) 5,000 unit SQ BID [facility] Last Admin: 04/29/19 10:22 Dose: Not Given Tigecycline 50 mg/ Dextrose 100 mls @ 100 mls/hr IVPB BID [facility]; Protocol Last Admin: 04/29/19 10:25 Dose: 100 mls/hr Insulin Aspart (Novolog Vial Sliding Scale -) 1 vial SQ TIDAC [facility]; Protocol Last Admin: 04/29/19 06:46 Dose: Not Given Levothyroxine Sodium (Synthroid -) 125 mcg PO DAILY@0700 [facility] Last Admin: 04/29/19 06:46 Dose: 125 mcg Metoprolol Tartrate (Lopressor -) 125 mg PO BID [facility] Last Admin: 04/29/19 10:26 Dose: 125 mg Sitagliptin Phosphate (Januvia -) 25 mg PO DAILY@0700 [facility] Last Admin: 04/29/19 06:51 Dose: Not Given A/P Infected Leg Ulcers LV Systolic Dysfunction Tricuspid Regurgitation HTN DM Hyperlipidemia Hypothyroidism CKD h/o CVA - continue antibiotics - for ulcer debridement - pt with unlimited exercise tolerance, asymptomatic from pulmonary standpoint , remote smoker - no pulmonary contraindications to planned surgery - DVT prophylaxis Problem List - Problems (1) Infected stasis ulcer of left lower extremity Code(s): I83.229 - VARICOS VN OF L LOW EXTREM W ULC OF UNSP SITE AND INFLAM; L97.929 - NON-PRS CHRONIC ULC UNSP PRT OF L LOW LEG W UNSP SEVERITY
[2019-04-29] MEDS ORDERED: LACTATED RINGERS SOLUTION 1,000 ML IV SCH (12:00)
[2019-04-29] MEDS ORDERED: PROPOFOL 20 ML ONE (12:30)
[2019-04-29] MEDS ORDERED: MIDAZOLAM HCL 2 MG/2 ML SINGLE DOSE VIAL ONE (12:30)
[2019-04-29] MEDS ORDERED: KETAMINE HCL 200 MG/20 ML VIAL ONE (12:32)
[2019-04-29] MEDS ORDERED: LIDOCAINE HCL 1%, 10 MG/ML (20ML VIAL) NR ONE (12:48)
[2019-04-29] MEDS ORDERED: GLYCOPYRROLATE 0.2 MG/1 ML VIAL ONE (12:50)
[2019-04-29] MEDS ORDERED: LIDOCAINE HCL/PF 2% SDV 5ML VIAL ONE (12:50)
[2019-04-29] MEDS ORDERED: TIGECYCLINE 50 MG VIAL (RESTRICTED TO ID) IVPB ONE (12:54)
[2019-04-29] MEDS ORDERED: LABETALOL HCL 5 MG/1 ML (100MG/20 ML VIAL) ONE (13:03)
--- NOTE | 2019-04-29 13:09 | OP ---
Operative Note - Note: Operative Date: 04/29/19 Pre-Operative Diagnosis: bl necrotic calf ulcers with eschar Operation: Excisional debridement skin, subcutaneous tissue bilateral calves Post-Operative Diagnosis: Same as Pre-op Surgeon: Kevin Andino Anesthesia: General Estimated Blood Loss (mls): 50 Operative Report Dictated: Yes
[2019-04-29] MEDS ORDERED: DEXAMETHASONE SOD PHOSPHATE 4 MG/1 ML VIAL ONE (13:14)
--- NOTE | 2019-04-29 15:13 | OP ---
DATE OF OPERATION: 04/29/2019 PREOPERATIVE DIAGNOSIS: Bilateral necrotic calf ulcers. POSTOPERATIVE DIAGNOSIS: Bilateral necrotic calf ulcers. PROCEDURE: Excisional debridement of skin and subcutaneous tissue, bilateral calves. The patient is a 73-year-old female who comes from home with these bilateral necrotic ulcers for over a month. Preoperatively patient had a CTA to make sure that patient had good arterial flow down all the way to her feet, and she certainly did. Since the patient was inpatient, the patient came down to the operating room. Patient was consented for the procedure, understanding all risks, benefits, alternatives. The patient was then brought to the operating room, laid on the operating table in supine manner, and we placed her legs in stirrups. We then went ahead and prepped and draped bilateral calves in a sterile surgical manner. We then went ahead and general anesthesia was administered to the patient. We then went ahead and used a number 15 blade and we excised all the necrotic eschar on the right posterior calf, using a number 15 blade, and that was excised. We got down to all the healthy tissue. We then went over to the opposite calf and did the same. Using a 15 blade we were able to excise all the necrotic tissue and the eschar, leaving good granulation tissue behind. We then irrigated the wounds copiously. Xeroform, 4 x 4s, Kerlix were placed. The patient tolerated this procedure with no complications. Patient transferred to PACU in stable condition. Total blood loss: 30 mL. TY COOK DO [id number]
--- NOTE | 2019-04-29 18:22 | PN ---
Progress Note, Physician History of Present Illness: Pt seen and examined at bedside. She is awake and appears comfortable. She denies shortness of breath. - Current Medication List Current Medications: Active Medications Acetaminophen (Tylenol -) 650 mg PO Q6H PRN PRN Reason: PAIN OR FEVER Amlodipine Besylate (Norvasc -) 5 mg PO DAILY [facility] Atorvastatin Calcium (Lipitor -) 40 mg PO HS [facility] Clopidogrel Bisulfate (Plavix -) 75 mg PO DAILY [facility] Collagenase (Santyl -) 1 applic TP DAILY [facility]; Protocol Digoxin (Lanoxin -) 0.125 mg PO DAILY [facility] Fentanyl (Sublimaze Injection -) 25 mcg IVPUSH [id number] PRN PRN Reason: PAIN-PACU ORDER X 4 DOSES ONLY Furosemide (Lasix -) 80 mg PO BID@0600,1400 [facility] Last Admin: 04/29/19 15:53 Dose: 80 mg Heparin Sodium (Porcine) (Heparin -) 5,000 unit SQ BID [facility] Lactated Ringer's (Lactated Ringers Solution) 1,000 mls @ 75 mls/hr IV ASDIR [facility] Tigecycline 50 mg/ Dextrose 100 mls @ 100 mls/hr IVPB BID [facility]; Protocol Insulin Aspart (Novolog Vial Sliding Scale -) 1 vial SQ TIDAC [facility]; Protocol Last Admin: 04/29/19 17:16 Dose: Not Given Levothyroxine Sodium (Synthroid -) 125 mcg PO DAILY@0700 [facility] Metoprolol Tartrate (Lopressor -) 125 mg PO BID [facility] Sitagliptin Phosphate (Januvia -) 25 mg PO DAILY@0700 [facility] - Objective Vital Signs: Vital Signs Temperature 97.5 F L 04/29/19 15:00 Pulse Rate 62 04/29/19 15:00 Respiratory Rate 18 04/29/19 15:00 Blood Pressure 143/74 04/29/19 15:00 O2 Sat by Pulse Oximetry (%) 100 04/29/19 13:45 Constitutional: Yes: Calm Eyes: Yes: Conjunctiva Clear HENT: Yes: Atraumatic Neck: Yes: Supple Cardiovascular: Yes: S1, S2 Respiratory: Yes: CTA Bilaterally Gastrointestinal: Yes: Soft Genitourinary: Yes: WNL Musculoskeletal: Yes: WNL Edema: No Neurological: Yes: Oriented Psychiatric: Yes: Oriented Labs: CBC, BMP 04/26/19 06:55 04/28/19 06:15 INR, PTT INR 1.07 (0.83-1.09) 04/25/19 06:10 Assessment/Plan Current Medications Generic Name Dose Route Start Last Admin Trade Name Sandoval PRN Reason Stop Dose Admin Acetaminophen 650 mg 04/29/19 13:33 Tylenol - PO Q6H PRN PAIN OR FEVER Amlodipine Besylate 5 mg 04/30/19 10:00 Norvasc - PO DAILY [facility] Atorvastatin Calcium 40 mg 04/29/19 22:00 Lipitor - PO HS [facility] Clopidogrel Bisulfate 75 mg 04/30/19 10:00 Plavix - PO DAILY [facility] Collagenase 1 applic 04/30/19 10:00 Santyl - TP DAILY [facility] Protocol Digoxin 0.125 mg 04/30/19 10:00 Lanoxin - PO DAILY [facility] Fentanyl 25 mcg 04/29/19 13:33 Sublimaze Injection - IVPUSH [id number] PRN PAIN-PACU ORDER X 4 DOSES ONLY Furosemide 80 mg 04/29/19 14:00 04/29/19 15:53 Lasix - PO 80 mg BID@0600,1400 [facility] Administration Heparin Sodium (Porcine) 5,000 unit 04/29/19 22:00 Heparin - SQ BID [facility] Lactated Ringer's 1,000 mls @ 75 mls/hr 04/29/19 13:33 Lactated Ringers Solution IV ASDIR [facility] Tigecycline 50 mg/ Dextrose 100 mls @ 100 mls/hr 04/29/19 22:00 IVPB BID [facility] Protocol Insulin Aspart 1 vial 04/29/19 16:30 04/29/19 17:16 Novolog Vial Sliding Scale - SQ Not Given TIDAC [facility] Protocol Levothyroxine Sodium 125 mcg 04/30/19 07:00 Synthroid - PO DAILY@0700 [facility] Metoprolol Tartrate 125 mg 04/29/19 22:00 Lopressor - PO BID [facility] Sitagliptin Phosphate 25 mg 04/30/19 07:00 Januvia - PO DAILY@0700 [facility] Impression 1. CKD 2. CHF 3. DM 4. HTN 5. hx CVA 6. a-fib 7. elevated kappa chains 8. cellulitis 9. KULDIP Plan - will order bmp for an - cont lasix - wound care - vascular input appreciated - low sodium diet - avoid nsaids
[2019-04-29] MEDS: ATORVASTATIN CA 40 MG TABLET (FP) PO SCH (21:21)
[2019-04-29] MEDS: LACTATED RINGERS SOLUTION 1,000 ML IV SCH (21:26)
[2019-04-30] MEDS: FUROSEMIDE 40 MG TABLET (FP) PO SCH ×2 (06:35→15:49)
[2019-04-30] MEDS: LEVOTHYROXINE NA 125 MCG TABLET (FP) PO SCH (06:35)
[2019-04-30] MEDS: INSULIN SLIDING SCALE (NOVOLOG) 1 VIAL SQ SCH ×3 (06:35→16:54)
[2019-04-30 08:23] LABS: HEMATOCRIT 39.6 % (32.4-45.2); MCH 27.7 pg (25.7-33.7); MCHC 32.9 g/dl (32.0-36.0); MEAN CELL VOLUME 84.4 fl (80-96); MEAN PLT VOLUME 7.9 fl (7.5-11.1); PLATELET COUNT 315 K/MM3 (134-434); RBC 4.69 M/mm3 (3.60-5.2); RDW 17.6 % (11.6-15.6); WHITE BLOOD COUNT 11.3 K/mm3 (4.0-10.0)
[2019-04-30 08:49] LABS: BILIRUBIN,TOTAL 1.3 mg/dL (0.2-1); BLOOD UREA NITROGEN 69.9 mg/dL (7-18); CALCIUM 8.9 mg/dL (8.5-10.1); CREATININE 2.1 mg/dL (0.55-1.3); POTASSIUM 4.5 mmol/L (3.5-5.1); TOT PROT 7.9 g/dl (6.4-8.2)
--- NOTE | 2019-04-30 09:17 | PN ---
Progress Note (short form) - Note Progress Note: POD #1 s/p Excisional debridement skin, subcutaneous tissue bilateral calves Alert. Doing well. No acute events since surgery per RN notes. Denies n/v/f/c Last Vital Signs Temp Pulse Resp BP Pulse Ox 97.8 F 49 L 20 160/93 100 04/30/19 06:00 04/30/19 06:00 04/30/19 06:00 04/30/19 06:00 04/29/19 21:00 Gen: nad LE: surgical dressings c/d/i. LE + pulses DP and PT with doppler, warm, well- perfused. Problem List - Problems (1) Infected stasis ulcer of left lower extremity Assessment/Plan: POD #1 s/p LLE debridement Cont daily dressing changes as ordered Cont medical management Resconsult surgery PRN On behalf of Dr. Andino, thank you for the opportunity to participate in your patient's care Code(s): I83.229 - VARICOS VN OF L LOW EXTREM W ULC OF UNSP SITE AND INFLAM; L97.929 - NON-PRS CHRONIC ULC UNSP PRT OF L LOW LEG W UNSP SEVERITY (2) CHF (congestive heart failure) Code(s): I50.9 - HEART FAILURE, UNSPECIFIED (3) Diabetes Code(s): E11.9 - TYPE 2 DIABETES MELLITUS WITHOUT COMPLICATIONS Qualifiers: Diabetes mellitus type: type 2 (4) CKD (chronic kidney disease) Code(s): N18.9 - CHRONIC KIDNEY DISEASE, UNSPECIFIED Qualifiers: Chronic kidney disease stage: stage 2 (mild) Qualified Code(s): N18.2 - Chronic kidney disease, stage 2 (mild) (5) CVA (cerebral vascular accident) Code(s): I63.9 - CEREBRAL INFARCTION, UNSPECIFIED Qualifiers: CVA mechanism: unspecified Qualified Code(s): I63.9 - Cerebral infarction, unspecified (6) Hypothyroid Code(s): E03.9 - HYPOTHYROIDISM, UNSPECIFIED
[2019-04-30] MEDS: COLLAGENASE CLOSTRIDIUM HIST. 30 GRAMS TUBE TP SCH (10:00)
[2019-04-30] MEDS ORDERED: PT OWN MED DRAWER 7, Y5N ONE (10:12)
[2019-04-30] MEDS: ACETAMINOPHEN 325 MG TABLET (FP) PO PRN (10:43)
[2019-04-30] MEDS: METOPROLOL TARTRATE 50 MG TABLET (FP) PO SCH ×2 (10:49→21:32)
[2019-04-30] MEDS: TIGECYCLINE 50 MG in DEXTROSE 5%-WATER - 100 ML IVPB SCH (10:49)
[2019-04-30] MEDS: amLODIPine BESYLATE 5 MG TABLET (FP) PO SCH (10:50)
[2019-04-30] MEDS: HEPARIN NA (PORCINE) 5,000 UNITS/ML 1ML VIAL SQ SCH ×2 (10:50→21:31)
[2019-04-30] MEDS: DIGOXIN 0.125 MG TABLET (FP) PO SCH (10:50)
[2019-04-30] MEDS: CLOPIDOGREL BISULFATE 75 MG TABLET (FP) PO SCH (10:50)
[2019-04-30] MEDS ORDERED: INSULIN (NOVOLOG) ASPART 100 UNITS/ML 10ML VIAL ONE (11:20)
--- NOTE | 2019-04-30 12:12 | PN ---
Progress Note (short form) - Note Progress Note: Pt is POD1 s/p IandD of bilateral calves, under GA. Pt has pre-existing pain from bilateral calf wounds/ulcers- tolerated anesthesia well, with VSS and no anesthetic issues or complications noted.
--- NOTE | 2019-04-30 12:57 | PN ---
Progress Note (short form) - Note Progress Note: s/p debridement of the leg ulcers yesterday they are very painful Vital Signs Period Temp Pulse Resp BP Sys/Sommer Pulse Ox Last 24 Hr 97.1 F-98.0 F 49-78 12-20 143-193/74-100 100-100 cor-rrr lungs clear ulcers clean no drainage, no erythema CBC, BMP 04/30/19 07:22 04/30/19 07:22 Microbiology 04/24/19 16:30 Blood - Peripheral Venous Blood Culture - Final NO GROWTH AFTER 5 DAYS INCUBATION 04/24/19 16:30 Blood - Peripheral Venous Blood Culture - Final NO GROWTH AFTER 5 DAYS INCUBATION 04/25/19 17:50 Leg - Right Lower Gram Stain - Final 04/25/19 17:50 Leg - Right Lower Wound Culture - Final Proteus Mirabilis Serratia Marcescens Morganella Morganii Enterococcus Faecalis Staphylococcus Coagulase Neg imp/reccd infected leg ulcers- s/p debridement CKD hx CHF zosyn allergy will d/c antibioitics, no purulence, no cellulitis wound care per surgery please call back if needed Problem List - Problems (1) Infected ulcer of skin Code(s): L98.499 - NON-PRESSURE CHRONIC ULCER OF SKIN OF SITES W UNSP SEVERITY; L08.9 - LOCAL INFECTION OF THE SKIN AND SUBCUTANEOUS TISSUE, UNSP (2) CKD (chronic kidney disease) Code(s): N18.9 - CHRONIC KIDNEY DISEASE, UNSPECIFIED Qualifiers: Chronic kidney disease stage: stage 2 (mild) Qualified Code(s): N18.2 - Chronic kidney disease, stage 2 (mild) (3) CHF (congestive heart failure) Code(s): I50.9 - HEART FAILURE, UNSPECIFIED (4) Allergy to antibiotic Code(s): Z88.1 - ALLERGY STATUS TO OTHER ANTIBIOTIC AGENTS STATUS
--- NOTE | 2019-04-30 15:24 | PN ---
Progress Note, Physician History of Present Illness: Pt seen and examined at bedside. She is awake and alert. She denies shortness of breath. - Current Medication List Current Medications: Active Medications Acetaminophen (Tylenol -) 650 mg PO Q6H PRN PRN Reason: PAIN OR FEVER Last Admin: 04/30/19 10:43 Dose: 650 mg Amlodipine Besylate (Norvasc -) 5 mg PO DAILY [facility] Last Admin: 04/30/19 10:50 Dose: 5 mg Atorvastatin Calcium (Lipitor -) 40 mg PO HS [facility] Last Admin: 04/29/19 21:21 Dose: 40 mg Clopidogrel Bisulfate (Plavix -) 75 mg PO DAILY [facility] Last Admin: 04/30/19 10:50 Dose: 75 mg Collagenase (Santyl -) 1 applic TP DAILY [facility]; Protocol Digoxin (Lanoxin -) 0.125 mg PO DAILY [facility] Last Admin: 04/30/19 10:50 Dose: 0.125 mg Fentanyl (Sublimaze Injection -) 25 mcg IVPUSH [id number] PRN PRN Reason: PAIN-PACU ORDER X 4 DOSES ONLY Furosemide (Lasix -) 80 mg PO BID@0600,1400 [facility] Last Admin: 04/30/19 06:35 Dose: 80 mg Heparin Sodium (Porcine) (Heparin -) 5,000 unit SQ BID [facility] Last Admin: 04/30/19 10:50 Dose: 5,000 unit Lactated Ringer's (Lactated Ringers Solution) 1,000 mls @ 75 mls/hr IV ASDIR [facility] Last Admin: 04/29/19 21:26 Dose: 75 mls/hr Insulin Aspart (Novolog Vial Sliding Scale -) 1 vial SQ TIDAC [facility]; Protocol Last Admin: 04/30/19 11:39 Dose: Not Given Levothyroxine Sodium (Synthroid -) 125 mcg PO DAILY@0700 [facility] Last Admin: 04/30/19 06:35 Dose: 125 mcg Metoprolol Tartrate (Lopressor -) 125 mg PO BID [facility] Last Admin: 04/30/19 10:49 Dose: 125 mg Sitagliptin Phosphate (Januvia -) 25 mg PO DAILY@0700 [facility] Last Admin: 04/30/19 06:35 Dose: 25 mg - Objective Vital Signs: Vital Signs Temperature 97.6 F 04/30/19 10:40 Pulse Rate 78 04/30/19 10:50 Respiratory Rate 20 04/30/19 10:40 Blood Pressure 151/94 04/30/19 10:40 O2 Sat by Pulse Oximetry (%) 100 04/29/19 21:00 Constitutional: Yes: Calm Eyes: Yes: Conjunctiva Clear HENT: Yes: Atraumatic Neck: Yes: Supple Cardiovascular: Yes: S1, S2 Respiratory: Yes: CTA Bilaterally Gastrointestinal: Yes: Normal Bowel Sounds, Soft Genitourinary: Yes: WNL Musculoskeletal: Yes: WNL Edema: LLE: Trace, RLE: Trace Wound/Incision: Yes: Dressing Dry and Intact Neurological: Yes: Oriented Psychiatric: Yes: Oriented Labs: CBC, BMP 04/30/19 07:22 04/30/19 07:22 INR, PTT INR 1.07 (0.83-1.09) 04/25/19 06:10 Problem List - Problems (1) CHF (congestive heart failure) Code(s): I50.9 - HEART FAILURE, UNSPECIFIED (2) CKD (chronic kidney disease) Code(s): N18.9 - CHRONIC KIDNEY DISEASE, UNSPECIFIED Qualifiers: Chronic kidney disease stage: stage 2 (mild) Qualified Code(s): N18.2 - Chronic kidney disease, stage 2 (mild) Assessment/Plan Current Medications Generic Name Dose Route Start Last Admin Trade Name Freq PRN Reason Stop Dose Admin Acetaminophen 650 mg 04/29/19 13:33 04/30/19 10:43 Tylenol - PO 650 mg Q6H PRN Administration PAIN OR FEVER Amlodipine Besylate 5 mg 04/30/19 10:00 04/30/19 10:50 Norvasc - PO 5 mg DAILY [facility] Administration Atorvastatin Calcium 40 mg 04/29/19 22:00 04/29/19 21:21 Lipitor - PO 40 mg HS [facility] Administration Clopidogrel Bisulfate 75 mg 04/30/19 10:00 04/30/19 10:50 Plavix - PO 75 mg DAILY [facility] Administration Collagenase 1 applic 04/30/19 10:00 Santyl - TP DAILY [facility] Protocol Digoxin 0.125 mg 04/30/19 10:00 04/30/19 10:50 Lanoxin - PO 0.125 mg DAILY [facility] Administration Fentanyl 25 mcg 04/29/19 13:33 Sublimaze Injection - IVPUSH [id number] PRN PAIN-PACU ORDER X 4 DOSES ONLY Furosemide 80 mg 04/29/19 14:00 04/30/19 06:35 Lasix - PO 80 mg BID@0600,1400 [facility] Administration Heparin Sodium (Porcine) 5,000 unit 04/29/19 22:00 04/30/19 10:50 Heparin - SQ 5,000 unit BID [facility] Administration Lactated Ringer's 1,000 mls @ 75 mls/hr 04/29/19 13:33 04/29/19 21:26 Lactated Ringers Solution IV 75 mls/hr ASDIR [facility] Administration Insulin Aspart 1 vial 04/29/19 16:30 04/30/19 11:39 Novolog Vial Sliding Scale - SQ Not Given TIDAC [facility] Protocol Levothyroxine Sodium 125 mcg 04/30/19 07:00 04/30/19 06:35 Synthroid - PO 125 mcg DAILY@0700 [facility] Administration Metoprolol Tartrate 125 mg 04/29/19 22:00 04/30/19 10:49 Lopressor - PO 125 mg BID [facility] Administration Sitagliptin Phosphate 25 mg 04/30/19 07:00 04/30/19 06:35 Januvia - PO 25 mg DAILY@0700 [facility] Administration Impression 1. CKD 2. CHF 3. DM 4. HTN 5. hx CVA 6. a-fib 7. elevated kappa chains 8. cellulitis 9. 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
--- NOTE | 2019-04-30 15:49 | PN ---
Progress Note, Physician Chief Complaint: BL LE Ulcer CHF NIDDM History of Present Illness: Previous notes and events reviewed awake NAD awake and alert s/p surgical wound debridement denies chest pain or SOB - Current Medication List Current Medications: Active Medications Acetaminophen (Tylenol -) 650 mg PO Q6H PRN PRN Reason: PAIN OR FEVER Last Admin: 04/30/19 10:43 Dose: 650 mg Amlodipine Besylate (Norvasc -) 5 mg PO DAILY [facility] Last Admin: 04/30/19 10:50 Dose: 5 mg Atorvastatin Calcium (Lipitor -) 40 mg PO HS [facility] Last Admin: 04/29/19 21:21 Dose: 40 mg Clopidogrel Bisulfate (Plavix -) 75 mg PO DAILY [facility] Last Admin: 04/30/19 10:50 Dose: 75 mg Collagenase (Santyl -) 1 applic TP DAILY [facility]; Protocol Digoxin (Lanoxin -) 0.125 mg PO DAILY [facility] Last Admin: 04/30/19 10:50 Dose: 0.125 mg Fentanyl (Sublimaze Injection -) 25 mcg IVPUSH [id number] PRN PRN Reason: PAIN-PACU ORDER X 4 DOSES ONLY Furosemide (Lasix -) 60 mg PO BID@0600,1400 [facility] Heparin Sodium (Porcine) (Heparin -) 5,000 unit SQ BID [facility] Last Admin: 04/30/19 10:50 Dose: 5,000 unit Lactated Ringer's (Lactated Ringers Solution) 1,000 mls @ 75 mls/hr IV ASDIR [facility] Last Admin: 04/29/19 21:26 Dose: 75 mls/hr Insulin Aspart (Novolog Vial Sliding Scale -) 1 vial SQ TIDAC [facility]; Protocol Last Admin: 04/30/19 11:39 Dose: Not Given Levothyroxine Sodium (Synthroid -) 125 mcg PO DAILY@0700 [facility] Last Admin: 04/30/19 06:35 Dose: 125 mcg Metoprolol Tartrate (Lopressor -) 125 mg PO BID [facility] Last Admin: 04/30/19 10:49 Dose: 125 mg Sitagliptin Phosphate (Januvia -) 25 mg PO DAILY@0700 [facility] Last Admin: 04/30/19 06:35 Dose: 25 mg - Objective Vital Signs: Vital Signs Temperature 97.6 F 04/30/19 10:40 Pulse Rate 78 04/30/19 10:50 Respiratory Rate 20 04/30/19 10:40 Blood Pressure 151/94 04/30/19 10:40 O2 Sat by Pulse Oximetry (%) 100 04/29/19 21:00 Constitutional: Yes: No Distress, Calm Eyes: Yes: Conjunctiva Clear HENT: Yes: Atraumatic Cardiovascular: Yes: Regular Rate and Rhythm Respiratory: Yes: Regular, CTA Bilaterally Gastrointestinal: Yes: Normal Bowel Sounds, Soft Musculoskeletal: Yes: Muscle Weakness Extremities: Yes: WNL Edema: No Wound/Incision: Yes: Dressing Dry and Intact Neurological: Yes: Alert, Oriented Psychiatric: Yes: Alert, Oriented Labs: CBC, BMP 04/30/19 07:22 04/30/19 07:22 INR, PTT INR 1.07 (0.83-1.09) 04/25/19 06:10 Microbiology 04/24/19 16:30 Blood - Peripheral Venous Blood Culture - Final NO GROWTH AFTER 5 DAYS INCUBATION 04/24/19 16:30 Blood - Peripheral Venous Blood Culture - Final NO GROWTH AFTER 5 DAYS INCUBATION 04/25/19 17:50 Leg - Right Lower Gram Stain - Final 04/25/19 17:50 Leg - Right Lower Wound Culture - Final Proteus Mirabilis Serratia Marcescens Morganella Morganii Enterococcus Faecalis Staphylococcus Coagulase Neg Problem List - Problems (1) CHF (congestive heart failure) Assessment/Plan: -Cardiology on board -1L fluid restriction -daily weights -Echo 03/22/19: EF 20/25%, mild LA dilatation, mod to severe RA dilatation, mild MR, severe TR -Lasix BID -Metoprolol BID -low Na diet Code(s): I50.9 - HEART FAILURE, UNSPECIFIED (2) Diabetes Assessment/Plan: -[facility] -[facility] -Januvia -HgA1c 6.5% Code(s): E11.9 - TYPE 2 DIABETES MELLITUS WITHOUT COMPLICATIONS Qualifiers: Diabetes mellitus type: type 2 (3) Wound of lower extremity Assessment/Plan: -Vascular on board -ID on board -mild leukocytosis -afebrile -Tigecycline discontinued, monitor off antibiotics -wound culture positive Code(s): S81.809A - UNSPECIFIED OPEN WOUND, UNSPECIFIED LOWER LEG, INIT ENCNTR (4) CKD (chronic kidney disease) Assessment/Plan: -Renal on board -BUN/Cr 69.9/2.1 -Renal US unremarkable -monitor renal function Code(s): N18.9 - CHRONIC KIDNEY DISEASE, UNSPECIFIED Qualifiers: Chronic kidney disease stage: stage 2 (mild) Qualified Code(s): N18.2 - Chronic kidney disease, stage 2 (mild) (5) HTN (hypertension) Assessment/Plan: -Norvasc -low Na diet Code(s): I10 - ESSENTIAL (PRIMARY) HYPERTENSION Assessment/Plan see problem list dvt ppx
[2019-04-30] MEDS: ATORVASTATIN CA 40 MG TABLET (FP) PO SCH (21:31)
[2019-05-01] MEDS: ACETAMINOPHEN 325 MG TABLET (FP) PO PRN ×3 (01:55→21:02)
[2019-05-01] MEDS: LACTATED RINGERS SOLUTION 1,000 ML IV SCH ×3 (05:04→18:42)
[2019-05-01] MEDS: FUROSEMIDE 20 MG TABLET (FP) PO SCH ×2 (06:18→14:31)
[2019-05-01] MEDS: LEVOTHYROXINE NA 125 MCG TABLET (FP) PO SCH (06:19)
[2019-05-01] MEDS: INSULIN SLIDING SCALE (NOVOLOG) 1 VIAL SQ SCH ×3 (06:24→16:52)
[2019-05-01 08:39] LABS: HEMATOCRIT 37.6 % (32.4-45.2); HEMOGLOBIN 12.6 GM/dL (10.7-15.3); MCH 28.1 pg (25.7-33.7); MCHC 33.5 g/dl (32.0-36.0); MEAN CELL VOLUME 83.8 fl (80-96); MEAN PLT VOLUME 7.9 fl (7.5-11.1); PLATELET COUNT 294 K/MM3 (134-434); RBC 4.48 M/mm3 (3.60-5.2); RDW 17.4 % (11.6-15.6); WHITE BLOOD COUNT 9.9 K/mm3 (4.0-10.0)
[2019-05-01 08:51] LABS: ALBUMIN 2.8 g/dl (3.4-5.0); BILIRUBIN,TOTAL 0.5 mg/dL (0.2-1); BLOOD UREA NITROGEN 73.5 mg/dL (7-18); CALCIUM 8.2 mg/dL (8.5-10.1); POTASSIUM 4.3 mmol/L (3.5-5.1); TOT PROT 7.4 g/dl (6.4-8.2)
[2019-05-01] MEDS: CLOPIDOGREL BISULFATE 75 MG TABLET (FP) PO SCH (11:23)
[2019-05-01] MEDS: METOPROLOL TARTRATE 50 MG TABLET (FP) PO SCH ×2 (11:23→21:04)
[2019-05-01] MEDS: amLODIPine BESYLATE 5 MG TABLET (FP) PO SCH (11:25)
[2019-05-01] MEDS: HEPARIN NA (PORCINE) 5,000 UNITS/ML 1ML VIAL SQ SCH ×2 (11:25→21:03)
[2019-05-01] MEDS: DIGOXIN 0.125 MG TABLET (FP) PO SCH (11:25)
[2019-05-01] MEDS: COLLAGENASE CLOSTRIDIUM HIST. 30 GRAMS TUBE TP SCH (11:27)
[2019-05-01 12:04] VITALS: BMI 30.9
--- NOTE | 2019-05-01 12:08 | PN ---
Progress Note (short form) - Note Progress Note: PULMONARY Denies shortness of breath, cough or wheezing. Vital Signs Period Temp Pulse Resp BP Sys/Sommer Pulse Ox Last 24 Hr 97.6 F-98.2 F 46-52 20-20 138-140/63-73 100 Gen: NAD at rest Heart: RRR Lung: decreased breath sounds at the bases Abd: soft, nontender Ext: wrapped CBC, BMP 05/01/19 07:47 05/01/19 07:47 Active Medications Acetaminophen (Tylenol -) 650 mg PO Q6H PRN PRN Reason: PAIN OR FEVER Last Admin: 05/01/19 01:55 Dose: 650 mg Amlodipine Besylate (Norvasc -) 5 mg PO DAILY [facility] Last Admin: 05/01/19 11:25 Dose: 5 mg Atorvastatin Calcium (Lipitor -) 40 mg PO HS [facility] Last Admin: 04/30/19 21:31 Dose: 40 mg Clopidogrel Bisulfate (Plavix -) 75 mg PO DAILY [facility] Last Admin: 05/01/19 11:23 Dose: 75 mg Collagenase (Santyl -) 1 applic TP DAILY [facility]; Protocol Last Admin: 05/01/19 11:27 Dose: Not Given Digoxin (Lanoxin -) 0.125 mg PO DAILY [facility] Last Admin: 05/01/19 11:25 Dose: Not Given Fentanyl (Sublimaze Injection -) 25 mcg IVPUSH [id number] PRN PRN Reason: PAIN-PACU ORDER X 4 DOSES ONLY Furosemide (Lasix -) 60 mg PO BID@0600,1400 [facility] Last Admin: 05/01/19 06:18 Dose: 60 mg Heparin Sodium (Porcine) (Heparin -) 5,000 unit SQ BID [facility] Last Admin: 05/01/19 11:25 Dose: 5,000 unit Lactated Ringer's (Lactated Ringers Solution) 1,000 mls @ 75 mls/hr IV ASDIR [facility] Last Admin: 05/01/19 05:04 Dose: 75 mls/hr Insulin Aspart (Novolog Vial Sliding Scale -) 1 vial SQ TIDAC [facility]; Protocol Last Admin: 05/01/19 06:24 Dose: Not Given Levothyroxine Sodium (Synthroid -) 125 mcg PO DAILY@0700 [facility] Last Admin: 05/01/19 06:19 Dose: 125 mcg Metoprolol Tartrate (Lopressor -) 125 mg PO BID [facility] Last Admin: 05/01/19 11:23 Dose: 125 mg Sitagliptin Phosphate (Januvia -) 25 mg PO DAILY@0700 [facility] Last Admin: 05/01/19 06:19 Dose: 25 mg A/P Infected Leg Ulcers LV Systolic Dysfunction Tricuspid Regurgitation HTN DM Hyperlipidemia Hypothyroidism CKD h/o CVA - completed antibiotics - wound care - pain control - DVT prophylaxis Problem List - Problems (1) Infected stasis ulcer of left lower extremity Code(s): I83.229 - VARICOS VN OF L LOW EXTREM W ULC OF UNSP SITE AND INFLAM; L97.929 - NON-PRS CHRONIC ULC UNSP PRT OF L LOW LEG W UNSP SEVERITY
--- NOTE | 2019-05-01 14:40 | PN ---
Progress Note, Physician Chief Complaint: BL LE Ulcer CHF NIDDM History of Present Illness: Previous notes and events reviewed awake NAD awake and alert c/o pain to lower extremity denies chest pain or SOB - Current Medication List Current Medications: Active Medications Acetaminophen (Tylenol -) 650 mg PO Q6H PRN PRN Reason: PAIN OR FEVER Last Admin: 05/01/19 01:55 Dose: 650 mg Amlodipine Besylate (Norvasc -) 5 mg PO DAILY [facility] Last Admin: 05/01/19 11:25 Dose: 5 mg Atorvastatin Calcium (Lipitor -) 40 mg PO HS [facility] Last Admin: 04/30/19 21:31 Dose: 40 mg Clopidogrel Bisulfate (Plavix -) 75 mg PO DAILY [facility] Last Admin: 05/01/19 11:23 Dose: 75 mg Collagenase (Santyl -) 1 applic TP DAILY [facility]; Protocol Last Admin: 05/01/19 11:27 Dose: Not Given Digoxin (Lanoxin -) 0.125 mg PO DAILY [facility] Last Admin: 05/01/19 11:25 Dose: Not Given Fentanyl (Sublimaze Injection -) 25 mcg IVPUSH [id number] PRN PRN Reason: PAIN-PACU ORDER X 4 DOSES ONLY Furosemide (Lasix -) 60 mg PO BID@0600,1400 [facility] Last Admin: 05/01/19 14:31 Dose: 60 mg Heparin Sodium (Porcine) (Heparin -) 5,000 unit SQ BID [facility] Last Admin: 05/01/19 11:25 Dose: 5,000 unit Lactated Ringer's (Lactated Ringers Solution) 1,000 mls @ 75 mls/hr IV ASDIR [facility] Last Admin: 05/01/19 05:04 Dose: 75 mls/hr Insulin Aspart (Novolog Vial Sliding Scale -) 1 vial SQ TIDAC [facility]; Protocol Last Admin: 05/01/19 11:05 Dose: Not Given Levothyroxine Sodium (Synthroid -) 125 mcg PO DAILY@0700 [facility] Last Admin: 05/01/19 06:19 Dose: 125 mcg Metoprolol Tartrate (Lopressor -) 125 mg PO BID [facility] Last Admin: 05/01/19 11:23 Dose: 125 mg Sitagliptin Phosphate (Januvia -) 25 mg PO DAILY@0700 [facility] Last Admin: 05/01/19 06:19 Dose: 25 mg - Objective Vital Signs: Vital Signs Temperature 98.5 F 09/28/19 13:20 Pulse Rate 51 L 05/01/19 13:20 Respiratory Rate 20 05/01/19 13:20 Blood Pressure 137/72 05/01/19 13:20 O2 Sat by Pulse Oximetry (%) 100 04/30/19 21:00 Constitutional: Yes: No Distress, Calm Eyes: Yes: Conjunctiva Clear HENT: Yes: Atraumatic Cardiovascular: Yes: Regular Rate and Rhythm Respiratory: Yes: Regular, CTA Bilaterally Gastrointestinal: Yes: Normal Bowel Sounds, Soft Genitourinary: Yes: WNL Musculoskeletal: Yes: Muscle Weakness Extremities: Yes: WNL Edema: No Wound/Incision: Yes: Dressing Dry and Intact Neurological: Yes: Alert, Oriented Psychiatric: Yes: Alert, Oriented Labs: CBC, BMP 05/01/19 07:47 05/01/19 07:47 INR, PTT INR 1.07 (0.83-1.09) 04/25/19 06:10 Microbiology 04/24/19 16:30 Blood - Peripheral Venous Blood Culture - Final NO GROWTH AFTER 5 DAYS INCUBATION 04/24/19 16:30 Blood - Peripheral Venous Blood Culture - Final NO GROWTH AFTER 5 DAYS INCUBATION 04/25/19 17:50 Leg - Right Lower Gram Stain - Final 04/25/19 17:50 Leg - Right Lower Wound Culture - Final Proteus Mirabilis Serratia Marcescens Morganella Morganii Enterococcus Faecalis Staphylococcus Coagulase Neg Problem List - Problems (1) CHF (congestive heart failure) Assessment/Plan: -Cardiology on board -1L fluid restriction -daily weights -Echo 03/22/19: EF 20/25%, mild LA dilatation, mod to severe RA dilatation, mild MR, severe TR -Lasix BID -Metoprolol BID -low Na diet Code(s): I50.9 - HEART FAILURE, UNSPECIFIED (2) Diabetes Assessment/Plan: -[facility] -[facility] -Januvia -HgA1c 6.5% Code(s): E11.9 - TYPE 2 DIABETES MELLITUS WITHOUT COMPLICATIONS Qualifiers: Diabetes mellitus type: type 2 (3) Wound of lower extremity Assessment/Plan: -Vascular on board -ID on board -no leukocytosis -afebrile -Tigecycline discontinued, monitor off antibiotics -wound culture positive Code(s): S81.809A - UNSPECIFIED OPEN WOUND, UNSPECIFIED LOWER LEG, INIT ENCNTR (4) CKD (chronic kidney disease) Assessment/Plan: -Renal on board -BUN/Cr 73.5/2.0 -Renal US unremarkable -monitor renal function Code(s): N18.9 - CHRONIC KIDNEY DISEASE, UNSPECIFIED Qualifiers: Chronic kidney disease stage: stage 2 (mild) Qualified Code(s): N18.2 - Chronic kidney disease, stage 2 (mild) (5) HTN (hypertension) Assessment/Plan: -Norvasc -low Na diet Code(s): I10 - ESSENTIAL (PRIMARY) HYPERTENSION Assessment/Plan see problem list dvt ppx
[2019-05-01] MEDS ORDERED: INSULIN (NOVOLOG) ASPART 100 UNITS/ML 10ML VIAL ONE (17:09)
--- NOTE | 2019-05-01 18:22 | PN ---
Progress Note (short form) - Note Progress Note: covering dr navas 1. CKD 2. CHF 3. DM 4. HTN 5. hx CVA 6. a-fib 7. elevated kappa chains 8. cellulitis 9. KULDIP Current Medications Acetaminophen (Tylenol -) 650 mg PO Q6H PRN PRN Reason: PAIN OR FEVER Last Admin: 05/01/19 14:57 Dose: 650 mg Amlodipine Besylate (Norvasc -) 5 mg PO DAILY [facility] Last Admin: 05/01/19 11:25 Dose: 5 mg Atorvastatin Calcium (Lipitor -) 40 mg PO HS [facility] Last Admin: 04/30/19 21:31 Dose: 40 mg Clopidogrel Bisulfate (Plavix -) 75 mg PO DAILY [facility] Last Admin: 05/01/19 11:23 Dose: 75 mg Collagenase (Santyl -) 1 applic TP DAILY [facility]; Protocol Last Admin: 05/01/19 11:27 Dose: Not Given Digoxin (Lanoxin -) 0.125 mg PO DAILY [facility] Last Admin: 05/01/19 11:25 Dose: Not Given Fentanyl (Sublimaze Injection -) 25 mcg IVPUSH [id number] PRN PRN Reason: PAIN-PACU ORDER X 4 DOSES ONLY Furosemide (Lasix -) 60 mg PO BID@0600,1400 [facility] Last Admin: 05/01/19 14:31 Dose: 60 mg Heparin Sodium (Porcine) (Heparin -) 5,000 unit SQ BID [facility] Last Admin: 05/01/19 11:25 Dose: 5,000 unit Lactated Ringer's (Lactated Ringers Solution) 1,000 mls @ 75 mls/hr IV ASDIR [facility] Last Admin: 05/01/19 05:04 Dose: 75 mls/hr Insulin Aspart (Novolog Vial Sliding Scale -) 1 vial SQ TIDAC [facility]; Protocol Last Admin: 05/01/19 16:52 Dose: Not Given Levothyroxine Sodium (Synthroid -) 125 mcg PO DAILY@0700 [facility] Last Admin: 05/01/19 06:19 Dose: 125 mcg Metoprolol Tartrate (Lopressor -) 125 mg PO BID [facility] Last Admin: 05/01/19 11:23 Dose: 125 mg Sitagliptin Phosphate (Januvia -) 25 mg PO DAILY@0700 [facility] Last Admin: 05/01/19 06:19 Dose: 25 mg Vital Signs Period Temp Pulse Resp BP Sys/Sommer Pulse Ox Last 24 Hr 97.8 F-98.5 F 51-52 19-20 137-140/72-76 99-100 CBC, BMP 05/01/19 07:47 05/01/19 07:47 renal function stable Continue same renal management follow labs
[2019-05-01] MEDS ORDERED: PT OWN MED DRAWER 7, Y5N ONE (20:49)
[2019-05-01] MEDS: ATORVASTATIN CA 40 MG TABLET (FP) PO SCH (21:03)
[2019-05-02] MEDS: ACETAMINOPHEN 325 MG TABLET (FP) PO PRN ×3 (04:14→16:16)
[2019-05-02] MEDS: LACTATED RINGERS SOLUTION 1,000 ML IV SCH ×3 (05:23→22:38)
[2019-05-02] MEDS: FUROSEMIDE 20 MG TABLET (FP) PO SCH ×2 (05:34→13:35)
[2019-05-02] MEDS: LEVOTHYROXINE NA 125 MCG TABLET (FP) PO SCH (06:01)
[2019-05-02] MEDS: INSULIN SLIDING SCALE (NOVOLOG) 1 VIAL SQ SCH ×3 (06:01→17:33)
[2019-05-02 08:49] LABS: HEMATOCRIT 38.5 % (32.4-45.2); HEMOGLOBIN 12.5 GM/dL (10.7-15.3); MCH 27.8 pg (25.7-33.7); MCHC 32.6 g/dl (32.0-36.0); MEAN CELL VOLUME 85.3 fl (80-96); MEAN PLT VOLUME 8.2 fl (7.5-11.1); PLATELET COUNT 259 K/MM3 (134-434); RBC 4.52 M/mm3 (3.60-5.2); RDW 17.1 % (11.6-15.6); WHITE BLOOD COUNT 9.1 K/mm3 (4.0-10.0)
[2019-05-02 09:09] LABS: ALBUMIN 2.8 g/dl (3.4-5.0); BILIRUBIN,TOTAL 0.8 mg/dL (0.2-1); BLOOD UREA NITROGEN 65.7 mg/dL (7-18); CALCIUM 8.6 mg/dL (8.5-10.1); CREATININE 1.8 mg/dL (0.55-1.3); POTASSIUM 4.2 mmol/L (3.5-5.1); TOT PROT 7.4 g/dl (6.4-8.2)
[2019-05-02] MEDS: HEPARIN NA (PORCINE) 5,000 UNITS/ML 1ML VIAL SQ SCH ×2 (09:35→21:22)
[2019-05-02] MEDS: DIGOXIN 0.125 MG TABLET (FP) PO SCH (09:35)
[2019-05-02] MEDS: METOPROLOL TARTRATE 50 MG TABLET (FP) PO SCH ×2 (09:36→21:22)
[2019-05-02] MEDS: amLODIPine BESYLATE 5 MG TABLET (FP) PO SCH (09:37)
[2019-05-02] MEDS: CLOPIDOGREL BISULFATE 75 MG TABLET (FP) PO SCH (09:37)
[2019-05-02] MEDS: COLLAGENASE CLOSTRIDIUM HIST. 30 GRAMS TUBE TP SCH (11:28)
--- NOTE | 2019-05-02 12:04 | PN ---
Progress Note (short form) - Note Progress Note: PULMONARY Denies shortness of breath, cough or wheezing. Vital Signs Period Temp Pulse Resp BP Sys/Sommer Pulse Ox Last 24 Hr 97.8 F-98.5 F 48-52 18-20 123-150/67-78 99 Gen: NAD at rest Heart: RRR Lung: decreased breath sounds at the bases Abd: soft, nontender Ext: wrapped CBC, BMP 05/02/19 07:57 05/02/19 07:57 Active Medications Acetaminophen (Tylenol -) 650 mg PO Q6H PRN PRN Reason: PAIN OR FEVER Last Admin: 05/02/19 09:36 Dose: 650 mg Amlodipine Besylate (Norvasc -) 5 mg PO DAILY [facility] Last Admin: 05/02/19 09:37 Dose: 5 mg Atorvastatin Calcium (Lipitor -) 40 mg PO HS [facility] Last Admin: 05/01/19 21:03 Dose: 40 mg Clopidogrel Bisulfate (Plavix -) 75 mg PO DAILY [facility] Last Admin: 05/02/19 09:37 Dose: 75 mg Collagenase (Santyl -) 1 applic TP DAILY [facility]; Protocol Last Admin: 05/02/19 11:28 Dose: Not Given Digoxin (Lanoxin -) 0.125 mg PO DAILY [facility] Last Admin: 05/02/19 09:35 Dose: Not Given Fentanyl (Sublimaze Injection -) 25 mcg IVPUSH [id number] PRN PRN Reason: PAIN-PACU ORDER X 4 DOSES ONLY Furosemide (Lasix -) 60 mg PO BID@0600,1400 [facility] Last Admin: 05/02/19 05:34 Dose: 60 mg Heparin Sodium (Porcine) (Heparin -) 5,000 unit SQ BID [facility] Last Admin: 05/02/19 09:35 Dose: 5,000 unit Lactated Ringer's (Lactated Ringers Solution) 1,000 mls @ 75 mls/hr IV ASDIR [facility] Last Admin: 05/02/19 05:23 Dose: 75 mls/hr Insulin Aspart (Novolog Vial Sliding Scale -) 1 vial SQ TIDAC [facility]; Protocol Last Admin: 05/02/19 06:01 Dose: Not Given Levothyroxine Sodium (Synthroid -) 125 mcg PO DAILY@0700 [facility] Last Admin: 05/02/19 06:01 Dose: 125 mcg Metoprolol Tartrate (Lopressor -) 125 mg PO BID [facility] Last Admin: 05/02/19 09:36 Dose: Not Given Sitagliptin Phosphate (Januvia -) 25 mg PO DAILY@0700 [facility] Last Admin: 05/02/19 06:01 Dose: 25 mg A/P Infected Leg Ulcers LV Systolic Dysfunction Tricuspid Regurgitation HTN DM Hyperlipidemia Hypothyroidism CKD h/o CVA - completed antibiotics - wound care - pain control - rehab/PT - DVT prophylaxis Problem List - Problems (1) Infected stasis ulcer of left lower extremity Code(s): I83.229 - VARICOS VN OF L LOW EXTREM W ULC OF UNSP SITE AND INFLAM; L97.929 - NON-PRS CHRONIC ULC UNSP PRT OF L LOW LEG W UNSP SEVERITY
--- NOTE | 2019-05-02 13:33 | DS ---
Physical Examination Vital Signs: Vital Signs Temperature 98.2 F 05/02/19 09:33 Pulse Rate 52 L 05/02/19 09:33 Respiratory Rate 19 05/02/19 09:33 Blood Pressure 123/67 05/02/19 09:33 O2 Sat by Pulse Oximetry (%) 99 05/01/19 22:00 Findings/Remarks: Laboratory Tests 04/24/19 04/24/19 04/24/19 16:30 16:30 16:30 WBC 14.1 H RBC 4.54 Hgb 12.5 Hct 39.0 MCV 85.9 MCH 27.5 MCHC 32.0 RDW 17.3 H Plt Count 298 D MPV 8.0 D Absolute Neuts (auto) 10.7 H Neutrophils % 76.4 Lymphocytes % 10.7 D Monocytes % 11.7 H Eosinophils % 0.7 Basophils % 0.5 Nucleated RBC % 0 PT with INR 12.70 INR 1.08 PTT (Actin FS) 30.9 Sodium 138 Potassium 4.2 Chloride 103 Carbon Dioxide 28 Anion Gap 8 BUN 45.3 H Creatinine 2.4 H Est GFR (CKD-EPI)AfAm 22.15 Est GFR (CKD-EPI)NonAf 19.11 POC Glucometer Random Glucose 96 Hemoglobin A1c % Calcium 8.9 Phosphorus Magnesium 2.5 H Total Bilirubin 0.8 AST 13 L ALT 10 L Alkaline Phosphatase 78 B-Natriuretic Peptide 1081.4 H Total Protein 8.3 H Albumin 3.4 TSH Digoxin 04/25/19 04/25/19 04/25/19 06:10 06:10 06:10 WBC 10.6 H RBC 4.56 Hgb 12.8 Hct 38.8 MCV 85.1 MCH 28.0 MCHC 32.9 RDW 17.4 H Plt Count 301 MPV 7.6 Absolute Neuts (auto) 7.8 Neutrophils % 74.1 Lymphocytes % 13.3 D Monocytes % 10.9 H Eosinophils % 1.3 D Basophils % 0.4 Nucleated RBC % 0 PT with INR 12.60 INR 1.07 PTT (Actin FS) Sodium Potassium Chloride Carbon Dioxide Anion Gap BUN Creatinine Est GFR (CKD-EPI)AfAm Est GFR (CKD-EPI)NonAf POC Glucometer Random Glucose Hemoglobin A1c % Calcium Phosphorus Magnesium Total Bilirubin AST ALT Alkaline Phosphatase B-Natriuretic Peptide Total Protein Albumin TSH Digoxin 2.09 H 04/25/19 04/25/19 04/25/19 06:10 10:01 16:40 WBC RBC Hgb Hct MCV MCH MCHC RDW Plt Count MPV Absolute Neuts (auto) Neutrophils % Lymphocytes % Monocytes % Eosinophils % Basophils % Nucleated RBC % PT with INR INR PTT (Actin FS) Sodium 138 Potassium 4.1 Chloride 103 Carbon Dioxide 28 Anion Gap 7 L BUN 41.5 H Creatinine 2.1 H Est GFR (CKD-EPI)AfAm 26.03 Est GFR (CKD-EPI)NonAf 22.46 POC Glucometer 89 110 Random Glucose 95 Hemoglobin A1c % Calcium 9.1 Phosphorus 3.6 Magnesium 2.5 H Total Bilirubin AST ALT Alkaline Phosphatase B-Natriuretic Peptide Total Protein Albumin TSH 6.32 H Digoxin 04/25/19 04/26/19 04/26/19 22:02 05:30 06:55 WBC RBC Hgb Hct MCV MCH MCHC RDW Plt Count MPV Absolute Neuts (auto) Neutrophils % Lymphocytes % Monocytes % Eosinophils % Basophils % Nucleated RBC % PT with INR INR PTT (Actin FS) Sodium 137 Potassium 4.1 Chloride 103 Carbon Dioxide 27 Anion Gap 7 L BUN 47.6 H Creatinine 1.8 H Est GFR (CKD-EPI)AfAm 31.36 Est GFR (CKD-EPI)NonAf 27.06 POC Glucometer 97 89 Random Glucose 85 Hemoglobin A1c % Calcium 9.4 Phosphorus Magnesium Total Bilirubin 1.2 H AST 14 L ALT 11 L Alkaline Phosphatase 76 B-Natriuretic Peptide Total Protein 7.9 Albumin 3.1 L TSH Digoxin 04/26/19 04/26/19 04/26/19 06:55 11:33 17:02 WBC 8.9 RBC 4.57 Hgb 12.8 Hct 38.9 MCV 85.2 MCH 28.0 MCHC 32.8 RDW 17.2 H Plt Count 300 MPV 8.0 Absolute Neuts (auto) Neutrophils % Lymphocytes % Monocytes % Eosinophils % Basophils % Nucleated RBC % PT with INR INR PTT (Actin FS) Sodium Potassium Chloride Carbon Dioxide Anion Gap BUN Creatinine Est GFR (CKD-EPI)AfAm Est GFR (CKD-EPI)NonAf POC Glucometer 99 89 Random Glucose Hemoglobin A1c % Calcium Phosphorus Magnesium Total Bilirubin AST ALT Alkaline Phosphatase B-Natriuretic Peptide Total Protein Albumin TSH Digoxin 04/26/19 04/27/19 04/27/19 20:53 05:42 07:35 WBC RBC Hgb Hct MCV MCH MCHC RDW Plt Count MPV Absolute Neuts (auto) Neutrophils % Lymphocytes % Monocytes % Eosinophils % Basophils % Nucleated RBC % PT with INR INR PTT (Actin FS) Sodium 135 L Potassium 4.0 Chloride 101 Carbon Dioxide 27 Anion Gap 7 L BUN 56.4 H Creatinine 1.8 H Est GFR (CKD-EPI)AfAm 31.36 Est GFR (CKD-EPI)NonAf 27.06 POC Glucometer 92 97 Random Glucose 94 Hemoglobin A1c % Calcium 9.3 Phosphorus Magnesium Total Bilirubin 1.1 H AST 16 ALT 11 L Alkaline Phosphatase 81 B-Natriuretic Peptide Total Protein 8.1 Albumin 3.2 L TSH Digoxin 04/27/19 04/27/19 04/28/19 07:35 20:35 05:32 WBC RBC Hgb Hct MCV MCH MCHC RDW Plt Count MPV Absolute Neuts (auto) Neutrophils % Lymphocytes % Monocytes % Eosinophils % Basophils % Nucleated RBC % PT with INR INR PTT (Actin FS) Sodium Potassium Chloride Carbon Dioxide Anion Gap BUN Creatinine Est GFR (CKD-EPI)AfAm Est GFR (CKD-EPI)NonAf POC Glucometer 122 100 Random Glucose Hemoglobin A1c % 6.5 H Calcium Phosphorus Magnesium Total Bilirubin AST ALT Alkaline Phosphatase B-Natriuretic Peptide Total Protein Albumin TSH Digoxin 04/28/19 04/28/19 04/28/19 06:15 11:52 16:53 WBC RBC Hgb Hct MCV MCH MCHC RDW Plt Count MPV Absolute Neuts (auto) Neutrophils % Lymphocytes % Monocytes % Eosinophils % Basophils % Nucleated RBC % PT with INR INR PTT (Actin FS) Sodium 136 Potassium 4.1 Chloride 102 Carbon Dioxide 26 Anion Gap 9 BUN 60.4 H Creatinine 1.8 H Est GFR (CKD-EPI)AfAm 31.36 Est GFR (CKD-EPI)NonAf 27.06 POC Glucometer 94 101 Random Glucose 102 Hemoglobin A1c % Calcium 8.7 Phosphorus Magnesium Total Bilirubin 0.8 AST 12 L ALT 10 L Alkaline Phosphatase 86 B-Natriuretic Peptide Total Protein 7.8 Albumin 3.0 L TSH Digoxin 04/28/19 04/29/19 04/29/19 20:45 05:54 16:31 WBC RBC Hgb Hct MCV MCH MCHC RDW Plt Count MPV Absolute Neuts (auto) Neutrophils % Lymphocytes % Monocytes % Eosinophils % Basophils % Nucleated RBC % PT with INR INR PTT (Actin FS) Sodium Potassium Chloride Carbon Dioxide Anion Gap BUN Creatinine Est GFR (CKD-EPI)AfAm Est GFR (CKD-EPI)NonAf POC Glucometer 103 101 130 Random Glucose Hemoglobin A1c % Calcium Phosphorus Magnesium Total Bilirubin AST ALT Alkaline Phosphatase B-Natriuretic Peptide Total Protein Albumin TSH Digoxin 04/30/19 04/30/19 04/30/19 06:33 07:22 07:22 WBC 11.3 H RBC 4.69 Hgb 13.0 Hct 39.6 MCV 84.4 MCH 27.7 MCHC 32.9 RDW 17.6 H Plt Count 315 MPV 7.9 Absolute Neuts (auto) Neutrophils % Lymphocytes % Monocytes % Eosinophils % Basophils % Nucleated RBC % PT with INR INR PTT (Actin FS) Sodium 134 L Potassium 4.5 Chloride 99 Carbon Dioxide 29 Anion Gap 7 L BUN 69.9 H Creatinine 2.1 H Est GFR (CKD-EPI)AfAm 26.03 Est GFR (CKD-EPI)NonAf 22.46 POC Glucometer 109 Random Glucose 90 Hemoglobin A1c % Calcium 8.9 Phosphorus Magnesium Total Bilirubin 1.3 H AST 12 L ALT 11 L Alkaline Phosphatase 89 B-Natriuretic Peptide Total Protein 7.9 Albumin 3.0 L TSH Digoxin 04/30/19 04/30/19 04/30/19 11:37 16:53 22:36 WBC RBC Hgb Hct MCV MCH MCHC RDW Plt Count MPV Absolute Neuts (auto) Neutrophils % Lymphocytes % Monocytes % Eosinophils % Basophils % Nucleated RBC % PT with INR INR PTT (Actin FS) Sodium Potassium Chloride Carbon Dioxide Anion Gap BUN Creatinine Est GFR (CKD-EPI)AfAm Est GFR (CKD-EPI)NonAf POC Glucometer 152 139 96 Random Glucose Hemoglobin A1c % Calcium Phosphorus Magnesium Total Bilirubin AST ALT Alkaline Phosphatase B-Natriuretic Peptide Total Protein Albumin TSH Digoxin 05/01/19 05/01/19 05/01/19 06:22 07:47 07:47 WBC 9.9 RBC 4.48 Hgb 12.6 Hct 37.6 MCV 83.8 MCH 28.1 MCHC 33.5 RDW 17.4 H Plt Count 294 MPV 7.9 Absolute Neuts (auto) Neutrophils % Lymphocytes % Monocytes % Eosinophils % Basophils % Nucleated RBC % PT with INR INR PTT (Actin FS) Sodium 135 L Potassium 4.3 Chloride 100 Carbon Dioxide 27 Anion Gap 8 BUN 73.5 H Creatinine 2.0 H Est GFR (CKD-EPI)AfAm 27.61 Est GFR (CKD-EPI)NonAf 23.82 POC Glucometer 86 Random Glucose 82 Hemoglobin A1c % Calcium 8.2 L Phosphorus Magnesium Total Bilirubin 0.5 AST 13 L ALT 9 L Alkaline Phosphatase 93 B-Natriuretic Peptide Total Protein 7.4 Albumin 2.8 L TSH Digoxin 05/01/19 05/01/19 05/01/19 11:30 16:50 20:58 WBC RBC Hgb Hct MCV MCH MCHC RDW Plt Count MPV Absolute Neuts (auto) Neutrophils % Lymphocytes % Monocytes % Eosinophils % Basophils % Nucleated RBC % PT with INR INR PTT (Actin FS) Sodium Potassium Chloride Carbon Dioxide Anion Gap BUN Creatinine Est GFR (CKD-EPI)AfAm Est GFR (CKD-EPI)NonAf POC Glucometer 117 91 91 Random Glucose Hemoglobin A1c % Calcium Phosphorus Magnesium Total Bilirubin AST ALT Alkaline Phosphatase B-Natriuretic Peptide Total Protein Albumin TSH Digoxin 05/02/19 05/02/19 05/02/19 04:53 07:57 07:57 WBC 9.1 RBC 4.52 Hgb 12.5 Hct 38.5 MCV 85.3 MCH 27.8 MCHC 32.6 RDW 17.1 H Plt Count 259 MPV 8.2 Absolute Neuts (auto) Neutrophils % Lymphocytes % Monocytes % Eosinophils % Basophils % Nucleated RBC % PT with INR INR PTT (Actin FS) Sodium 136 Potassium 4.2 Chloride 101 Carbon Dioxide 27 Anion Gap 8 BUN 65.7 H Creatinine 1.8 H Est GFR (CKD-EPI)AfAm 31.36 Est GFR (CKD-EPI)NonAf 27.06 POC Glucometer 86 Random Glucose 77 Hemoglobin A1c % Calcium 8.6 Phosphorus Magnesium Total Bilirubin 0.8 AST 15 ALT 10 L Alkaline Phosphatase 89 B-Natriuretic Peptide Total Protein 7.4 Albumin 2.8 L TSH Digoxin 05/02/19 12:43 WBC RBC Hgb Hct MCV MCH MCHC RDW Plt Count MPV Absolute Neuts (auto) Neutrophils % Lymphocytes % Monocytes % Eosinophils % Basophils % Nucleated RBC % PT with INR INR PTT (Actin FS) Sodium Potassium Chloride Carbon Dioxide Anion Gap BUN Creatinine Est GFR (CKD-EPI)AfAm Est GFR (CKD-EPI)NonAf POC Glucometer 129 Random Glucose Hemoglobin A1c % Calcium Phosphorus Magnesium Total Bilirubin AST ALT Alkaline Phosphatase B-Natriuretic Peptide Total Protein Albumin TSH Digoxin Active Medications Generic Name Dose Route Start Last Admin Trade Name Freq PRN Reason Stop Dose Admin Acetaminophen 650 mg 04/29/19 13:33 05/02/19 09:36 Tylenol - PO 650 mg Q6H PRN Administration PAIN OR FEVER Amlodipine Besylate 5 mg 04/30/19 10:00 05/02/19 09:37 Norvasc - PO 5 mg DAILY [facility] Administration Atorvastatin Calcium 40 mg 04/29/19 22:00 05/01/19 21:03 Lipitor - PO 40 mg HS [facility] Administration Clopidogrel Bisulfate 75 mg 04/30/19 10:00 05/02/19 09:37 Plavix - PO 75 mg DAILY [facility] Administration Collagenase 1 applic 04/30/19 10:00 05/02/19 11:28 Santyl - TP Not Given DAILY [facility] Protocol Digoxin 0.125 mg 04/30/19 10:00 05/02/19 09:35 Lanoxin - PO Not Given DAILY [facility] Fentanyl 25 mcg 04/29/19 13:33 Sublimaze Injection - IVPUSH [id number] PRN PAIN-PACU ORDER X 4 DOSES ONLY Furosemide 60 mg 04/30/19 15:24 05/02/19 05:34 Lasix - PO 60 mg BID@0600,1400 [facility] Administration Heparin Sodium (Porcine) 5,000 unit 04/29/19 22:00 05/02/19 09:35 Heparin - SQ 5,000 unit BID [facility] Administration Lactated Ringer's 1,000 mls @ 75 mls/hr 04/29/19 13:33 05/02/19 05:23 Lactated Ringers Solution IV 75 mls/hr ASDIR [facility] Administration Insulin Aspart 1 vial 04/29/19 16:30 05/02/19 12:44 Novolog Vial Sliding Scale - SQ Not Given TIDAC [facility] Protocol Levothyroxine Sodium 125 mcg 04/30/19 07:00 05/02/19 06:01 Synthroid - PO 125 mcg DAILY@0700 [facility] Administration Metoprolol Tartrate 125 mg 04/29/19 22:00 05/02/19 09:36 Lopressor - PO Not Given BID [facility] Sitagliptin Phosphate 25 mg 04/30/19 07:00 05/02/19 06:01 Januvia - PO 25 mg DAILY@0700 [facility] Administration Microbiology 04/24/19 16:30 Blood - Peripheral Venous Blood Culture - Final NO GROWTH AFTER 5 DAYS INCUBATION 04/24/19 16:30 Blood - Peripheral Venous Blood Culture - Final NO GROWTH AFTER 5 DAYS INCUBATION 04/25/19 17:50 Leg - Right Lower Gram Stain - Final 04/25/19 17:50 Leg - Right Lower Wound Culture - Final Proteus Mirabilis Serratia Marcescens Morganella Morganii Enterococcus Faecalis Staphylococcus Coagulase Neg Constitutional: Yes: No Distress, Calm Eyes: Yes: Conjunctiva Clear HENT: Yes: Atraumatic Cardiovascular: Yes: Regular Rate and Rhythm Respiratory: Yes: Regular, CTA Bilaterally Gastrointestinal: Yes: Normal Bowel Sounds, Soft Musculoskeletal: Yes: Muscle Weakness Extremities: Yes: WNL Edema: No Wound/Incision: Yes: Dressing Dry and Intact Neurological: Yes: Alert, Oriented Psychiatric: Yes: Alert, Oriented Labs: CBC, BMP 05/02/19 07:57 05/02/19 07:57 Discharge Summary Problems reviewed: Yes Reason For Visit: WOUND OF LOWER EXTREMITY CELLULITIS LEUKOCYTOSIS Current Active Problems Allergy to antibiotic (Acute) CHF (congestive heart failure) (Acute) Cellulitis (Acute) Diabetes (Acute) Infected stasis ulcer of left lower extremity (Acute) Infected ulcer of skin (Acute) Leg ulcer (Acute) Leukocytosis (Acute) Wound of lower extremity (Acute) Hospital Course: Patient is a 73 y/o male with past medical history of DM, HTN, Heart Failure. She presented to [facility] ER after sent by [facility] for wounds to B/L lower extremity. Wound culture positive and was treated with course of IV antibiotics. Was evaluated by [facility] and had surgical debridement done with no adverse reaction. Condition: Stable - Instructions Diet, Activity, Other Instructions: Follow up with PMD in 1 week follow up [facility] [employer] [address] [place] in 1 week follow up with Vascular Dr Andino, follow up in wound clinic [facility] for visiting nurse and wound care continue with medication as prescribed return to ER if develop severe pain, respiratory distress, chest pain, fever daily dressing changes and apply santyl to wound Referrals: Dereck Cleveland MD [Staff Physician] - Kevin Andino DO [Staff Physician] - Tony Golden MD [Primary Care Provider] - Disposition: [facility]HOME HEALTH CARE - Home Medications Comprehensive Discharge Medication List: Ambulatory Orders Atorvastatin Ca [Lipitor] 40 mg PO HS #30 tablet 12/30/16 Clopidogrel Bisulfate [Plavix -] 75 mg PO DAILY #30 tablet 12/30/16 Amlodipine Besylate [Norvasc -] 5 mg PO DAILY tablet 08/23/19 Digoxin [Lanoxin -] 0.125 mg PO DAILY tablet 03/26/19 Insulin Sliding Scale [Novolog Vial Sliding Scale -] 1 vial SQ ACHS units 03/26 Potassium Chloride [K-Dur -] 10 meq PO DAILY tablet.er 03/26/19 Sacubitril/Valsartan [Entresto 49 mg-51 mg Tablet] 1 tab PO BID tablet Sitagliptin Phosphate [Januvia -] 25 mg PO DAILY@0700 tab 03/26/19 Collagenase Clostridium Hist. [Santyl -] 1 applic TP DAILY #1 tube 05/02/19 Furosemide [Lasix -] 60 mg PO BID@0600,1400 #180 tablet 05/02/19 Levothyroxine [Synthroid -] 125 mcg PO DAILY@0700 #30 tablet 05/02/19 Metoprolol Tartrate [Lopressor -] 125 mg PO BID #60 tablet 05/02/19
--- NOTE | 2019-05-02 14:12 | PN ---
Progress Note, Physician Chief Complaint: No dyspnea, No chest pain. Asked to see for Bradycardia HR 48-58 History of Present Illness: 73 year old woman with a PMHx of HTN, CVA in 2017, SVT, wide complex tachycardia thought to be SVT with aberrancy, chronic systolic CHF, severe TR, KULDIP/ATN admitted on 03/21/19 with leg edema, likley secondary to dietary sodium intake. 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 Echo 01/07/19 and 03/22/19: Mild LV dilatation with severely reduced LV systolic function. Normal RV. Mild LA dilatation. Moderate to severe RA dilatation. Mild MR. Severe TR. ?pulmonary hypertension. - Current Medication List Current Medications: Active Medications Acetaminophen (Tylenol -) 650 mg PO Q6H PRN PRN Reason: PAIN OR FEVER Last Admin: 05/02/19 09:36 Dose: 650 mg Amlodipine Besylate (Norvasc -) 5 mg PO DAILY [facility] Last Admin: 05/02/19 09:37 Dose: 5 mg Atorvastatin Calcium (Lipitor -) 40 mg PO HS [facility] Last Admin: 05/01/19 21:03 Dose: 40 mg Clopidogrel Bisulfate (Plavix -) 75 mg PO DAILY [facility] Last Admin: 05/02/19 09:37 Dose: 75 mg Collagenase (Santyl -) 1 applic TP DAILY [facility]; Protocol Last Admin: 05/02/19 11:28 Dose: Not Given Digoxin (Lanoxin -) 0.125 mg PO DAILY [facility] Last Admin: 05/02/19 09:35 Dose: Not Given Fentanyl (Sublimaze Injection -) 25 mcg IVPUSH [id number] PRN PRN Reason: PAIN-PACU ORDER X 4 DOSES ONLY Furosemide (Lasix -) 60 mg PO BID@0600,1400 [facility] Last Admin: 05/02/19 13:35 Dose: 60 mg Heparin Sodium (Porcine) (Heparin -) 5,000 unit SQ BID [facility] Last Admin: 05/02/19 09:35 Dose: 5,000 unit Lactated Ringer's (Lactated Ringers Solution) 1,000 mls @ 75 mls/hr IV ASDIR [facility] Last Admin: 05/02/19 13:35 Dose: Not Given Insulin Aspart (Novolog Vial Sliding Scale -) 1 vial SQ TIDAC [facility]; Protocol Last Admin: 05/02/19 12:44 Dose: Not Given Levothyroxine Sodium (Synthroid -) 125 mcg PO DAILY@0700 [facility] Last Admin: 05/02/19 06:01 Dose: 125 mcg Metoprolol Tartrate (Lopressor -) 125 mg PO BID [facility] Last Admin: 05/02/19 09:36 Dose: Not Given Sitagliptin Phosphate (Januvia -) 25 mg PO DAILY@0700 [facility] Last Admin: 05/02/19 06:01 Dose: 25 mg - Objective Vital Signs: Vital Signs Temperature 98.2 F 05/02/19 09:33 Pulse Rate 52 L 05/02/19 09:33 Respiratory Rate 05/02/19 09:33 Blood Pressure 123/67 05/02/19 09:33 O2 Sat by Pulse Oximetry (%) 99 05/01/19 22:00 Constitutional: Yes: Well Nourished, No Distress Eyes: Yes: Conjunctiva Clear, EOM Intact HENT: Yes: Atraumatic, Normocephalic Neck: Yes: Supple, Trachea Midline Cardiovascular: Yes: Regular Rate and Rhythm, S1, S2. No: JVD Respiratory: Yes: CTA Bilaterally Gastrointestinal: Yes: Normal Bowel Sounds Edema: Yes Edema: LLE: Trace, RLE: Trace Labs: CBC, BMP 05/02/19 07:57 05/02/19 07:57 INR, PTT INR 1.07 (0.83-1.09) 04/25/19 06:10 Problem List - Problems (1) CHF (congestive heart failure) Code(s): I50.9 - HEART FAILURE, UNSPECIFIED Assessment/Plan 73 year old woman with a PMHx of HTN, CVA in 2017, SVT, wide complex tachycardia thought to be SVT with aberrancy, chronic systolic CHF, severe TR, KULDIP/ATN admitted on 03/21/19 with worsening leg edema, likley secondary to dietary sodium intake. 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 Echo 01/07/19 and 03/22/19: Mild LV dilatation with severely reduced LV systolic function. Normal RV. Mild LA dilatation. Moderate to severe RA dilatation. Mild MR. Severe TR. ?pulmonary hypertension. ECG with marked sinus bradycardia. Recommend DCing digoxin Continue Metprolol 125mg bid
--- NOTE | 2019-05-02 16:50 | EKG ---
Test Reason : Blood Pressure : / mmHG Vent. Rate : 048 BPM Atrial Rate : 048 BPM P-R Int : 192 ms QRS Dur : 098 ms QT Int : 452 ms P-R-T Axes : 067 005 106 degrees QTc Int : 403 ms SINUS BRADYCARDIA ABNORMAL ECG WHEN COMPARED WITH ECG OF 24-APR-2019 16:30, VENT. RATE HAS DECREASED Confirmed by ALE WALKER MD ([id number]) on 05/02/2019 4:50:47 PM Referred By: Jassi GEORGE Confirmed By:ALE WALKER MD
[2019-05-02] MEDS ORDERED: morphine CARPU-JECT 2 MG/1 ML DISP.SYRIN IVPUSH ONE (18:56)
[2019-05-02] MEDS ORDERED: MORPHINE SULFATE 2 MG/ML VIAL IVPUSH ONE (18:56)
[2019-05-02] MEDS: ATORVASTATIN CA 40 MG TABLET (FP) PO SCH (21:22)
--- NOTE | 2019-05-02 21:41 | PN ---
Progress Note (short form) - Note Progress Note: covering dr navas 1. CKD 2. CHF 3. DM 4. HTN 5. hx CVA 6. a-fib 7. elevated kappa chains 8. cellulitis 9. KULDIP Current Medications Acetaminophen (Tylenol -) 650 mg PO Q6H PRN PRN Reason: PAIN OR FEVER Last Admin: 05/02/19 16:16 Dose: 650 mg Amlodipine Besylate (Norvasc -) 5 mg PO DAILY [facility] Last Admin: 05/02/19 09:37 Dose: 5 mg Atorvastatin Calcium (Lipitor -) 40 mg PO HS [facility] Last Admin: 05/02/19 21:22 Dose: 40 mg Clopidogrel Bisulfate (Plavix -) 75 mg PO DAILY [facility] Last Admin: 05/02/19 09:37 Dose: 75 mg Collagenase (Santyl -) 1 applic TP DAILY [facility]; Protocol Last Admin: 05/02/19 11:28 Dose: Not Given Fentanyl (Sublimaze Injection -) 25 mcg IVPUSH [id number] PRN PRN Reason: PAIN-PACU ORDER X 4 DOSES ONLY Furosemide (Lasix -) 60 mg PO BID@0600,1400 [facility] Last Admin: 05/02/19 13:35 Dose: 60 mg Heparin Sodium (Porcine) (Heparin -) 5,000 unit SQ BID [facility] Last Admin: 05/02/19 21:22 Dose: 5,000 unit Lactated Ringer's (Lactated Ringers Solution) 1,000 mls @ 75 mls/hr IV ASDIR [facility] Last Admin: 05/02/19 13:35 Dose: Not Given Insulin Aspart (Novolog Vial Sliding Scale -) 1 vial SQ TIDAC [facility]; Protocol Last Admin: 05/02/19 17:33 Dose: Not Given Levothyroxine Sodium (Synthroid -) 125 mcg PO DAILY@0700 [facility] Last Admin: 05/02/19 06:01 Dose: 125 mcg Metoprolol Tartrate (Lopressor -) 125 mg PO BID [facility] Last Admin: 05/02/19 21:22 Dose: 125 mg Sitagliptin Phosphate (Januvia -) 25 mg PO DAILY@0700 [facility] Last Admin: 05/02/19 06:01 Dose: 25 mg Last Vital Signs Temp Pulse Resp BP Pulse Ox 98.2 F 52 L 19 123/67 96 05/02/19 09:33 05/02/19 09:33 05/02/19 09:33 05/02/19 09:33 05/02/19 09:00 Lungs clear Heart regular Abd soft nontender Ext no edema CBC, BMP 05/02/19 07:57 05/02/19 07:57 CBC, BMP 05/01/19 07:47 05/01/19 07:47 IMP- CKD s/p KULDIP renal function stable Continue same renal management follow labs
[2019-05-03] MEDS: ACETAMINOPHEN 325 MG TABLET (FP) PO PRN ×3 (03:27→15:33)
[2019-05-03] MEDS: FUROSEMIDE 20 MG TABLET (FP) PO SCH ×2 (06:03→15:34)
[2019-05-03] MEDS: INSULIN SLIDING SCALE (NOVOLOG) 1 VIAL SQ SCH ×3 (06:04→17:03)
[2019-05-03] MEDS: LEVOTHYROXINE NA 125 MCG TABLET (FP) PO SCH (06:04)
[2019-05-03 08:01] LABS: HEMATOCRIT 36.4 % (32.4-45.2); HEMOGLOBIN 12.2 GM/dL (10.7-15.3); MCH 28.3 pg (25.7-33.7); MCHC 33.5 g/dl (32.0-36.0); MEAN CELL VOLUME 84.6 fl (80-96); MEAN PLT VOLUME 7.9 fl (7.5-11.1); PLATELET COUNT 262 K/MM3 (134-434); RBC 4.31 M/mm3 (3.60-5.2); RDW 17.5 % (11.6-15.6); WHITE BLOOD COUNT 8.7 K/mm3 (4.0-10.0)
[2019-05-03 08:58] LABS: ALBUMIN 2.8 g/dl (3.4-5.0); BILIRUBIN,TOTAL 0.6 mg/dL (0.2-1); BLOOD UREA NITROGEN 51.8 mg/dL (7-18); CALCIUM 8.5 mg/dL (8.5-10.1); CREATININE 1.5 mg/dL (0.55-1.3); POTASSIUM 4.1 mmol/L (3.5-5.1); TOT PROT 7.4 g/dl (6.4-8.2)
[2019-05-03] MEDS ORDERED: PT OWN MED DRAWER 7, Y5N ONE (09:46)
[2019-05-03] MEDS: CLOPIDOGREL BISULFATE 75 MG TABLET (FP) PO SCH (09:54)
[2019-05-03] MEDS: HEPARIN NA (PORCINE) 5,000 UNITS/ML 1ML VIAL SQ SCH (09:54)
[2019-05-03] MEDS: METOPROLOL TARTRATE 50 MG TABLET (FP) PO SCH (09:54)
[2019-05-03] MEDS: amLODIPine BESYLATE 5 MG TABLET (FP) PO SCH (09:54)
[2019-05-03] MEDS: COLLAGENASE CLOSTRIDIUM HIST. 30 GRAMS TUBE TP SCH (09:55)
--- NOTE | 2019-05-03 10:51 | PN ---
Progress Note (short form) - Note Progress Note: Resting in NAD. No shortness of breath, cough or wheezing. Intake & Output 04/30/19 05/01/19 05/02/19 05/03/19 23:59 23:59 23:59 23:59 Intake Total 150 1550 1200 1150 Output Total 600 300 Balance -450 1550 1200 850 Weight 190 lb 5 oz 192 lb 191 lb 190 lb Last Vital Signs Temp Pulse Resp BP Pulse Ox 98.2 F 60 17 152/86 96 05/03/19 09:50 05/03/19 09:50 05/03/19 09:50 05/03/19 09:50 05/03/19 09:00 Active Medications Acetaminophen (Tylenol -) 650 mg PO Q6H PRN PRN Reason: PAIN OR FEVER Last Admin: 05/03/19 09:54 Dose: 650 mg Amlodipine Besylate (Norvasc -) 5 mg PO DAILY [facility] Last Admin: 05/03/19 09:54 Dose: 5 mg Atorvastatin Calcium (Lipitor -) 40 mg PO HS [facility] Last Admin: 05/02/19 21:22 Dose: 40 mg Clopidogrel Bisulfate (Plavix -) 75 mg PO DAILY [facility] Last Admin: 05/03/19 09:54 Dose: 75 mg Collagenase (Santyl -) 1 applic TP DAILY [facility]; Protocol Last Admin: 05/03/19 09:55 Dose: Not Given Fentanyl (Sublimaze Injection -) 25 mcg IVPUSH [id number] PRN PRN Reason: PAIN-PACU ORDER X 4 DOSES ONLY Furosemide (Lasix -) 60 mg PO BID@0600,1400 [facility] Last Admin: 05/03/19 06:03 Dose: 60 mg Heparin Sodium (Porcine) (Heparin -) 5,000 unit SQ BID [facility] Last Admin: 05/03/19 09:54 Dose: 5,000 unit Lactated Ringer's (Lactated Ringers Solution) 1,000 mls @ 75 mls/hr IV ASDIR [facility] Last Admin: 05/02/19 22:38 Dose: 75 mls/hr Insulin Aspart (Novolog Vial Sliding Scale -) 1 vial SQ TIDAC [facility]; Protocol Last Admin: 05/03/19 06:04 Dose: Not Given Levothyroxine Sodium (Synthroid -) 125 mcg PO DAILY@0700 [facility] Last Admin: 05/03/19 06:04 Dose: 125 mcg Metoprolol Tartrate (Lopressor -) 125 mg PO BID [facility] Last Admin: 05/03/19 09:54 Dose: 125 mg Sitagliptin Phosphate (Januvia -) 25 mg PO DAILY@0700 [facility] Last Admin: 05/03/19 06:03 Dose: 25 mg Gen: NAD at rest Heart: RRR Lung: decreased breath sounds at the bases Abd: soft, nontender Ext: wrapped Laboratory Results - last 24 hr 05/02/19 05/02/19 05/03/19 12:43 17:21 05:49 WBC RBC Hgb Hct MCV MCH MCHC RDW Plt Count MPV Sodium Potassium Chloride Carbon Dioxide Anion Gap BUN Creatinine Est GFR (CKD-EPI)AfAm Est GFR (CKD-EPI)NonAf POC Glucometer 129 110 109 Random Glucose Calcium Total Bilirubin AST ALT Alkaline Phosphatase Total Protein Albumin 05/03/19 05/03/19 07:20 07:20 WBC 8.7 RBC 4.31 Hgb 12.2 Hct 36.4 MCV 84.6 MCH 28.3 MCHC 33.5 RDW 17.5 H Plt Count 262 MPV 7.9 Sodium 136 Potassium 4.1 Chloride 101 Carbon Dioxide 31 Anion Gap 4 L BUN 51.8 H Creatinine 1.5 H Est GFR (CKD-EPI)AfAm 39.09 Est GFR (CKD-EPI)NonAf 33.73 POC Glucometer Random Glucose 79 Calcium 8.5 Total Bilirubin 0.6 AST 16 ALT 11 L Alkaline Phosphatase 98 Total Protein 7.4 Albumin 2.8 L Problem List - Problems (1) Infected stasis ulcer of left lower extremity Code(s): I83.229 - VARICOS VN OF L LOW EXTREM W ULC OF UNSP SITE AND INFLAM; L97.929 - NON-PRS CHRONIC ULC UNSP PRT OF L LOW LEG W UNSP SEVERITY A/P Infected Leg Ulcers LV Systolic Dysfunction Tricuspid Regurgitation HTN DM Hyperlipidemia Hypothyroidism CKD h/o CVA - completed antibiotics - wound care - pain control - rehab/PT - DVT prophylaxis - DC planning Dr Astorga
--- NOTE | 2019-05-03 11:10 | PN ---
Progress Note, Physician Chief Complaint: BL LE Ulcer CHF NIDDM History of Present Illness: Previous notes and events reviewed awake NAD awake and alert renal function showing downtrend walked less than 100 feet with PT spoke with patient how she will benefit from SNF for PT and in agreement discharge disposition changed to SNF - Current Medication List Current Medications: Active Medications Acetaminophen (Tylenol -) 650 mg PO Q6H PRN PRN Reason: PAIN OR FEVER Last Admin: 05/03/19 09:54 Dose: 650 mg Amlodipine Besylate (Norvasc -) 5 mg PO DAILY [facility] Last Admin: 05/03/19 09:54 Dose: 5 mg Atorvastatin Calcium (Lipitor -) 40 mg PO HS [facility] Last Admin: 05/02/19 21:22 Dose: 40 mg Clopidogrel Bisulfate (Plavix -) 75 mg PO DAILY [facility] Last Admin: 05/03/19 09:54 Dose: 75 mg Collagenase (Santyl -) 1 applic TP DAILY [facility]; Protocol Last Admin: 05/03/19 09:55 Dose: Not Given Fentanyl (Sublimaze Injection -) 25 mcg IVPUSH [id number] PRN PRN Reason: PAIN-PACU ORDER X 4 DOSES ONLY Furosemide (Lasix -) 60 mg PO BID@0600,1400 [facility] Last Admin: 05/03/19 06:03 Dose: 60 mg Heparin Sodium (Porcine) (Heparin -) 5,000 unit SQ BID [facility] Last Admin: 05/03/19 09:54 Dose: 5,000 unit Lactated Ringer's (Lactated Ringers Solution) 1,000 mls @ 75 mls/hr IV ASDIR [facility] Last Admin: 05/02/19 22:38 Dose: 75 mls/hr Insulin Aspart (Novolog Vial Sliding Scale -) 1 vial SQ TIDAC [facility]; Protocol Last Admin: 05/03/19 06:04 Dose: Not Given Levothyroxine Sodium (Synthroid -) 125 mcg PO DAILY@0700 [facility] Last Admin: 05/03/19 06:04 Dose: 125 mcg Metoprolol Tartrate (Lopressor -) 125 mg PO BID [facility] Last Admin: 05/03/19 09:54 Dose: 125 mg Sitagliptin Phosphate (Januvia -) 25 mg PO DAILY@0700 [facility] Last Admin: 05/03/19 06:03 Dose: 25 mg - Objective Vital Signs: Vital Signs Temperature 98.2 F 05/03/19 09:50 Pulse Rate 60 05/03/19 09:50 Respiratory Rate 17 05/03/19 09:50 Blood Pressure 152/86 05/03/19 09:50 O2 Sat by Pulse Oximetry (%) 96 05/03/19 09:00 Constitutional: Yes: No Distress, Calm Eyes: Yes: Conjunctiva Clear HENT: Yes: Atraumatic Cardiovascular: Yes: Regular Rate and Rhythm Respiratory: Yes: Regular, CTA Bilaterally Gastrointestinal: Yes: Normal Bowel Sounds, Soft Musculoskeletal: Yes: Muscle Weakness Extremities: Yes: WNL Edema: No Wound/Incision: Yes: Dressing Dry and Intact Neurological: Yes: Alert, Oriented Psychiatric: Yes: Alert, Oriented Labs: CBC, BMP 05/03/19 07:20 05/03/19 07:20 INR, PTT INR 1.07 (0.83-1.09) 04/25/19 06:10 Problem List - Problems (1) CHF (congestive heart failure) Assessment/Plan: -Cardiology on board -1L fluid restriction -daily weights -Echo 03/22/19: EF 20/25%, mild LA dilatation, mod to severe RA dilatation, mild MR, severe TR -Lasix BID -Metoprolol BID -low Na diet Code(s): I50.9 - HEART FAILURE, UNSPECIFIED (2) Diabetes Assessment/Plan: -[facility] -[facility] -Januvia -HgA1c 6.5% Code(s): E11.9 - TYPE 2 DIABETES MELLITUS WITHOUT COMPLICATIONS Qualifiers: Diabetes mellitus type: type 2 (3) Wound of lower extremity Assessment/Plan: -Vascular on board -ID on board -no leukocytosis -afebrile -Tigecycline discontinued, monitor off antibiotics -wound culture positive Code(s): S81.809A - UNSPECIFIED OPEN WOUND, UNSPECIFIED LOWER LEG, INIT ENCNTR (4) CKD (chronic kidney disease) Assessment/Plan: -Renal on board -BUN/Cr 51.8/1.5 -Renal US unremarkable -monitor renal function Code(s): N18.9 - CHRONIC KIDNEY DISEASE, UNSPECIFIED Qualifiers: Chronic kidney disease stage: stage 2 (mild) Qualified Code(s): N18.2 - Chronic kidney disease, stage 2 (mild) (5) HTN (hypertension) Assessment/Plan: -Norvasc -low Na diet Code(s): I10 - ESSENTIAL (PRIMARY) HYPERTENSION Assessment/Plan see problem list dvt ppx will discharge to SNF for PT
[2019-05-03] MEDS: LACTATED RINGERS SOLUTION 1,000 ML IV SCH (12:07)
--- NOTE | 2019-05-03 13:21 | PN ---
Progress Note, Physician History of Present Illness: Pt seen and examined at bedside. She is awake and alert. She denies shortness of breath. - Current Medication List Current Medications: Active Medications Acetaminophen (Tylenol -) 650 mg PO Q6H PRN PRN Reason: PAIN OR FEVER Last Admin: 05/03/19 09:54 Dose: 650 mg Amlodipine Besylate (Norvasc -) 5 mg PO DAILY [facility]S [facility] Last Admin: 05/03/19 09:54 Dose: 5 mg Atorvastatin Calcium (Lipitor -) 40 mg PO HS [facility] B[facility]S AT [facility] Last Admin: 05/02/19 21:22 Dose: 40 mg Clopidogrel Bisulfate (Plavix -) 75 mg PO DAILY [facility] 234 B[facility]S AT [facility] Last Admin: 05/03/19 09:54 Dose: 75 mg Collagenase (Santyl -) 1 applic TP DAILY [facility]S AT [facility]; Protocol Last Admin: 05/03/19 09:55 Dose: Not Given Fentanyl (Sublimaze Injection -) 25 mcg IVPUSH [id number] PRN PRN Reason: PAIN-PACU ORDER X 4 DOSES ONLY Furosemide (Lasix -) 60 mg PO BID@0600,1400 [facility] Last Admin: 05/03/19 06:03 Dose: 60 mg Heparin Sodium (Porcine) (Heparin -) 5,000 unit SQ BID [facility] Last Admin: 05/03/19 09:54 Dose: 5,000 unit Lactated Ringer's (Lactated Ringers Solution) 1,000 mls @ 75 mls/hr IV ASDIR [facility] 234 B[facility]S AT [facility] Last Admin: 05/03/19 12:07 Dose: 75 mls/hr Insulin Aspart (Novolog Vial Sliding Scale -) 1 vial SQ TIDAC [facility] B[facility]S AT [facility]; Protocol Last Admin: 05/03/19 12:08 Dose: Not Given Levothyroxine Sodium (Synthroid -) 125 mcg PO DAILY@0700 [facility] 234 B[facility]S [facility] Last Admin: 05/03/19 06:04 Dose: 125 mcg Metoprolol Tartrate (Lopressor -) 125 mg PO BID [facility] 234 B[facility]S AT [facility] Last Admin: 05/03/19 09:54 Dose: 125 mg Sitagliptin Phosphate (Januvia -) 25 mg PO DAILY@0700 [facility] 234 B[facility]S AT [facility] Last Admin: 05/03/19 06:03 Dose: 25 mg - Objective Vital Signs: Vital Signs Temperature 98.2 F 05/03/19 09:50 Pulse Rate 60 05/03/19 09:50 Respiratory Rate 17 05/03/19 09:50 Blood Pressure 152/86 05/03/19 09:50 O2 Sat by Pulse Oximetry (%) 96 05/03/19 09:00 Constitutional: Yes: Calm Eyes: Yes: Conjunctiva Clear HENT: Yes: Atraumatic Neck: Yes: Supple Cardiovascular: Yes: S1, S2 Respiratory: Yes: CTA Bilaterally Gastrointestinal: Yes: Soft Genitourinary: Yes: WNL Musculoskeletal: Yes: WNL Edema: Yes Edema: LLE: Trace, RLE: Trace Neurological: Yes: Oriented Psychiatric: Yes: Oriented Labs: CBC, BMP 05/03/19 07:20 05/03/19 07:20 INR, PTT INR 1.07 (0.83-1.09) 04/25/19 06:10 Problem List - Problems (1) CHF (congestive heart failure) Code(s): I50.9 - HEART FAILURE, UNSPECIFIED (2) CKD (chronic kidney disease) Code(s): N18.9 - CHRONIC KIDNEY DISEASE, UNSPECIFIED Qualifiers: Chronic kidney disease stage: stage 2 (mild) Qualified Code(s): N18.2 - Chronic kidney disease, stage 2 (mild) Assessment/Plan Current Medications Generic Name Dose Route Start Last Admin Trade Name Freq PRN Reason Stop Dose Admin Acetaminophen 650 mg 04/29/19 13:33 05/03/19 09:54 Tylenol - PO 650 mg Q6H PRN Administration PAIN OR FEVER Amlodipine Besylate 5 mg 04/30/19 10:00 05/03/19 09:54 Norvasc - PO 5 mg DAILY [facility] Administration Atorvastatin Calcium 40 mg 04/29/19 22:00 05/02/19 21:22 Lipitor - PO 40 mg HS [facility] Administration Clopidogrel Bisulfate 75 mg 04/30/19 10:00 05/03/19 09:54 Plavix - PO 75 mg DAILY [facility] Administration Collagenase 1 applic 04/30/19 10:00 05/03/19 09:55 Santyl - TP Not Given DAILY [facility] 234 B[facility]S AT [facility] Protocol Fentanyl 25 mcg 04/29/19 13:33 Sublimaze Injection - IVPUSH [id number] PRN PAIN-PACU ORDER X 4 DOSES ONLY Furosemide 60 mg 04/30/19 15:24 05/03/19 06:03 Lasix - PO 60 mg BID@0600,1400 [facility] Administration Heparin Sodium (Porcine) 5,000 unit 04/29/19 22:00 05/03/19 09:54 Heparin - SQ 5,000 unit BID [facility] Administration Lactated Ringer's 1,000 mls @ 75 mls/hr 04/29/19 13:33 05/03/19 12:07 Lactated Ringers Solution IV 75 mls/hr ASDIR [facility] Administration Insulin Aspart 1 vial 04/29/19 16:30 05/03/19 12:08 Novolog Vial Sliding Scale - SQ Not Given TIDAC [facility]S [facility]CLUDE 234 BEDS AT THE [facility] Protocol Levothyroxine Sodium 125 mcg 04/30/19 07:00 05/03/19 06:04 Synthroid - PO 125 mcg DAILY@0700 [facility] Administration Metoprolol Tartrate 125 mg 04/29/19 22:00 05/03/19 09:54 Lopressor - PO 125 mg BID [facility] Administration Sitagliptin Phosphate 25 mg 04/30/19 07:00 05/03/19 06:03 Januvia - PO 25 mg DAILY@0700 [facility] Administration Impression 1. CKD 2. CHF 3. DM 4. HTN 5. hx CVA 6. a-fib 7. elevated kappa chains 8. cellulitis 9. KULDIP Plan - d/c fluids - cont lasix - monitor renal function - can see in office, will need follow up - discussed diet with pt - avoid nsaids
[2019-05-03 13:44] VITALS: BP 136/74; PULSE 55; TEMP 98.3
== END 2019-05-03 18:07 | DRG 264 ==
LOC: JER 15:43 → JERBED 17:47 → J6S 04-25 14:54
PROVIDERS: ADMIT Internal Medicine; ATTEND Family Medicine
PROC: 0JBN0ZZ Excision of Right Lower Leg Subcutaneous Tissue and Fascia, Open Approach (ICD-10-PCS; 2019-04-29)
PROC: 0JBP0ZZ Excision of Left Lower Leg Subcutaneous Tissue and Fascia, Open Approach (ICD-10-PCS; principal; 2019-04-29 11:00)
DX: E11.52 Type 2 diabetes mellitus with diabetic peripheral angiopathy with gangrene (principal); I13.0 Hypertensive heart and chronic kidney disease with heart failure and stage 1 through stage 4 chronic kidney disease, or unspecified chronic kidney disease; I50.22 Chronic systolic (congestive) heart failure; I47.1 Supraventricular tachycardia; I83.229 Varicose veins of left lower extremity with both ulcer of unspecified site and inflammation; L97.818 Non-pressure chronic ulcer of other part of right lower leg with other specified severity; L97.828 Non-pressure chronic ulcer of other part of left lower leg with other specified severity; L03.116 Cellulitis of left lower limb; I96 Gangrene, not elsewhere classified; N17.9 Acute kidney failure, unspecified; E11.622 Type 2 diabetes mellitus with other skin ulcer; E03.9 Hypothyroidism, unspecified; D72.829 Elevated white blood cell count, unspecified; R60.9 Edema, unspecified; S81.809A Unspecified open wound, unspecified lower leg, initial encounter; L08.9 Local infection of the skin and subcutaneous tissue, unspecified; E78.5 Hyperlipidemia, unspecified; J44.9 Chronic obstructive pulmonary disease, unspecified; E11.22 Type 2 diabetes mellitus with diabetic chronic kidney disease; N18.2 Chronic kidney disease, stage 2 (mild); E11.51 Type 2 diabetes mellitus with diabetic peripheral angiopathy without gangrene; I07.1 Rheumatic tricuspid insufficiency; Z99.81 Dependence on supplemental oxygen; Z88.1 Allergy status to other antibiotic agents; Z86.73 Personal history of transient ischemic attack (TIA), and cerebral infarction without residual deficits
CPT/HCPCS: 36415; 71045-TC-FY; 73590-TC-LT-FY; 73590-TC-RT-FY; 76775-TC; 80048; 80053; 80162; 82962; 83036; 83735; 83880; 84100; 84443; 85025; 85027; 85610; 85730; 87040; 87070; 87077; 87186; 87205; 93005; 93010; 93926-TC; 94760; 97116-GP; 97161-GP; 99285-25; J1644; J3243

== ENCOUNTER 2019-05-08 18:20 | Emergency (ER) | payer OTHER ==
[2019-05-08 18:32] VITALS: TEMP 97.4; BMI 28.0
--- NOTE | 2019-05-08 18:42 | PDOC ---
History of Present Illness - General Chief Complaint: Blood Sugar Problem Stated Complaint: BLOOD SUGAR PROBLEM - History of Present Illness Initial Comments: The pt is a 73F w/ a history of T2DM, hypothyroidism, HTN, and BLE wounds presents from [facility] for evaluation of hypoglycemia. Per EMS report the pt was noted to be hypoglycemic to the 40s, was given an amp of D50 with response to BG 190s. On arrival the pt denied any symptoms or LOC. Repeat BG was 74. Pt states that she has been eating less over the last several days because of decreased appetite and not liking the food at [facility]. Per reports the pt got her insulin today and took her Glimepiride at approximately 1800. She denies fevers/chills, GRANT, vision changes, LOC, chest pain, trouble breathing , cough, dysuria, hematuria. Pt reports her BLE wounds were debrided yesterday and no concern was voiced about infection 05/08/19 19:08 Past History - Past Medical History Allergies/Adverse Reactions: Allergies Allergy/AdvReac Type Severity Reaction Status Date / Time piperacillin [From Zosyn] Allergy Rash Verified 04/24/19 19:34 tazobactam [From Zosyn] Allergy Rash Verified 04/24/19 19:34 Home Medications: Ambulatory Orders RX: Atorvastatin Ca [Lipitor] 40 mg PO HS #30 tablet 12/30/16 RX: Clopidogrel Bisulfate [Plavix -] 75 mg PO DAILY #30 tablet 12/30/16 RX: Amlodipine Besylate [Norvasc -] 5 mg PO DAILY tablet 03/26/19 RX: Digoxin [Lanoxin -] 0.125 mg PO DAILY tablet 03/26/19 RX: Insulin Sliding Scale [Novolog Vial Sliding Scale -] 1 vial SQ ACHS units 03/26/19 RX: Potassium Chloride [K-Dur -] 10 meq PO DAILY tablet.er 03/26/19 RX: Sacubitril/Valsartan [Entresto 49 mg-51 mg Tablet] 1 tab PO BID tablet RX: Sitagliptin Phosphate [Januvia -] 25 mg PO DAILY@0700 tab 03/26/19 RX: Collagenase Clostridium Hist. [Santyl -] 1 applic TP DAILY #1 tube 05/02/19 RX: Furosemide [Lasix -] 60 mg PO BID@0600,1400 #180 tablet 05/02/19 RX: Levothyroxine [Synthroid -] 125 mcg PO DAILY@0700 #30 tablet 05/02/19 RX: Metoprolol Tartrate [Lopressor -] 125 mg PO BID #60 tablet 05/02/19 Anemia: No Asthma: No Cardiac Disorders: Yes (heart murmur, CHF) CVA: Yes COPD: Yes (home o2 3 to 4/min nc) CHF: Yes DVT: No Dementia: No Diabetes: Yes (Managed with Diet) Dialysis: No GI Disorders: No Disorders: (incontinence) HTN: Yes Hypercholesterolemia: Yes Kidney Stones: No Liver Disease: No Thyroid Disease: No - Surgical History Abdominal Surgery: No Appendectomy: No Cardiac Surgery: No Cholecystectomy: No Gastric Stapling: No GI Surgery: No Lung Surgery: No Neurologic Surgery: No Orthopedic Surgery: No - Immunization History Immunization Up to Date: No - Psycho Social/Smoking Cessation Hx Smoking Status: Yes Smoking History: Unknown if ever smoked Years of Tobacco Use: 25 Have you smoked in the past 12 months: No Number of Cigarettes Smoked Daily: 6 If you are a former smoker, when did you quit?: 1967 Information on smoking cessation initiated: No Hx Alcohol Use: No Drug/Substance Use Hx: No Substance Use Type: None Hx Substance Use Treatment: No Review of Systems - Review of Systems Able to Perform ROS?: Yes Comments:: GENERAL/CONSTITUTIONAL: No fever or chills. No weakness HEAD, EYES, EARS, NOSE AND THROAT: No change in vision. No change in hearing. No sore throat CARDIOVASCULAR: No chest pain or shortness of breath RESPIRATORY: Denies cough, hemoptysis GASTROINTESTINAL: No nausea, vomiting, diarrhea or constipation GENITOURINARY: No dysuria, frequency, or change in urination MUSCULOSKELETAL: No joint or muscle swelling or pain. No neck or back pain SKIN: BLE wounds NEUROLOGIC: No headache, vertigo, loss of consciousness, or change in strength/ sensation ENDOCRINE: +DM HEMATOLOGIC/LYMPHATIC: No anemia, easy bleeding, or history of blood clots ALLERGIC/IMMUNOLOGIC: No hives or skin allergy 05/08/19 18:41 Is the patient limited Portuguese proficient: No *Physical Exam - Vital Signs Last Vital Signs Temp Pulse Resp BP Pulse Ox 97.4 F L 72 18 169/99 98 05/08/19 18:27 05/08/19 18:27 05/08/19 18:27 05/08/19 18:27 05/08/19 18:27 - Physical Exam Comments: GENERAL: Awake, alert, and oriented to person/place/time, in no acute distress HEAD: No signs of trauma, normocephalic, atraumatic EYES: PERRLA, EOMI, sclera anicteric, conjunctiva clear ENT: Hearing grossly normal, nares patent, oropharynx clear without exudates. Moist mucosa LUNGS: No distress, speaks in full sentences, clear to auscultation bilaterally HEART: Regular rate and rhythm, normal S1 and S2, no murmurs appreciated, peripheral pulses normal and equal bilaterally ABDOMEN: Soft, nontender, normoactive bowel sounds. No guarding, no rebound EXTREMITIES: BLE wounds w/o surrounding erythema, induration, or purulence NEUROLOGICAL: Cranial nerves II through XII grossly intact. Normal speech, no focal sensorimotor deficits SKIN: Warm, Dry, wounds as above 05/08/19 18:42 ED Treatment Course - LABORATORY CBC & Chemistry Diagram: 05/08/19 19:00 05/08/19 21:00 Medical Decision Making - Medical Decision Making The pt is a 73F w/ a history of T2DM, hypothyroidism, HTN, and BLE wounds presents from [facility] for evaluation of hypoglycemia. Pt w/ BG 74 on arrival ED Course 1amp D50 and juice given on arrival Repeat BGM 90s CMP, CBC, BNP, Trop, UA Pt given sandwich and put on D5 gtt The pt was given her glimepiride at approximately 1800 05/08/19 20:26 Leukocytosis to 16.9 No anemia 05/08/19 20:26 BGM 230 05/08/19 21:16 Cr near baseline, 1.7 LFTs wnl ECG w/ sinus rhythm; HR 68; OK 182; prolonged QTc 563; no OSCAR 05/08/19 22:04 BNP added UA pending 05/08/19 22:13 Repeat VBG sent 05/08/19 22:33 Repeat VBG w/ improvement in pH and pCO2 UA sent 05/08/19 23:36 UA w/o evidence of UTI BG stable Plan for D/C to [facility] Discharge instructions and return precautions given Pt verbalized understanding and is in agreement Dispo: [facility] contacted and pt signed out to floor staff Daughter updated of pt dispo per pt request 05/09/19 00:00 Discharge - Discharge Information Problems reviewed: Yes Clinical Impression/Diagnosis: Hypoglycemia Diabetes Qualifiers: Diabetes mellitus type: other specified (including MALCOLM) Diabetes mellitus ocean transportation intermediary insulin use: unspecified retirement insulin use status Diabetes mellitus complication status: with other specified complication Qualified Code(s ): E13.69 - Other specified diabetes mellitus with other specified complication Condition: Improved Disposition: HOME - Admission No - Follow up/Referral Referrals: Tony Golden MD [Primary Care Provider] - - Patient Discharge Instructions Patient Printed Discharge Instructions: DI for Hypoglycemia Additional Instructions: You were seen in the Emergency Department for evaluation of low blood sugar. You were treated with glucose and fluids. Be sure to eat regular meals with your diabetes medication. Continue to take your medications as prescribed. Review the handout provided at discharge. Follow up with your primary care provider within a week. Return to the Emergency Department if you develop fevers /chills, chest pain, trouble breathing, vomiting, pain with urination, blood in your urine or stool, worsening symptoms, or any new/concerning symptoms. - Post Discharge Activity
[2019-05-08] MEDS ORDERED: DEXTROSE 50%-WATER 25 GM/50 ML DISP.SYRIN ONE (18:47)
[2019-05-08] MEDS ORDERED: DEXTROSE 50%-WATER - 25 GM/50 ML VIAL IVPUSH ONE (19:06)
[2019-05-08 19:22] LABS: BASO % 0.2 % (0-2.0); EOS % 0.8 % (0-4.5); HEMATOCRIT 38.6 % (32.4-45.2); HEMOGLOBIN 12.3 GM/dL (10.7-15.3); LYMPH % 4.3 % (8-40); MCH 27.3 pg (25.7-33.7); MEAN CELL VOLUME 85.4 fl (80-96); MEAN PLT VOLUME 8.5 fl (7.5-11.1); MONO % 7.1 % (3.8-10.2); NEUT % 87.6 % (42.8-82.8); PLATELET COUNT 272 K/MM3 (134-434); RBC 4.52 M/mm3 (3.60-5.2); RDW 17.6 % (11.6-15.6); WHITE BLOOD COUNT 16.9 K/mm3 (4.0-10.0)
[2019-05-08 19:23] LABS: VENOUS PH 7.27 (7.31-7.41)
[2019-05-08 19:25] LABS: VENOUS PO2 < 49 mmHg (28-48)
[2019-05-08 19:26] LABS: VENOUS PC02 77.6 mmHg (38-52)
[2019-05-08] MEDS ORDERED: DEXTROSE 5%-WATER - 1,000 ML IV SCH (20:00)
[2019-05-08 20:13] LABS: ANISOCYTOSIS 1+; PLATELET ESTIMATE NORMAL
[2019-05-08 21:47] LABS: ALBUMIN 3.2 g/dl (3.4-5.0); BILIRUBIN,TOTAL 0.8 mg/dL (0.2-1); BLOOD UREA NITROGEN 32.8 mg/dL (7-18); CALCIUM 8.7 mg/dL (8.5-10.1); CREATININE 1.7 mg/dL (0.55-1.3); POTASSIUM 4.2 mmol/L (3.5-5.1); TOT PROT 8.2 g/dl (6.4-8.2)
--- NOTE | 2019-05-08 22:07 | PDOC ---
Attending Attestation - Resident Resident Name: Fitz Chandra - ED Attending Attestation I have performed the following: I have examined & evaluated the patient, The case was reviewed & discussed with the resident, I agree w/resident's findings & plan - HPI HPI: 05/08/19 22:25 Pt comes with hypoglycemia; she took her oral diabetic med tonight and had nothing but a few slices of deli meat. Pt got D50 in the field. Here in the ER she is stable and she appears well and afebrile. Pt has no complaints. She explains that she is in the rehab facility for a week because she had delbert debrided in her bilateral lower legs earlier in the week. Pt has a few days remaining in rehab before she must return home. - Physicial Exam PE: 05/08/19 22:27 Pt is afebrile A+Ox3 no peripheral edema abd soft NT ND no flank pain. Pt has RRR heart. neurologically intact Pt has no rashes. Pt appears well. - Medical Decision Making 05/08/19 22:29 Pt has cardiomegaly on CXR. Pt has a WBC count of 16.9 with a left shift, and the question is whether she has an underlying infection. She will get UA and if that is clear, she will be sent back to the NH. Pt will also have repeat VBG. 05/09/19 00:41 Awaiting EMS to the [place]; pt is stable for d/c home.
[2019-05-08 22:36] LABS: VENOUS PC02 58.7 mmHg (38-52); VENOUS PH 7.37 (7.31-7.41); VENOUS PO2 < 49 mmHg (28-48)
[2019-05-08 22:41] LABS: N-TERMINAL BNP 889.7 pg/ml (5-450)
[2019-05-08 23:47] LABS: PH,URINE 5.5 (5.0-8.0); URINE APPEARANCE Clear; URINE BILIRUBIN Negative (NEGATIVE); URINE COLOR Yellow; URINE GLUCOSE (UA) Negative (NEGATIVE); URINE KETONE Negative (NEGATIVE); URINE LEUK ESTERASE Negative (NEGATIVE); URINE NITRITE Negative (NEGATIVE); URINE PROTEIN 1+ (NEGATIVE); URINE UROBILINOGEN 0.2 mg/dL (0.2-1.0)
[2019-05-09] MEDS ORDERED: ACETAMINOPHEN 325 MG TABLET (FP) PO ONE (00:08)
[2019-05-09] MEDS ORDERED: ACETAMINOPHEN 325 MG TABLET (FP) ONE (00:54)
[2019-05-09 02:55] VITALS: BP 130/84; PULSE 82
--- NOTE | 2019-05-09 11:36 | EKG ---
Test Reason : Blood Pressure : / mmHG Vent. Rate : 068 BPM Atrial Rate : 068 BPM P-R Int : 182 ms QRS Dur : 098 ms QT Int : 530 ms P-R-T Axes : 062 -13 090 degrees QTc Int : 563 ms SINUS RHYTHM WITH PREMATURE SUPRAVENTRICULAR COMPLEXES NONSPECIFIC ST AND T WAVE ABNORMALITY PROLONGED QT NON-SPECIFIC INTRA-VENTRICULAR CONDUCTION DELAY ABNORMAL ECG Confirmed by MIRTA MILLS MD ([id number]) on 05/09/2019 11:35:49 AM Referred By: Confirmed By:MIRTA MILLS MD
== END 2019-05-09 02:39 ==
LOC: JER 18:20
PROC: 3E0337Z Introduction of Electrolytic and Water Balance Substance into Peripheral Vein, Percutaneous Approach (ICD-10-PCS; principal; 2019-05-08)
DX: E11.649 Type 2 diabetes mellitus with hypoglycemia without coma (principal); Z79.4 Long term (current) use of insulin; I11.0 Hypertensive heart disease with heart failure; I50.9 Heart failure, unspecified; E78.00 Pure hypercholesterolemia, unspecified; J44.9 Chronic obstructive pulmonary disease, unspecified; Z99.81 Dependence on supplemental oxygen; R32 Unspecified urinary incontinence; Z86.73 Personal history of transient ischemic attack (TIA), and cerebral infarction without residual deficits; Z88.1 Allergy status to other antibiotic agents; Z87.891 Personal history of nicotine dependence
CPT/HCPCS: 36415; 71045-TC-FY; 80053; 81003; 82803; 82962; 83880; 85025; 87086; 93005; 93010; 96374; 99283-25

== ENCOUNTER 2020-08-23 04:44 | Inpatient (IN) | payer OTHER ==
[2020-08-23 05:30] VITALS: BMI 36.0
[2020-08-23] MEDS ORDERED: dilTIAZem HCL 50 MG/10 ML - 10 ML VIAL IVPUSH ONE ×3 (06:09→08:55)
[2020-08-23] MEDS ORDERED: dilTIAZem HCL 125 MG/25 ML - 25 ML VIAL ONE ×2 (06:10→08:55)
[2020-08-23 06:24] LABS: BASO % 0.2 % (0-2.0); EOS % 0.2 % (0-4.5); HEMATOCRIT 37.4 % (32.4-45.2); LYMPH % 8.1 % (8-40); MCH 27.1 pg (25.7-33.7); MEAN CELL VOLUME 84.5 fl (80-96); MEAN PLT VOLUME 9.2 fl (7.5-11.1); MONO % 6.8 % (3.8-10.2); NEUT % 84.7 % (42.8-82.8); PLATELET COUNT 218 K/MM3 (134-434); RBC 4.42 M/mm3 (3.60-5.2); WHITE BLOOD COUNT 11.5 K/mm3 (4.0-10.0)
[2020-08-23] MEDS ORDERED: dilTIAZem HCL 30 MG TABLET PO ONE (06:24)
[2020-08-23] MEDS ORDERED: dilTIAZem HCL 30 MG TABLET ONE ×3 (06:33→12:55)
[2020-08-23 07:12] LABS: POTASSIUM 5.2 mmol/L (3.5-5.1)
[2020-08-23 07:17] LABS: CALCIUM 8.2 mg/dL (8.5-10.1)
[2020-08-23 07:18] LABS: ALBUMIN 3.2 g/dl (3.4-5.0); BLOOD UREA NITROGEN 26.9 mg/dL (7-18)
[2020-08-23 07:19] LABS: MAGNESIUM 2.3 mg/dL (1.8-2.4)
[2020-08-23 07:22] LABS: BILIRUBIN,TOTAL 2.1 mg/dL (0.2-1)
[2020-08-23 07:23] LABS: TOT PROT 7.8 g/dl (6.4-8.2)
[2020-08-23 07:26] LABS: N-TERMINAL BNP 15059.9 pg/ml (5-450)
[2020-08-23] MEDS ORDERED: FUROSEMIDE 40 MG/4 ML INJECTABLE VIAL IVPUSH ONE (07:36)
[2020-08-23] MEDS ORDERED: FUROSEMIDE 40 MG/4 ML INJECTABLE VIAL ONE ×2 (07:39→08:54)
[2020-08-23] MEDS: dilTIAZem HCL 30 MG TABLET PO SCH ×2 (13:12→17:17)
[2020-08-23 18:10] LABS: EPI CELLS >36 /uL (0-25.1); HYALINE CASTS 5 /uL (0-3.1); URINE APPEARANCE CLOUDY; URINE BACTERIA >9,000 /uL (0-1359); URINE BILIRUBIN NEGATIVE (NEGATIVE); URINE COLOR YELLOW; URINE GLUCOSE (UA) NEGATIVE (NEGATIVE); URINE KETONE NEGATIVE (NEGATIVE); URINE LEUK ESTERASE NEGATIVE (NEGATIVE); URINE NITRITE POSITIVE (NEGATIVE); URINE PROTEIN 2+ (NEGATIVE); URINE RBC 7 /uL (0-23.9); URINE UROBILINOGEN 0.2 mg/dL (0.2-1.0)
[2020-08-23] MEDS ORDERED: ACETAMINOPHEN 325 MG TABLET (FP) PO PRN (19:39)
[2020-08-23] MEDS ORDERED: CLOPIDOGREL BISULFATE 75 MG TABLET (FP) PO SCH (19:45)
[2020-08-23] MEDS: CLOPIDOGREL BISULFATE 75 MG TABLET (FP) PO SCH (21:30)
[2020-08-23] MEDS: cloNIDine HCL 0.1 MG TABLET PO SCH (21:30)
[2020-08-23] MEDS: HEPARIN NA (PORCINE) 5,000 UNITS/ML 1ML VIAL SQ SCH (21:31)
[2020-08-24] MEDS: dilTIAZem HCL 30 MG TABLET PO SCH ×4 (00:26→17:47)
[2020-08-24] MEDS: cloNIDine HCL 0.1 MG TABLET PO SCH ×3 (05:39→21:29)
[2020-08-24] MEDS: LEVOTHYROXINE NA 100 MCG TABLET (FP) PO SCH (06:10)
[2020-08-24 07:45] LABS: BASO % 0.3 % (0-2.0); EOS % 1.5 % (0-4.5); HEMATOCRIT 33.8 % (32.4-45.2); HEMOGLOBIN 10.9 GM/dL (10.7-15.3); LYMPH % 13.8 % (8-40); MCH 27.1 pg (25.7-33.7); MCHC 32.3 g/dl (32.0-36.0); MEAN CELL VOLUME 83.9 fl (80-96); MEAN PLT VOLUME 8.7 fl (7.5-11.1); MONO % 8.6 % (3.8-10.2); NEUT % 75.8 % (42.8-82.8); PLATELET COUNT 203 K/MM3 (134-434); RBC 4.03 M/mm3 (3.60-5.2); RDW 18.2 % (11.6-15.6); WHITE BLOOD COUNT 8.3 K/mm3 (4.0-10.0)
[2020-08-24 07:49] LABS: POTASSIUM 3.7 mmol/L (3.5-5.1)
[2020-08-24 07:56] LABS: BLOOD UREA NITROGEN 29.5 mg/dL (7-18); MAGNESIUM 2.3 mg/dL (1.8-2.4)
[2020-08-24 08:00] LABS: BILIRUBIN,TOTAL 1.9 mg/dL (0.2-1); TOT PROT 6.9 g/dl (6.4-8.2)
[2020-08-24] MEDS: amLODIPine BESYLATE 5 MG TABLET (FP) PO SCH (09:22)
[2020-08-24] MEDS: FUROSEMIDE 40 MG/4 ML INJECTABLE VIAL IVPUSH SCH (09:22)
[2020-08-24] MEDS: HEPARIN NA (PORCINE) 5,000 UNITS/ML 1ML VIAL SQ SCH ×2 (09:22→21:29)
[2020-08-24] MEDS: ASPIRIN 81 MG CHEWABLE TABLETS PO SCH (09:22)
[2020-08-24] MEDS: CLOPIDOGREL BISULFATE 75 MG TABLET (FP) PO SCH (09:23)
[2020-08-24] MEDS: INSULIN SLIDING SCALE (NOVOLOG) 1 VIAL SQ SCH (17:02)
[2020-08-25] MEDS: dilTIAZem HCL 30 MG TABLET PO SCH ×2 (00:40→05:50)
[2020-08-25] MEDS: cloNIDine HCL 0.1 MG TABLET PO SCH ×3 (05:50→21:23)
[2020-08-25] MEDS: INSULIN SLIDING SCALE (NOVOLOG) 1 VIAL SQ SCH ×3 (06:20→17:24)
[2020-08-25] MEDS: LEVOTHYROXINE NA 100 MCG TABLET (FP) PO SCH (06:21)
[2020-08-25] MEDS: ASPIRIN 81 MG CHEWABLE TABLETS PO SCH (09:14)
[2020-08-25] MEDS: CLOPIDOGREL BISULFATE 75 MG TABLET (FP) PO SCH (09:14)
[2020-08-25] MEDS: HEPARIN NA (PORCINE) 5,000 UNITS/ML 1ML VIAL SQ SCH (09:14)
[2020-08-25] MEDS: FUROSEMIDE 40 MG/4 ML INJECTABLE VIAL IVPUSH SCH (09:14)
[2020-08-25] MEDS: amLODIPine BESYLATE 5 MG TABLET (FP) PO SCH (09:14)
[2020-08-25] MEDS: metoPROLOL SUCCINATE 25 MG TAB.SR.24H (FP) PO SCH (12:53)
[2020-08-25] MEDS: APIXABAN 5 MG TABLET PO SCH (21:23)
[2020-08-26 05:46] VITALS: TEMP 98.1
[2020-08-26] MEDS: LEVOTHYROXINE NA 100 MCG TABLET (FP) PO SCH (06:00)
[2020-08-26] MEDS: cloNIDine HCL 0.1 MG TABLET PO SCH (06:00)
[2020-08-26] MEDS: INSULIN SLIDING SCALE (NOVOLOG) 1 VIAL SQ SCH ×2 (06:00→11:14)
[2020-08-26] MEDS: amLODIPine BESYLATE 5 MG TABLET (FP) PO SCH (09:49)
[2020-08-26] MEDS: CLOPIDOGREL BISULFATE 75 MG TABLET (FP) PO SCH (09:49)
[2020-08-26] MEDS: metoPROLOL SUCCINATE 25 MG TAB.SR.24H (FP) PO SCH (09:49)
[2020-08-26] MEDS: APIXABAN 5 MG TABLET PO SCH (09:49)
[2020-08-26] MEDS ORDERED: FUROSEMIDE 40 MG TABLET (FP) PO SCH (10:00)
[2020-08-26 11:59] VITALS: BP 128/78; PULSE 78
== END 2020-08-26 13:35 | disposition home health service (06) | DRG 291 ==
LOC: JER 04:44 → JERBED 10:08 → MERGE 10:08 → J4W 16:19
PROVIDERS: ADMIT Family Medicine; ATTEND Family Medicine
DX: I13.0 Hypertensive heart and chronic kidney disease with heart failure and stage 1 through stage 4 chronic kidney disease, or unspecified chronic kidney disease (principal); I50.23 Acute on chronic systolic (congestive) heart failure; I48.92 Unspecified atrial flutter; I47.1 Supraventricular tachycardia; E11.22 Type 2 diabetes mellitus with diabetic chronic kidney disease; I48.91 Unspecified atrial fibrillation; I25.10 Atherosclerotic heart disease of native coronary artery without angina pectoris; N18.9 Chronic kidney disease, unspecified; Z95.5 Presence of coronary angioplasty implant and graft; E66.9 Obesity, unspecified; Z68.35 Body mass index [BMI] 35.0-35.9, adult
CPT/HCPCS: 36415; 71045-TC-FY; 80053; 81003; 82550; 82553; 82962; 83036; 83735; 83880; 84484; 85025; 87086; 87186; 93005; 93010; 93306-TC; 97116-GP; 97161-GP; 99291; 99292; C9803; J0735; J1644; U0003

== ENCOUNTER 2020-09-02 12:59 | Emergency (ER) | payer OTHER ==
[2020-09-02 13:28] VITALS: BP 143/65; PULSE 55; TEMP 98; BMI 36.0
[2020-09-02] MEDS ORDERED: FUROSEMIDE 40 MG/4 ML INJECTABLE VIAL IVPUSH ONE (14:19)
[2020-09-02] MEDS ORDERED: FUROSEMIDE 40 MG/4 ML INJECTABLE VIAL ONE (14:23)
[2020-09-02 15:34] LABS: BASO % 0.3 % (0-2.0); EOS % 1.5 % (0-4.5); HEMATOCRIT 36.7 % (32.4-45.2); HEMOGLOBIN 11.8 GM/dL (10.7-15.3); LYMPH % 11.6 % (8-40); MCH 27.3 pg (25.7-33.7); MCHC 32.1 g/dl (32.0-36.0); MEAN CELL VOLUME 85.2 fl (80-96); MEAN PLT VOLUME 9.5 fl (7.5-11.1); NEUT % 78.6 % (42.8-82.8); PLATELET COUNT 244 K/MM3 (134-434); RBC 4.31 M/mm3 (3.60-5.2); RDW 18.6 % (11.6-15.6); WHITE BLOOD COUNT 8.5 K/mm3 (4.0-10.0)
[2020-09-02 15:51] LABS: POTASSIUM 4.8 mmol/L (3.5-5.1)
[2020-09-02 15:53] LABS: CALCIUM 8.6 mg/dL (8.5-10.1)
[2020-09-02 15:54] LABS: ALBUMIN 3.3 g/dl (3.4-5.0); BLOOD UREA NITROGEN 31.6 mg/dL (7-18)
[2020-09-02 15:57] LABS: CREATININE 1.6 mg/dL (0.55-1.3)
[2020-09-02 15:58] LABS: BILIRUBIN,TOTAL 0.9 mg/dL (0.2-1)
== END 2020-09-02 16:27 | disposition home or self-care (01) ==
LOC: JER 12:59
PROC: 3E033NZ Introduction of Analgesics, Hypnotics, Sedatives into Peripheral Vein, Percutaneous Approach (ICD-10-PCS; principal; 2020-09-02)
DX: R60.9 Edema, unspecified (principal)
CPT/HCPCS: 36415; 71045-TC-FY; 80053; 85025; 93005; 93010; 99285-25

== ENCOUNTER 2020-09-19 10:09 | Inpatient (IN) | payer OTHER ==
[2020-09-19] MEDS ORDERED: METOPROLOL TARTRATE 5 MG/5 ML VIAL IVPUSH ONE ×2 (11:16→11:21)
[2020-09-19] MEDS ORDERED: METOPROLOL TARTRATE 5 MG/5 ML VIAL ONE (11:24)
[2020-09-19 11:25] LABS: BASO % 0.2 % (0-2.0); EOS % 0.3 % (0-4.5); HEMATOCRIT 39.5 % (32.4-45.2); HEMOGLOBIN 12.7 GM/dL (10.7-15.3); LYMPH % 11.8 % (8-40); MEAN CELL VOLUME 81.3 fl (80-96); MEAN PLT VOLUME 9.5 fl (7.5-11.1); MONO % 9.5 % (3.8-10.2); NEUT % 78.2 % (42.8-82.8); PLATELET COUNT 250 K/MM3 (134-434); RBC 4.87 M/mm3 (3.60-5.2); RDW 18.2 % (11.6-15.6)
[2020-09-19 11:53] LABS: POTASSIUM 3.8 mmol/L (3.5-5.1)
[2020-09-19 11:54] LABS: INR 1.07 (0.83-1.09); MAGNESIUM 2.8 mg/dL (1.8-2.4); PROTHROMBIN TIME (PATIENT) 13.1 SEC (9.7-13.0)
[2020-09-19 11:55] LABS: CALCIUM 8.8 mg/dL (8.5-10.1)
[2020-09-19 11:56] LABS: BLOOD UREA NITROGEN 37.5 mg/dL (7-18)
[2020-09-19 11:57] LABS: ACTIVATED PTT 35.2 SECONDS (25.2-36.5); PHOSPHOROUS 4.1 mg/dL (2.5-4.9)
[2020-09-19 11:58] LABS: BILIRUBIN,DIRECT 0.5 mg/dL (0.0-0.2)
[2020-09-19 11:59] LABS: CREATININE 2.1 mg/dL (0.55-1.3)
[2020-09-19 12:00] LABS: BILIRUBIN,TOTAL 1.1 mg/dL (0.2-1)
[2020-09-19 12:01] LABS: N-TERMINAL BNP 12977.8 pg/ml (5-450); TOT PROT 8.1 g/dl (6.4-8.2)
[2020-09-19] MEDS ORDERED: FUROSEMIDE 40 MG/4 ML INJECTABLE VIAL IVPUSH ONE (12:44)
[2020-09-19] MEDS ORDERED: FUROSEMIDE 40 MG/4 ML INJECTABLE VIAL ONE (12:53)
[2020-09-19] MEDS ORDERED: DEXAMETHASONE SOD PHOSPHATE 4 MG/1 ML VIAL IVPUSH ONE (13:44)
[2020-09-19] MEDS ORDERED: DEXAMETHASONE SOD PHOSPHATE 10 MG/1 ML VIAL ONE (14:09)
[2020-09-19 14:27] LABS: ARTERIAL BLD GAS O2 SATURATION 98.6 mmHg (95-98); ARTERIAL BLOOD GAS PO2 131.4 mmHg (80-100); ARTERIAL BLOOD GAS pH 7.375 (7.350-7.450)
[2020-09-19 20:22] LABS: POTASSIUM 4.1 mmol/L (3.5-5.1)
[2020-09-19] MEDS: ASCORBIC ACID 500 MG TABLET (FP) PO SCH (21:30)
[2020-09-19] MEDS: APIXABAN 5 MG TABLET PO SCH (21:30)
[2020-09-19] MEDS: ZINC SULFATE 220 MG CAPSULE (FP) PO SCH (21:30)
[2020-09-19 21:56] LABS: EPI CELLS >36 /uL (0-25.1); HYALINE CASTS 3 /uL (0-3.1); URINE APPEARANCE CLOUDY; URINE BACTERIA 7176 /uL (0-1359); URINE BILIRUBIN NEGATIVE (NEGATIVE); URINE COLOR YELLOW; URINE GLUCOSE (UA) NEGATIVE (NEGATIVE); URINE KETONE TRACE (NEGATIVE); URINE LEUK ESTERASE 1+ (NEGATIVE); URINE NITRITE NEGATIVE (NEGATIVE); URINE PROTEIN 3+ (NEGATIVE); URINE RBC 9 /uL (0-23.9); URINE WBC 83 /uL (0-25.8)
[2020-09-20 09:32] LABS: BASO % 0.1 % (0-2.0); HEMATOCRIT 37.6 % (32.4-45.2); HEMOGLOBIN 12.1 GM/dL (10.7-15.3); LYMPH % 9.2 % (8-40); MCH 26.3 pg (25.7-33.7); MCHC 32.3 g/dl (32.0-36.0); MEAN CELL VOLUME 81.5 fl (80-96); MEAN PLT VOLUME 9.1 fl (7.5-11.1); MONO % 8.7 % (3.8-10.2); PLATELET COUNT 245 K/MM3 (134-434); RBC 4.61 M/mm3 (3.60-5.2); RDW 18.1 % (11.6-15.6); WHITE BLOOD COUNT 7.6 K/mm3 (4.0-10.0)
[2020-09-20 09:48] LABS: POTASSIUM 4.3 mmol/L (3.5-5.1)
[2020-09-20] MEDS ORDERED: FUROSEMIDE 40 MG/4 ML INJECTABLE VIAL IVPUSH SCH (10:00)
[2020-09-20 10:10] LABS: ALBUMIN 2.9 g/dl (3.4-5.0); CALCIUM 8.9 mg/dL (8.5-10.1)
[2020-09-20 10:11] LABS: BLOOD UREA NITROGEN 47.4 mg/dL (7-18)
[2020-09-20 10:15] LABS: MAGNESIUM 2.9 mg/dL (1.8-2.4)
[2020-09-20 10:17] LABS: CREATININE 2.4 mg/dL (0.55-1.3); PHOSPHOROUS 7.1 mg/dL (2.5-4.9)
[2020-09-20 10:18] LABS: BILIRUBIN,TOTAL 0.9 mg/dL (0.2-1); TOT PROT 7.5 g/dl (6.4-8.2)
[2020-09-20] MEDS: ZINC SULFATE 220 MG CAPSULE (FP) PO SCH ×2 (10:38→21:23)
[2020-09-20] MEDS: ASCORBIC ACID 500 MG TABLET (FP) PO SCH ×2 (10:38→21:23)
[2020-09-20] MEDS: DEXAMETHASONE SOD PHOSPHATE 4 MG/1 ML VIAL IVPUSH SCH (10:38)
[2020-09-20] MEDS: APIXABAN 5 MG TABLET PO SCH ×2 (10:38→21:23)
[2020-09-20] MEDS: metoPROLOL SUCCINATE 25 MG TAB.SR.24H (FP) PO SCH (10:38)
[2020-09-20] MEDS: CHOLECALCIFEROL (VIT D3) 1,000 UNIT (25 MCG) TABLET PO SCH (10:39)
[2020-09-20] MEDS ORDERED: DEXTROSE 5%-WATER - 50 ML IVPB ONE (11:54)
[2020-09-20] MEDS ORDERED: cefTRIAXone SODIUM 1 GM VIAL ONE (11:54)
[2020-09-20] MEDS: AZITHROMYCIN IVPB 500 MG/250 ML BAG IVPB SCH (12:01)
[2020-09-20] MEDS: CEFTRIAXONE 1 GM in DEXTROSE 5%-WATER - 50 ML IVPB SCH (12:01)
[2020-09-20] MEDS ORDERED: guaiFENesin/CODEINE 5 ML UNIT-DOSE CUPS PO PRN (14:19)
[2020-09-21 07:26] LABS: HEMATOCRIT 37.9 % (32.4-45.2); HEMOGLOBIN 12.1 GM/dL (10.7-15.3); MCH 26.4 pg (25.7-33.7); MCHC 31.8 g/dl (32.0-36.0); MEAN CELL VOLUME 83.1 fl (80-96); MEAN PLT VOLUME 9.1 fl (7.5-11.1); PLATELET COUNT 267 K/MM3 (134-434); RBC 4.57 M/mm3 (3.60-5.2); RDW 18.5 % (11.6-15.6)
[2020-09-21 08:00] LABS: POTASSIUM 4.3 mmol/L (3.5-5.1)
[2020-09-21 08:10] LABS: BILIRUBIN,TOTAL 0.8 mg/dL (0.2-1); TOT PROT 7.9 g/dl (6.4-8.2)
[2020-09-21 08:13] LABS: CALCIUM 8.8 mg/dL (8.5-10.1)
[2020-09-21 08:14] LABS: ALBUMIN 3.1 g/dl (3.4-5.0); BLOOD UREA NITROGEN 59.3 mg/dL (7-18)
[2020-09-21 08:17] LABS: PHOSPHOROUS 6.4 mg/dL (2.5-4.9)
[2020-09-21 09:24] LABS: ERYTHROCYTE SEDIMENTATION RATE 34 mm/hr (0-30)
[2020-09-21] MEDS ORDERED: cefTRIAXone SODIUM 1 GM VIAL ONE (09:32)
[2020-09-21] MEDS ORDERED: DEXTROSE 5%-WATER - 50 ML IVPB ONE (09:32)
[2020-09-21] MEDS ORDERED: APIXABAN 2.5 MG TABLET PO ONE (10:00)
[2020-09-21] MEDS: ZINC SULFATE 220 MG CAPSULE (FP) PO SCH (10:09)
[2020-09-21] MEDS: CHOLECALCIFEROL (VIT D3) 1,000 UNIT (25 MCG) TABLET PO SCH (10:09)
[2020-09-21] MEDS: DEXAMETHASONE SOD PHOSPHATE 4 MG/1 ML VIAL IVPUSH SCH (10:09)
[2020-09-21] MEDS: metoPROLOL SUCCINATE 25 MG TAB.SR.24H (FP) PO SCH (10:09)
[2020-09-21] MEDS: CEFTRIAXONE 1 GM in DEXTROSE 5%-WATER - 50 ML IVPB SCH (10:09)
[2020-09-21] MEDS: AZITHROMYCIN IVPB 500 MG/250 ML BAG IVPB SCH (10:10)
[2020-09-21] MEDS: ASCORBIC ACID 500 MG TABLET (FP) PO SCH (10:10)
[2020-09-21] MEDS: APIXABAN 5 MG TABLET PO SCH (23:22)
[2020-09-22 08:08] LABS: HEMATOCRIT 37.7 % (32.4-45.2); HEMOGLOBIN 12.2 GM/dL (10.7-15.3); MCH 26.5 pg (25.7-33.7); MCHC 32.5 g/dl (32.0-36.0); MEAN CELL VOLUME 81.6 fl (80-96); MEAN PLT VOLUME 8.7 fl (7.5-11.1); PLATELET COUNT 274 K/MM3 (134-434); RBC 4.62 M/mm3 (3.60-5.2); RDW 18.1 % (11.6-15.6); WHITE BLOOD COUNT 10.4 K/mm3 (4.0-10.0)
[2020-09-22] MEDS ORDERED: cefTRIAXone SODIUM 1 GM VIAL ONE (09:53)
[2020-09-22] MEDS ORDERED: DEXTROSE 5%-WATER - 50 ML IVPB ONE (09:53)
[2020-09-22] MEDS: CEFTRIAXONE 1 GM in DEXTROSE 5%-WATER - 50 ML IVPB SCH (10:22)
[2020-09-22] MEDS: APIXABAN 5 MG TABLET PO SCH ×2 (10:23→22:15)
[2020-09-22] MEDS: DEXAMETHASONE SOD PHOSPHATE 4 MG/1 ML VIAL IVPUSH SCH (10:23)
[2020-09-22] MEDS: CHOLECALCIFEROL (VIT D3) 1,000 UNIT (25 MCG) TABLET PO SCH (10:23)
[2020-09-22] MEDS: metoPROLOL SUCCINATE 25 MG TAB.SR.24H (FP) PO SCH (10:23)
[2020-09-22 10:30] LABS: POTASSIUM 4.3 mmol/L (3.5-5.1)
[2020-09-22 10:35] LABS: ALBUMIN 3.1 g/dl (3.4-5.0); BLOOD UREA NITROGEN 69.9 mg/dL (7-18); CALCIUM 8.9 mg/dL (8.5-10.1)
[2020-09-22 10:38] LABS: CREATININE 2.9 mg/dL (0.55-1.3)
[2020-09-22 10:40] LABS: TOT PROT 7.6 g/dl (6.4-8.2)
[2020-09-22 10:43] LABS: BILIRUBIN,TOTAL 1.9 mg/dL (0.2-1)
[2020-09-23 08:49] LABS: BASO % 0.2 % (0-2.0); EOS % 0.1 % (0-4.5); HEMATOCRIT 39.9 % (32.4-45.2); HEMOGLOBIN 12.8 GM/dL (10.7-15.3); LYMPH % 13.5 % (8-40); MCH 26.5 pg (25.7-33.7); MCHC 32.2 g/dl (32.0-36.0); MEAN CELL VOLUME 82.4 fl (80-96); NEUT % 78.2 % (42.8-82.8); PLATELET COUNT 239 K/MM3 (134-434); RBC 4.84 M/mm3 (3.60-5.2); RDW 17.9 % (11.6-15.6); WHITE BLOOD COUNT 10.9 K/mm3 (4.0-10.0)
[2020-09-23 09:14] LABS: POTASSIUM 5.8 mmol/L (3.5-5.1)
[2020-09-23 09:18] LABS: ALBUMIN 3.2 g/dl (3.4-5.0); MAGNESIUM 3.3 mg/dL (1.8-2.4)
[2020-09-23 09:20] LABS: CREATININE 2.5 mg/dL (0.55-1.3); PHOSPHOROUS 4.9 mg/dL (2.5-4.9)
[2020-09-23 09:21] LABS: TOT PROT 8.2 g/dl (6.4-8.2)
[2020-09-23] MEDS ORDERED: FUROSEMIDE 40 MG TABLET (FP) PO SCH (10:00)
[2020-09-23] MEDS ORDERED: cefTRIAXone SODIUM 1 GM VIAL ONE (10:01)
[2020-09-23] MEDS ORDERED: DEXTROSE 5%-WATER - 50 ML IVPB ONE (10:01)
[2020-09-23] MEDS: CEFTRIAXONE 1 GM in DEXTROSE 5%-WATER - 50 ML IVPB SCH (10:54)
[2020-09-23] MEDS: DEXAMETHASONE SOD PHOSPHATE 4 MG/1 ML VIAL IVPUSH SCH (10:54)
[2020-09-23] MEDS: ASPIRIN 81 MG CHEWABLE TABLETS PO SCH (10:55)
[2020-09-23] MEDS: CHOLECALCIFEROL (VIT D3) 1,000 UNIT (25 MCG) TABLET PO SCH (10:55)
[2020-09-23] MEDS: CLOPIDOGREL BISULFATE 75 MG TABLET (FP) PO SCH (10:55)
[2020-09-23] MEDS: LEVOTHYROXINE NA 100 MCG TABLET (FP) PO SCH (10:55)
[2020-09-23] MEDS: metoPROLOL SUCCINATE 25 MG TAB.SR.24H (FP) PO SCH (10:55)
[2020-09-23] MEDS: APIXABAN 5 MG TABLET PO SCH ×2 (10:55→23:02)
[2020-09-23] MEDS ORDERED: DEXAMETHASONE SOD PHOSPHATE 4 MG/1 ML VIAL IVPUSH SCH (13:35)
[2020-09-23 19:24] LABS: POTASSIUM 4.2 mmol/L (3.5-5.1)
[2020-09-23 19:26] LABS: CALCIUM 8.7 mg/dL (8.5-10.1)
[2020-09-23 19:27] LABS: BLOOD UREA NITROGEN 78.1 mg/dL (7-18)
[2020-09-23 19:30] LABS: CREATININE 2.5 mg/dL (0.55-1.3)
[2020-09-23] MEDS: ATORVASTATIN CA 40 MG TABLET (FP) PO SCH (23:02)
[2020-09-24] MEDS: LEVOTHYROXINE NA 100 MCG TABLET (FP) PO SCH (07:09)
[2020-09-24] MEDS ORDERED: METOPROLOL TARTRATE 5 MG/5 ML VIAL IVPUSH ONE (07:31)
[2020-09-24] MEDS ORDERED: METOPROLOL TARTRATE 5 MG/5 ML VIAL IVPUSH PRN (07:51)
[2020-09-24 08:54] LABS: HEMATOCRIT 40.4 % (32.4-45.2); HEMOGLOBIN 13.1 GM/dL (10.7-15.3); MCH 26.6 pg (25.7-33.7); MCHC 32.4 g/dl (32.0-36.0); MEAN CELL VOLUME 82.1 fl (80-96); PLATELET COUNT 263 K/MM3 (134-434); RBC 4.92 M/mm3 (3.60-5.2); RDW 18.4 % (11.6-15.6); WHITE BLOOD COUNT 10.3 K/mm3 (4.0-10.0)
[2020-09-24 09:02] LABS: POTASSIUM 4.5 mmol/L (3.5-5.1)
[2020-09-24 09:09] LABS: BLOOD UREA NITROGEN 74.3 mg/dL (7-18); MAGNESIUM 3.1 mg/dL (1.8-2.4)
[2020-09-24 09:11] LABS: CALCIUM 9.2 mg/dL (8.5-10.1); CREATININE 2.1 mg/dL (0.55-1.3); PHOSPHOROUS 4.2 mg/dL (2.5-4.9)
[2020-09-24] MEDS ORDERED: DEXTROSE 5%-WATER - 50 ML IVPB ONE (09:28)
[2020-09-24] MEDS ORDERED: cefTRIAXone SODIUM 1 GM VIAL ONE (09:28)
[2020-09-24] MEDS: CHOLECALCIFEROL (VIT D3) 1,000 UNIT (25 MCG) TABLET PO SCH (09:49)
[2020-09-24] MEDS: APIXABAN 5 MG TABLET PO SCH ×2 (09:50→23:31)
[2020-09-24] MEDS: amLODIPine BESYLATE 5 MG TABLET (FP) PO SCH (09:50)
[2020-09-24] MEDS: ASPIRIN 81 MG CHEWABLE TABLETS PO SCH (09:50)
[2020-09-24] MEDS: CLOPIDOGREL BISULFATE 75 MG TABLET (FP) PO SCH (09:51)
[2020-09-24] MEDS: CEFTRIAXONE 1 GM in DEXTROSE 5%-WATER - 50 ML IVPB SCH (09:51)
[2020-09-24] MEDS: ATORVASTATIN CA 40 MG TABLET (FP) PO SCH (23:31)
[2020-09-25] MEDS ORDERED: metoPROLOL SUCCINATE 25 MG TAB.SR.24H (FP) PO SCH (07:36)
[2020-09-25 08:44] LABS: BASO % 0.7 % (0-2.0); EOS % 0.2 % (0-4.5); HEMATOCRIT 39.8 % (32.4-45.2); HEMOGLOBIN 12.9 GM/dL (10.7-15.3); LYMPH % 11.7 % (8-40); MCH 26.6 pg (25.7-33.7); MCHC 32.4 g/dl (32.0-36.0); MEAN CELL VOLUME 82.4 fl (80-96); MEAN PLT VOLUME 8.9 fl (7.5-11.1); MONO % 9.8 % (3.8-10.2); NEUT % 77.6 % (42.8-82.8); PLATELET COUNT 235 K/MM3 (134-434); RBC 4.83 M/mm3 (3.60-5.2); RDW 18.1 % (11.6-15.6); WHITE BLOOD COUNT 8.8 K/mm3 (4.0-10.0)
[2020-09-25 09:03] LABS: POTASSIUM 4.3 mmol/L (3.5-5.1)
[2020-09-25 09:24] LABS: BLOOD UREA NITROGEN 74.2 mg/dL (7-18); CALCIUM 9.1 mg/dL (8.5-10.1)
[2020-09-25 09:26] LABS: MAGNESIUM 3.3 mg/dL (1.8-2.4)
[2020-09-25] MEDS: APIXABAN 5 MG TABLET PO SCH ×2 (09:27→21:34)
[2020-09-25] MEDS: CHOLECALCIFEROL (VIT D3) 1,000 UNIT (25 MCG) TABLET PO SCH (09:27)
[2020-09-25 09:28] LABS: PHOSPHOROUS 4.2 mg/dL (2.5-4.9)
[2020-09-25] MEDS: CLOPIDOGREL BISULFATE 75 MG TABLET (FP) PO SCH (09:28)
[2020-09-25] MEDS: amLODIPine BESYLATE 5 MG TABLET (FP) PO SCH (09:28)
[2020-09-25] MEDS: ATORVASTATIN CA 40 MG TABLET (FP) PO SCH (21:35)
[2020-09-26] MEDS: CLOPIDOGREL BISULFATE 75 MG TABLET (FP) PO SCH ×2 (08:37→09:47)
[2020-09-26] MEDS: APIXABAN 5 MG TABLET PO SCH ×3 (08:37→23:03)
[2020-09-26] MEDS: CHOLECALCIFEROL (VIT D3) 1,000 UNIT (25 MCG) TABLET PO SCH ×2 (08:37→09:47)
[2020-09-26] MEDS: amLODIPine BESYLATE 5 MG TABLET (FP) PO SCH ×2 (08:38→09:47)
[2020-09-26 10:17] LABS: BASO % 0.6 % (0-2.0); EOS % 0.1 % (0-4.5); LYMPH % 10.1 % (8-40); MCH 26.8 pg (25.7-33.7); MCHC 32.5 g/dl (32.0-36.0); MEAN CELL VOLUME 82.5 fl (80-96); MEAN PLT VOLUME 8.8 fl (7.5-11.1); MONO % 7.1 % (3.8-10.2); NEUT % 82.1 % (42.8-82.8); PLATELET COUNT 237 K/MM3 (134-434); RBC 5.21 M/mm3 (3.60-5.2); RDW 18.6 % (11.6-15.6); WHITE BLOOD COUNT 10.4 K/mm3 (4.0-10.0)
[2020-09-26 10:43] LABS: ALBUMIN 3.3 g/dl (3.4-5.0); CALCIUM 9.1 mg/dL (8.5-10.1)
[2020-09-26 10:44] LABS: BLOOD UREA NITROGEN 65.2 mg/dL (7-18); MAGNESIUM 3.2 mg/dL (1.8-2.4)
[2020-09-26 10:47] LABS: BILIRUBIN,TOTAL 1.5 mg/dL (0.2-1); CREATININE 1.9 mg/dL (0.55-1.3)
[2020-09-26 10:49] LABS: TOT PROT 7.8 g/dl (6.4-8.2)
[2020-09-26] MEDS ORDERED: BUDESONIDE/FORMETEROL FUMARATE 80/4.5 mcg INHALER IH SCH (22:00)
[2020-09-26] MEDS: ATORVASTATIN CA 40 MG TABLET (FP) PO SCH (23:03)
[2020-09-27] MEDS: LEVOTHYROXINE NA 88 MCG TABLET (FP) PO SCH (06:33)
[2020-09-27] MEDS: amLODIPine BESYLATE 5 MG TABLET (FP) PO SCH (09:47)
[2020-09-27] MEDS: CHOLECALCIFEROL (VIT D3) 1,000 UNIT (25 MCG) TABLET PO SCH (09:47)
[2020-09-27] MEDS: APIXABAN 5 MG TABLET PO SCH ×2 (09:47→21:41)
[2020-09-27] MEDS: CLOPIDOGREL BISULFATE 75 MG TABLET (FP) PO SCH (09:47)
[2020-09-27 11:29] LABS: HEMATOCRIT 41.5 % (32.4-45.2); HEMOGLOBIN 13.2 GM/dL (10.7-15.3); MCH 26.3 pg (25.7-33.7); MCHC 31.8 g/dl (32.0-36.0); MEAN CELL VOLUME 82.8 fl (80-96); MEAN PLT VOLUME 9.1 fl (7.5-11.1); PLATELET COUNT 215 K/MM3 (134-434); RBC 5.01 M/mm3 (3.60-5.2); RDW 18.8 % (11.6-15.6); WHITE BLOOD COUNT 10.7 K/mm3 (4.0-10.0)
[2020-09-27 12:23] LABS: POTASSIUM 4.3 mmol/L (3.5-5.1)
[2020-09-27 12:35] LABS: CREATININE 1.6 mg/dL (0.55-1.3)
[2020-09-27 12:59] LABS: BLOOD UREA NITROGEN 55.5 mg/dL (7-18); CALCIUM 9.1 mg/dL (8.5-10.1)
[2020-09-27] MEDS: ATORVASTATIN CA 40 MG TABLET (FP) PO SCH (21:41)
[2020-09-28] MEDS: LEVOTHYROXINE NA 88 MCG TABLET (FP) PO SCH (06:13)
[2020-09-28] MEDS: CLOPIDOGREL BISULFATE 75 MG TABLET (FP) PO SCH (09:39)
[2020-09-28] MEDS: APIXABAN 5 MG TABLET PO SCH ×2 (09:39→21:16)
[2020-09-28] MEDS: amLODIPine BESYLATE 5 MG TABLET (FP) PO SCH (09:39)
[2020-09-28] MEDS: CHOLECALCIFEROL (VIT D3) 1,000 UNIT (25 MCG) TABLET PO SCH (09:40)
[2020-09-28 11:58] LABS: POTASSIUM 3.9 mmol/L (3.5-5.1)
[2020-09-28 12:01] LABS: BLOOD UREA NITROGEN 53.6 mg/dL (7-18); MAGNESIUM 3.1 mg/dL (1.8-2.4)
[2020-09-28 12:05] LABS: CREATININE 1.9 mg/dL (0.55-1.3); PHOSPHOROUS 3.1 mg/dL (2.5-4.9)
[2020-09-28] MEDS: ATORVASTATIN CA 40 MG TABLET (FP) PO SCH (21:16)
[2020-09-29] MEDS: LEVOTHYROXINE NA 88 MCG TABLET (FP) PO SCH (06:25)
[2020-09-29] MEDS: APIXABAN 5 MG TABLET PO SCH (10:23)
[2020-09-29] MEDS: CHOLECALCIFEROL (VIT D3) 1,000 UNIT (25 MCG) TABLET PO SCH (10:24)
[2020-09-29] MEDS: amLODIPine BESYLATE 5 MG TABLET (FP) PO SCH (10:24)
[2020-09-29] MEDS: CLOPIDOGREL BISULFATE 75 MG TABLET (FP) PO SCH (10:24)
[2020-09-29 13:22] VITALS: BP 131/69; PULSE 61; TEMP 98.4
== END 2020-09-29 17:14 | DRG 177 ==
LOC: JER 10:09 → JERBED 14:03 → J4W 18:00
PROVIDERS: ADMIT Internal Medicine; ATTEND Internal Medicine
DX: U07.1 COVID-19 (principal); J96.01 Acute respiratory failure with hypoxia; J12.82 Pneumonia due to coronavirus disease 2019; I50.23 Acute on chronic systolic (congestive) heart failure; I13.0 Hypertensive heart and chronic kidney disease with heart failure and stage 1 through stage 4 chronic kidney disease, or unspecified chronic kidney disease; E87.2 Acidosis; N17.9 Acute kidney failure, unspecified; I48.92 Unspecified atrial flutter; E87.0 Hyperosmolality and hypernatremia; N39.0 Urinary tract infection, site not specified; I47.1 Supraventricular tachycardia; I48.91 Unspecified atrial fibrillation; Z79.01 Long term (current) use of anticoagulants; I25.10 Atherosclerotic heart disease of native coronary artery without angina pectoris; E78.5 Hyperlipidemia, unspecified; Z79.4 Long term (current) use of insulin; E11.22 Type 2 diabetes mellitus with diabetic chronic kidney disease; R94.31 Abnormal electrocardiogram [ECG] [EKG]; N18.2 Chronic kidney disease, stage 2 (mild); E87.5 Hyperkalemia; E03.9 Hypothyroidism, unspecified; M71.21 Synovial cyst of popliteal space [Baker], right knee
CPT/HCPCS: 36415; 36600; 70450-TC; 71045-TC-FY; 80048; 80051; 80053; 81003; 82248; 82550; 82553; 82728; 82803; 82962; 83605; 83615; 83735; 83880; 84100; 84443; 84484; 85025; 85027; 85379; 85610; 85651; 85730; 86140; 86769; 87077; 87086; 87186; 87804; 93005; 93010; 93971-TC; 94660; 94761; 97116-GP; 97161-GP; 99285-25; C9803; U0003